=== PATIENT | female | born 1940 | race Caucasian/White ===

== ENCOUNTER 2019-04-26 13:03 | Outpatient (RCR) | payer MEDICARE, OTHER | END 2019-04-29 | disposition home or self-care (01) | PROVIDERS: ATTEND Internal Medicine | DX: R26.81 Unsteadiness on feet (principal); R32 Unspecified urinary incontinence ==

== ENCOUNTER 2019-05-15 09:58 | Outpatient (RCR) | payer MEDICARE, OTHER | END 2019-05-15 14:02 | disposition home or self-care (01) | PROVIDERS: ATTEND Internal Medicine | DX: R26.81 Unsteadiness on feet (principal); R32 Unspecified urinary incontinence; R29.6 Repeated falls; Z90.49 Acquired absence of other specified parts of digestive tract; Z96.653 Presence of artificial knee joint, bilateral; Z87.81 Personal history of (healed) traumatic fracture ==

== ENCOUNTER 2019-10-31 11:33 | Emergency (ER) | payer MEDICARE, OTHER ==
[~2019-10-31] VITALS: Ht 162 cm; Wt 66.7 kg
--- OUTSIDE RECORDS SUMMARY | 2019-10-31 11:41 | XMS REPORT ---
Author Author Florecita Zambrano Organization [facility] Address 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 Acti ve 6205363035284 Problem Benign neoplasm of skin of trunk, except scrotum 216.5 Active [id number] ALLERGIES No Information ENCOUNTERS Encounter Location Date Diagnosis [facility] [id number] [place] [address] [id number] Dec, [facility] [address] [place] [address] [id number] Jan, Actinic keratosis L57.0 [facility] [address] [facility] in [address] [id number] Dec, Seborrheic keratoses L82.1 ; 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 ; Encounter for screening for malignant neoplasm of skin Z12.83 ; Actinic keratosis L57.0 ; Benign neoplasm of skin of trunk, except scrotum D23.5 and Lentigo L81.4 [facility] [address] [place] [address] [id number] Feb, Benign neoplasm of skin of t runk, except scrotum D23.5 ; Actinic keratosis L57.0 ; Neoplasm of uncertain behavior of skin D48.5 ; Seborrheic keratoses L82.1 and Lentigo L81.4 [facility] [address] [place] [address] [id number] Feb, History of atypical nevus Z8 7.2 ; Encounter for screening for malignant neoplasm of skin Z12.83 ; Actinic keratosis L57.0 ; Seborrheic keratoses L82.1 ; Benign neoplasm of skin of trunk, except scrotum D23.5 and Lentigo L81.4 [facility] [address] [place] [address] [id number] Feb, Benign neoplasm of skin of t runk, except scrotum 216.5 ; Screening for malignant neoplasm of the skin V76.43 ; Actinic keratosis 702.0 ; Neoplasm of uncertain behavior of skin 238.2 ; Lentigo/Melasma 709.09 and Other seborrheic keratosis 702.19 [facility] [address] [place] [address] [id number] Jan, Viral warts, unspecified 078 .10 ; Other specified disorder of skin 709.8 and Inflamed seborrheic keratosis 702.11 IMMUNIZATIONS No Known Immunizations SOCIAL HISTORY Never Assessed REASON FOR VISIT spot on arm PLAN OF CARE Activity Details Follow Up as scheduled Reason: VITAL SIGNS MEDICATIONS Medication Instructions Dosage Frequency Start Date End Date Duration S tatus Zestril 10 MG Orally Once a day 1 tablet 24h Active Albuterol Sulfate (2.5 MG/3ML) 0.083% Inhalation Three times a day 3 m l 8h Active Crestor 5 MG Orally Once a day 1 tablet 24h Active Warfarin Sodium 3 MG 1 tablet Ac tive Trazodone HCl 50 MG Orally Once a day 1 tablet at bedtime 24h Active Cymbalta 30 MG Orally Twice a day 1 capsule 12h Active Myrbetriq 25 MG Orally Once a day 1 tablet 24h Active Nasonex 50 MCG/ACT Nasally Once a day 2 sprays in each nostril 24h Active Advair Diskus 250-50 MCG/DOSE Inhalation Twice a day 1 puff 12h Active Singulair 10 MG Orally Once a day 1 tablet in the evening 24h Active Fosamax 70 MG 1 tablet Active Nexium 40 MG Orally Once a day 1 capsule 24h Active Levothyroxine Sodium 75 MCG Orally Once a day 1 tablet 24h Active Klonopin 0.5 MG Orally Twice a day 1 tablet 12h Active Myrbetriq 25 MG Orally Once a day 1 tablet 24h Active RESULTS No Results PROCEDURES Procedure Date Ordered Result Body Site DESTROY BENIGN/PREMAL LESION January 26, 2018 INSTRUCTIONS MEDICATIONS ADMINISTERED No Known Medications MEDICAL (GENERAL) HISTORY Type Description Date Medical History Actinic keratosis Medical History History of atypical nevus
--- OUTSIDE RECORDS SUMMARY | 2019-10-31 11:41 | XMS REPORT ---
Author Florecita Tanner [facility] eClinicalWorks Address Unknown Phone Unavailable Care Team Providers Care Manual Equipment Mechanic Name Role Phone Diego Zambrano CP Unavailable Allergies, Adverse Reactions, Alerts Substance Reaction Event Type N.K.D.A. 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 Ac tive Assessment Encounter for screening for malignant neoplasm of skin Z12.83 Active Medications Medication Code System Code Instructions Start Date End Date Status Dosage Advair Diskus [facility] [address]-06 250-50 MCG/DOSE Inhalation Twice a d ay 1 puff Trazodone HCl [facility] [address]-82 50 MG Orally Once a day 1 tablet at bedtime Myrbetriq [facility] [address]-91 25 MG Orally Once a day 1 tablet Fosamax [facility] [address]-59 70 MG Orally 1 ta blet Zestril [facility] [address]-29 10 MG Orally Once a day 1 tablet Nasonex [facility] [address]-22 50 MCG/ACT Nasally Once a day 2 sprays in each nostril Nexium [facility] [address]-47 40 MG Orally Once a day 1 capsule Levothyroxine Sodium [facility] [address]-88 75 MCG Orally Once a day 1 tablet Warfarin Sodium [facility] [address]-85 3 MG Orally 1 tablet Crestor [facility] [address]-34 5 MG Orally Once a day 1 tablet Klonopin [facility] [address]-37 0.5 MG Orally Twice a day 1 tablet Myrbetriq [facility] [address]-19 25 MG Orally Once a day 1 tablet Albuterol Sulfate [facility] [address]-98 (2.5 MG/3ML) 0 .083% Inhalation Three times a day 3 ml Singulair [facility] [address]-63 10 MG Orally Once a day 1 tablet in the evening Cymbalta [facility] [address]-71 30 MG Orally Twice a day 1 capsule Procedures Procedure Coding System Code Date DESTROY LESIONS, 2-14, EACH CPT-4 78691 Feb 09, 2016 DESTROY BENIGN/PREMAL LESION CPT-4 20816 Feb 09, 2016 Office Visit, Est Pt., Level 4 CPT-4 44669 A 2015 Vital Signs Date/Time: Feb 09, 2016 Blood Pressure Diastolic 80 mm Hg Blood Pressure Systolic 146 mm Hg Cardiac Monitoring Heart Rate 67 /min BMI 29.23 Index Weight 165 lbs Height 63 in Results No Known Results Summary Purpose eClinicalWorks Submission
--- OUTSIDE RECORDS SUMMARY | 2019-10-31 11:41 | XMS REPORT ---
Author Author Florecita Zambrano Organization [facility] Address 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 Acti ve 0470487960841 Problem Benign neoplasm of skin of trunk, except scrotum 216.5 Active 707457206 ALLERGIES No Known Allergies ENCOUNTERS Encounter Location Date Diagnosis [facility] [address] in [address] [id number] Dec, [facility] [address] [facility] in [address] [id number] Dec, Seborrheic keratoses L82.1 ; 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 ; Encounter for screening for malignant neoplasm of skin Z12.83 ; Actinic keratosis L57.0 ; Benign neoplasm of skin of trunk, except scrotum D23.5 and Lentigo L81.4 [facility] [address] in [address] [id number] Feb, Benign neoplasm of skin of t runk, except scrotum D23.5 ; Actinic keratosis L57.0 ; Neoplasm of uncertain behavior of skin D48.5 ; Seborrheic keratoses L82.1 and Lentigo L81.4 [facility] [address] in [address] [id number] Feb, History of atypical nevus Z8 7.2 ; Encounter for screening for malignant neoplasm of skin Z12.83 ; Actinic keratosis L57.0 ; Seborrheic keratoses L82.1 ; Benign neoplasm of skin of trunk, except scrotum D23.5 and Lentigo L81.4 [facility] [address] [facility] in [address] [id number] Feb, Benign neoplasm of skin of t runk, except scrotum 216.5 ; Screening for malignant neoplasm of the skin V76.43 ; Actinic keratosis 702.0 ; Neoplasm of uncertain behavior of skin 238.2 ; Lentigo/Melasma 709.09 and Other seborrheic keratosis 702.19 [facility] [address] [facility] in [address] [id number] Jan, Viral warts, unspecified 078 .10 ; Other specified disorder of skin 709.8 and Inflamed seborrheic keratosis 702.11 IMMUNIZATIONS No Known Immunizations SOCIAL HISTORY Never Assessed REASON FOR VISIT ck spots PLAN OF CARE Activity Details Follow Up 1 Year Reason: VITAL SIGNS Heart Rate 73 /min 2017-12-12 Height 63 in 2017-12-12 Weight 165 lbs 2017-12-12 BMI 29.23 kg/m2 2017-12-12 Blood pressure systolic 112 mm Hg 2017-12-12 Blood pressure diastolic 70 mm Hg 2017-12-12 MEDICATIONS Medication Instructions Dosage Frequency Start Date End Date Duration S tatus Nexium 40 MG Orally Once a day 1 capsule 24h Active Nasonex 50 MCG/ACT Nasally Once a day 2 sprays in each nostril 24h Active Albuterol Sulfate (2.5 MG/3ML) 0.083% Inhalation Three times a day 3 m l 8h Active Advair Diskus 250-50 MCG/DOSE Inhalation Twice a day 1 puff 12h Active Cymbalta 30 MG Orally Twice a day 1 capsule 12h Active Fosamax 70 MG 1 tablet Active Warfarin Sodium 3 MG 1 tablet Ac tive Klonopin 0.5 MG Orally Twice a day 1 tablet 12h Active Singulair 10 MG Orally Once a day 1 tablet in the evening 24h Active Trazodone HCl 50 MG Orally Once a day 1 tablet at bedtime 24h Active Crestor 5 MG Orally Once a day 1 tablet 24h Active Levothyroxine Sodium 75 MCG Orally Once a day 1 tablet 24h Active Zestril 10 MG Orally Once a day 1 tablet 24h Active Myrbetriq 25 MG Orally Once a day 1 tablet 24h Active Myrbetriq 25 MG Orally Once a day 1 tablet 24h Active RESULTS No Results PROCEDURES Procedure Date Ordered Result Body Site DESTROY BENIGN/PREMAL LESION December 12, 2017 DESTROY LESIONS 2 - 14 EACH December 12, 2017 INSTRUCTIONS MEDICATIONS ADMINISTERED No Known Medications MEDICAL (GENERAL) HISTORY Type Description Date Medical History Actinic keratosis Medical History History of atypical nevus
--- OUTSIDE RECORDS SUMMARY | 2019-10-31 11:41 | XMS REPORT ---
Author Author Florecita Zambrano Organization [facility] Address 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 Unknown Non Drug Allergy Feb, Unknown SOCIAL HISTORY No smoking Hx information available PLAN OF CARE Activity Details Follow Up 1 Year Reason: VITAL SIGNS Heart Rate 73 /min 2017-02-10 Height 63 in 2017-02-10 Weight 165 lbs 2017-02-10 BMI 29.23 kg/m2 2017-02-10 Blood pressure systolic 112 mm Hg 2017-02-10 Blood pressure diastolic 70 mm Hg 2017-02-10 MEDICATIONS Medication Instructions Dosage Frequency Start Date End Date Duration S tatus Nasonex 50 MCG/ACT Nasally Once a day 2 sprays in each nostril 24h Active Fosamax 70 MG 1 tablet Active Albuterol Sulfate (2.5 MG/3ML) 0.083% Inhalation Three times a day 3 m l 8h Active Advair Diskus 250-50 MCG/DOSE Inhalation Twice a day 1 puff 12h Active Cymbalta 30 MG Orally Twice a day 1 capsule 12h Active Warfarin Sodium 3 MG 1 tablet Ac tive Crestor 5 MG Orally Once a day 1 tablet 24h Active Myrbetriq 25 MG Orally Once a day 1 tablet 24h Active Klonopin 0.5 MG Orally Twice a day 1 tablet 12h Active Trazodone HCl 50 MG Orally Once a day 1 tablet at bedtime 24h Active Zestril 10 MG Orally Once a day 1 tablet 24h Active Nexium 40 MG Orally Once a day 1 capsule 24h Active Singulair 10 MG Orally Once a day 1 tablet in the evening 24h Active Levothyroxine Sodium 75 MCG Orally Once a day 1 tablet 24h Active Myrbetriq 25 MG Orally Once a day 1 tablet 24h Active RESULTS Name Result Date Reference Range Surgical to [facility] Pathology 2017-02-10 Pathologist: See Report PROCEDURES Procedure Date Ordered Related Diagnosis Body Site BIOPSY OF SKIN LESION Feb 10, 2017 DESTROY BENIGN/PREMAL LESION Feb 10, 2017 Office Visit Est Pt Level 4 Feb 10, 2017 IMMUNIZATIONS No Known Immunizations
--- OUTSIDE RECORDS SUMMARY | 2019-10-31 11:41 | XMS REPORT | Continuity of Care Document ---
Author Organization Unknown Address Unknown Phone Unavailable Allergies There is no data. Medications There is no data. 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, BILAT 03/19/2019 DOROTEO SANTIZO MD Ot R26.8 1 UNSTEADINESS ON FEET 03/19/2019 DOROTEO SANTIZO MD, Ot R32 UNSPECIFIED URINARY INCONTINENCE 04/29/2019 DOROTEO SANTIZO MD Ot R26.8 1 UNSTEADINESS ON FEET 04/29/2019 DOROTEO SANTIZO MD Ot R32 UNSPECIFIED URINARY INCONTINENCE 04/30/2019 DOROTEO SANTIZO MD Ot R26.8 1 UNSTEADINESS ON FEET 04/30/2019 DOROTEO SANTIZO MD, Ot R32 UNSPECIFIED URINARY INCONTINENCE 05/15/2019 DOROTEO SANTIZO MD Ot R26.8 1 UNSTEADINESS ON FEET 05/15/2019 DROOTEO SANTIZO MD Ot R29.6 REPEATED FALLS 05/15/2019 DOROTEO SANTIZO MD, Ot R32 UNSPECIFIED URINARY INCONTINENCE 05/15/2019 DOROTEO SANTIZO MD Ot Z87.8 1 PERSONAL HISTORY OF (HEALED) TRAUMATIC F 05/15/2019 DOROTEO SANTIZO MD Ot Z90.4 9 ACQUIRED ABSENCE OF OTHER SPECIFIED PART 05/15/2019 DOROTEO SANTIZO MD Ot Z96.6 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 Results There is no data. Encounters ACCT No. Visit Date/Time Discharge Status Pt. Type Provider Facility Loc./Unit Complaint [id number] 05/15/2019 09:58:00 14:02:00 DIS Outpatient DOROTEO SANTIZO MD Via [facility] GAIT TRAINING; URINARY INCONTINENCE [id number] 04/26/2019 13:03:00 00:01:00 DIS Outpatient DOROTEO SANTIZO MD [facility] GAIT TRAINING; URINARY INCONTINENCE
[2019-10-31] MEDS ORDERED: LEVO50TA6 (11:55)
[2019-10-31] MEDS ORDERED: CYCL1DRO (11:55)
[2019-10-31] MEDS ORDERED: MIRA25TA (11:55)
[2019-10-31] MEDS ORDERED: MONT10TA26 (11:55)
[2019-10-31] MEDS ORDERED: ALEN70TA5 (11:55)
[2019-10-31] MEDS ORDERED: FLUT1DIS26 (11:55)
[2019-10-31] MEDS ORDERED: LISI-556 (11:55)
[2019-10-31] MEDS ORDERED: RIVA10TA (11:55)
[2019-10-31] MEDS ORDERED: CLON0.5T4 (11:55)
[2019-10-31] MEDS ORDERED: PANT40TA3 (11:55)
[2019-10-31] MEDS ORDERED: RT-ALBUINH (11:55)
[2019-10-31] MEDS ORDERED: TRAV5DRO (11:55)
[2019-10-31] MEDS ORDERED: ROSU5TAB13 (11:55)
[2019-10-31] MEDS ORDERED: DULO60CA59 (11:55)
[2019-10-31] MEDS ORDERED: FLUT16SP22 (11:55)
--- NOTE | 2019-10-31 12:21 | ED General ---
General Chief Complaint: Trauma-Non Activation Stated Complaint: FALL;NOSE PAIN Nursing Triage Note: PT PRESENTS TO ED WITH COMPLAINTS OF NASAL/ FOREHEAD, AND MOUTH PAIN AFTER TRIPPING IN HER GARAGE AND FALLING FACE FORWARD. PT DENIES LOC OR LOOSE/BROKEN TEETH. Nursing Sepsis Screen: No Definite Risk History of Present Illness Date Seen by Provider: Oct 31, 2019 Time Seen by Provider: 12:00 Initial Comments 79 year old female presents for fall in her garage from uneven concrete. Her daughter was present at the time she fell. She denies loss of consciousness, neck/back pain, nausea, vision changes or vomiting since the fall, or any other injuries related to the fall. She is on Xarelto. Her glasses broke when she fell. Her last tetanus vaccine was proximally 5 years ago. Fire and EMS came to her house, she opted to come via private car. Location Injury Occurred: HOME RESIDENCE Timing/Duration: 1/2 Hour Associated Systoms: Denies Symptoms Allergies and Home Medications Allergies Coded Allergies: No Known Drug Allergies (Unverified , 10/31/19) Patient Home Medication List Home Medication List Reviewed: Yes Review of Systems Review of Systems Constitutional: no symptoms reported, see HPI EENTM: see HPI, other (abrasion to left temporal region and base of nose, trace bleeding and ecchymosis. ) Respiratory: no symptoms reported, see HPI Cardiovascular: no symptoms reported, see HPI Gastrointestinal: no symptoms reported, see HPI Musculoskeletal: no symptoms reported, see HPI; No back pain, No joint pain, No neck pain All Other Systems Reviewed Negative Unless Noted: Yes Past Aoqnqfz-Vxsjhn-Rjruah Hx Past Med/Social Hx: Reviewed Nursing Past Med/Soc Hx Patient Social History Alcohol Use: Denies Use Recreational Drug Use: No Smoking Status: Never a Smoker Recent Foreign Travel: No Contact w/Someone Who Travel: No Recent Infectious Disease Expo: No Recent Hopitalizations: No Physical Abuse: No Sexual Abuse: No Mistreated: No Fear: No Seasonal Allergies Seasonal Allergies: No Past Medical History Surgeries: Yes Appendectomy, Hysterectomy, Orthopedic Respiratory: Yes COPD Cardiac: Yes High Cholesterol, Hypertension Neurological: No Genitourinary: No Gastrointestinal: Yes Gastroesophageal Reflux Musculoskeletal: No Endocrine: Yes Hypothyroidsim HEENT: Yes (dry eye) Psychosocial: Yes Depression Blood Disorders: Yes (FACTOR 9 ) Adverse Reaction/Blood Tranf: No Physical Exam Vital Signs Vital Signs - First Documented 10/31/19 10/31/19 11:50 13:58 Temp 36.3 Pulse 95 Resp 18 B/P (MAP) 137/69 (91) Pulse Ox 98 O2 Delivery Room Air Capillary Refill : Less Than 3 Seconds Height, Weight, BMI Height: '" Weight: lbs. oz. kg; 25.00 BMI Method: General Appearance: No Apparent Distress, WD/WN Eyes: Bilateral Eye Normal Inspection, Bilateral Eye PERRL, Bilateral Eye EOMI HEENT: PERRL/EOMI, TMs Normal, Normal ENT Inspection, Pharynx Normal, Other (Superficial abrasion, swelling to left temporal region and base of nose. Early ecchymosis noted. ) Neck: Full Range of Motion, Normal Inspection, Non Tender, Supple; No Tender Lateral, No Tender Midline Respiratory: Chest Non Tender, Lungs Clear, Normal Breath Sounds Cardiovascular: Regular Rate, Rhythm, No Edema, No Murmur, Normal Peripheral Pulses Gastrointestinal: Normal Bowel Sounds, Non Tender, Soft Back: Normal Inspection, No CVA Tenderness Extremity: Normal Capillary Refill, Normal Inspection, Normal Range of Motion Neurologic/Psychiatric: Alert, Oriented x3, No Motor/Sensory Deficits, Normal Mood/Affect, infection control preventionist II-XII Norm as Tested (grossly intact) Skin: Normal Color, Warm/Dry Progress/Results/Core Measures Suspected Sepsis Recent Fever Within 48 Hours: No Infection Criteria Present: None New/Unexplained Altered Menta: No Sepsis Screen: No Definite Risk SIRS Temperature: Pulse: 95 Respiratory Rate: 18 Blood Pressure 137 /69 Mean: 91 Results/Orders My Orders Orders - SADIE ZAMBRANO Ct Head/Maxillofacial Wo (10/31/19 12:24) Acetaminophen Tablet/Caplet (Tylenol T (10/31/19 13:50) Vital Signs/I&O 10/31/19 10/31/19 10/31/19 11:50 13:57 13:58 Temp 36.3 36.3 36.3 Pulse 95 74 Resp 18 18 B/P (MAP) 137/69 (91) 125/77 (91) Pulse Ox 98 98 O2 Delivery Room Air Capillary Refill : Less Than 3 Seconds Blood Pressure Mean: 91 Progress Note : Time: 12:00 Progress Note Patient seen and evaluated, will obtain CT of the head and maxillofacial. Wounds cleaned with saline and Band-Aids applied. Ice to abrasions. 1250 patient complaining of headache, will give Tylenol [address] results discussed with the patient. Dressings changed to wounds, no active bleeding. Triple antibiotic and a Band-Aid applied. Discharge instructions and return precautions reviewed with the patient. All questions answered Diagnostic Imaging Diagonstic Imaging: CT Plain Films/CT/US/NM/MRI: head, other (maxillofacial) Comments NAME: JOE ALANIS [facility] REC#: [id number] PT STATUS: REG ER : 1940 PHYSICIAN: SADIE ZAMBRANO ADMIT DATE: 10/31/19/ER Signed Date of Exam:10/31/19 CT HEAD/MAXILLOFACIAL WO PROCEDURE: CT head and maxillofacial without contrast. TECHNIQUE: Multiple contiguous axial images were obtained through the head and facial bones without the use of intravenous contrast. Auto Exposure Controls were utilized during the CT exam to meet ALARA standards for radiation dose reduction. INDICATION: Fall. Hit left side of the face. Scalp contusion. COMPARISON: None. FINDINGS: CT HEAD: The ventricles and cortical sulci are age-appropriate. There is no midline shift or mass effect. No acute intracranial hemorrhage is seen. There is no CT evidence of acute territorial ischemia. Scattered chronic microvascular disease is seen in the periventricular and subcortical white matter. Senescent mineralization is seen in the bilateral basal ganglia. No focal masses or collections are present. The calvarium is intact. CT face: No acute facial fractures are visualized. The mandible, zygomatic arches, and pterygoid plates are intact. The bilateral TMJ demonstrate normal articulation. No nasal bone fractures. The bony nasal septum is slightly deviated to the left without fracture. The paranasal sinuses and mastoid air cells are well pneumatized. The globes and orbits are symmetric and unremarkable. No evidence of orbital rim fracture. A small scalp contusion is seen overlying the left forehead. The included views of the upper cervical spine demonstrate no acute fracture or dislocation. IMPRESSION: 1. No hemorrhage or focal intra-axial mass. No CT evidence of large acute territorial ischemia. 2. No acute facial fractures. 3. Chronic microvascular disease. 4. Small scalp contusion overlying the left forehead. Dictated by: Dictated on workstation # [id number] Dict: 10/31/19 1314 Trans: 10/31/19 1352 [id number] Interpreted by: TIM ZUNIGA DO Electronically signed by: TIM ZUNIGA DO 10/31/19 1352 Departure Impression Primary Impression: Fall Qualified Codes: W19.XXXA - Unspecified fall, initial encounter Additional Impression: Contusion of face Qualified Codes: S00.83XA - Contusion of other part of head, initial encounter Disposition: 01 HOME, SELF-CARE Condition: Improved Departure-Patient Inst. Decision time for Depature: 13:30 Referrals: DOROTEO SANTIZO MD (PCP) Primary Care Physician Patient Instructions: Minor Head Injury (DC), Contusion (DC) Add. Discharge Instructions: Ice to nose and forehead 20 min every 2 hours, for swelling or pain. Alternate Tylenol 650 mg and ibuprofen 600 mg every 4 hours for pain. Follow-up with your primary care provider if symptoms are not improving or worsen. Limit use of technology for a minor head injury. Avoid falls. Clean wounds with peroxide, apply triple antibiotic ointment and bandaid. Return to the Emergency Dept for new/urgent health care needs. All discharge instructions reviewed with patient and/or family. Voiced understanding. Copy Copies To 1: DOROTEO SANTIZO MD, AMY ARNP Oct 31, 2019 12:21
--- NOTE | 2019-10-31 13:20 | Diagnostic Imaging Report ---
PROCEDURE: CT head and maxillofacial without contrast. TECHNIQUE: Multiple contiguous axial images were obtained through the head and facial bones without the use of intravenous contrast. Auto Exposure Controls were utilized during the CT exam to meet ALARA standards for radiation dose reduction. INDICATION: Fall. Hit left side of the face. Scalp contusion. COMPARISON: None. FINDINGS: CT HEAD: The ventricles and cortical sulci are age-appropriate. There is no midline shift or mass effect. No acute intracranial hemorrhage is seen. There is no CT evidence of acute territorial ischemia. Scattered chronic microvascular disease is seen in the periventricular and subcortical white matter. Senescent mineralization is seen in the bilateral basal ganglia. No focal masses or collections are present. The calvarium is intact. CT face: No acute facial fractures are visualized. The mandible, zygomatic arches, and pterygoid plates are intact. The bilateral TMJ demonstrate normal articulation. No nasal bone fractures. The bony nasal septum is slightly deviated to the left without fracture. The paranasal sinuses and mastoid air cells are well pneumatized. The globes and orbits are symmetric and unremarkable. No evidence of orbital rim fracture. A small scalp contusion is seen overlying the left forehead. The included views of the upper cervical spine demonstrate no acute fracture or dislocation. IMPRESSION: 1. No hemorrhage or focal intra-axial mass. No CT evidence of large acute territorial ischemia. 2. No acute facial fractures. 3. Chronic microvascular disease. 4. Small scalp contusion overlying the left forehead. Dictated by: Dictated on workstation # [id number]
[2019-10-31] MEDS ORDERED: ACETAMINOPHEN 325 MG TABLET PO STA (13:50)
[2019-10-31 13:58] VITALS: BP 125/77
== END 2019-10-31 13:57 | disposition home or self-care (01) ==
LOC: EDUNIT# 11:33 → ER 11:36
DX: S00.83XA Contusion of other part of head, initial encounter (principal); Z79.01 Long term (current) use of anticoagulants; W01.0XXA Fall on same level from slipping, tripping and stumbling without subsequent striking against object, initial encounter; Y92.008 Other place in unspecified non-institutional (private) residence as the place of occurrence of the external cause
CPT/HCPCS: 70450; 70486

== ENCOUNTER → 2020-07-09 | Outpatient (CLI) | payer MEDICARE, OTHER ==
[~2020-07-09] MED LIST: ALEN70TA69; CLON0.5T4; CYCL1DRO; DULO60CA59; FLUT16SP22; FLUT1DIS26; LEVO50TA6; LISI-556; MIRA25TA; MONT10TA97; PANT40TA52; RIVA10TA; ROSU5TAB13; RT-ALBUINH; TRAV5DRO
== END ==
LOC: LABNPT 05:23
PROVIDERS: ATTEND Internal Medicine
DX: R68.83 Chills (without fever) (principal); R53.83 Other fatigue; R53.1 Weakness; Z20.822 Contact with and (suspected) exposure to COVID-19
CPT/HCPCS: 87635

== ENCOUNTER → 2020-10-29 | Outpatient (CLI) | payer MEDICARE, OTHER ==
[~2020-10-29] MED LIST changes: -ALEN70TA69; +ALEN70TA80; -LISI-556; +LISI-729; +MONT10TA32; -MONT10TA97
--- NOTE | 2020-10-29 12:22 | Diagnostic Imaging Report ---
INDICATION: Shortness of breath. TECHNIQUE: PA and lateral views of the chest were obtained at 11:38 AM. FINDINGS: The heart and mediastinal silhouette are normal in appearance. The lungs appear clear. There is no pneumothorax or pleural fluid. IMPRESSION: Negative chest. Dictated by: Dictated on workstation # [id number]
== END ==
LOC: RAD 11:16
PROVIDERS: ATTEND Internal Medicine
DX: R06.02 Shortness of breath (principal)
CPT/HCPCS: 71046

== ENCOUNTER → 2020-11-07 | Outpatient (CLI) | payer MEDICARE, OTHER ==
[~2020-11-07] MED LIST changes: +CATHETER FLUSH 10 ML SYR IV PRN; +HOLD METFORMIN - RECEIVED CONTRAST 20 ML VIAL IV SCH; +IOHEXOL 350 MG/ML 100 ML (OMNIPAQUE 350) VIAL IV ONE; +NS 100 ML (IVPB) BAG IV ONE
[2020-11-07 12:50] LABS: BASOPHILS % (AUTO) 0 % (0-10); EOSINOPHILS # (AUTO) 0.2 10^3/uL (0.0-0.3); EOSINOPHILS % (AUTO) 2 % (0-10); HEMATOCRIT 36 % (35-52); HEMOGLOBIN 11.1 g/dL (11.5-16.0); LYMPHOCYTES # (AUTO) 1.5 10^3/uL (1.0-4.0); LYMPHOCYTES % (AUTO) 23 % (12-44); MEAN CORPUSCULAR HEMOGLOBIN 24 pg (25-34); MEAN CORPUSCULAR HGB CONC 31 g/dL (32-36); MEAN CORPUSCULAR VOLUME 78 fL (80-99); MEAN PLATELET VOLUME 9.3 fL (9.0-12.2); MONOCYTES # (AUTO) 0.6 10^3/uL (0.0-1.0); MONOCYTES % (AUTO) 8 % (0-12); NEUTROPHILS # (AUTO) 4.6 10^3/uL (1.8-7.8); NEUTROPHILS % (AUTO) 67 % (42-75); PLATELET COUNT 397 10^3/uL (130-400); WHITE BLOOD COUNT 6.9 10^3/uL (4.3-11.0)
[2020-11-07 13:11] LABS: CREATININE SERUM 0.74 MG/DL (0.60-1.30); GFR ESTIMATED > 60
[2020-11-07 13:12] LABS: BUN/CREATININE RATIO 26
--- NOTE | 2020-11-07 16:04 | Diagnostic Imaging Report ---
PROCEDURE: CT angiography of the chest with contrast. TECHNIQUE: Multiple contiguous axial images were obtained through the chest after uneventful bolus administration of intravenous contrast. 3D reconstructed CTA MIP acquisitions were also performed. Auto Exposure Controls were utilized during the CT exam to meet ALARA standards for radiation dose reduction. INDICATION: Shortness of air and weakness in the legs. COMPARISON: No prior studies are available for comparison. FINDINGS: Evaluation of the pulmonary arterial system is without evidence of thromboembolism. No filling defects are seen within central, lobar or segmental branches. The thoracic aorta is normal caliber. No dissection is seen. There is no pericardial or pleural fluid. There is a large hiatal hernia. Lungs appear to be clear. No infiltrate, nodule or mass is detected. Upper abdomen is unremarkable. IMPRESSION: 1. No evidence of pulmonary embolism or thoracic aortic dissection. No acute feature is seen. 2. Large hiatal hernia. Dictated by: Dictated on workstation # [id number]
== END ==
LOC: CARD 13:30
PROVIDERS: ATTEND Internal Medicine Cardiovascular Disease
DX: K44.9 Diaphragmatic hernia without obstruction or gangrene (principal)
CPT/HCPCS: 36415; 71275; 82565; 83880; 84520; 85025; 93306

== ENCOUNTER → 2020-11-11 | Outpatient (CLI) | payer MEDICARE, OTHER ==
[~2020-11-11] VITALS: Ht 162 cm; Wt 68.0 kg
[~2020-11-11] MED LIST changes: -HOLD METFORMIN - RECEIVED CONTRAST 20 ML VIAL IV SCH; -IOHEXOL 350 MG/ML 100 ML (OMNIPAQUE 350) VIAL IV ONE; -NS 100 ML (IVPB) BAG IV ONE; +REGADENOSON 0.4 MG/5 ML SYR (LEXISCAN) IV ONE
[2020-11-11 09:09] VITALS: BP 155/80
--- NOTE | 2020-11-11 17:35 | STRESS TEST ---
DATE OF SERVICE: 11/11/2020 RESTING AND POST REGADENOSON TECHNETIUM-99M TETROFOSMIN SPECT CT IMAGING ORDERING PHYSICIAN: Dr. Trujillo. PRIMARY PHYSICIAN: Dr. Rodriguez. CLINICAL DIAGNOSIS: Shortness of breath. Baseline images were carried out after injection of 10.8 mCi of technetium-99m Tetrofosmin. This was followed by 0.4 mg of Regadenoson and 32.8 mCi of technetium-99m Tetrofosmin for stress imaging. The electrocardiogram showed sinus rhythm at baseline. There was incomplete right bundle branch block. The electrocardiogram did not change significantly with the Regadenoson infusion. The patient noted some shortness of breath and lightheadedness after Regadenoson infusion and it resolved in a few minutes. Review of images at rest and following stress does not indicate any significant perfusion defects consistent with significant myocardial ischemia or infarction. Gated images show normal global left ventricular systolic function with normal regional wall motion. Left ventricular ejection fraction is calculated to be 70% to 72%. Left ventricular end diastolic volume is 40 mL. TID is absent (1.12). CONCLUSIONS: 1. No evidence of any significant myocardial ischemia or infarction study. 2. Normal regional wall motion. 3. Normal global left ventricular systolic function with a calculated ejection fraction of 72%. Job ID: [id number] DocumentID: [id number] Dictated Date: 11/11/2020 14:56:27 Electroless Plater Date: 11/11/2020 17:34:27 Dictated By: LORI TRUJILLO MD, MA, FACP, FACC,
== END ==
LOC: CARD 08:30
PROVIDERS: ATTEND Internal Medicine Cardiovascular Disease
DX: R06.02 Shortness of breath (principal)
CPT/HCPCS: 78452; 93017; A9502

== ENCOUNTER → 2020-11-25 | Outpatient (CLI) | payer MEDICARE, OTHER ==
[~2020-11-25] MED LIST changes: -CATHETER FLUSH 10 ML SYR IV PRN; -REGADENOSON 0.4 MG/5 ML SYR (LEXISCAN) IV ONE; +RT-ALBUTEROL SULF 2.5 MG/3 ML PRE-MIX VIAL INH ONE
== END ==
LOC: RT 12:24
PROVIDERS: ATTEND Internal Medicine
DX: R06.00 Dyspnea, unspecified (principal); R05 Cough
CPT/HCPCS: 94060; 94726; 94729

== ENCOUNTER 2021-03-10 05:30 | Outpatient (RCR) | payer MEDICARE, OTHER ==
[~2021-03-10] VITALS: Ht 162.6 cm; Wt 68.0 kg
[~2021-03-10 05:30] MED LIST changes: +AMLO2.5T2 PO; +ESTR0.62 PO; +FLUT1BLS3 IH; +FURO40TA4 PO; +METO-352 PO; +PRAM0.128 PO; -RT-ALBUTEROL SULF 2.5 MG/3 ML PRE-MIX VIAL INH ONE; +TRZ50T PO
[2021-03-11] MEDS ORDERED: OMEP40CA6 PO (11:18)
== END 2021-03-10 08:42 | disposition home or self-care (01) ==
LOC: PREOP 05:30
PROVIDERS: ATTEND Surgery
DX: Z01.818 Encounter for other preprocedural examination (principal); K21.9 Gastro-esophageal reflux disease without esophagitis; K44.9 Diaphragmatic hernia without obstruction or gangrene; Z20.822 Contact with and (suspected) exposure to COVID-19
CPT/HCPCS: 87635

== ENCOUNTER 2021-03-11 10:31 | Day surgery (SDC) | payer MEDICARE, OTHER ==
[2021-03-11] VITALS (14 sets, daily range): BP systolic 121–170; BP diastolic 58–83
[~2021-03-11] VITALS: Ht 162 cm; Wt 68.0 kg
[2021-03-11] MEDS ORDERED: NS IV 500 ML 500 ML ONE (10:37)
[2021-03-11] MEDS ORDERED: MIDAZOLAM 5 MG/5 ML (VERSED) VIAL IV ONE (10:45)
[2021-03-11] MEDS ORDERED: fentaNYL INJ 100 MCG/2 ML AMP IVP ONE (10:45)
[2021-03-11] MEDS ORDERED: HURRICAINE EXT TUBE (BENZOCAINE) XX PRN (10:45)
[2021-03-11] MEDS ORDERED: NS IV 500 ML 500 ML IV PRN (10:45)
[2021-03-11] MEDS ORDERED: LIDOCAINE JELLY 2% 6 ML SYRINGE MM PRN (10:45)
[2021-03-11] MEDS ORDERED: LIDOCAINE JELLY 2% 6 ML SYRINGE ONE (10:49)
[2021-03-11] MEDS ORDERED: MIDAZOLAM 5 MG/5 ML (VERSED) VIAL ONE (10:49)
[2021-03-11] MEDS ORDERED: HURRICAINE EXT TUBE (BENZOCAINE) ONE (10:49)
[2021-03-11] MEDS ORDERED: fentaNYL INJ 100 MCG/2 ML AMP ONE (10:49)
--- OUTSIDE RECORDS SUMMARY | 2021-03-11 10:51 | XMS REPORT | Clinical Summary ---
Author Author [facility] Organization [facility] Address Unknown Phone Unavailable Care Team Providers Care Banana Carrier Name Role Phone Luigi Rodriguez MD PCP Allergies No Known Active Allergies Medications End Date Status Medication Sig Dispensed Refills Start Date Active CHOLECALCIFEROL, VITAMIN Take 5000 IU 0 D3, (VITAMIN D3 ORAL) in the winter, and 2000IU in the summer. Active TRAVATAN Z 0.004 % 0 ophthalmic solution 7 Active cycloSPORINE (RESTASIS) 1 drop 2 0 0.05 % ophthalmic (two) times a emulsion day. Active KETOTIFEN FUMARATE Apply to eye. 0 (ZADITOR OPHT) Active clonazePAM (KLONOPIN) 0.5 Take 1-2 180 tablet 1 MG tabletIndications: tablets at 8 Anxiety state bedtime Active alendronate (FOSAMAX) 70 Take 1 tablet 12 tablet 3 MG tabletIndications: (70 mg total) 8 Disorder of bone and by mouth cartilage every 7 (seven) days. Active DULoxetine (CYMBALTA) 60 Take 2 180 capsule 3 1 mg capsuleIndications: capsules (120 8 Anxiety state mg total) by mouth daily. Active fluticasone (FLONASE) 50 USE 2 SPRAYS 48 g 3 mcg/actuation nasal spray IN EACH 8 NOSTRIL ONCE DAILY Active levothyroxine (SYNTHROID, Take 1 tablet 90 tablet 3 LEVOTHROID) 50 MCG (50 mcg 8 tabletIndications: total) by Hypothyroidism, mouth daily. unspecified type Active lisinopril Take 1 tablet 180 tablet 3 10/29/201 (PRINIVIL,ZESTRIL) 5 MG (5 mg total) 8 tabletIndications: by mouth 2 Essential hypertension (two) times a day. Active montelukast (SINGULAIR) Take 1 tablet 90 tablet 3 10 mg tabletIndications: (10 mg total) 8 Mild intermittent asthma by mouth without complication daily. Active MYRBETRIQ 25 mg Tb24 Take 2 180 tablet 3 05/01 tabletIndications: Other tablets (50 8 urinary incontinence mg total) by mouth daily. Active pantoprazole (PROTONIX) TAKE 1 TABLET 90 tablet 3 40 MG tabletIndications: EVERY MORNING 8 Gastroesophageal reflux disease without esophagitis Active rosuvastatin (CRESTOR) 5 Take one 40 tablet 3 1 MG tabletIndications: tablet 8 Hyperlipidemia, Tuesday/ unspecified day/Tuesday hyperlipidemia type Active traZODone (DESYREL) 50 MG TAKE 1 TABLET 90 tablet 3 tablet AT BEDTIME 8 Active warfarin (COUMADIN) 1 MG TAKE 3.5 360 tablet 3 1 tabletIndications: TABLETS DAILY 8 History of DVT (deep vein thrombosis) Active ERGOCALCIFEROL, VITAMIN TAKE 1 12 capsule 0 D2, 50,000 unit CAPSULE 9 capsuleIndications: WEEKLY FOR 12 Vitamin D deficiency WEEKS, THEN RETEST VITAMIN D LEVEL Active Problems Problem Noted Date Hyperparathyroidism 08/22/2018 Depression, major, recurrent, moderate 10/10/2017 Asymmetrical left sensorineural hearing loss 017 Left hip pain 05/05/2017 Degenerative cervical disc 12/25/2015 History of DVT (deep vein thrombosis) 02/26/2015 Hx of pulmonary embolus 02/26/2015 Anxiety state 01/14/2015 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 ICD-10 conversion Degenerative lumbar disc 06/20/2013 Spinal stenosis of lumbar region 06/20/2013 Urinary incontinence 02/21/2013 Vitamin D deficiency 07/06/2012 Insomnia 11/11/2011 Actinic keratosis 11/18/2010 Vitamin B 12 deficiency 01/14/2010 Mild intermittent asthma without complication 2009 Restless legs syndrome 01/06/2010 Age-related osteoporosis without current pathological fracture 01/06/2010 Acquired hypothyroidism 04/08/2009 Allergic rhinitis 04/08/2009 Overview: Formatting of this note might be differ ent from the original. ICD-10 conversion Gastroesophageal reflux disease without esophagitis 04/08/2009 Fibromyalgia 04/08/2009 Arthropathy 04/08/2009 Overview: Formatting of this note might be differ ent from the original. ICD-10 conversion Prediabetes 03/13/2009 Mixed hyperlipidemia 03/13/2009 Essential hypertension 03/13/2009 Resolved Problems Problem Noted Date Resolved Date Disequilibrium 06/01/2017 10/31/2017 Falls 05/05/2017 10/31/2017 Grief reaction 05/02/2017 02/20/2018 Neck pain on left side 11/12/2015 05/02/2017 Last Assessment & Plan: Formatting of this note might be differ ent from the original. Pt. Was given Voltaren gel, as she is n ot a good candidate for oral NSAID. In addition, she was given a muscle rel axer. I referred patient for PT. If symptoms do not improve in 4-6 weeks , recommend x-ray. DVT (deep venous thrombosis) 11/12/2015 7 Fatigue 08/04/2015 05/02/2017 Abnormal CBC 08/04/2015 05/02/2017 Otitis media 01/14/2015 06/16/2015 Overview: Formatting of this note might be differ ent from the original. ICD-10 conversion Rib injury 09/30/2014 06/16/2015 Facial injury 09/30/2014 06/16/2015 Vaginitis and vulvovaginitis 08/19/2014 5 Overview: Formatting of this note might be differ ent from the original. ICD-10 conversion Acute bronchitis 08/27/2013 06/19/2015 Lower back pain 06/20/2013 05/02/2017 Increased urinary frequency 02/21/2013 08/04/2017 Leukocytopenia 01/14/2010 05/02/2017 Overview: Formatting of this note might be differ ent from the original. ICD-10 conversion Immunizations Name Administration Dates Next Due Hepatitis A (peds) Influenza QIV (IM) 03/17/2015 Influenza Virus Vaccine, 03/15/2009 Split Virus (Incl. Purified Surface Antigen)-retired Code Influenza, High Dose 04/15/2014 Seasonal, Preservative-free Influenza, Seasonal, 03/15/2011 Injectable Influenza, seasonal, 04/19/2018, 04/04/2017, , 04/15/2014, injectable, preservatie 04/03/2013, 03/30/2012, free (IIV3). 15 = Influenza TIV Novel [id number], 06/26/2009 Injectable Pneumococcal Conjugate 08/19/2014 13-Valent Pneumococcal 02/21/2013, 07/04/2006 Polysaccharide 23-Valent Td 02/01/2005, Tdap 03/19/2015 Zoster,live 04/01/2011, 07/04/2010 Family History Medical History Relation Name Comments Cancer Father Cancer; Diabetes Maternal Aunt Diabetes Mellitus; Diabetes Mother Diabetes Mellitus; Relation Name Status Comments Father Cause of was colon cancer at age 80. (Age 80) Maternal Aunt Mother Cause of was CHF at age 85. (Age 85) Social History Date Tobacco Use Types Packs/Day Years Used Never Smoker Smokeless Tobacco: Never Used Tobacco Cessation: Counseling Given: No Comments Alcohol Use Standard Drinks/Week No 0 (1 standard drink = 0.6 o z pure alcohol) Sex Assigned at Date Recorded Not on file Last Filed Vital Signs Reading Time Taken Comments Vital Sign 122/75 09/11/2018 10:24 AM CDT Blood Pressure 94 09/11/2018 10:24 AM CDT Pulse 36.6 C (97.9 F) 09/11/2018 10:24 AM CDT Temperature 16 09/11/2018 10:24 AM CDT Respiratory Rate 99% 09/11/2018 10:24 AM CDT Oxygen Saturation - - Inhaled Oxygen Concentration 64.2 kg (141 lb 9.6 oz) 09/11/2018 10:24 AM CDT Weight 162.6 cm (5' 4") 09/11/2018 10:24 AM CDT Height 24.31 09/11/2018 10:24 AM CDT Body Mass Index Plan of Treatment Health Maintenance Due Date Last Done Comments Advance Directive has 1940 been filed COVID-19 Vaccine (1) 1953 Advance Directive 2006 Conversation Patient Needs Advance 2006 Directive Zoster Vaccine# (2 of 3) 05/27/2011 04/01/2011, 07/04/2010 Cardioscan 07/26/2017 07/26/2012 Depression Monitoring 10/31/2018 10/31/2017 PHQ-9 # Fall Risk Assessment # 05/01/2019 05/01/2018, 05/01/2018, 05/06/2017 Medicare Annual Wellness 05/01/2019 05/01/2018, 05/01/2018, 05/02/2017, Additional history exists Colorectal Screening via 08/18/2019 08/18/2016 FIT DNA Test (Cologuard) Every 3 Years Osteoporosis Screening 05/01/2020 05/01/2018, 03/30/2016, 01/17/2014 Mammogram Screening 03/24/2021 03/24/2020, 09/18/2018, 09/22/2017, Additional history exists Influenza Vaccine (#1) 2021 04/19/2018, 04/04/2017, 03/30/2016, Additional history exists Td/Tdap# 03/19/2025 03/19/2015, 02/01/2005, Colorectal Screening via Discontinued 02/10/2011, Colonoscopy 01/06/2006 Pneumococcal Vaccine: 65+ Completed 08/19/2014, Years 02/21/2013, 07/04/2006 Results Not on filefrom Last 3 Months Insurance Type Payer Benefit Subscriber ID Effective Phone Address Plan / Dates Group Medicare MEDICARE MEDICARE [id number] 2006- [place] PART A B Present [facility] [id number] 2013- FOR LIFE Present Advance Directives For more information, please contact: [phone] Patient Asset Protection Detective Explanation Type Date Recorded Advance Directives and Living Will Power of [employer]k Screen [employer] Health Care Directive Date Inactivated Comments Code Status Date Activated 05/06/2017 6:58 PM Full Code 05/05/2017 12:40 AM
--- OUTSIDE RECORDS SUMMARY | 2021-03-11 10:51 | XMS REPORT | Clinical Summary ---
Author Author [facility] Organization [facility] Address Unknown Phone Unavailable Care Team Providers Care Call Box Wirer Name Role Phone Romelia Goins MD PCP Source Comments Some departments are not documenting in the electronic medical record. If you d o not see the information that you expected, contact Release of Information in [facility] Information Management department at [phone] for further assistan ce in locating additional records.[facility] Allergies No Known Active Allergies Medications End Date Status Medication Sig Dispensed Refills Start Date Active alendronate (FOSAMAX) 70 Take 70 mg by 0 02/11 mg tablet mouth every 7 7 days. Active clonazePAM (KLONOPIN) 0.5 0 mg tablet 7 Active Coenzyme Q10 200 mg cap Take 200 mg 0 by mouth. Active duloxetine DR (CYMBALTA) 0 30 mg capsule [address] (CYMBALTA) 0 60 mg capsule 7 Active fluticasone (FLONASE) 50 USE 2 SPRAYS 0 02/11 mcg/actuation nasal spray IN EACH 7 NOSTRIL ONCE DAILY Active levothyroxine (SYNTHROID) 0 75 mcg tablet 7 Active lisinopril (PRINIVIL; 0 ZESTRIL) 5 mg tablet 7 Active montelukast (SINGULAIR) Take 10 mg by 0 10 mg tablet mouth. 7 Active mirabegron(+) ER Take 50 mg by 0 (MYRBETRIQ) 25 mg tablet mouth. [address] TAKE 1 TABLET 0 (PROTONIX) 40 mg tablet EVERY MORNING 7 Active rosuvastatin (CRESTOR) 5 Take one 0 02/11 mg tablet tablet 7 Tuesday/ day/Tuesday Active traMADol (ULTRAM) 50 mg Take 1-2 tabs 0 tablet up to 4 times 7 daily Active traZODone (DESYREL) 50 mg 0 tablet 7 Active warfarin (COUMADIN) 1 mg 0 tablet 7 Active CALCIUM CARBONATE/VITAMIN Take by 0 D3 (VITAMIN D-3 PO) mouth. 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 Medical History Medical History Date Comments Arthritis High cholesterol Hypertension Seasonal allergic reaction Family History Medical History Relation Name Comments Hearing Loss Father Relation Name Status Comments Father Mother Social History Date Tobacco Use Types Packs/Day Years Used Never Smoker Smokeless Tobacco: Never Used Comments Alcohol Use Standard Drinks/Week No 0 (1 standard drink = 0.6 o z pure alcohol) Sex Assigned at Date Recorded Not on file Last Filed Vital Signs Reading Time Taken Comments Vital Sign 136/79 06/01/2017 2:43 PM TAX COMPLIANCE MANAGER Blood Pressure 77 06/01/2017 2:43 PM TAX COMPLIANCE MANAGER Pulse - - Temperature - - Respiratory Rate - - Oxygen Saturation - - Inhaled Oxygen Concentration 64.6 kg (142 lb 6.4 oz) 06/01/2017 2:43 PM TAX COMPLIANCE MANAGER Weight 162.6 cm (5' 4") 06/01/2017 2:43 PM TAX COMPLIANCE MANAGER Height 24.44 06/01/2017 2:43 PM TAX COMPLIANCE MANAGER Body Mass Index Plan of Treatment Health Maintenance Due Date Last Done Comments MEDICARE ANNUAL WELLNESS 1940 VISIT DTAP/TDAP VACCINES (1 - 1959 Tdap) HEPATITIS C SCREENING 1959 PHYSICAL (COMPREHENSIVE) 1959 EXAM SHINGLES RECOMBINANT 1991 VACCINE (1 of 2) OSTEOPOROSIS 2006 SCREENING/MONITORING PNEUMONIA (PPSV23) 2006 VACCINE (1 of 1 - PPSV23) INFLUENZA VACCINE 04/03/2021 06/26/2009, 03/15/2009 Results Not on filefrom Last 3 Months Insurance Type Payer Benefit Subscriber ID Effective Phone Address Plan / Dates Group Medicare MEDICARE MEDICARE [id number] 2006- PART A AND Present B O [id number] 2017- FOR LIFE Present Advance Directives Patient [place] Explanation Type Date Recorded Advance Directive/DPOA
--- NOTE | 2021-03-11 11:16 | Conscious Sedation/ASA ---
Conscious Sedation Pre-Proced Time 11:00 ASA Score 2 For ASA 3 and 4: Consider anesthesia and medical clearance. Also, for patients with a history of failed moderate sedation consider anesthesia. Airway Lungs Heart ASA score ASA 1: a normal healthy patient ASA 2: a patient with a mild systemic disease (mid diabetes, controlled hypertension, obesity ASA 3: a patient with a severe systemic disease that limits activity (angina, COPD, prior Myocardial infarction) ASA 4: a patient with an incapacitating disease that is a constant threat to life (CHF, renal failure) ASA 5: a moribund patient not expected to survive 24 hrs. (ruptured aneurysm) ASA 6: a declared brain- patient whose organs are being harvested. For emergent operations, add the letter E after the classification Mallampati Classification Grade 2 Sedation Plan Analgesia, Amnesia, Plan communicated to team members, Discussed options with patient/fam, Discussed risks with patient/fam The patient is an appropriate candidate to undergo the planned procedure, sedation, and anesthesia. The patient immediately re-assessed prior to indication. ILYA ARANA MD Mar 11, 2021 11:16
--- NOTE | 2021-03-11 11:17 | Progress Note-Pre Operative ---
Pre-Operative Progress Note H&P Reviewed The H&P was reviewed, patient examined and no changes noted. Date Seen by Provider: Mar 11, 2021 Time Seen by Provider: 11:00 Date H&P Reviewed: Mar 11, 2021 Time H&P Reviewed: 11:00 Pre-Operative Diagnosis: ILYA PERKINS MD Mar 11, 2021 11:17
[2021-03-11] MEDS ORDERED: OMEP40CA6 PO (11:18)
--- NOTE | 2021-03-11 11:18 | Discharge Inst-Surgical ---
D/C Lap Instructions-KIDO New, Converted, or Re-Newed RX: RX on Chart Follow Up Activity as tolerated High Fiber Diet 25g or more per day Avoid Alcohol, Caffeine, Spicy [place] and Acid foods. Drink 64 fluid oz or more of fluids per day. Symptoms to Report: Fever over 101 degree F, Nausea/Vomiting If any problems/questions: Contact your physician or go to Emergency Room ILYA ARANA MD Mar 11, 2021 11:18
[2021-03-11] MEDS ORDERED: ONDANSETRON 4 MG/2 ML (SDV) Z0FRAN IVP PRN (11:30)
[2021-03-11] MEDS ORDERED: ONDANSETRON 4 MG (ZOFRAN) ORAL DISSOLVE TAB PO PRN (11:30)
--- NOTE | 2021-03-11 12:02 | Progress Note-Post Operative ---
Post-Operative Progess Note Surgeon (s)/Strap Making Machine Operator (s) Surgeon ILYA ARANA MD Strap Making Machine Operator: none Pre-Operative Diagnosis GERD Post-Operative Diagnosis reflux esophagitis(stage 2), large type 3 HH(4-5cm), mod-severe gastritis. Procedure & Operative Findings Date of Procedure 03/11/21 Procedure Performed/Findings EGD with bx. Anesthesia Type cs Estimated Blood Loss Estimated blood loss (mL): minimal Specimens/Packing Specimens Removed ge jxn, antrum ILYA ARANA MD Mar 11, 2021 12:02
--- NOTE | 2021-03-11 14:59 | OPERATIVE REPORT ---
DATE OF SERVICE: 03/11/2021 ATTENDING PRIMARY CARE PHYSICIAN: Dr. Luigi Rodriguez. PREOPERATIVE DIAGNOSES: Gastroesophageal reflux disease, regurgitation. POSTOPERATIVE DIAGNOSES: Reflux esophagitis stage II, moderate to large size hiatal hernia 4 cm in size, moderate to severe gastritis more towards the stomach antrum. No distal obstructions. PROCEDURE: EGD with biopsy. SURGEON: Ilya Arana MD. ANESTHESIA: Conscious sedation. ESTIMATED BLOOD LOSS: Minimal. FINDINGS: Reflux esophagitis stage II, moderate to large size hiatal hernia 4 cm in size, moderate to severe gastritis more towards the stomach antrum. No distal obstructions. DISPOSITION: The patient tolerated the procedure well. INDICATIONS: The patient is a 80-year-old female who has had a longstanding issue with reflux; however, this has worsened. She reports that at night she does have regurgitation as well. She also states that at times she will feel the episodes of reflux and also feels shortness of breath. A CT scan was performed in November of this year, which did show a significant size hiatal hernia. DESCRIPTION OF PROCEDURE: The patient was brought to the endoscopy suite, laid in left lateral decubitus position. After adequate IV pain and sedative medications and conscious sedation anesthesia, the mouthpiece was applied. The endoscope was placed in the mouth, visualizing the pharynx and hypopharyngeal region. Vocal cords, epiglottis and vallecula identified and appeared to be normal. The endoscope was then gently intubated. Esophageal opening and esophagus insufflated. The endoscope was then advanced to the first, second and third portion of esophagus at the level of the GE junction, a reflux esophagitis stage II identified. The GE junction was also intrathoracic consistent with a hiatal hernia. The endoscope was then advanced in the stomach and endoscope retroflexed, visualizing a moderate to large sized type 3 hiatal hernia approximately 4 to 5 cm in size. There was a moderate to severe gastritis more towards the stomach antrum with linear superficial erosions. A biopsy was taken to rule out H. pylori with visualization of good hemostasis. The endoscope was then advanced to the pylorus and the first and second portion of the duodenum, which appeared normal. The endoscope was then slowly withdrawn while taking a second look and suctioning of residual air with no additional findings. The patient tolerated the procedure well. We will recommend the necessary lifestyle and diet accommodation, which would encompass small and more frequent meals, avoidance of eating at night as well as head elevation while lying supine. She also needs to avoid alcohol and caffeinated beverages as well as spicy, greasy and acidic foods. We will also change her medication slightly to Protonix 40 mg daily as well as now omeprazole 40 mg daily, taken at different times during the day. Job ID: [id number] DocumentID: [id number] Dictated Date: 03/11/2021 11:57:22 Footwear Factory Worker Date: 03/11/2021 14:58:48 Dictated By: ILYA ARANA MD
== END 2021-03-11 12:55 | disposition home or self-care (01) ==
LOC: ENDO 10:31
PROVIDERS: ATTEND Surgery
DX: K21.00 Gastro-esophageal reflux disease with esophagitis, without bleeding (principal); K44.9 Diaphragmatic hernia without obstruction or gangrene; K29.70 Gastritis, unspecified, without bleeding; J44.9 Chronic obstructive pulmonary disease, unspecified; I10 Essential (primary) hypertension; M19.90 Unspecified osteoarthritis, unspecified site; M79.7 Fibromyalgia; H40.9 Unspecified glaucoma; E78.5 Hyperlipidemia, unspecified; F41.9 Anxiety disorder, unspecified; I82.402 Acute embolism and thrombosis of unspecified deep veins of left lower extremity; Z79.899 Other long term (current) drug therapy; Z79.01 Long term (current) use of anticoagulants; Z79.890 Hormone replacement therapy

== ENCOUNTER → 2021-03-12 | Outpatient (CLI) | payer MEDICARE, OTHER ==
[~2021-03-12] MED LIST changes: +OMEP40CA6 PO
[2021-03-12 09:38] LABS: HEMATOCRIT 30 % (35-52); HEMOGLOBIN 8.7 g/dL (11.5-16.0); MEAN CORPUSCULAR HEMOGLOBIN 21 pg (25-34); MEAN CORPUSCULAR HGB CONC 30 g/dL (32-36); MEAN CORPUSCULAR VOLUME 72 fL (80-99); MEAN PLATELET VOLUME 8.4 fL (9.0-12.2); PLATELET COUNT 379 10^3/uL (130-400); WHITE BLOOD COUNT 15.9 10^3/uL (4.3-11.0)
[2021-03-12 09:52] LABS: ALBUMIN 3.8 GM/DL (3.2-4.5); BILIRUBIN,TOTAL 0.4 MG/DL (0.1-1.0); CREATININE SERUM 0.8 MG/DL (0.60-1.30); POTASSIUM 3.6 MMOL/L (3.6-5.0); TOTAL PROTEIN 6.5 GM/DL (6.4-8.2)
--- NOTE | 2021-03-12 09:54 | Diagnostic Imaging Report ---
INDICATION: Cough, dyspnea with fever and chills PA and lateral views of the chest are obtained. Comparison is made to study of 10/29/2020. There has been development of patchy airspace disease throughout the lower lobe of the left lung. Additional involvement is present in the lingula without evidence of pneumothorax or significant pleural fluid. IMPRESSION: Patchy infiltrate throughout the left lung is compatible with pneumonia. Progress films would be useful. Dictated by: Dictated on workstation # [id number]
== END ==
LOC: RAD 09:13
PROVIDERS: ATTEND Surgery
DX: R50.9 Fever, unspecified (principal); R05 Cough; R06.02 Shortness of breath
CPT/HCPCS: 36415; 71046; 80053; 85027

== ENCOUNTER → 2021-03-26 | Outpatient (CLI) | payer MEDICARE, OTHER ==
--- NOTE | 2021-03-26 12:12 | Diagnostic Imaging Report ---
EXAMINATION: Chest, two views. HISTORY: Pneumonia. COMPARISON: 03/12/2021. FINDINGS: Heart size and pulmonary vasculature are normal. There are minimal interstitial opacities in the lung bases. The left mid and lower lung airspace consolidation has resolved. No pleural effusion or pneumothorax. The osseous structures are intact. IMPRESSION: 1. Minimal bibasilar interstitial opacities. Resolution of the patchy airspace opacities within the left lung seen on prior x-ray 03/12/2021. Dictated by: Dictated on workstation # [id number]
== END ==
LOC: RAD 09:20
PROVIDERS: ATTEND Internal Medicine
DX: J18.9 Pneumonia, unspecified organism (principal)
CPT/HCPCS: 71046

== ENCOUNTER → 2021-04-08 | Outpatient (CLI) | payer MEDICARE, OTHER ==
--- NOTE | 2021-04-08 09:57 | Diagnostic Imaging Report ---
INDICATION: Checkup pneumonia. TIME OF EXAM: 9:46 AM Correlation is made with prior chest 03/26/2021. Heart size normal. There may be some minimal residual interstitial changes left mid and lower lung field. Right lung is clear. There is no effusion or pneumothorax. IMPRESSION: Minimal residual interstitial changes left lung. Dictated by: Dictated on workstation # [id number]
== END ==
LOC: RAD 09:25
PROVIDERS: ATTEND Internal Medicine
DX: J18.9 Pneumonia, unspecified organism (principal)
CPT/HCPCS: 71046

== ENCOUNTER 2021-06-12 13:27 | Emergency (ER) | payer MEDICARE, OTHER ==
[~2021-06-12] VITALS: Ht 162.5 cm; Wt 72.5 kg
--- OUTSIDE RECORDS SUMMARY | 2021-06-12 13:32 | XMS REPORT | Clinical Summary ---
Author Author [facility] Organization [facility] Address Unknown Phone Unavailable Care Team Providers Care Projects Manager Name Role Phone Romelia Goins MD PCP Source Comments Some departments are not documenting in the electronic medical record. If you d o not see the information that you expected, contact Release of Information in [facility] [employer] Information Management department at [phone] for further assistan ce in locating additional records.[facility] Allergies No known active allergies Medications End Date Status Medication Sig Dispensed [...] one 0 02/11 mg tablet tablet 7 Tuesday//Tuesday Active traMADol (ULTRAM) 50 mg Take 1-2 tabs 0 tablet up to 4 times 7 daily Active traZODone (DESYREL) 50 mg 0 tablet 7 Active warfarin (COUMADIN) 1 mg 0 tablet 7 Active CALCIUM CARBONATE/VITAMIN Take by 0 D3 (VITAMIN D-3 PO) mouth. 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 Encounters Care Team Description Date Type Specialty 04/08/2021 Hospital Radiology Encounter 03/26/2021 Hospital Radiology Encounter from Last 3 Months Medical History Medical History Date Comments Arthritis [...] Comments Vital Sign 136/79 06/01/2017 2:43 PM [employer] Blood Pressure 77 06/01/2017 2:43 PM [employer] Pulse - - Temperature - - Respiratory Rate - - Oxygen Saturation - - Inhaled Oxygen Concentration 64.6 kg (142 lb 6.4 oz) 06/01/2017 2:43 PM [employer] Weight 162.6 cm (5' 4") 06/01/2017 2:43 PM [employer] Height 24.44 06/01/2017 2:43 PM [employer] Body Mass Index Plan of Treatment Health Maintenance Due Date Last Done Comments MEDICARE ANNUAL WELLNESS 1941 VISIT DTAP/TDAP VACCINES (1 - 1959 Tdap) PHYSICAL (COMPREHENSIVE) 1959 EXAM SHINGLES RECOMBINANT 1991 VACCINE (1 of 2) OSTEOPOROSIS 2006 SCREENING/MONITORING PNEUMONIA (PPSV23) 2006 VACCINE (1 of 1 - PPSV23) INFLUENZA VACCINE 02/01/2021 06/26/2009, 03/15/2009 Procedures Comments Procedure Name Priority Date/Time Associated Diag nosis GENERAL RAD CHEST Routine 04/08/2021 EXTERNAL IMAGING 12:00 AM CDT GENERAL RAD CHEST Routine 03/26/2021 EXTERNAL IMAGING 12:00 AM CDT from Last 3 Months Results * GENERAL RAD CHEST EXTERNAL IMAGING (04/08/2021 12:00 AM CDT) Only the most recent of 2 results within the time period is included. Modality Anatomical Region Laterality Computed Radiography Specimen Narrative Scheduling, Silent - 05/18/2021 7:30 AM [employer] This order has been auto finalized and does not contain a result. 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
[2021-06-12 14:29] LABS: POTASSIUM 3.2 MMOL/L (3.6-5.0)
[2021-06-12 14:30] LABS: CALCIUM 8.9 MG/DL (8.5-10.1)
--- NOTE | 2021-06-12 14:31 | ED Dyspnea ---
General Chief Complaint: Respiratory Problems Stated Complaint: SOA;WEAKNESS OF LEGS Nursing Triage Note: PT TO RM 3 BY WHEELCHAIR WITH COMPLAINT OF WORSENING SOA. STATES THIS HAS BEEN AN ONGOING PROBLEM SINCE SEPTEMBER, BUT WORSENED TODAY. Source of Information: Patient Exam Limitations: No Limitations (RASHI CULVER MED STUDENT) History of Present Illness Date Seen by Provider: Jun 12, 2021 Time Seen by Provider: 14:15 Initial Comments This is an 81 YO female presenting to the ED with worsening SOB, LE weakness, and generalized fatigue since September. Pt states her symptoms worsened last night and this morning, so she came to the ER for evaluation. She has seen Dr. Santizo, Dr. Trujillo, and Dr. Armenta for her symptoms and has an appointment with a clinical programmer at on August 03. She had labs done this morning, which showed a hgb of 8.7, similar to previous. Denies black or bloody stool and had negative Cologuard test 2 weeks ago. Last colonoscopy was about 4 years ago and EGD by Dr. rAmenta showed moderate hiatal hernia and moderate to severe gastritis, for heather erwin she takes Protonix and Carafate. 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 She also notes an episodes of chest pain this morning while making her back at around 9:45. States the pain radiated up into her neck, but resolved after she sat down and drank some cold water. (RASHI CULVER MED STUDENT) Allergies and Home Medications Allergies Coded Allergies: No Known Drug Allergies (Unverified , 10/31/19) Patient Home Medication List Home Medication List Reviewed: Yes (OSIRIS MORA MD) Albuterol Sulfate (Proair Hfa) 1 Puff Puff, (Reported) Entered as Reported by: CEE JARQUIN on 10/31/19 1155 Alendronate Sodium (Alendronate Sodium) 70 Mg Tablet, (Reported) Entered as Reported by: CEE JARQUIN on 10/31/19 1155 Amlodipine Besylate (Norvasc) 2.5 Mg Tablet, 2.5 MG PO DAILY, (Reported) Entered as Reported by: PANCHITO DOMÍNGUEZ on 03/04/21 1103 Cyclosporine (Restasis) 1 Each Droperette, (Reported) Entered as Reported by: CEE JARQUIN on 10/31/19 1155 Duloxetine HCl (Duloxetine HCl) 60 Mg Capsule.dr, (Reported) Entered as Reported by: CEE JARQUIN on 10/31/19 115 Estrogens, Conjugated (Premarin) 0.625 Mg Tablet, 0.625 MG PO DAILY, (Reported) Entered as Reported by: PANCHITO DOMÍNGUEZ on 03/04/21 110 Fluticasone Propionate (Fluticasone Propionate) 16 Gm [place].susp, (Reported) Entered as Reported by: CEE JARQUIN on 10/31/19 115 Fluticasone/Salmeterol (Advair 250-50 Diskus) 1 Each Blst.w.dev, (Reported) Entered as Reported by: CEE JARQUIN on 10/31/19 115 Fluticasone/Umeclidin/Vilanter (Trelegy Ellipta 100-62.5-25) 1 Each Blst.w.dev, 1 EACH IH DAILY, (Reported) Entered as Reported by: PANCHITO DOMÍNGUEZ on 03/04/21 110 Furosemide (Furosemide) 40 Mg Tablet, 40 MG PO DAILY, (Reported) Entered as Reported by: PANCHITO DOMÍNGUEZ on 03/04/21 110 Levothyroxine Sodium (Levothyroxine Sodium) 50 Mcg Tablet, (Reported) Entered as Reported by: CEE JARQUIN on 10/31/19 115 Metoprolol Succinate (Toprol Xl) 50 Mg Tab.er.24h, 50 MG PO DAILY, (Reported) Entered as Reported by: PANCHITO DOMÍNGUEZ on 03/04/21 110 Mirabegron (Myrbetriq) 25 Mg Tab.er.24h, (Reported) Entered as Reported by: CEE JARQUIN on 10/31/19 115 Montelukast Sodium (Montelukast Sodium) 10 Mg Tablet, (Reported) Entered as Reported by: CEE JARQUIN on 10/31/19 115 Omeprazole (Omeprazole) 40 Mg Capsule.dr, 40 MG PO DAILY Prescribed by: ILYA ARMENTA on 03/11/21 1118 Pantoprazole Sodium (Pantoprazole Sodium) 40 Mg Tablet., (Reported) Entered as Reported by: CEE JARQUIN on 10/31/19 1155 Pramipexole Di-HCl (Pramipexole Dihydrochloride) 0.125 Mg Tablet, 0.125 MG PO DAILY, (Reported) Entered as Reported by: PANCHITO DOMÍNGUEZ on 03/04/21 1103 Rivaroxaban (Xarelto) 10 Mg Tablet, (Reported) Entered as Reported by: CEE JARQUIN on 10/31/19 1155 Rosuvastatin Calcium (Rosuvastatin Calcium) 5 Mg Tablet, (Reported) Entered as Reported by: CEE JARQUIN on 10/31/19 1155 Travoprost (Travatan Z) 5 Ml Drops, (Reported) Entered as Reported by: CEE JARQUIN on 10/31/19 1155 Trazodone HCl (Trazodone HCl) 50 Mg Tablet, 50 MG PO DAILY, (Reported) Entered as Reported by: PANCHITO DOMÍNGUEZ on 03/04/21 1103 Review of Systems Review of Systems Constitutional: No chills, No fever EENTM: No blurred vision, No double vision Respiratory: No cough; dyspnea on exertion Cardiovascular: chest pain; No edema Gastrointestinal: No abdominal pain, No nausea, No vomiting Genitourinary: no symptoms reported Musculoskeletal: No back pain, No muscle pain Skin: no symptoms reported Psychiatric/Neurological: Denies Headache, Denies Numbness Endocrine: No Symptoms Reported Hematologic/Lymphatic: See HPI (RASHI CULVER MED STUDENT) All Other Systems Reviewed Negative Unless Noted: Yes (Negative excepted noted.) (RASHI CULVER MED STUDENT) Past Fmgensb-Bgypvh-Dkmrdv Hx Patient Social History Tobacco Use?: No Use of E-Cig and/or Vaping dev: No Substance use?: No Alcohol Use?: No Pt feels they are or have been: No (RASHI CULVER MED STUDENT) Immunizations Up To Date Tetanus Booster (TDap): Unknown Influenza Vaccine Up-to-Date: Yes; Up-to-Date First/Initial COVID19 Vaccinat: OCTOBER 2020 Second COVID19 Vaccination Walter: NOVEMBER 2020 Third COVID19 Vaccination Date: OCTOBER 2020 (RASHI CULVER MED STUDENT) Seasonal Allergies Seasonal Allergies: No (RASHI CULVER STUDENT) Past Medical History Surgeries: Yes Appendectomy, Hysterectomy, Orthopedic Respiratory: Yes COPD Cardiac: Yes High Cholesterol, Hypertension Neurological: No Female 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 Disorders: Denies MANAGER STRATEGY History: Hysterectomy Sexually Transmitted Disease: No HIV/AIDS: No Genitourinary: No Gastrointestinal: Yes Gastroesophageal Reflux Musculoskeletal: No Endocrine: Yes Hypothyroidsim HEENT: Yes (dry eye) Loss of Vision: Bilateral Hearing Impairment: Denies Cancer: No Psychosocial: No Depression Integumentary: No Blood Disorders: Yes (FACTOR 9 ) Adverse Reaction/Blood Tranf: No (RASHI CULVER MED STUDENT) Physical Exam Vital Signs Vital Signs - First Documented 06/12/21 13:50 Pulse 99 Resp 32 B/P (MAP) 156/91 (112) Pulse Ox 99 O2 Delivery Room Air (OSIRIS MORA MD) Vital Signs Capillary Refill : Less Than 3 Seconds (RASHI CULVER MED STUDENT) Height, Weight, BMI Height: '" Weight: lbs. oz. kg; 27.00 BMI Method: General Appearance: No Apparent Distress, WD/WN HEENT: PERRL/EOMI, Normal ENT Inspection; No Scleral Icterus (L), No Scleral Icterus (R) Neck: Normal Inspection, Supple Respiratory: Lungs Clear, Normal Breath Sounds, Other (increased work of breathing) Cardiovascular: Regular Rate, Rhythm, No Edema Gastrointestinal: Non Tender, Soft; No Distended Rectal: Other (small external hemorrhoids, no active bleeding; stool is brown in color with no blood or melena noted; hemoccult negative) Extremity: Normal Inspection, No Pedal Edema Neurologic/Psychiatric: Alert, Oriented x3, No Motor/Sensory Deficits, Normal Mood/Affect Skin: Normal Color, Warm/Dry (RASHI CULVER MED STUDENT) Progress/Results/Core Measures Results/Orders Lab Results Laboratory Tests Test 06/12/21 14:03 Range/Units Sodium Level 139 135-145 MMOL/L Potassium Level 3.2 L 3.6-5.0 MMOL/L Chloride Level 104 98-107 MMOL/L Carbon Dioxide Level 18 L 21-32 MMOL/L Anion Gap 17 H 5-14 MMOL/L Blood Urea Nitrogen 14 7-18 MG/DL Creatinine 0.97 0.60-1.30 MG/DL Estimat Glomerular Filtration Rate 55 BUN/Creatinine Ratio 14 Glucose Level 124 H 70-105 MG/DL Calcium Level 8.9 8.5-10.1 MG/DL Troponin I < 0.028 <0.028 NG/ML (OSIRIS MORA MD) My Orders Orders - OSIRIS MORA MD Basic Metabolic Panel (06/12/21 14:19) Fecal Occult Bedside (06/12/21 14:19) Ekg Tracing (06/12/21 14:25) Troponin I Esha (06/12/21 14:25) (OSIRIS MORA MD) Vital Signs/I&O 06/12/21 06/12/21 13:50 15:37 Pulse 99 2 Resp 32 21 B/P (MAP) 156/91 (112) 136/70 Pulse Ox 99 96 O2 Delivery Room Air Room Air (OSIRIS MORA MD) Blood Pressure Mean: 112 Progress Progress Note : Time: 15:13 Progress Note 81-year-old female presents to the emergency department today with a chief complaint of shortness of breath and fatigue, generalized weakness. History of anemia related to moderate to severe gastritis potentially. Per review of the labs the patient was anemic in March of this year right around the time she had an EGD. She has not been on iron replacement but has been taking Protonix and Carafate daily. She denies any black or bloody stool. No abdominal pain. No blood in her urine. She is anticoagulated on Xarelto. She has a history of blood clot in the past. She is not lightheaded or dizzy when she stands. Her primary care physician sent her here for repeat labs today which showed consistent 8.7 hemoglobin from March. She also endorsed a little chest pain this morning at about 845 when she was making her bed. This was brief and resolved with rest and to drink of ice water. No history of coronary artery disease. Has had fairly recent extensive cardiac work-up. The rest of her labs including chemistry, troponin as well as EKG have been reviewed and are within normal limits. Patient does have a right bundle branch block on EKG with no ectopy or ST segment depression or elevation. Nonspecific ST-T wave changes inferiorly. Fecal occult blood testing at the bedside is negative. I have recommended outpatient iron supplement, Vitron C. Have recommended that the patient follows up with her primary care physician. She verbalized understanding. All questions are sought and answered. (OSIRIS MORA MD) Initial ECG Impression Date: Jun 12, 2021 Initial ECG Impression Time: 14:28 Initial ECG Rate: 85 Initial ECG Rhythm: Normal Sinus Initial ECG Intervals: Normal Initial ECG Impression: Nonspecific Changes Comment RBBB; No ST segment elevation or depression n oted (OSIRIS MORA MD) Departure Impression Primary Impression: SOB (shortness of breath) Additional Impressions: Anemia Qualified Codes: D64.9 - Anemia, unspecified Chest pain Qualified Codes: R07.9 - Chest pain, unspecified Disposition: 01 HOME, SELF-CARE Condition: Stable Departure-Patient Inst. Decision time for Depature: 15:15 (OSIRIS MORA MD) Referrals: DOROTEO SANTIZO MD (PCP/Family) Primary Care Physician Patient Instructions: Anemia Caused by Low Iron Add. Discharge Instructions: Start taking an rdew-clw-xytcmgy iron supplement, "Vitron C" daily which is available at your local pharmacy. Please make a follow-up appointment with your primary care physician to monitor your blood counts. As your blood counts improve you should notice decreasing shortness of breath. Come back to the emergency room if you have worsening shortness of breath especially associated with chest pain, fever, any other emergent concerning symptoms. Verification and Attestation of Medical Student E/M Service A medical student performed and documented this service in my presence. I reviewed and verified all information documented by the medical student and made modifications to such information, when appropriate. I personally performed the physical exam and medical decision making. Osiris Mora, Jun 12, 2021,15:15 (OSIRIS MORA MD) RASHI CULVER MED STUDENT Jun 12, 2021 14:31 OSIRIS MORA MD Jun 12, 2021 15:16
[2021-06-12 14:34] LABS: CREATININE SERUM 0.97 MG/DL (0.60-1.30)
[2021-06-12 15:37] VITALS: BP 136/70
== END 2021-06-12 15:37 | disposition home or self-care (01) ==
LOC: EDUNIT# 13:27 → ER 13:28
DX: R06.02 Shortness of breath (principal); D64.9 Anemia, unspecified; R07.9 Chest pain, unspecified; J44.9 Chronic obstructive pulmonary disease, unspecified; I10 Essential (primary) hypertension; E03.9 Hypothyroidism, unspecified; E78.00 Pure hypercholesterolemia, unspecified; K21.9 Gastro-esophageal reflux disease without esophagitis; F32.9 Major depressive disorder, single episode, unspecified; Z79.01 Long term (current) use of anticoagulants; Z79.890 Hormone replacement therapy; Z79.899 Other long term (current) drug therapy
CPT/HCPCS: 36415; 80048; 82274; 84484; 93005

== ENCOUNTER → 2021-06-12 | Outpatient (CLI) | payer MEDICARE, OTHER ==
[~2021-06-12] MED LIST changes: -LISI-729; +LISI5TAB20; +MONT-40; -MONT10TA32
[2021-06-12 15:02] LABS: HEMATOCRIT 30 % (35-52); HEMOGLOBIN 8.7 g/dL (11.5-16.0); MEAN CORPUSCULAR HEMOGLOBIN 20 pg (25-34); MEAN CORPUSCULAR VOLUME 68 fL (80-99); WHITE BLOOD COUNT 6.1 10^3/uL (4.3-11.0)
[2021-06-12 15:03] LABS: BASOPHILS % (AUTO) 0 % (0-10); EOSINOPHILS % (AUTO) 1 % (0-10); LYMPHOCYTES # (AUTO) 1.2 X 10^3 (1.0-4.0); LYMPHOCYTES % (AUTO) 19 % (12-44); MEAN CORPUSCULAR HGB CONC 29 g/dL (32-36); MEAN PLATELET VOLUME 8.9 fL (9.0-12.2); MONOCYTES % (AUTO) 8 % (0-12); NEUTROPHILS # (AUTO) 4.3 X 10^3 (1.8-7.8); NEUTROPHILS % (AUTO) 71 % (42-75); PLATELET COUNT 491 10^3/uL (130-400)
[2021-06-12 15:04] LABS: BAND NEUTROPHILS 1 %; BASOPHILS % (MANUAL) 0 %; EOSINOPHILS # (AUTO) 0.1 10^3/uL (0.0-0.3); EOSINOPHILS % (MANUAL) 0 %; LYMPHOCYTES % (MANUAL) 16 %; MONOCYTES # (AUTO) 0.5 X 10^3 (0.0-1.0); MONOCYTES % (MANUAL) 10 %; NEUTROPHILS % (MANUAL) 73 %
[2021-06-12 15:05] LABS: ABSOLUTE RETIC # 59 10e9/uL (24-90); ANISOCYTOSIS SLIGHT; HYPOCHROMASIA MODERATE; MICROCYTOSIS MODERATE; RETICULOCYTE % 1.33 % (0.50-2.40)
== END ==
LOC: LAB 11:27
PROVIDERS: ATTEND Internal Medicine
DX: D64.9 Anemia, unspecified (principal); D75.839 Thrombocytosis, unspecified; D72.821 Monocytosis (symptomatic)
CPT/HCPCS: 85007; 85027; 85045; 85055

== ENCOUNTER 2021-06-24 10:25 | Outpatient (RCR) | payer MEDICARE, OTHER ==
[2021-06-17] MEDS: FERRIC CARBOXYMALTOSE INJ 750 MG in NS (IVPB) 250 ML IV SCH (13:10)
[2021-06-17 14:00] VITALS: BP 102/50
[~2021-06-24] VITALS: Ht 162.6 cm; Wt 72.7 kg
[2021-06-24 10:30] VITALS: BP 131/79
[2021-06-24] MEDS: FERRIC CARBOXYMALTOSE INJ 750 MG in NS (IVPB) 250 ML IV SCH (10:45)
== END 2021-06-24 11:10 | disposition home or self-care (01) ==
LOC: SDC 10:25
PROVIDERS: ATTEND Internal Medicine
DX: D50.9 Iron deficiency anemia, unspecified (principal)
CPT/HCPCS: 96365

== ENCOUNTER 2021-07-19 06:45 | Inpatient (IN) | payer MEDICARE, OTHER ==
[~2021-07-19] VITALS: Ht 163.8 cm; Wt 72.7 kg
[~2021-07-19 06:45] MED LIST changes: -DULO60CA59; +DULO60CA59 PO; -MIRA25TA; +MIRA25TA PO; -MONT-40; +MONT-40 PO; -PANT40TA52; +PANT40TA52 PO; -RIVA10TA; +RIVA10TA PO; -ROSU5TAB13; +ROSU5TAB13 PO; -RT-ALBUINH; +RT-ALBUINH PO; -TRAV5DRO; +TRAV5DRO OU
[2021-07-19] MEDS ORDERED: morphine INJ 10 MG/ML 1ML (SYR OR VIAL) IM STA (06:55)
[2021-07-19] MEDS ORDERED: methylPREDNISolone 40 MG/ML (DEPO MEDROL) VIAL IM ONE (07:00)
--- NOTE | 2021-07-19 07:02 | ED Back Pain ---
General Chief Complaint: Back Problems Stated Complaint: R SIDE BACK PAIN Nursing Triage Note: Pt to ED room 5 via EMS. Pt c/o L hip pain since last night and pain under R breast x2 hours Source of Information: Patient Exam Limitations: No Limitations History of Present Illness Date Seen by Provider: Jul 19, 2021 Time Seen by Provider: 06:45 Initial Comments Patient to the ER by EMS from home with chief complaint that she is not able to bear weight on her left leg anymore because of pain from her low back radiating down her left leg. She also has a new pain in the past week or so worse on movement radiating from her low thoracic spine around under her right breast. No rash. She has had a shot for shingles. No fevers or chills cough or chest pain. No nausea or vomiting. She has been using Tylenol without relief. She followed with Dr. Daniel for pain relief and he was doing steroid injections with her last one in June. He reviewed her MRI and told her she needed to go see a orthopedic surgeon because her back pain was beyond what steroids would fix. She has had no further falls or trauma. No numbness loss of feeling, or inability to micturate or have a bowel movement. Allergies and Home Medications Allergies Coded Allergies: No Known Drug Allergies (Unverified , 10/31/19) Patient Home Medication List Home Medication List Reviewed: Yes Albuterol Sulfate (Proair Hfa) 1 Puff Puff, (Reported) Entered as Reported by: CEE JARQUIN on 10/31/19 1155 Alendronate Sodium (Alendronate Sodium) 70 Mg Tablet, (Reported) Entered as Reported by: CEE JARQUIN on 10/31/19 1155 Amlodipine Besylate (Norvasc) 2.5 Mg Tablet, 2.5 MG PO DAILY, (Reported) Entered as Reported by: PANCHITO DOMÍNGUEZ on 03/04/21 1103 Cyclosporine (Restasis) 1 Each Droperette, (Reported) Entered as Reported by: CEE JARQUIN on 10/31/19 1155 Duloxetine HCl (Duloxetine HCl) 60 Mg Capsule., (Reported) Entered as Reported by: CEE JARQUIN on 10/31/19 1155 Estrogens, Conjugated (Premarin) 0.625 Mg Tablet, 0.625 MG PO DAILY, (Reported) Entered as Reported by: PANCHITO DOMÍNGUEZ on 03/04/21 1103 Fluticasone Propionate (Fluticasone Propionate) 16 Gm [place].susp, (Reported) Entered as Reported by: CEE JARQUIN on 10/31/19 1155 Fluticasone/Salmeterol (Advair 250-50 Diskus) 1 Each Blst.w.dev, (Reported) Entered as Reported by: CEE JARQUIN on 10/31/19 1155 Fluticasone/Umeclidin/Vilanter (Trelegy Ellipta 100-62.5-25) 1 Each Blst.w.dev, 1 EACH IH DAILY, (Reported) Entered as Reported by: PANCHITO DOMÍNGUEZ on 03/04/21 1103 Furosemide (Furosemide) 40 Mg Tablet, 40 MG PO DAILY, (Reported) Entered as Reported by: PANCHITO DOMÍNGUEZ on 03/04/21 1103 Hydrocodone/Acetaminophen (Hydrocodone-Acetamin 5-325 mg) 1 Each Tablet, 1-2 TAB PO Q6H PRN for PAIN-MODERATE (5-7) Prescribed by: MEDARDO FLYNN on 07/19/21 0941 Levothyroxine Sodium (Levothyroxine Sodium) 50 Mcg Tablet, (Reported) Entered as Reported by: CEE JARQUIN on 10/31/19 115 Metoprolol Succinate (Toprol Xl) 50 Mg Tab.er.24h, 50 MG PO DAILY, (Reported) Entered as Reported by: PANCHITO DOMÍNGUEZ on 03/04/21 1103 Mirabegron (Myrbetriq) 25 Mg Tab.er.24h, (Reported) Entered as Reported by: CEE JARQUIN on 10/31/19 115 Montelukast Sodium (Montelukast Sodium) 10 Mg Tablet, (Reported) Entered as Reported by: CEE JARQUIN on 10/31/19 115 Omeprazole (Omeprazole) 40 Mg Capsule.dr, 40 MG PO DAILY Prescribed by: ILYA ARANA on 03/11/21 1118 Pantoprazole Sodium (Pantoprazole Sodium) 40 Mg Tablet.dr, (Reported) Entered as Reported by: CEE JARQUIN on 10/31/19 1155 Pramipexole Di-HCl (Pramipexole Dihydrochloride) 0.125 Mg Tablet, 0.125 MG PO DAILY, (Reported) Entered as Reported by: PANCHITO DOMÍNGUEZ on 03/04/21 110 Rivaroxaban (Xarelto) 10 Mg Tablet, (Reported) Entered as Reported by: CEE JARQUIN on 10/31/19 115 Rosuvastatin Calcium (Rosuvastatin Calcium) 5 Mg Tablet, (Reported) Entered as Reported by: CEE JARQUIN on 10/31/19 115 Travoprost (Travatan Z) 5 Ml Drops, (Reported) Entered as Reported by: CEE JARQUIN on 10/31/19 115 Trazodone HCl (Trazodone HCl) 50 Mg Tablet, 50 MG PO DAILY, (Reported) Entered as Reported by: PANCHITO DOMÍNGUEZ on 03/04/21 110 Review of Systems Constitutional: No chills, No diaphoresis EENTM: No ear discharge, No ear pain Respiratory: No cough, No dyspnea on exertion Cardiovascular: No chest pain, No palpitations Gastrointestinal: No abdominal pain, No nausea Genitourinary: No discharge, No dysuria, No incontinence : No Musculoskeletal: back pain; No joint pain All Other Systems Reviewed Negative Unless Noted: Yes Past Hlsxjgp-Jyijut-Qednvh Hx Patient Social History Tobacco Use?: No Use of E-Cig and/or Vaping dev: No Substance use?: No Immunizations Up To Date Tetanus Booster (TDap): Unknown First/Initial COVID19 Vaccinat: OCTOBER 2020 Second COVID19 Vaccination Walter: NOVEMBER 2020 Third COVID19 Vaccination Date: OCTOBER 2020 Seasonal Allergies Seasonal Allergies: No Past Medical History Surgeries: Yes Appendectomy, Hysterectomy, Orthopedic Respiratory: Yes COPD Cardiac: Yes High Cholesterol, Hypertension Neurological: No Female 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 Disorders: Denies PHARMACY TECH History: Hysterectomy Sexually Transmitted Disease: No HIV/AIDS: No Genitourinary: No Gastrointestinal: Yes Gastroesophageal Reflux Musculoskeletal: No Endocrine: Yes Hypothyroidsim HEENT: Yes (dry eye) Loss of Vision: Bilateral Hearing Impairment: Denies Cancer: No Psychosocial: No Depression Integumentary: No Blood Disorders: Yes (FACTOR 9 ) Adverse Reaction/Blood Tranf: No Physical Exam Vital Signs Vital Signs - First Documented 07/19/21 06:48 Temp 36.0 Pulse 66 Resp 18 B/P (MAP) 190/97 (128) Pulse Ox 100 O2 Delivery Room Air Capillary Refill : Less Than 3 Seconds Height, Weight, BMI Height: '" Weight: lbs. oz. kg; 27.00 BMI Method: General Appearance: WD/WN, Moderate Distress HEENT: PERRL/EOMI, Pharynx Normal, Moist Mucous Membranes Neck: Full Range of Motion, Normal Inspection Cardiovascular: Regular Rate, Rhythm, No Edema Respiratory: Chest Non Tender, Lungs Clear, Normal Breath Sounds, No Accessory Muscle Use, No Respiratory Distress Gastrointestinal: Normal Bowel Sounds, Non Tender, Soft Extremity: Normal Capillary Refill, Normal Inspection Neurologic/Psychiatric: Alert, Oriented x3 Skin: Normal Color, Warm/Dry Progress/Results/Core Measures Results/Orders Lab Results Laboratory Tests Test 07/19/21 07:56 Range/Units White Blood Count 9.0 4.3-11.0 10^3/uL Red Blood Count 5.21 H 3.80-5.11 10^6/uL Hemoglobin 13.1 11.5-16.0 g/dL Hematocrit 42 35-52 % Mean Corpuscular Volume 80 80-99 fL Mean Corpuscular Hemoglobin 25 25-34 pg Mean Corpuscular Hemoglobin Concent 31 L 32-36 g/dL Red Cell Distribution Width 10.0-14.5 % Platelet Count 373 130-400 10^3/uL Mean Platelet Volume 9.3 9.0-12.2 fL Immature Granulocyte % (Auto) 0 % Neutrophils (%) (Auto) 66 42-75 % Lymphocytes (%) (Auto) 25 12-44 % Monocytes (%) (Auto) 8 0-12 % Eosinophils (%) (Auto) 0 0-10 % Basophils (%) (Auto) 0 0-10 % Neutrophils # (Auto) 6.0 1.8-7.8 10^3/uL Lymphocytes # (Auto) 2.2 1.0-4.0 10^3/uL Monocytes # (Auto) 0.8 0.0-1.0 10^3/uL Eosinophils # (Auto) 0.0 0.0-0.3 10^3/uL Basophils # (Auto) 0.0 0.0-0.1 10^3/uL Immature Granulocyte # (Auto) 0.0 0.0-0.1 10^3/uL D-Dimer < 0.27 0.00-0.49 UG/ML Sodium Level 142 135-145 MMOL/L Potassium Level 3.4 L 3.6-5.0 MMOL/L Chloride Level 106 98-107 MMOL/L Carbon Dioxide Level 23 21-32 MMOL/L Anion Gap 13 5-14 MMOL/L Blood Urea Nitrogen 18 7-18 MG/DL Creatinine 0.72 0.60-1.30 MG/DL Estimat Glomerular Filtration Rate 84 BUN/Creatinine Ratio 25 Glucose Level 106 H 70-105 MG/DL Calcium Level 9.4 8.5-10.1 MG/DL Corrected Calcium 9.2 8.5-10.1 MG/DL Total Bilirubin 0.3 0.1-1.0 MG/DL Aspartate Amino Transf (AST/SGOT) 14 5-34 U/L Alanine Aminotransferase (ALT/SGPT) 15 0-55 U/L Alkaline Phosphatase 136 40-136 U/L Troponin I < 0.028 <0.028 NG/ML C-Reactive Protein High Sensitivity 0.34 0.00-0.50 MG/DL B-Type Natriuretic Peptide 142.6 H <100.0 PG/ML Total Protein 7.3 6.4-8.2 GM/DL Albumin 4.3 3.2-4.5 GM/DL My Orders Orders - MEDARDO FLYNN Morphine Injection (Morphine Injection (07/19/21 06:55) Methylprednisolone Acetate Inj (Depo-Med (07/19/21 07:00) Cbc With Automated Diff (07/19/21 07:47) Comprehensive Metabolic Panel (07/19/21 07:47) Hs C Reactive Protein (07/19/21 07:47) Chest 1 View, Ap/Pa Only (07/19/21 07:47) Ekg Tracing (07/19/21 07:47) Continuous Ekg Monitoring (07/19/21 07:47) Troponin I [place] (07/19/21 07:47) Bnp [place] (07/19/21 07:47) Fibrin Degradation Products (07/19/21 07:47) Hydrocodone/Apap 7.5/325 Tab (Lortab 7. (07/19/21 09:45) Ct Thoracic/Lumbar Spine Wo (07/19/21 09:50) Medications Given in ED Current Medications Medications Dose Ordered Sig/James Route Start Time Stop Time Status Last Admin Dose Admin Acetaminophen/ Hydrocodone Bitart 1 ea ONCE ONCE PO 07/19/21 09:45 07/19/21 09:46 DC 07/19/21 11:18 1 EA Methylprednisolone Acetate 40 mg ONCE ONCE IM 07/19/21 07:00 07/19/21 07:01 DC 07/19/21 07:39 40 MG Vital Signs/I&O 07/19/21 07/19/21 06:48 07:10 Temp 36.0 Pulse 66 Resp 18 B/P (MAP) 190/97 (128) Pulse Ox 100 O2 Delivery Room Air Room Air Blood Pressure Mean: 128 Progress Progress Note #1: Time: 07:00 Progress Note The patient is on Xarelto so NSAIDs may not be the best choice. We will give her a dose of Depo-Medrol and 4 of morphine IM. If this does not begin to control her pain where we can have her keep her follow-up appointment early August with her orthopedic surgeon, Dr. CARVER then we can obtain a CT of her low back looking for significant new/worsening, nontraumatic issues. She states on her MRI she was told she had spinal stenosis. We do not have the MRI to compare to today. She is having enough pain to keep her from being able up putting any weight on her left leg and while it has not resulted in a fall it certainly causing some weakness. Progress Note #2: Time: 08:07 Progress Note Initially the patient came in for her low back pain sciatica radiating down her left leg however she is now concerned about her right thoracic radiculopathy pain because she says she has a history of a collapsed lung as well as pulmonary embolism. EKG and labs including a D-dimer and chest x-ray were obtained. Patient has good lung sounds bilaterally. Progress Note #3: Time: 09:35 Progress Note Labs, chest x-ray EKG were reviewed with the patient. She is feeling much better after the morphine. We are going to have staff get her up and see how well she does bearing weight and transferring. If she can do this we will let her go home and have her follow-up with physical therapy who she has seen in the past over a year ago. We will also have her keep her appointment in [address] CARVER. We will put her on hydrocodone 1 to 2 tablets every 6 hours for the next week. The patient now rates her pain as a 3 out of 10. After ambulating the patient to the door and back patient states her pain is out of control again. Daughter does not feel she is safe to go home. I will obtain a CT of the thoracolumbar spine looking for vertebral fractures or other worsening sources of pain. Does not seem that her pain is under control at this time. We will give her some hydrocodone. Progress Note #4: Time: 12:09 Progress Note Patient still unable to get out of bed and move much after the hydrocodone and the morphine earlier. Plan to put her up for an observation for pain control and get social science analyst involved for placement related to vertebral compression fractures. Patient is in agreement this plan Initial ECG Impression Date: Jul 19, 2021 Initial ECG Impression Time: 07:54 Initial ECG Rate: 57 Initial ECG Rhythm: Normal Sinus Initial ECG Intervals: Normal Initial ECG Impression: Normal, Nonspecific Changes Comment Sinus rhythm with right bundle branch block. No clinically relevant ST changes. Diagnostic Imaging Diagonstic Imaging: Xray Plain Films/CT/US/NM/MRI: chest Comments [facility] [place], [place] NAME: JOE ALANIS [facility] REC#: [id number] PT STATUS: REG ER : 1940 PHYSICIAN: MEDARDO FLYNN MD ADMIT DATE: 07/19/21/ER Signed Date of Exam:07/19/21 CHEST 1 VIEW, AP/PA ONLY CHEST 1 VIEW, AP/PA ONLY Indication: Shortness of air and right chest pain Comparison: 04/08/2021 Findings: No focal airspace disease in the visualized lungs. Please note that the posterior lower lobes are poorly evaluated by portable radiography. No pleural effusion or pneumothorax. Normal cardiomediastinal silhouette. Impression: 1. No acute cardiopulmonary process by portable radiography. Dictated by: Dictated on workstation # [id number] Dict: 07/19/21819 Trans: 07/19/21820 [facility] [id number] Interpreted by: FILIBERTO DALTON MD Electronically signed by: FILIBERTO DALTON MD 07/19/21820 Reviewed: Reviewed by Me Diagonstic Imaging: CT Plain Films/CT/US/NM/MRI: other (Thoracolumbar spine) Comments [facility]. [place], [place] NAME: JOE ALANIS [facility] REC#: [id number] PT STATUS: REG ER : 1940 PHYSICIAN: MEDARDO FLYNN MD ADMIT DATE: 07/19/21/ER Signed Date of Exam:07/19/21 CT THORACIC/LUMBAR SPINE WO EXAMINATION: CT thoracic and lumbar spine without contrast. TECHNIQUE: Multiple contiguous axial images were obtained through the thoracic and lumbar spine without the use of intravenous contrast. Sagittal and coronal reformations were then performed. All CT scans use one or more of the following dose optimizing techniques: automated exposure control, MA and/or KvP adjustment based on patient size and exam type or iterative reconstruction. HISTORY: Radiculopathy and sciatica, unable to bear weight. COMPARISON: None available. FINDINGS: The alignment of the thoracic and lumbar spine is normal. There is a mild T12 compression fracture. There is mild L4 compression fracture. The L4 compression fracture appears acute, but the T12-L1 is age indeterminate. There is moderate facet arthropathy in the lumbar spine. There is a disc bulge at L4-L5 with at least mild spinal canal stenosis at this level. There is a small hiatal hernia. The aorta is normal. IMPRESSION: 1. Acute appearing mild L4 compression fracture. There is a disc bulge at L4-L5 with at least mild spinal canal stenosis. Consider MRI for further evaluation. 2. Age-indeterminate mild T12 compression fracture. Dictated by: Dictated on workstation # [id number] Dict: 07/19/21 1042 Trans: 07/19/21 1128 [id number] Interpreted by: DOROTEO BOSCH MD Electronically signed by: DOROTEO BOSCH MD 07/19/21 1128 Reviewed: Reviewed by Me Departure Communication (Admissions) Time/Spoke to Admitting Phy: 12:[address] Redd she agrees to observe the patient for pain control, social science analyst Impression Primary Impression: Lumbago with sciatica, left side Qualified Codes: M54.42 - Lumbago with sciatica, left side Additional Impressions: Radicular pain of thoracic region Thoracic vertebral fracture Qualified Codes: S22.089A - Unspecified fracture of t11-T12 vertebra, initial encounter for closed fracture Closed lumbar vertebral fracture Qualified Codes: S32.049A - Unspecified fracture of fourth lumbar vertebra, initial encounter for closed fracture Disposition: ADMITTED INPATIENT Condition: Stable Admissions Decision to Admit Reason: Admit from ER (General) Decision to Admit/Date: Jul 19, 2021 Time/Decision to Admit Time: 12:10 Departure-Patient Inst. Referrals: DOROTEO RODRIGUEZ MD (PCP/Family) Primary Care Physician Patient Instructions: Sciatica (DC), Radiculopathy Add. Discharge Instructions: You have compressed nerves throughout your back but especially the pain up under your right breast appears to be a compressed nerve in your thoracic spine. You need to follow-up with Dr. CARVER at your scheduled appointment in [address] Rodriguez to help manage your pain between now and then. Hydrocodone 1 to 2 tablets every 6 hours as necessary for severe pain keeping you from being functional. Hydrocodone will cause constipation so I suggest Colace 200 mg daily plus MiraLAX as needed for constipation. Hydrocodone may also increase your risk of falls. Do not mix with alcohol or long trips. Topical creams such as icy hot or Biofreeze may be helpful. Heating pads along your back may be helpful. All discharge instructions reviewed with patient and/or family. Voiced understanding. Scripts Hydrocodone/Acetaminophen (Hydrocodone-Acetamin 5-325 mg) 1 Each Tablet 1-2 TAB PO Q6H PRN for PAIN-MODERATE (5-7), #30 TAB 0 Refills Prov: MEDARDO FLYNN 07/19/21 Copy Copies To 1: DOROTEO RODRIGUEZ MD, TITUS J Jul 19, 2021 07:02
[2021-07-19 08:03] LABS: BASOPHILS % (AUTO) 0 % (0-10); EOSINOPHILS % (AUTO) 0 % (0-10); HEMATOCRIT 42 % (35-52); HEMOGLOBIN 13.1 g/dL (11.5-16.0); LYMPHOCYTES # (AUTO) 2.2 10^3/uL (1.0-4.0); LYMPHOCYTES % (AUTO) 25 % (12-44); MEAN CORPUSCULAR HEMOGLOBIN 25 pg (25-34); MEAN CORPUSCULAR HGB CONC 31 g/dL (32-36); MEAN CORPUSCULAR VOLUME 80 fL (80-99); MEAN PLATELET VOLUME 9.3 fL (9.0-12.2); MONOCYTES # (AUTO) 0.8 10^3/uL (0.0-1.0); MONOCYTES % (AUTO) 8 % (0-12); NEUTROPHILS % (AUTO) 66 % (42-75); PLATELET COUNT 373 10^3/uL (130-400)
[2021-07-19 08:08] LABS: ALBUMIN 4.3 GM/DL (3.2-4.5); CHLORIDE 106 MMOL/L (98-107); POTASSIUM 3.4 MMOL/L (3.6-5.0); SODIUM 142 MMOL/L (135-145)
[2021-07-19 08:09] LABS: CALCIUM 9.4 MG/DL (8.5-10.1)
[2021-07-19 08:10] LABS: GLUCOSE 106 MG/DL (70-105)
[2021-07-19 08:11] LABS: TOTAL PROTEIN 7.3 GM/DL (6.4-8.2)
[2021-07-19 08:12] LABS: BILIRUBIN,TOTAL 0.3 MG/DL (0.1-1.0); CARBON DIOXIDE 23 MMOL/L (21-32)
[2021-07-19 08:14] LABS: ALKALINE PHOSPHATASE 136 U/L (40-136); CREATININE SERUM 0.72 MG/DL (0.60-1.30); GFR ESTIMATED 84
[2021-07-19 08:15] LABS: BUN/CREATININE RATIO 25
[2021-07-19 08:17] LABS: ALANINE AMINOTRANSFERASE 15 U/L (0-55)
--- NOTE | 2021-07-19 08:22 | Diagnostic Imaging Report ---
CHEST 1 VIEW, AP/PA ONLY Indication: Shortness of air and right chest pain Comparison: 04/08/2021 Findings: No focal airspace disease in the visualized lungs. Please note that the posterior lower lobes are poorly evaluated by portable radiography. No pleural effusion or pneumothorax. Normal cardiomediastinal silhouette. Impression: 1. No acute cardiopulmonary process by portable radiography. Dictated by: Dictated on workstation # [id number]
[2021-07-19] MEDS ORDERED: ACHD5005 PO (09:40)
[2021-07-19] MEDS ORDERED: HYDROcodone/APAP 7.5 MG/325 MG (LORTAB, LORCET PLUS) TABLET PO ONE (09:45)
--- NOTE | 2021-07-19 10:59 | Diagnostic Imaging Report ---
EXAMINATION: CT thoracic and lumbar spine without contrast. TECHNIQUE: Multiple contiguous axial images were obtained through the thoracic and lumbar spine without the use of intravenous contrast. Sagittal and coronal reformations were then performed. All CT scans use one or more of the following dose optimizing techniques: automated exposure control, MA and/or KvP adjustment based on patient size and exam type or iterative reconstruction. HISTORY: Radiculopathy and sciatica, unable to bear weight. COMPARISON: None available. FINDINGS: The alignment of the thoracic and lumbar spine is normal. There is a mild T12 compression fracture. There is mild L4 compression fracture. The L4 compression fracture appears acute, but the T12-L1 is age indeterminate. There is moderate facet arthropathy in the lumbar spine. There is a disc bulge at L4-L5 with at least mild spinal canal stenosis at this level. There is a small hiatal hernia. The aorta is normal. IMPRESSION: 1. Acute appearing mild L4 compression fracture. There is a disc bulge at L4-L5 with at least mild spinal canal stenosis. Consider MRI for further evaluation. 2. Age-indeterminate mild T12 compression fracture. Dictated by: Dictated on workstation # [id number]
[2021-07-19] MEDS ORDERED: ACETAMINOPHEN 325 MG TABLET PO PRN (13:45)
[2021-07-19] MEDS ORDERED: LACTULOSE SYRUP 10GM/15ML (ENULOSE) 30ML UDC PO PRN (13:45)
[2021-07-19] MEDS ORDERED: ONDANSETRON 4 MG (ZOFRAN) ORAL DISSOLVE TAB PO PRN (13:45)
[2021-07-19] MEDS ORDERED: diphenhydrAMINE 25 MG TAB (BENADRYL) PO PRN (13:45)
[2021-07-19] MEDS ORDERED: MELATONIN 3 MG TABLET PO PRN (13:45)
[2021-07-19] MEDS ORDERED: MILK OF MAGNESIA 400 MG/5 ML 30 ML UDC PO PRN (13:45)
[2021-07-19] MEDS ORDERED: ANTACID SUSP 30 ML UDC (MYLANTA) PO PRN (13:45)
[2021-07-19] MEDS ORDERED: ONDANSETRON 4 MG/2 ML (SDV) Z0FRAN IV PRN (13:45)
[2021-07-19] MEDS ORDERED: diphenhydrAMINE 50 MG/ML INJ (BENADRYL) IVP PRN (13:45)
[2021-07-19] MEDS ORDERED: HYDROcodone/APAP 5 MG/325 MG (LORTAB) TAB PO PRN (13:45)
[2021-07-19] MEDS ORDERED: BISACODYL 10 MG SUPP (DULCOLAX) PR PRN (13:45)
[2021-07-19 13:53] VITALS: BP 133/74
[2021-07-19] MEDS: CALCIUM CARBONATE 500 MG (TUMS) TAB.CHEW PO PRN ×2 (14:38→18:11)
[2021-07-19] MEDS ORDERED: PATIENT MAY USE OWN MEDS, ALL MC SCH (15:15)
[2021-07-19 16:00] VITALS: BP 123/58
[2021-07-19 16:05] VITALS: BP 133/74
[2021-07-19] MEDS ORDERED: RT-ALBUTEROL SULF 2.5 MG/3 ML PRE-MIX VIAL INH PRN (16:15)
[2021-07-19] MEDS ORDERED: RIVAROXABAN 20 MG TABLET (XARELTO) PO SCH (17:00)
[2021-07-19] MEDS: HYDROcodone/APAP 5 MG/325 MG (LORTAB) TAB PO PRN ×2 (17:14→23:32)
[2021-07-19] MEDS ORDERED: FLUT1BLS3 IH (17:30)
[2021-07-19] MEDS: ENOXAPARIN 80 MG/0.8 ML (LOVENOX) SYR SC SCH (18:01)
[2021-07-19] MEDS: morphine INJ 4 MG/ML 1 ML (VIAL/SYRINGE) IV PRN (18:07)
[2021-07-19 19:44] VITALS: BP 130/67
[2021-07-19] MEDS: traZODone 50 MG (DESYREL) TAB PO SCH (20:09)
[2021-07-19] MEDS: SENNOSIDES 8.6 MG (SENOKOT) TAB PO SCH (20:09)
[2021-07-19] MEDS: DOCUSATE SODIUM 100 MG (COLACE) CAP PO SCH (20:09)
--- NOTE | 2021-07-19 20:38 | History & Physical ---
History of Present Illness HPI/Chief Complaint Chief complaint: Severe incapacitating back pain due to thoracic and lumbar spine compression fractures History of present illness: This is an 81-year-old white female clinic patient of Dr. Rodriguez and Dr. Daniel pain management who has a past medical history of severe bilateral hip pain and receives pain injections on a regular basis who also has a history of osteoporosis last DEXA scan was in [place] 4 years a go. Patient remains on Fosamax once a week. Patient reports the pain is 10/10 and simply cannot move. 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 CT scan showed compression fractures. Denies any fall. Patient reports the pain started about a week ago but increased and the hydrocodone was no longer effective. She has not had a BM for several days. I spoke with Dr. CARVER who requested an MRI and a copy of DEXA scan and will entertain kyphoplasty. Inpatient rehab will likely be required. Xarelto will be held in preparation of upcoming procedure and she will be maintained on Lovenox 1 mg/kilogram twice daily due to high risk for DVT and factor V Leiden patient in and immobile. Source: patient Exam Limitations: no limitations Date Seen 07/19/21 Time Seen by a Provider: 13:15 Attending Physician Janene Cook DO PCP Luigi Rodriguez MD Referring Physician Date of Admission Jul 19, 2021 at 12:22 Home Medications & Allergies Home Medications Reviewed patient Home Medication Reconciliation performed by pharmacy medication reconciliations fire extinguisher technician and/or nursing. Patients Allergies have been reviewed. Allergies Allergies Coded Allergies No Known Drug Allergies (Unverified10/31/19) Past Rvatolf-Xwtcyd-Gculgw Hx Past Med/Social Hx: Reviewed Nursing Past Med/Soc Hx, Reviewed and Corrections made Patient Social History Marrital Status: Employed/Student: retired Alcohol Use: Denies Use Smoking Status: Never a Smoker 2nd Hand Smoke Exposure: No Recent Foreign Travel: No Contact w/other who traveled: No Recent Hopitalizations: No Immunizations Up To Date Tetanus Booster (TDap): Unknown Date of Influenza Vaccine: Apr 18, 2021 Seasonal Allergies Seasonal Allergies: No Past Medical History Surgeries: Appendectomy, Hysterectomy, Orthopedic Cardiac: Deep Vein Thrombosis, High Cholesterol, Hypertension Sexually Transmitted Disease: No HIV/AIDS: No Female 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 Disorders: Denies Hysterectomy Gastrointestinal: Gastroesophageal Reflux Musculoskeletal: Degenerate Disk Disease, Osteoporosis, Arthritis Endocrine: Hypothyroidsim Loss of Vision: Bilateral Hearing Impairment: Denies Psychosocial: Depression History of Blood Disorders: Yes (FACTOR 9 ) Adverse Reaction to Blood Pratt: No Review of Systems Constitutional: see HPI, malaise, weakness EENTM: no symptoms reported Cardiovascular: no symptoms reported Gastrointestinal: constipation Musculoskeletal: back pain Skin: no symptoms reported Psychiatric/Neurological: Anxiety, Depressed All Other Systems Reviewed Negative Unless Noted: Yes Physical Exam Physical Exam Vital Signs Vital Signs - First Documented 07/19/21 06:48 Temp 36.0 Pulse 66 Resp 18 B/P (MAP) 190/97 (128) Pulse Ox 100 O2 Delivery Room Air Capillary Refill : Less Than 3 Seconds Height, Weight, BMI Height: '" Weight: lbs. oz. kg; 27.09 BMI Method: General Appearance: WD/WN, Moderate Distress HEENT: PERRL/EOMI, Pharynx Normal, Moist Mucous Membranes Neck: Full Range of Motion, Normal Inspection Respiratory: Chest Non Tender, Lungs Clear, Normal Breath Sounds, No Accessory Muscle Use, No Respiratory Distress Cardiovascular: Regular Rate, Rhythm, No Edema Gastrointestinal: Normal Bowel Sounds, Non Tender, Soft Back: Decreased Range of Motion Extremity: Normal Capillary Refill, Normal Inspection Neurologic/Psychiatric: Alert, Oriented x3 Skin: Normal Color, Warm/Dry Results Results/Procedures Labs Laboratory Tests 07/19/21 07:56 07/20/21 05:30 Patient resulted labs reviewed. Assessment/Plan Admission Diagnosis Assessment: Severe incapacitating back pain due to thoracic and lumbar spine compression fractures pathological osteoporotic fractures Osteoporosis on Fosamax Hypercoagulable state on Xarelto 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 Araujo Constipation Plan: Lovenox and hold Xarelto in preparation for kyphoplasty MRI tomorrow Benites catheter Bowel regimen Home meds Admission Status: Observation Diagnosis/Problems Diagnosis/Problems (1) Thoracic vertebral fracture Status: Acute Qualifiers: Encounter type: initial encounter Thoracic vertebra fracture level: T12 Fracture type: closed Fracture morphology: unspecified fracture morphology Qualified Codes: S22.089A - Unspecified fracture of t11-T12 vertebra, initial encounter for closed fracture (2) Osteoporosis (3) Hypercoagulable state (4) Closed lumbar vertebral fracture Status: Acute Qualifiers: Encounter type: initial encounter Lumbar vertebra fracture level: L4 Fracture morphology: unspecified fracture morphology Qualified Codes: S32.049A - Unspecified fracture of fourth lumbar vertebra, initial encounter for closed fracture (5) Radicular pain of thoracic region Status: Acute JANENE COOK DO Jul 19, 2021 20:38
[2021-07-19] MEDS ORDERED: ADVAIR HFA 115/21 MCG INHALER 8 GM IH SCH (21:00)
[2021-07-19] MEDS ORDERED: RT--FLUTICASONE/SALMETEROL 232-14 (AIRDUO RespiCLICK) IH SCH (21:00)
[2021-07-20] VITALS (7 sets, daily range): BP systolic 114–169; BP diastolic 55–83
[2021-07-20] MEDS: HYDROcodone/APAP 5 MG/325 MG (LORTAB) TAB PO PRN ×4 (03:43→18:09)
[2021-07-20] MEDS ORDERED: PANTOPRAZOLE 40 MG (PROTONIX) TAB PO SCH (06:00)
[2021-07-20] MEDS ORDERED: LEVOTHYROXINE 50 MCG (LEVOTHROID) TAB PO SCH (06:00)
[2021-07-20] MEDS: ENOXAPARIN 80 MG/0.8 ML (LOVENOX) SYR SC SCH ×2 (06:13→18:06)
[2021-07-20 06:26] LABS: BASOPHILS % (AUTO) 1 % (0-10); EOSINOPHILS # (AUTO) 0.1 10^3/uL (0.0-0.3); EOSINOPHILS % (AUTO) 1 % (0-10); HEMATOCRIT 44 % (35-52); HEMOGLOBIN 13.1 g/dL (11.5-16.0); LYMPHOCYTES # (AUTO) 1.9 10^3/uL (1.0-4.0); LYMPHOCYTES % (AUTO) 33 % (12-44); MEAN CORPUSCULAR HEMOGLOBIN 25 pg (25-34); MEAN CORPUSCULAR HGB CONC 30 g/dL (32-36); MEAN CORPUSCULAR VOLUME 83 fL (80-99); MEAN PLATELET VOLUME 9.5 fL (9.0-12.2); MONOCYTES # (AUTO) 0.6 10^3/uL (0.0-1.0); MONOCYTES % (AUTO) 11 % (0-12); NEUTROPHILS # (AUTO) 3.1 10^3/uL (1.8-7.8); NEUTROPHILS % (AUTO) 54 % (42-75); PLATELET COUNT 345 10^3/uL (130-400); WHITE BLOOD COUNT 5.8 10^3/uL (4.3-11.0)
[2021-07-20 06:48] LABS: ALBUMIN 3.9 GM/DL (3.2-4.5); POTASSIUM 3.9 MMOL/L (3.6-5.0)
[2021-07-20 06:49] LABS: CALCIUM 9.3 MG/DL (8.5-10.1)
[2021-07-20 06:50] LABS: TOTAL PROTEIN 6.6 GM/DL (6.4-8.2)
[2021-07-20 06:52] LABS: BILIRUBIN,TOTAL 0.2 MG/DL (0.1-1.0)
[2021-07-20 06:54] LABS: CREATININE SERUM 0.72 MG/DL (0.60-1.30)
[2021-07-20] MEDS: SENNOSIDES 8.6 MG (SENOKOT) TAB PO SCH ×2 (07:46→20:02)
[2021-07-20] MEDS: MONTELUKAST 10 MG (SINGULAIR) TAB PO SCH (07:47)
[2021-07-20] MEDS: DOCUSATE SODIUM 100 MG (COLACE) CAP PO SCH ×3 (07:48→20:06)
[2021-07-20] MEDS: amLODIPine 2.5MG (NORVASC) TAB PO SCH (07:49)
[2021-07-20] MEDS: FUROSEMIDE 40 MG (LASIX) TAB PO SCH (07:50)
[2021-07-20] MEDS: meTOproloL SUCCINATE 50 MG (TOPROL XL) TAB PO SCH (07:50)
[2021-07-20] MEDS: DULoxetine 30 MG (CYMBALTA) CAP PO SCH (07:51)
[2021-07-20] MEDS: polyethylene glycoL POWDER 17 GM (MIRALAX) PACK PO PRN (07:54)
[2021-07-20] MEDS ORDERED: UMECLIDINIUM BROMIDE (INCRUSE ELLIPTA) 7'S IH SCH (08:00)
[2021-07-20] MEDS ORDERED: FLUTICASONE 100 MCG 14's (ARNUITY) IH SCH (08:00)
[2021-07-20] MEDS: ESTROGENS CONJ 0.625 MG (PREMARIN) TAB PO SCH (08:00)
[2021-07-20] MEDS ORDERED: NON-FORMULARY MEDICATION 1 EA EA (Fluticasone/Umeclidin/Vilanter (Trelegy Ellipta 100-62.5 IH SCH (09:00)
[2021-07-20] MEDS ORDERED: PRAMIPEXOLE 0.125 MG (MIRAPEX) TABLET PO SCH (09:00)
[2021-07-20] MEDS ORDERED: ROSUVASTATIN 5 MG (CRESTOR) TABLET PO SCH (09:00)
[2021-07-20] MEDS ORDERED: NON-FORMULARY MEDICATION 1 EA EA (Omeprazole 40 MG) PO SCH (09:00)
[2021-07-20] MEDS ORDERED: FLUTICASONE NASAL SPRAY (FLONASE) 16 GM BTL NS SCH (09:00)
[2021-07-20] MEDS ORDERED: KCL 10 MEQ TAB (MICRO K) PO SCH (09:00)
[2021-07-20] MEDS: CALCIUM CARBONATE 500 MG (TUMS) TAB.CHEW PO PRN ×2 (09:38→14:00)
[2021-07-20] MEDS: morphine INJ 4 MG/ML 1 ML (VIAL/SYRINGE) IV PRN ×3 (09:38→20:02)
--- NOTE | 2021-07-20 10:29 | Physical Therapy Progress Note ---
Therapy Progress Note Patient on hold per RN due to patient inability tolerate movement and has a surgical consult. PT will continue to follow patient status and initiate treatment when patient is medically stable and able to actively participate with skilled PT. INGE CALDERON PT Jul 20, 2021 10:29
--- NOTE | 2021-07-20 11:17 | Occ Therapy Progress Note ---
Therapy Progress Note OT orders received and chart was reviewed. RN requests to hold eval for surgical consult. OT to attempt again 07/21/21 if pt is medically appropriate. Jenna Jessica OT Jul 20, 2021 11:17
[2021-07-20] MEDS ORDERED: BISACODYL 10 MG SUPP (DULCOLAX) PR PRN (11:30)
[2021-07-20] MEDS ORDERED: BISACODYL 10 MG SUPP (DULCOLAX) PR NR (12:00)
--- NOTE | 2021-07-20 12:18 | Progress Note ---
[facility] 07/20/21 1218: Subjective Date Seen by a Provider: Jul 20, 2021 Time Seen by a Provider: 09:00 Subjective/Events-last exam Patient states she is doing well Daughter at bedside this morning Patient still continues to have sharp pain that radiates down left leg Received DEXA scan results from outside facility Received MRI today In contact with Dr. Hart consult for kyphoplasty Has not had a BM Review of Systems General: No Chills, No Other Pulmonary: Dyspnea (Chronic); No Cough Cardiovascular: No: Chest Pain, Palpitations Gastrointestinal: No: Nausea, Vomiting, Abdominal Pain Musculoskeletal: back pain Objective Exam Last Set of Vital Signs Vital Signs Date Time Temp Pulse Resp B/P (MAP) Pulse Ox O2 Delivery O2 Flow Rate FiO2 07/20/21 08:00 35.9 73 18 132/71 (91) 99 Room Air Capillary Refill : Less Than 3 Seconds I&O Intake and Output 07/19/21 23:59 Intake Total 760 ml Output Total 1100 ml Balance -340 ml Intake Oral 760 ml Output Urine Total 1100 ml Daily Weight Change No General: Alert, Oriented X3, Cooperative, No Acute Distress HEENT: Atraumatic, PERRLA Neck: Supple, No JVD Lungs: Clear to Auscultation Heart: Regular Rate, Normal S1, Normal S2 Abdomen: Normal Bowel Sounds, Soft Extremities: No Clubbing, No Cyanosis Skin: No Rashes, No Breakdown Neuro: Other (Inability to walk due to pain. Pain limits exam) Psych/Mental Status: Mental Status NL Results Lab Laboratory Tests 07/20/21 05:30: White Blood Count 5.8, Red Blood Count 5.23H, Hemoglobin 13.1, Hematocrit 44, Mean Corpuscular Volume 83, Mean Corpuscular Hemoglobin 25, Mean Corpuscular Hemoglobin Concent 30L, Red Cell Distribution Width , Platelet Count 345, Mean Platelet Volume 9.5, Immature Granulocyte % (Auto) 1, Neutrophils (%) (Auto) 54, Lymphocytes (%) (Auto) 33, Monocytes (%) (Auto) 11, Eosinophils (%) (Auto) 1, Basophils (%) (Auto) 1, Neutrophils # (Auto) 3.1, Lymphocytes # (Auto) 1.9, Monocytes # (Auto) 0.6, Eosinophils # (Auto) 0.1, Basophils # (Auto) 0.0, Immature Granulocyte # (Auto) 0.0, Sodium Level 140, Potassium Level 3.9, Chloride Level 104, Carbon Dioxide Level 25, Anion Gap 11, Blood Urea Nitrogen 18, Creatinine 0.72, Estimat Glomerular Filtration Rate 84, BUN/Creatinine Ratio 25, Glucose Level 101, Calcium Level 9.3, Corrected Calcium 9.4, Total Bilirubin 0.2, Aspartate Amino Transf (AST/SGOT) 15, Alanine Aminotransferase (ALT/SGPT) 12, Alkaline Phosphatase 151H, Total Protein 6.6, Albumin 3.9 Assessment/Plan Assessment/Plan Assess & Plan/Chief Complaint Assessment: Family history of parathyroid disease Severe incapacitating back pain due to thoracic and lumbar spine compression fractures pathological osteoporotic fractures - Acute L4 compression fracture - T12 compression fracture Osteoporosis on Fosamax Hypercoagulable state on Xarelto 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 Araujo Constipation Plan: PTH serologic lab test Lovenox and hold Xarelto in preparation for kyphoplasty Dr. Hart Consult MRI today, waiting for report Benites catheter Bowel regimen, will start a suppository today Home meds Will transfer to in-patient rehab facility after surgery Final Diagnosis T-Spine and L-Spine Compression fracture JANENE COOK DO 07/21/21 0544: Subjective Subjective/Events-last exam Updated daughter on plan when patient was in MRI Pain is still severe No BM yet so will start Dulcolax suppository but she is passing gas Appreciate Dr. HART plan MRI images reviewed Changed meds to how she takes them at home Review of Systems General: Fatigue, Malaise Objective Exam General: Alert, Oriented X3, Cooperative, No Acute Distress Lungs: Clear to Auscultation, Normal Air Movement Heart: Regular Rate, Normal S1, Normal S2, No Murmurs Psych/Mental Status: Mental Status NL, Mood NL Assessment/Plan Assessment/Plan Assess & Plan/Chief Complaint Await Dr. HART plan Add PTH to labs Prolia may be an option for patient Hold Xarelto Supervisory-Addendum Brief Verification & Attestation Participated in pt care: history, MDM, physical Personally performed: exam, history, MDM, supervision of care Care discussed with: Medical Student Procedures: n/a Results interpretation: Verified all documentation Verification and Attestation of Medical Student E/M Service A medical student performed and documented this service in my presence. I reviewed and verified all information documented by the medical student and made modifications to such information, when appropriate. I personally performed the physical exam and medical decision making. Janene Cook, Jul 21, 2021,05:39 [facility] Jul 20, 2021 12:18 JANENE COOK DO Jul 21, 2021 05:44
--- NOTE | 2021-07-20 12:29 | Diagnostic Imaging Report ---
Clinical indications: Patient with thoracic spine pain. Exam: MRI of the thoracic spine performed without IV contrast. Sequences include sagittal T1, sagittal T2, sagittal T2 fat-sat, and axial T2. Comparison: CT scan of the thoracic lumbar spine without contrast dated 07/19/2021. Findings: There is no acute thoracic spine fracture. There is a chronic anterior wedge compression deformity of the T12 vertebra. There is multilevel Modic type II degenerative signal changes anteriorly involving the mid thoracic spine with associated spurs. There are hypertrophic spurs involving the mid to lower thoracic spine. There is multilevel facet arthropathy. Thoracic spinal cord is normal cord caliber with no abnormal signal. Hiatal hernia is noted. There is fluid-filled, mildly dilated esophagus noted. Patient was noted to have air-filled, mildly dilated esophagus. There is subtle grade 1 anterolisthesis of T3 on T4 with no pars defect. There is severe bilateral facet arthropathy/hypertrophy at the T3-T4 level. There is mild diffuse disk bulge. There is mild left neural foramen narrowing and moderate central canal stenosis. There is moderate bilateral T7-T8, and T8-T9 neural foramen narrowing due to facet arthropathy. There is moderate right T5-T6 neural foramen narrowing due to facet arthropathy. There is moderate left T9-T10 neural foramen narrowing due to disk bulge and facet arthropathy. There is a small posterior disk bulge at the T10-T11 level and facet arthropathy. There is mild central canal narrowing at the T10-T11 level and no significant neural foramen narrowing. IMPRESSION: 1: There is no evidence of acute thoracic spine fracture. 2: There is a chronic anterior wedge compression fracture deformity at T12 vertebra. 3: There is multilevel thoracic spine degenerative disease. Dictated by: Dictated on workstation # [id number]
--- NOTE | 2021-07-20 12:41 | Diagnostic Imaging Report ---
CLINICAL INDICATION: Patient having lumbar spine pain. Patient has history of acute appearing L1 compression fracture and age indeterminate T12 compression fracture on comparison CT scan. Patient has history of osteoarthritis. EXAM: MRI of the lumbar spine without contrast. Sequences include sagittal T2, sagittal T1, sagittal T2 fat-sat, and axial T2. COMPARISON: CT scan of the thoracic and lumbar spine dated 07/19/2021. FINDINGS: There is an acute/subacute fracture involving the upper aspect of the L4 vertebra with roughly 40% loss of height. There is no retro-pulsed component. Chronic anterior wedge compression fracture deformity of the T12 vertebra with no associated marrow edema. There is no other lumbar spine fracture. There are areas of Modic type II degenerative signal changes scattered throughout the lumbar spine. The visualized portions of the distal thoracic spinal cord, conus medullaris, and cauda equina nerve roots are unremarkable. The conus medullaris tip is seen at the L1-L2 intervertebral level. There is no significant paraspinal soft tissue abnormality. T11-T12: There is bilateral facet arthropathy/hypertrophy. There are slight posterior disk spurs. There is moderate right neuroforaminal narrowing and mild to moderate left neuroforaminal narrowing. There is moderate central canal stenosis. T12-L1: There is no significant central spinal canal or neuroforaminal narrowing. There is mild bilateral facet arthropathy. L1-L2: There is a mild diffuse disk bulge with disk extrusion/herniation anteriorly right of midline with an annular tear. There is moderate loss of disk space height. There is mild bilateral facet arthropathy. There is mild central canal stenosis. There is mild to moderate right neuroforaminal narrowing and no significant left neuroforaminal narrowing. L2-L3: There is subtle grade 1 retrolisthesis of L2 on L3. There is a diffuse disk bulge with moderate loss of disk space height. There are disk spurs extending into the foraminal regions bilaterally. There is moderate bilateral facet arthropathy. There is mild central canal stenosis, severe left neuroforaminal narrowing, and mild right neuroforaminal narrowing. L3-L4: There is a diffuse disk bulge with broad posterior disk spurs. There is moderate bilateral facet arthropathy and ligamentum flavum buckling. There is moderate central canal stenosis, mild right neuroforaminal narrowing, and mild to moderate left neuroforaminal narrowing. L4-L5: There is grade 1 anterolisthesis of L4 on L5. There is a diffuse disk bulge. There is severe bilateral facet arthropathy/hypertrophy and degenerative facet effusions. There is ligamentum flavum buckling. There is severe central canal stenosis with complete effacement of the thecal sac. There is moderate to severe right neuroforaminal narrowing and severe left neuroforaminal narrowing. L5-S1: There is a diffuse disk bulge with moderate loss of disk space height. There is mild right facet arthropathy and moderate to severe left facet arthropathy. There is no significant central canal stenosis. There is mild to moderate right neuroforaminal narrowing and moderate left neuroforaminal narrowing. IMPRESSION: 1: There is an acute/subacute compression fracture deformity of the L4 vertebra. 2: There is a chronic T12 vertebral body compression fracture deformity. 3: There is severe multilevel lumbar spine degenerative disk disease which is described in detail above. 4: There is grade 1 anterolisthesis of L4 on L5, severe bilateral facet arthropathy/hypertrophy, and diffuse disk bulge. There is associated severe L4-L5 central canal stenosis, severe left neuroforaminal narrowing, and moderate to severe right neuroforaminal narrowing. Dictated by: Dictated on workstation # [id number]
[2021-07-20] MEDS ORDERED: METH4TAB10 PO (13:06)
[2021-07-20] MEDS ORDERED: CYCL10TA25 PO (13:06)
[2021-07-20] MEDS ORDERED: LEVO75TA6 PO (13:32)
[2021-07-20] MEDS ORDERED: LISI5TAB20 PO (13:37)
[2021-07-20] MEDS ORDERED: ACET-2267 PO (13:38)
[2021-07-20] MEDS ORDERED: POTA10TA37 PO (13:40)
[2021-07-20] MEDS ORDERED: OMEP40CA6 PO (13:41)
[2021-07-20] MEDS ORDERED: EST30C VG (14:17)
--- NOTE | 2021-07-20 16:23 | Consultation ---
History of Present Illness History of Present Illness Patient Consulted On(walter/time) 07/20/21 16:22 Date Seen by Provider: Jul 20, 2021 Time Seen by Provider: 16:22 Reason for Visit: Low back and leg pain History of Present Illness 81 y/o female with acute onset of severe pain for a little over a week, that is intolerable and unable to bear weight. Narcotics not controlling her pain and is bedridden with pain at this point. History of documented osteoporosis and on treatment for last several years. Also receiving epidural injections for stenosis by Dr Daniel. Pain is 10/10 at times when she tries to move, unable to care for herself any longer. New MRI's obtained today. Allergies and Home Medications Allergies Coded Allergies: No Known Drug Allergies (Unverified , 10/31/19) Patient Home Medication List Home Medication List Reviewed: Yes Acetaminophen (Tylenol Extra Strength) 500 Mg Tablet, 1,000 MG PO BID PRN for PAIN-MILD (1-4), (Reported) Entered as Reported by: MILTON SEGAL on 07/20/21 1338 Last Action: Reviewed Albuterol Sulfate (Proair Hfa) 1 Puff Puff, 1 PUFF PO Q8H PRN for SHORTNESS OF BREATH, (Reported) Entered as Reported by: CEE JARQUIN on 10/31/19 1155 Last Action: Reviewed Alendronate Sodium (Alendronate Sodium) 70 Mg Tablet, FRI, (Reported) Entered as Reported by: CEE JARQUIN on 10/31/19 1155 Last Action: Reviewed Amlodipine Besylate (Norvasc) 2.5 Mg Tablet, 2.5 MG PO HS, (Reported) Entered as Reported by: PANCHITO DOMÍNGUEZ on 03/04/21 1103 Last Action: Reviewed Cyclobenzaprine HCl (Cyclobenzaprine HCl) 10 Mg Tablet, 5 MG PO Q8H, (Reported) Entered as Reported by: MILTON SEGAL on 07/20/21 1306 Last Action: Reviewed Duloxetine HCl (Duloxetine HCl) 60 Mg Capsule., (Reported) Entered as Reported by: CEE JARQUIN on 10/31/19 1155 Last Action: Reviewed Estrogens Conjugated (Premarin) 30 Gm Cr, 1 GM VG MON,WED,FRI, (Reported) Entered as Reported by: MILTON SEGAL on 07/20/21 1417 Last Action: Reviewed Fluticasone/Umeclidin/Vilanter (Trelegy Ellipta 100-62.5-25) 1 Each Blst.w.dev, 1 EACH IH DAILY, (Reported) Entered as Reported by: PANCHITO DOMÍNGUEZ on 03/04/21 1103 Last Action: Reviewed Furosemide (Furosemide) 40 Mg Tablet, 40 MG PO HS, (Reported) Entered as Reported by: PANCHITO DOMÍNGUEZ on 03/04/21 110 Last Action: Reviewed Hydrocodone/Acetaminophen (Hydrocodone-Acetamin 5-325 mg) 1 Each Tablet, 1-2 TAB PO Q6H PRN for PAIN-MODERATE (5-7) Prescribed by: MEDARDO FLYNN on 07/19/21 0941 Last Action: Reviewed Levothyroxine Sodium (Levothyroxine Sodium) 75 Mcg Tablet, 75 MCG PO DAILY, (Reported) Entered as Reported by: MILTON SEGAL on 07/20/21 1332 Last Action: Continued Lisinopril (Lisinopril) 5 Mg Tablet, 5 MG PO BID, (Reported) Entered as Reported by: MILTON SEGAL on 07/20/21 1337 Last Action: Reviewed Methylprednisolone (Methylprednisolone Dose Pack) 4 Mg Tab.ds.pk, MG PO UD, (Reported) Entered as Reported by: MILTON SEGAL on 07/20/21 1306 Last Action: Reviewed Metoprolol Succinate (Toprol Xl) 50 Mg Tab.er.24h, 50 MG PO DAILY, (Reported) Entered as Reported by: PANCHITO DOMÍNGUEZ on 03/04/21 110 Last Action: Reviewed Mirabegron (Myrbetriq) 25 Mg Tab.er.24h, 50 MG PO HS, (Reported) Entered as Reported by: CEE JARQUIN on 10/31/19 1155 Last Action: Converted Montelukast Sodium (Montelukast Sodium) 10 Mg Tablet, (Reported) Entered as Reported by: CEE JARQUIN on 10/31/19 115 Last Action: Reviewed Omeprazole (Omeprazole) 40 Mg Capsule.dr, 40 MG PO DAILY, (Reported) Entered as Reported by: MILTON SEGAL on 07/20/21 1341 Last Action: Reviewed Pantoprazole Sodium (Pantoprazole Sodium) 40 Mg Tablet.dr, 40 MG PO BID, (Reported) Entered as Reported by: CEE JARQUIN on 10/31/191154 Last Action: Reviewed Potassium Chloride (Potassium Chloride) 10 Meq Tab.er.prt, 10 MEQ PO DAILY, (Reported) Entered as Reported by: MILTON SEGAL on 07/20/21 1340 Last Action: Reviewed Pramipexole Di-HCl (Pramipexole Dihydrochloride) 0.125 Mg Tablet, 0.125 MG PO BID, (Reported) Entered as Reported by: PANCHITO DOMÍNGUEZ on 03/04/211102 Last Action: Reviewed Rivaroxaban (Xarelto) 10 Mg Tablet, 10 MG PO HS, (Reported) Entered as Reported by: CEE JARQUIN on 10/31/191154 Last Action: Reviewed Rosuvastatin Calcium (Rosuvastatin Calcium) 5 Mg Tablet, 5 MG PO MON,WED,FRI, (Reported) Entered as Reported by: CEE JARQUIN on 10/31/191154 Last Action: Reviewed Travoprost (Travatan Z) 5 Ml Drops, 1 DROP OU HS, (Reported) Entered as Reported by: CEE JARQUIN on 10/31/191154 Last Action: Reviewed Trazodone HCl (Trazodone HCl) 50 Mg Tablet, 50 MG PO HS, (Reported) Entered as Reported by: PANCHITO DOMÍNGUEZ on 03/04/211102 Last Action: Reviewed Discontinued Medications Cyclosporine (Restasis) 1 Each Droperette, (Reported) Discontinued Reason: No Longer Taking Entered as Reported by: CEE JARQUIN on 10/31/191154 Last Action: Discontinued Estrogens, Conjugated (Premarin) 0.625 Mg Tablet, 0.625 MG PO DAILY, (Reported) Discontinued Reason: No Longer Taking Entered as Reported by: PANCHITO DOMÍNGUEZ on 03/04/211102 Last Action: Discontinued Fluticasone Propionate (Fluticasone Propionate) 16 Gm Senath.susp, (Reported) Discontinued Reason: No Longer Taking Entered as Reported by: CEE JARQUIN on 10/31/191154 Last Action: Discontinued Fluticasone/Salmeterol (Advair 250-50 Diskus) 1 Each Blst.w.dev, (Reported) Discontinued Reason: No Longer Taking Entered as Reported by: CEE JARQUIN on 10/31/19 1155 Last Action: Discontinued Fluticasone/Umeclidin/Vilanter (Trelegy Ellipta 100-62.5-25) 1 Each Blst.w.dev, 1 EACH IH DAILY, (Reported) Discontinued Reason: No Longer Taking Entered as Reported by: ASHLEY STEVENS on 07/19/21 1730 Last Action: Discontinued Levothyroxine Sodium (Levothyroxine Sodium) 50 Mcg Tablet, (Reported) Discontinued Reason: Prescription changed Entered as Reported by: CEE JARQUIN on 10/31/19 1155 Last Action: Reviewed Omeprazole (Omeprazole) 40 Mg Capsule.dr, 40 MG PO DAILY Discontinued Reason: No Longer Taking Prescribed by: ILYA ARANA on 03/11/21 1118 Last Action: Discontinued Past Rjtzmph-Syaxbz-Nvlicf Hx Patient Social History Tobacco Use?: No Smoking Status: Never a Smoker Use of E-Cig and/or Vaping dev: No Substance use?: No Alcohol Use?: No Pt feels they are or have been: No Immunizations Up To Date Tetanus Booster (TDap): Unknown Influenza Vaccine Up-to-Date: Yes; Up-to-Date First/Initial COVID19 Vaccinat: 08/06/2020 Second COVID19 Vaccination Walter: 09/03/2020 Third COVID19 Vaccination Date: OCTOBER 2020 COVID19 Vaccine 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: [email or web address] Seasonal Allergies Seasonal Allergies: No Past Medical History Surgeries: Yes Appendectomy, Hysterectomy, Orthopedic Respiratory: Yes COPD Cardiac: Yes Deep Vein Thrombosis, High Cholesterol, Hypertension Neurological: No Female 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 Disorders: 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 Sexually Transmitted Disease: No HIV/AIDS: No Genitourinary: No Gastrointestinal: Yes Gastroesophageal Reflux Musculoskeletal: No Degenerate Disk Disease, Osteoporosis, Arthritis Endocrine: Yes Hypothyroidsim HEENT: Yes (dry eye) Loss of Vision: Bilateral Hearing Impairment: Denies Cancer: No Psychosocial: No Depression Integumentary: No Blood Disorders: Yes (FACTOR 9 ) Adverse Reaction/Blood Tranf: No Review of Systems-General Constitutional: no symptoms reported EENTM: no symptoms reported Respiratory: no symptoms reported Cardiovascular: no symptoms reported Gastrointestinal: no symptoms reported Genitourinary: no symptoms reported : No Musculoskeletal: back pain, joint pain Skin: no symptoms reported Psychiatric/Neurological: No Symptoms Reported Physical Exam-General Problems Physical Exam Vital Signs Vital Signs - First Documented 07/19/21 06:48 Temp 36.0 Pulse 66 Resp 18 B/P (MAP) 190/97 (128) Pulse Ox 100 O2 Delivery Room Air Capillary Refill : Less Than 3 Seconds General Appearance: WD/WN, mild distress Eyes: Bilateral Eye Normal Inspection, Bilateral Eye EOMI HEENT: pharynx normal Neck: non-tender, full range of motion, supple, normal inspection Respiratory: chest non-tender, no respiratory distress, no accessory muscle use Cardiovascular: regular rate, rhythm Peripheral Pulses: 2+ Dorsalis Pedis (R), 2+ Left Dors-Pedis (L) Gastrointestinal: soft Rectal: deferred Back: muscle spasm, vertebral tenderness Extremities: normal range of motion, other (No pain with ROM of hip, +SLR on left, distally joints unremarkable) Skin: normal color (NO breakdown over back) Lymphatic: no adenopathy Comments MRI Scan T/L spine. Shows old T12 compression fracture. New appearing L4 compression fracture with severe Left L4-5 lateral recess stenosis DEXA confirms osteoporosis. Assessment/Plan Assessment/Plan Admission Diagnosis/Plan 1. Acute L4 compression deformity caused by #2 2. Osteoporosis 3. 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 Lumbar Radiculopathy 5. Anticoagulation Plan: She qualifies for L4 balloon kyphoplasty based on failure of non-operative measure, inpatient admission with greater than 8/10 pain on VAS scale, documented osteoporosis on treatment, without significant trauma, no retro-pulsion/canal compromise However, she also is having severe radicular pain worsened by fracture and needs a small decompression and will set her up for Left L4-5 shubham-laminectomy Risk/Benefits/Alternatives discussed with her and she agrees to proceed. ELHAM CARVER MD Jul 20, 2021 16:23
[2021-07-20] MEDS: ROSUVASTATIN 5 MG (CRESTOR) TABLET PO SCH (17:31)
[2021-07-20] MEDS: PRAMIPEXOLE 0.125 MG (MIRAPEX) TABLET PO SCH (20:00)
[2021-07-20] MEDS: PANTOPRAZOLE 40 MG (PROTONIX) TAB PO SCH (20:01)
[2021-07-20] MEDS: traZODone 50 MG (DESYREL) TAB PO SCH (20:03)
[2021-07-20] MEDS ORDERED: NON-FORMULARY MEDICATION 1 EA EA (Mirabegron (Myrbetriq) 50 MG) PO SCH (21:00)
[2021-07-21] VITALS (15 sets, daily range): BP systolic 107–136; BP diastolic 57–73
[2021-07-21] MEDS: morphine INJ 4 MG/ML 1 ML (VIAL/SYRINGE) IV PRN ×3 (00:15→11:59)
[2021-07-21] MEDS: HYDROcodone/APAP 5 MG/325 MG (LORTAB) TAB PO PRN ×3 (03:21→13:02)
[2021-07-21] MEDS: CALCIUM CARBONATE 500 MG (TUMS) TAB.CHEW PO PRN (03:21)
[2021-07-21] MEDS: LEVOTHYROXINE 75 MCG (LEVOTHROID) TABLET PO SCH (06:08)
[2021-07-21] MEDS: KCL 10 MEQ TAB (MICRO K) PO SCH (06:08)
[2021-07-21 06:19] LABS: BASOPHILS % (AUTO) 0 % (0-10); EOSINOPHILS # (AUTO) 0.2 10^3/uL (0.0-0.3); EOSINOPHILS % (AUTO) 2 % (0-10); HEMATOCRIT 44 % (35-52); HEMOGLOBIN 13.5 g/dL (11.5-16.0); LYMPHOCYTES # (AUTO) 1.7 10^3/uL (1.0-4.0); LYMPHOCYTES % (AUTO) 24 % (12-44); MEAN CORPUSCULAR HEMOGLOBIN 25 pg (25-34); MEAN CORPUSCULAR HGB CONC 31 g/dL (32-36); MEAN CORPUSCULAR VOLUME 83 fL (80-99); MEAN PLATELET VOLUME 9.5 fL (9.0-12.2); MONOCYTES # (AUTO) 0.7 10^3/uL (0.0-1.0); MONOCYTES % (AUTO) 10 % (0-12); NEUTROPHILS # (AUTO) 4.6 10^3/uL (1.8-7.8); NEUTROPHILS % (AUTO) 64 % (42-75); PLATELET COUNT 354 10^3/uL (130-400); WHITE BLOOD COUNT 7.3 10^3/uL (4.3-11.0)
[2021-07-21 06:44] LABS: ALBUMIN 3.7 GM/DL (3.2-4.5); BILIRUBIN,TOTAL 0.3 MG/DL (0.1-1.0); CALCIUM 9.3 MG/DL (8.5-10.1); CREATININE SERUM 0.7 MG/DL (0.60-1.30); TOTAL PROTEIN 6.5 GM/DL (6.4-8.2)
--- NOTE | 2021-07-21 07:21 | Physical Therapy Progress Note ---
Therapy Progress Note Patient will remain on Hold until surgery is complete. INGE CALDERON PT Jul 21, 2021 07:21
[2021-07-21] MEDS: RT--FLUTICASONE/SALMETEROL 232-14 (AIRDUO RespiCLICK) IH SCH ×3 (08:12→21:01)
[2021-07-21] MEDS: DULoxetine 30 MG (CYMBALTA) CAP PO SCH (08:13)
[2021-07-21] MEDS: amLODIPine 2.5MG (NORVASC) TAB PO SCH (08:13)
[2021-07-21] MEDS: DOCUSATE SODIUM 100 MG (COLACE) CAP PO SCH ×2 (08:13→22:07)
[2021-07-21] MEDS: MONTELUKAST 10 MG (SINGULAIR) TAB PO SCH (08:14)
[2021-07-21] MEDS: meTOproloL SUCCINATE 50 MG (TOPROL XL) TAB PO SCH (08:15)
[2021-07-21] MEDS: PANTOPRAZOLE 40 MG (PROTONIX) TAB PO SCH ×2 (08:15→22:07)
[2021-07-21] MEDS: PRAMIPEXOLE 0.125 MG (MIRAPEX) TABLET PO SCH ×2 (08:15→22:07)
[2021-07-21] MEDS: FUROSEMIDE 40 MG (LASIX) TAB PO SCH (08:16)
[2021-07-21] MEDS: ESTROGENS CONJ 0.625 MG (PREMARIN) TAB PO SCH (08:16)
[2021-07-21] MEDS: SENNOSIDES 8.6 MG (SENOKOT) TAB PO SCH ×2 (08:17→22:07)
[2021-07-21] MEDS: UMECLIDINIUM BROMIDE (INCRUSE ELLIPTA) 7'S IH SCH (10:16)
--- NOTE | 2021-07-21 10:55 | Occ Therapy Progress Note ---
Therapy Progress Note Patient will remain on Hold until surgery is complete Jenna Jessica OT Jul 21, 2021 10:54
--- NOTE | 2021-07-21 11:36 | Progress Note ---
RAFY RAMIREZ 07/21/21 1136: Subjective Date Seen by a Provider: Jul 21, 2021 Time Seen by a Provider: 10:00 Subjective/Events-last exam Patient is laying supine in bed at time of encounter. She states that her pain in controlled when she lays flat on her back. When in this position she rates her pain 1/10. With movement, her pain is 10/10. She had 2 BM on 07/20. She states she thinks she could still go more, will cont inue stool softener regimen at this time. She is feeling ready for surgery today; states Dr. Hart has reviewed the procedure with her. Lovenox injection was held this morning. It would be ideal if she could receive it later this afternoon post surgery, however if Dr. Hart would like to wait, will plan to administer tomorrow morning. She reports some dyspnea. Labs and vitals are stable. Medications reviewed. Incentive spirometer has been ordered and discussed with the patient. Review of Systems Pulmonary: Dyspnea Cardiovascular: No: Chest Pain Gastrointestinal: No: Abdominal Pain Musculoskeletal: back pain (severe with movement) Objective Exam Last Set of Vital Signs Vital Signs Date Time Temp Pulse Resp B/P (MAP) Pulse Ox O2 Delivery O2 Flow Rate FiO2 07/21/21 10:24 Room Air 07/21/21 10:18 92 07/21/21 08:00 36.2 83 20 123/69 (87) Capillary Refill : Less Than 3 Seconds I&O Intake and Output 07/20/21 23:59 Intake Total 980 ml Output Total 1175 ml Balance -195 ml Intake Oral 980 ml Output Urine Total 1175 ml # Bowel Movements 2 # Emeses 1 General: Alert, Cooperative, No Acute Distress HEENT: Atraumatic Lungs: Clear to Auscultation, Normal Air Movement Heart: Regular Rate, Normal S1, Normal S2 Abdomen: Normal Bowel Sounds, Soft, No Tenderness Neuro: Normal Speech Psych/Mental Status: Mental Status NL, Mood NL Results Lab Laboratory Tests 07/20/21 17:24: 07/21/21 06:00: White Blood Count 7.3, Red Blood Count 5.31H, Hemoglobin 13.5, Hematocrit 44, Mean Corpuscular Volume 83, Mean Corpuscular Hemoglobin 25, Mean Corpuscular Hemoglobin Concent 31L, Red Cell Distribution Width , Platelet Count 354, Mean Platelet Volume 9.5, Immature Granulocyte % (Auto) 0, Neutrophils (%) (Auto) 64, Lymphocytes (%) (Auto) 24, Monocytes (%) (Auto) 10, Eosinophils (%) (Auto) 2, Basophils (%) (Auto) 0, Neutrophils # (Auto) 4.6, Lymphocytes # (Auto) 1.7, Monocytes # (Auto) 0.7, Eosinophils # (Auto) 0.2, Basophils # (Auto) 0.0, Immature Granulocyte # (Auto) 0.0, Sodium Level 140, Potassium Level 4.0, Chloride Level 102, Carbon Dioxide Level 26, Anion Gap 12, Blood Urea Nitrogen 17, Creatinine 0.70, Estimat Glomerular Filtration Rate 87, BUN/Creatinine Ratio 24, Glucose Level 105, Calcium Level 9.3, Corrected Calcium 9.5, Total Bilirubin 0.3, Aspartate Amino Transf (AST/SGOT) 15, Alanine Aminotransferase (ALT/SGPT) 12, Alkaline Phosphatase 143H, Total Protein 6.5, Albumin 3.7 Assessment/Plan Assessment/Plan Assess & Plan/Chief Complaint Assessment: Severe back pain secondary to acute L4 compression fracture and T12 compression fracture; pathologic osteoporotic fractures Osteoporosis, on Fosamax Hypercoagulable state on Xarelto 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 Araujo Constipation Family history of parathyroid disease Plan: PTH serologic lab test - awaiting results Continue Lovenox post kyphoplasty Benites catheter Continue bowel regimen Continue home medications In-patient rehab transfer post surgery Pain control Incentive spirometer JANENE COOK DO 07/22/21 0608: Subjective Subjective/Events-last exam Pt ready for kyphoplasty by Dr. Hart Bowels moved twice yesterday but feels like she needs to evacuate more so we will initiate that after surgery Pain is 1/10 when she isn't moving but 10/10 when she is moving Lovenox will be restarted after surgery once approved by Dr. Hart Review of Systems General: Fatigue, Malaise Musculoskeletal: back pain (severe with movement) Objective Exam General: Alert, Oriented X3, Cooperative, No Acute Distress Heart: Regular Rate Abdomen: Normal Bowel Sounds Psych/Mental Status: Mental Status NL, Mood NL Assessment/Plan Assessment/Plan Assess & Plan/Chief Complaint Pain control Dr Ipsen appreciated Supervisory-Addendum Brief Verification & Attestation Participated in pt care: history, MDM, physical Personally performed: exam, history, MDM, supervision of care Care discussed with: Medical Student Procedures: n/a Results interpretation: Verified all documentation Verification and Attestation of Medical Student E/M Service A medical student performed and documented this service in my presence. I reviewed and verified all information documented by the medical student and made modifications to such information, when appropriate. I personally performed the physical exam and medical decision making. Janene Cook, Jul 22, 2021,06:07 RAFY RAMIREZ Jul 21, 2021 11:36 JANENE COOK DO Jul 22, 2021 06:08
[2021-07-21] MEDS ORDERED: GENTAMICIN 40 MG/ML 2 ML INJ SDV ONE (15:20)
[2021-07-21] MEDS ORDERED: VANCOMYCIN 1000 MG/VIAL ONE (15:21)
[2021-07-21] MEDS ORDERED: fentaNYL INJ 100 MCG/2 ML AMP ONE ×2 (15:28→18:02)
[2021-07-21] MEDS ORDERED: ROCURONIUM 10 MG/ML 5 ML SYRINGE IV ONE (15:28)
[2021-07-21] MEDS ORDERED: SUCCINYLCHOLINE INJ 100 MG/5 ML SYR/VIAL ONE (15:28)
[2021-07-21] MEDS ORDERED: NS (IVPB) 100 ML ONE (15:32)
[2021-07-21] MEDS ORDERED: LIDOCAINE PF 2% 5 ML (XYLOCAINE) VIAL ONE (15:36)
[2021-07-21] MEDS ORDERED: proPOfol 200 MG/20 ML (DIPRIVAN) VIAL IV ONE (15:36)
[2021-07-21] MEDS ORDERED: ONDANSETRON 4 MG/2 ML (SDV) Z0FRAN ONE ×2 (15:36→18:03)
[2021-07-21] MEDS: LACTATED RINGERS 1,000 ML IV PRN ×2 (17:18→19:00)
--- NOTE | 2021-07-21 17:51 | Progress Note-Pre Operative ---
Pre-Operative Progress Note H&P Reviewed The H&P was reviewed, patient examined and no changes noted. Date Seen by Provider: Jul 21, 2021 Time Seen by Provider: 17:50 Date H&P Reviewed: Jul 21, 2021 Time H&P Reviewed: 17:50 Pre-Operative Diagnosis: Lumbar Stenosis and L4 Osteoporotic Compression Fracture ELHAM CARVER MD Jul 21, 2021 17:51
[2021-07-21] MEDS ORDERED: ceFAZolin INJECTION 2,000 MG ONE (17:52)
[2021-07-21] MEDS ORDERED: morphine INJ 10 MG/ML 1ML (SYR OR VIAL) ONE (18:02)
[2021-07-21] MEDS ORDERED: HYDROmorphone 2 MG/ML VIAL (DILAUDID) ONE (18:02)
--- NOTE | 2021-07-21 19:11 | Progress Note-Post Operative ---
Post-Operative Progess Note Surgeon (s)/Electronic Technician (s) Surgeon ELHAM CARVER MD Electronic Technician: LAZARO Ruiz Pre-Operative Diagnosis Lumbar Stenosis and L4 Osteoporotic Compression Fracture Post-Operative Diagnosis Same Procedure & Operative Findings Date of Procedure 07/21/21 Procedure Performed/Findings L4 Osteoporotic Compression Fracture Lumbar Stenosis Anesthesia Type GETA Estimated Blood Loss Estimated blood loss (mL): 100 Specimens/Packing Specimens Removed Lumbar 4 biopsy ELHAM CARVER MD Jul 21, 2021 19:11
--- NOTE | 2021-07-21 19:13 | Diagnostic Imaging Report ---
INDICATION: Kyphoplasty. FINDINGS: Three fluoroscopic images of the lumbar spine were obtained. IMPRESSION: Fluoroscopic time 55 seconds. Dictated by: Dictated on workstation # [id number]
[2021-07-21] MEDS ORDERED: SEVOFLURANE (ULTANE) 15 ML INHAL SOLN ONE (19:28)
[2021-07-21] MEDS ORDERED: morphine INJ 10 MG/ML 1ML (SYR OR VIAL) IVP ONE (19:45)
[2021-07-21] MEDS ORDERED: ONDANSETRON 4 MG/2 ML (SDV) Z0FRAN IVP PRN (19:45)
[2021-07-21] MEDS ORDERED: fentaNYL INJ 100 MCG/2 ML AMP IVP ONE (19:45)
[2021-07-21] MEDS: traZODone 50 MG (DESYREL) TAB PO SCH (22:08)
--- NOTE | 2021-07-21 22:38 | OPERATIVE REPORT ---
DATE OF SERVICE: 07/21/2021 PREOPERATIVE DIAGNOSES: 1. L4 osteoporotic pathologic compression fracture, L4-L5 spondylolisthesis. 2. L4-L5 spinal stenosis. 3. Lumbar radiculopathy. POSTOPERATIVE DIAGNOSES: 1. L4 osteoporotic pathologic compression fracture, L4-L5 spondylolisthesis. 2. L4-L5 spinal stenosis. 3. Lumbar radiculopathy. Pathology pending. PROCEDURES PERFORMED: 1. L4 kyphoplasty with biopsy with utilization of fluoroscopy. 2. Left-sided L4-L5 hemilaminectomy, partial medial facetectomy and foraminotomy. DATE AND TIME OF SURGERY: Please see anesthesia record for start and stop time. SURGEON: Elham Hart MD CAMPAIGN MANAGEMENT SENIOR MANAGER: Savage Ruiz PA-C. ANESTHESIA: General endotracheal. ESTIMATED BLOOD LOSS: Less than 100 mL. INTRAVENOUS FLUIDS: Please see anesthesia record. ANTIBIOTICS: Two grams of Ancef. COMPLICATIONS: None. SPECIMENS: L4 biopsy was obtained and sent to pathology. INDICATIONS FOR PROCEDURE: The patient is an 81-year-old female with severe back pain and left leg radicular pain, has both an acute compression deformity and not managed well by outpatient therapy and stenosis that she has been doing some time and treating both at this point. NEUROMONITORING: Standard intraoperative neuromonitoring was carried out by means of real time continuous high quality bidirectional mode, audio and visual communication to both the it telecom technician and surgeon by Dr. Elizabeth Wagner. SSEPs, EMGs and were carried out continuously throughout the procedure, stable. DESCRIPTION OF PROCEDURE: The patient was taken to preoperative holding area, brought back to the operative suite. After adequate induction of a general anesthetic and preoperative antibiotics, carefully turned prone on the Pritesh table with a sling, careful padding, extremities, sterilely prepped and draped posterior lumbosacral spine. At this point, biplanar fluoroscopy was brought in. Localization of the L4 level was performed. Stab incision was made over the L4 pedicles and working cannulas out of the [employer]tr[employer] kyphoplasty set were placed into the vertebral bodies. Biopsies were obtained. Vertebral bodies were drilled. Balloons were insufflated and balloon insufflation was performed to perform cavity creation and at this point methylmethacrylate was inserted with great fill and interdigitation was achieved. A small amount was extruded anteriorly, but great cement interdigitation and hardening was allowed to perform and height roman catholic was achieved. Once it was hardened, the cannulas were removed. Wounds were then closed with Dermabond and then a small midline incision made. Shadow-Line retractor was placed deep to hold the soft tissues retracted on left side of the spine and a left-sided hemilaminectomy, partial medial facetectomy and foraminotomy was performed. Full and adequate decompression in the left lateral recess. Once decompression was achieved, hemostasis was assured. Wound was closed in layers and the patient was transferred to recovery room in stable condition having tolerated the procedure well. Job ID: [id number] DocumentID: [id number] Dictated Date: 07/21/2021 19:15:48 Family Worker Date: 07/21/2021 22:37:59 Dictated By: ELHAM HART MD
[2021-07-22] VITALS (8 sets, daily range): BP systolic 109–148; BP diastolic 59–76
[2021-07-22] MEDS: morphine INJ 4 MG/ML 1 ML (VIAL/SYRINGE) IV PRN ×3 (00:14→08:52)
[2021-07-22] MEDS: LEVOTHYROXINE 75 MCG (LEVOTHROID) TABLET PO SCH (06:09)
[2021-07-22] MEDS: KCL 10 MEQ TAB (MICRO K) PO SCH (06:10)
--- NOTE | 2021-07-22 06:49 | Discharge Summary ---
Diagnosis/Chief Complaint Date of Admission Jul 20, 2021 at 12:11 Date of Discharge Discharge Date: Jul 22, 2021 Discharge Summary Discharge Physical Examination Allergies: Coded Allergies: No Known Drug Allergies (Unverified , 10/31/19) Vitals & I&Os Vital Signs Date Time Temp Pulse Resp B/P (MAP) Pulse Ox O2 Delivery O2 Flow Rate FiO2 07/23/21 04:45 36.0 83 18 145/67 (93) 97 Room Air 07/22/21 21:08 0.75 07/22/21 11:45 3 Hospital Course Labs (last 24 hrs) Laboratory Tests 07/19/21 07:56: White Blood Count 9.0, Red Blood Count 5.21H, Hemoglobin 13.1, Hematocrit 42, Mean Corpuscular Volume 80, Mean Corpuscular Hemoglobin 25, Mean Corpuscular Hemoglobin Concent 31L, Red Cell Distribution Width , Platelet Count 373, Mean Platelet Volume 9.3, Immature Granulocyte % (Auto) 0, Neutrophils (%) (Auto) 66, Lymphocytes (%) (Auto) 25, Monocytes (%) (Auto) 8, Eosinophils (%) (Auto) 0, Basophils (%) (Auto) 0, Neutrophils # (Auto) 6.0, Lymphocytes # (Auto) 2.2, Monocytes # (Auto) 0.8, Eosinophils # (Auto) 0.0, Basophils # (Auto) 0.0, Immature Granulocyte # (Auto) 0.0, D-Dimer < 0.27, Sodium Level 142, Potassium Level 3.4L, Chloride Level 106, Carbon Dioxide Level 23, Anion Gap 13, Blood Urea Nitrogen 18, Creatinine 0.72, Estimat Glomerular Filtration Rate 84, BUN/Creatinine Ratio 25, Glucose Level 106H, Calcium Level 9.4, Corrected Calcium 9.2, Total Bilirubin 0.3, Aspartate Amino Transf (AST/SGOT) 14, Alanine Aminotransferase (ALT/SGPT) 15, Alkaline Phosphatase 136, Troponin I < 0.028, C- Reactive Protein High Sensitivity 0.34, B-Type Natriuretic Peptide 142.6H, Total Protein 7.3, Albumin 4.3 07/20/21 05:30: White Blood Count 5.8, Red Blood Count 5.23H, Hemoglobin 13.1, Hematocrit 44, Mean Corpuscular Volume 83, Mean Corpuscular Hemoglobin 25, Mean Corpuscular Hemoglobin Concent 30L, Red Cell Distribution Width , Platelet Count 345, Mean Platelet Volume 9.5, Immature Granulocyte % (Auto) 1, Neutrophils (%) (Auto) 54, Lymphocytes (%) (Auto) 33, Monocytes (%) (Auto) 11, Eosinophils (%) (Auto) 1, Basophils (%) (Auto) 1, Neutrophils # (Auto) 3.1, Lymphocytes # (Auto) 1.9, Monocytes # (Auto) 0.6, Eosinophils # (Auto) 0.1, Basophils # (Auto) 0.0, Immature Granulocyte # (Auto) 0.0, Sodium Level 140, Potassium Level 3.9, Chloride Level 104, Carbon Dioxide Level 25, Anion Gap 11, Blood Urea Nitrogen 18, Creatinine 0.72, Estimat Glomerular Filtration Rate 84, BUN/Creatinine Ratio 25, Glucose Level 101, Calcium Level 9.3, Corrected Calcium 9.4, Total Bilirubin 0.2, Aspartate Amino Transf (AST/SGOT) 15, Alanine Aminotransferase (ALT/SGPT) 12, Alkaline Phosphatase 151H, Total Protein 6.6, Albumin 3.9, Parathyroid Hormone (Intact) 94.2H, Calcium (PTH Intact) 8.4L 07/20/21 17:24: Coronavirus (COVID-19)(PCR) Negative 07/21/21 06:00: White Blood Count 7.3, Red Blood Count 5.31H, Hemoglobin 13.5, Hematocrit 44, Mean Corpuscular Volume 83, Mean Corpuscular Hemoglobin 25, Mean Corpuscular Hemoglobin Concent 31L, Red Cell Distribution Width , Platelet Count 354, Mean Platelet Volume 9.5, Immature Granulocyte % (Auto) 0, Neutrophils (%) (Auto) 64, Lymphocytes (%) (Auto) 24, Monocytes (%) (Auto) 10, Eosinophils (%) (Auto) 2, Basophils (%) (Auto) 0, Neutrophils # (Auto) 4.6, Lymphocytes # (Auto) 1.7, Monocytes # (Auto) 0.7, Eosinophils # (Auto) 0.2, Basophils # (Auto) 0.0, Immature Granulocyte # (Auto) 0.0, Sodium Level 140, Potassium Level 4.0, Chloride Level 102, Carbon Dioxide Level 26, Anion Gap 12, Blood Urea Nitrogen 17, Creatinine 0.70, Estimat Glomerular Filtration Rate 87, BUN/Creatinine Ratio 24, Glucose Level 105, Calcium Level 9.3, Corrected Calcium 9.5, Total Bilirubin 0.3, Aspartate Amino Transf (AST/SGOT) 15, Alanine Aminotransferase (ALT/SGPT) 12, Alkaline Phosphatase 143H, Total Protein 6.5, Albumin 3.7 07/22/21 06:47: White Blood Count 7.6, Red Blood Count 4.92, Hemoglobin 12.6, Hematocrit 41, Mean Corpuscular Volume 83, Mean Corpuscular Hemoglobin 26, Mean Corpuscular H emoglobin Concent 31L, Red Cell Distribution Width , Platelet Count 324, Mean Platelet Volume 9.2, Immature Granulocyte % (Auto) 1, Neutrophils (%) (Auto) 75, Lymphocytes (%) (Auto) 15, Monocytes (%) (Auto) 9, Eosinophils (%) (Auto) 1, Basophils (%) (Auto) 0, Neutrophils # (Auto) 5.7, Lymphocytes # (Auto) 1.1, Monocytes # (Auto) 0.6, Eosinophils # (Auto) 0.1, Basophils # (Auto) 0.0, Immature Granulocyte # (Auto) 0.0, Sodium Level 141, Potassium Level 3.9, Chloride Level 101, Carbon Dioxide Level 29, Anion Gap 11, Blood Urea Nitrogen 13, Creatinine 0.69, Estimat Glomerular Filtration Rate 88, BUN/Creatinine Ratio 19, Glucose Level 103, Calcium Level 8.6, Corrected Calcium 8.9, Total Bilirubin 0.4, Aspartate Amino Transf (AST/SGOT) 20, Alanine Aminotransferase (ALT/SGPT) 12, Alkaline Phosphatase 208H, Total Protein 6.2L, Albumin 3.6 Microbiology 07/20/21 MRSA Screen - Final, Complete MRSA not isolated Pending Labs Microbiology Date/Time Source Procedure Growth Status 07/20/21 17:34 Nasal MRSA Screen - Final MRSA not isolated Complete Laboratory Tests 07/19/21 07:56: White Blood Count 9.0, Red Blood Count 5.21, Hemoglobin 13.1, Hematocrit 42, Mean Corpuscular Volume 80, Mean Corpuscular Hemoglobin 25, Mean Corpuscular Hemoglobin Concent 31, Red Cell Distribution Width , Platelet Count 373, Mean Platelet Volume 9.3, Immature Granulocyte % (Auto) 0, Neutrophils (%) (Auto) 66, Lymphocytes (%) (Auto) 25, Monocytes (%) (Auto) 8, Eosinophils (%) (Auto) 0, Basophils (%) (Auto) 0, Neutrophils # (Auto) 6.0, Lymphocytes # (Auto) 2.2, Monocytes # (Auto) 0.8, Eosinophils # (Auto) 0.0, Basophils # (Auto) 0.0, Immature Granulocyte # (Auto) 0.0, D-Dimer < 0.27, Sodium Level 142, Potassium Level 3.4, Chloride Level 106, Carbon Dioxide Level 23, Anion Gap 13, Blood Urea Nitrogen 18, Creatinine 0.72, Estimat Glomerular Filtration Rate 84, BUN/Creatinine Ratio 25, Glucose Level 106, Calcium Level 9.4, Corrected Calcium 9.2, Total Bilirubin 0.3, Aspartate Amino Transf (AST/SGOT) 14, Alanine Aminotransferase (ALT/SGPT) 15, Alkaline Phosphatase 136, Troponin I < 0.028, C- Reactive Protein High Sensitivity 0.34, B-Type Natriuretic Peptide 142.6, Total Protein 7.3, Albumin 4.3 07/20/21 05:30: White Blood Count 5.8, Red Blood Count 5.23, Hemoglobin 13.1, Hematocrit 44, Mean Corpuscular Volume 83, Mean Corpuscular Hemoglobin 25, Mean Corpuscular Hemoglobin Concent 30, Red Cell Distribution Width , Platelet Count 345, Mean Platelet Volume 9.5, Immature Granulocyte % (Auto) 1, Neutrophils (%) (Auto) 54, Lymphocytes (%) (Auto) 33, Monocytes (%) (Auto) 11, Eosinophils (%) (Auto) 1, Basophils (%) (Auto) 1, Neutrophils # (Auto) 3.1, Lymphocytes # (Auto) 1.9, Monocytes # (Auto) 0.6, Eosinophils # (Auto) 0.1, Basophils # (Auto) 0.0, Immature Granulocyte # (Auto) 0.0, Sodium Level 140, Potassium Level 3.9, Chloride Level 104, Carbon Dioxide Level 25, Anion Gap 11, Blood Urea Nitrogen 18, Creatinine 0.72, Estimat Glomerular Filtration Rate 84, BUN/Creatinine Ratio 25, Glucose Level 101, Calcium Level 9.3, Corrected Calcium 9.4, Total Bilirubin 0.2, Aspartate Amino Transf (AST/SGOT) 15, Alanine Aminotransferase (ALT/SGPT) 12, Alkaline Phosphatase 151, Total Protein 6.6, Albumin 3.9, Parathyroid Hormone (Intact) 94.2, Calcium (PTH Intact) 8.4 07/20/21 17:24: Coronavirus (COVID-19)(PCR) Negative 07/21/21 06:00: White Blood Count 7.3, Red Blood Count 5.31, Hemoglobin 13.5, Hematocrit 44, Mean Corpuscular Volume 83, Mean Corpuscular Hemoglobin 25, Mean Corpuscular Hemoglobin Concent 31, Red Cell Distribution Width , Platelet Count 354, Mean Platelet Volume 9.5, Immature Granulocyte % (Auto) 0, Neutrophils (%) (Auto) 64, Lymphocytes (%) (Auto) 24, Monocytes (%) (Auto) 10, Eosinophils (%) (Auto) 2, Basophils (%) (Auto) 0, Neutrophils # (Auto) 4.6, Lymphocytes # (Auto) 1.7, Monocytes # (Auto) 0.7, Eosinophils # (Auto) 0.2, Basophils # (Auto) 0.0, Immature Granulocyte # (Auto) 0.0, Sodium Level 140, Potassium Level 4.0, Chloride Level 102, Carbon Dioxide Level 26, Anion Gap 12, Blood Urea Nitrogen 17, Creatinine 0.70, Estimat Glomerular Filtration Rate 87, BUN/Creatinine Ratio 24, Glucose Level 105, Calcium Level 9.3, Corrected Calcium 9.5, Total Bilirubin 0.3, Aspartate Amino Transf (AST/SGOT) 15, Alanine Aminotransferase (ALT/SGPT) 12, Alkaline Phosphatase 143, Total Protein 6.5, Albumin 3.7 07/22/21 06:47: White Blood Count 7.6, Red Blood Count 4.92, Hemoglobin 12.6, Hematocrit 41, Mean Corpuscular Volume 83, Mean Corpuscular Hemoglobin 26, Mean Corpuscular He moglobin Concent 31, Red Cell Distribution Width , Platelet Count 324, Mean Platelet Volume 9.2, Immature Granulocyte % (Auto) 1, Neutrophils (%) (Auto) 75, Lymphocytes (%) (Auto) 15, Monocytes (%) (Auto) 9, Eosinophils (%) (Auto) 1, Basophils (%) (Auto) 0, Neutrophils # (Auto) 5.7, Lymphocytes # (Auto) 1.1, Monocytes # (Auto) 0.6, Eosinophils # (Auto) 0.1, Basophils # (Auto) 0.0, Immature Granulocyte # (Auto) 0.0, Sodium Level 141, Potassium Level 3.9, Chloride Level 101, Carbon Dioxide Level 29, Anion Gap 11, Blood Urea Nitrogen 13, Creatinine 0.69, Estimat Glomerular Filtration Rate 88, BUN/Creatinine Ratio 19, Glucose Level 103, Calcium Level 8.6, Corrected Calcium 8.9, Total Bilirubin 0.4, Aspartate Amino Transf (AST/SGOT) 20, Alanine Aminotransferase (ALT/SGPT) 12, Alkaline Phosphatase 208, Total Protein 6.2, Albumin 3.6 Discharge Home Medications: Active Scripts Active Hydrocodone-Acetamin 5-325 mg (Hydrocodone/Acetaminophen) 1 Each Tablet 1-2 Tab PO Q6H PRN Reported Premarin (Estrogens Conjugated) 30 Gm Cr 1 Gm VG TUE,TUE,FRI Omeprazole 40 Mg Capsule.dr 40 Mg PO DAILY Potassium Chloride 10 Meq Tab.er.prt 10 Meq PO DAILY Tylenol Extra Strength (Acetaminophen) 500 Mg Tablet 1,000 Mg PO BID PRN TAKES 2 (500MG) TAB Lisinopril 5 Mg Tablet 5 Mg PO BID Levothyroxine Sodium 75 Mcg Tablet 75 Mcg PO DAILY Methylprednisolone Dose Pack (Methylprednisolone) 4 Mg Tab.ds.pk Mg PO UD FILLED 07-16-2021 #21 6 DAY SUPPLY Cyclobenzaprine HCl 10 Mg Tablet 5 Mg PO Q8H TAKES 1/2 TAB Trelegy Ellipta 100-62.5-25 (Fluticasone/Umeclidin/Vilanter) 1 Each Blst.w.dev 1 Each IH DAILY Toprol Xl (Metoprolol Succinate) 50 Mg Tab.er.24h 50 Mg PO DAILY Furosemide 40 Mg Tablet 40 Mg PO HS Norvasc (Amlodipine Besylate) 2.5 Mg Tablet 2.5 Mg PO HS Pramipexole Dihydrochloride (Pramipexole Di-HCl) 0.125 Mg Tablet 0.125 Mg PO BID Trazodone HCl 50 Mg Tablet 50 Mg PO HS Duloxetine HCl 60 Mg Capsule. Rosuvastatin Calcium 5 Mg Tablet 5 Mg PO TUE,TUE,FRI Myrbetriq (Mirabegron) 25 Mg Tab.er.24h 50 Mg PO HS TAKES 2 (25MG) TABS Travatan Z (Travoprost) 5 Ml Drops 1 Drop OU HS Alendronate Sodium 70 Mg Tablet FRI Proair Hfa (Albuterol Sulfate) 1 Puff Puff 1 Puff PO Q8H PRN Pantoprazole Sodium 40 Mg Tablet.dr 40 Mg PO BID Xarelto (Rivaroxaban) 10 Mg Tablet 10 Mg PO HS Montelukast Sodium 10 Mg Tablet Instructions to patient/family Please see electronic discharge instructions given to patient. Diagnosis/Problems Diagnosis/Problems (1) Thoracic vertebral fracture Status: Acute Qualifiers: Qualified Codes: S22.089A - Unspecified fracture of t11-T12 vertebra, initial encounter for closed fracture (2) Osteoporosis (3) Hypercoagulable state (4) Closed lumbar vertebral fracture Status: Acute Qualifiers: Qualified Codes: S32.049A - Unspecified fracture of fourth lumbar vertebra, initial encounter for closed fracture (5) Radicular pain of thoracic region Status: Acute DANIA COOK DO Jul 22, 2021 06:49
[2021-07-22 07:08] LABS: BASOPHILS % (AUTO) 0 % (0-10); EOSINOPHILS # (AUTO) 0.1 10^3/uL (0.0-0.3); EOSINOPHILS % (AUTO) 1 % (0-10); HEMATOCRIT 41 % (35-52); HEMOGLOBIN 12.6 g/dL (11.5-16.0); LYMPHOCYTES # (AUTO) 1.1 10^3/uL (1.0-4.0); LYMPHOCYTES % (AUTO) 15 % (12-44); MEAN CORPUSCULAR HEMOGLOBIN 26 pg (25-34); MEAN CORPUSCULAR HGB CONC 31 g/dL (32-36); MEAN CORPUSCULAR VOLUME 83 fL (80-99); MEAN PLATELET VOLUME 9.2 fL (9.0-12.2); MONOCYTES # (AUTO) 0.6 10^3/uL (0.0-1.0); MONOCYTES % (AUTO) 9 % (0-12); NEUTROPHILS # (AUTO) 5.7 10^3/uL (1.8-7.8); NEUTROPHILS % (AUTO) 75 % (42-75); PLATELET COUNT 324 10^3/uL (130-400); WHITE BLOOD COUNT 7.6 10^3/uL (4.3-11.0)
[2021-07-22] MEDS: RT--FLUTICASONE/SALMETEROL 232-14 (AIRDUO RespiCLICK) IH SCH ×2 (07:12→21:07)
[2021-07-22] MEDS: UMECLIDINIUM BROMIDE (INCRUSE ELLIPTA) 7'S IH SCH (07:12)
[2021-07-22] MEDS: SENNOSIDES 8.6 MG (SENOKOT) TAB PO SCH ×2 (07:27→20:28)
[2021-07-22] MEDS: ESTROGENS CONJ 0.625 MG (PREMARIN) TAB PO SCH (07:27)
[2021-07-22] MEDS: PRAMIPEXOLE 0.125 MG (MIRAPEX) TABLET PO SCH ×2 (07:28→20:28)
[2021-07-22] MEDS: DULoxetine 30 MG (CYMBALTA) CAP PO SCH (07:28)
[2021-07-22] MEDS: DOCUSATE SODIUM 100 MG (COLACE) CAP PO SCH ×2 (07:28→20:28)
[2021-07-22] MEDS: amLODIPine 2.5MG (NORVASC) TAB PO SCH (07:28)
[2021-07-22] MEDS: meTOproloL SUCCINATE 50 MG (TOPROL XL) TAB PO SCH (07:29)
[2021-07-22] MEDS: FUROSEMIDE 40 MG (LASIX) TAB PO SCH (07:29)
[2021-07-22] MEDS: MONTELUKAST 10 MG (SINGULAIR) TAB PO SCH (07:29)
[2021-07-22] MEDS: PANTOPRAZOLE 40 MG (PROTONIX) TAB PO SCH ×2 (07:29→20:28)
[2021-07-22] MEDS: polyethylene glycoL POWDER 17 GM (MIRALAX) PACK PO PRN (07:29)
[2021-07-22] MEDS: HYDROcodone/APAP 5 MG/325 MG (LORTAB) TAB PO PRN ×2 (07:30→11:42)
[2021-07-22 07:33] LABS: ALBUMIN 3.6 GM/DL (3.2-4.5); BILIRUBIN,TOTAL 0.4 MG/DL (0.1-1.0); CALCIUM 8.6 MG/DL (8.5-10.1); CREATININE SERUM 0.69 MG/DL (0.60-1.30); POTASSIUM 3.9 MMOL/L (3.6-5.0); TOTAL PROTEIN 6.2 GM/DL (6.4-8.2)
[2021-07-22] MEDS: CALCIUM CARBONATE 500 MG (TUMS) TAB.CHEW PO PRN (08:57)
[2021-07-22] MEDS ORDERED: PATIENT MAY USE OWN MEDS, ALL MC SCH (11:00)
[2021-07-22] MEDS ORDERED: NON-FORMULARY MEDICATION 1 EA EA (Mirabegron (Myrbetriq) 50 MG) PO SCH (11:00)
[2021-07-22] MEDS ORDERED: DIAZEPAM 5 MG (VALIUM) TABLET PO PRN (11:15)
--- NOTE | 2021-07-22 11:20 | Occupational Therapy Eval ---
OT Evaluation-General/PLF Medical Diagnosis Admission Date Jul 20, 2021 at 12:11 Medical Diagnosis: lumbar stenosis and L4 compression fx Onset Date: Jul 19, 2021 Therapy Diagnosis Therapy Diagnosis: Reduced adl status Precautions Precautions/Isolations: Fall Prevention, Standard Precautions Comments No precautions specified by doctor at this time. Anticipate pt will have spinal precautions Referral Physician: Ivania Lindquist Reason: Evaluation/Treatment Medical History Pertinent Medical History: Arthritis, HTN Additional Medical History DDD, DVT Current History s/p kypohoplasty, post op day 1 Pt reports she lives alone in a single story home. She was indep with adls and iadls prior to admission. She used a cane for the 6 weeks and recently started using a walker. She orders groceries online and has them delivered to her car at the store. Reviewed History: Yes Social History Home: Single Level Current Living Status: Alone Steps Into Home: 2 ADL-Prior Level of Function SCALE: Activities may be completed with or without assistive devices. 3-Ghrkdyatug-aicwzsy completes the activity by him/herself with no assistance from a helper. 5-Set-up or Clean-up Assistance-helper sets up or cleans up; patient completes activity. [place] assists only prior to or following the activity. 4-Supervision or Touching Assistance-helper provides verbal cues and/or touching/steadying and/or contact guard assistance as patient completes activity. Assistance may be provided throughout the activity or intermittently. 3-Partial/Moderate Assistance-helper does LESS THAN HALF the effort. [place] lifts, holds or supports trunk or limbs, but provides less than half the effort. 2-Substantial/Maximal Assistance-helper does MORE THAN HALF the effort. [place] lifts or holds trunk or limbs and provides more than half the effort. 1-Vxtvuvtpy-uanzba does ALL the effort. Patient does none of the effort to complete the activity. Or, the assistance of 2 or more helpers is required for the patient to complete the activity. If activity was not attempted, code reason: 7-Patient Refused. 9-Not Applicable-not attempted and the patient did not perform the activity before the current illness, exacerbation or injury. 10-Not Attempted due to Environmental Limitations-(lack of equipment, weather restraints, etc.). 88-Not Attempted due to Medical Conditions or Safety Concerns. Self Care: Independent Functional Cognition: Independent DME/Equipment: Bath Chair, Grab Bars, Shower Drive Self: Yes OT Current Status Subjective Pt reports 10/10 pain in back. Meds given ~10 min prior to therapy arrival. Appearance Pt left supine in bed, all needs within reach, RN and doctor notified. Mental Status/Objective Patient Orientation: Person, Place, Situation Attachments: Benites Catheter, IV, Oxygen Current Glasses/Contacts: Yes Hearing Aids: No Dentures/Partials: No ADL-Treatment After education on log roll technique, attempt to sit EOB. Pt able to flex R knee, unable to actively flex L. She screams out in pain with very limited knee movement. Pt then becomes tearful and exhibits increased respirations. Cues for deep breathing and relaxation. Pt refusing any further therapy due to intense pain. At this time, pt is dependent for all adls. Education OT Patient Education: Correct positioning, Disease process, Modified ADL techniques, Purpose of tx/functional activities, Reviewed precautions, Rehab process, Safety issues, Transfer techniques Teaching Recipient: Patient Teaching Methods: Discussion Response to Teaching: Verbalize Understanding, Unable to Return Demonstration, Reinforcement Needed OT Machinist Instructor Goals Machinist Instructor Goals Time Frame: Aug 07, 2021 Eating (QC): 5 Oral Hygiene (QC): 5 Toileting Hygiene (QC): 4 Shower/Bathe Self (QC): 4 Upper Body Dressing (QC): 4 Lower Body Dressing (QC): 4 On/Off Footwear (QC): 4 1=Demonstrate adherence to instructed precautions during ADL tasks. 2=Patient will verbalize/demonstrate understanding of assistive devices/modifications for ADL. 3=Patient will improve strength/tolerance for activity to enable patient to pe rform ADL's. OT Education/Plan Problem List/Assessment Assessment: Decreased Activ Tolerance, Dependent Transfers, Impaired Bed Mobility, Impaired Funct Balance, Impaired I ADL's, Impaired Self-Care Skills Discharge Recommendations Plan/Recommendations: Continue POC Therapy Discharge Recommendati: Post Acute OT Comment ongoing assessment Treatment Plan/Plan of Care Treatment,Training & Education: Yes Patient would benefit from OT for education, treatment and training to promote independence in ADL's, mobility, safety and/or upper extremity function for ADL's. Plan of Care: ADL Retraining, Functional Mobility, Group Exercise/Act as Ind, UE Funct Exercise/Act, W/C Management Training Treatment Duration: Aug 07, 2021 Frequency: 3 times per week Estimated Hrs Per Day: .25 hour per day Agreement: Yes Rehab Potential: Guarded 3-5x/week Time/GCodes Start Time: 10:50 Stop Time: 11:06 Total Time Billed (hr/min): 16 Billed Treatment Time 1 visit Jenna Monroe OT Jul 22, 2021 11:20
[2021-07-22] MEDS ORDERED: DIAZEPAM 5 MG (VALIUM) TABLET PO NR (11:30)
[2021-07-22] MEDS: BACLOFEN 10 MG (LIORESAL) TAB PO SCH ×3 (11:42→20:28)
--- NOTE | 2021-07-22 11:53 | Physical Therapy Evaluation ---
PT Evaluation-General Medical Diagnosis Admission Date Jul 20, 2021 at 12:11 Medical Diagnosis: lumbar stenosis and L4 compression fx Onset Date: Jul 21, 2021 Therapy Diagnosis Therapy Diagnosis: impaired mobility Precautions Precautions/Isolations: Fall Prevention, Standard Precautions Weight Bear Status Right Lower Extremity: Right Weight Bearing/Tolerated Left Lower Extremity: Left Weight Bearing/Tolerated Referral Physician: Janene Redd DO Reason for Referral: Evaluation/Treatment Medical History Additional Medical History Past Medical History Surgeries: Appendectomy, Hysterectomy, Orthopedic Cardiac: Deep Vein Thrombosis, High Cholesterol, Hypertension Sexually Transmitted Disease: No HIV/AIDS: No Female 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 Disorders: Denies Hysterectomy Gastrointestinal: Gastroesophageal Reflux Musculoskeletal: Degenerate Disk Disease, Osteoporosis, Arthritis Endocrine: Hypothyroidsim Loss of Vision: Bilateral Hearing Impairment: Denies Psychosocial: Depression History of Blood Disorders: Yes (FACTOR 9 ) Adverse Reaction to Blood Pratt: No Reviewed History: Yes Social History Home: Single Level Current Living Status: Alone PT Steps Into Home: 2 has a grab bar instead of railing Prior Prior Level of Function SCALE: Activities may be completed with or without assistive devices. 5-Ilzijruxka-bvqwhcz completes the activity by him/herself with no assistance from a helper. 5-Set-up or Clean-up Assistance-helper sets up or cleans up; patient completes activity. [place] assists only prior to or following the activity. 4-Supervision or Touching Assistance-helper provides verbal cues and/or touching/steadying and/or contact guard assistance as patient completes activity. Assistance may be provided throughout the activity or intermittently. 3-Partial/Moderate Assistance-helper does LESS THAN HALF the effort. [place] lifts, holds or supports trunk or limbs, but provides less than half the effort. 2-Substantial/Maximal Assistance-helper does MORE THAN HALF the effort. [place] lifts or holds trunk or limbs and provides more than half the effort. 7-Ubnzjbduk-biqmos does ALL the effort. Patient does none of the effort to complete the activity. Or, the assistance of 2 or more helpers is required for the patient to complete the activity. If activity was not attempted, code reason: 7-Patient Refused. 9-Not Applicable-not attempted and the patient did not perform the activity before the current illness, exacerbation or injury. 10-Not Attempted due to Environmental Limitations-(lack of equipment, weather restraints, etc.). 88-Not Attempted due to Medical Conditions or Safety Concerns. Bed Mobility: 6 Transfers (B,C,W/C): 6 Gait: 6 Stairs: 6 Indoor Mobility (Ambulation): Independent Stairs: Independent Patient started using a SPC about 6 weeks ago and started using a rolling walker about a week ago PT Evaluation-Current Subjective Patient in bed pre tx, agrees to PT, states she has just had some pain meds but still has 10/10 pain in back. Pt/Family Goals to be independent at home Objective Patient Orientation: Person, Place, Situation Attachments: Benites Catheter ROM/Strength ROM Lower Extremities WNL Strength Lower Extremities NT due to pain Sensory Hearing: Functional Assessment/Needs Patient was able to bend her right knee on her own but needs assist to bend her left knee and when it is bent she has increased back pain and has to lay it back down. After doing that patient is very anxious and her pain is overwhelming. Patient is crying and it is obvious she cannot move or get up at this time. Rehab Potential: Guarded PT Halfway Goals Halfway Goals PT Press Shop Supervisor Goals Time Frame: Jul 29, 2021 Roll Left & Right (QC): 3 Sit to Lying (QC): 3 Lying-Sitting on Side/Bed(QC): 3 Sit to Stand (QC): 3 Chair/Rkw-lo-Lcbro Xfer(QC): 3 Walk 10 feet (QC): 3 Walk 50ft with 2 Turns (QC): 3 PT Plan Problem List Problem List: Activity Tolerance, Functional Strength, Safety, Balance, Gait, Transfer, Bed Mobility, ROM Treatment/Plan Treatment Plan: Continue Plan of Care Treatment Plan: Bed Mobility, Education, Functional Activity Sameera, Functional Strength, Gait, Safety, Therapeutic Exercise, Transfers Treatment Duration: Jul 29, 2021 Frequency: 11 times per week Estimated Hrs Per Day: .25 hour per day Patient and/or Family Agrees t: Yes Safety Risks/Education Patient Education: Correct Positioning, Safety Issues Teaching Recipient: Patient Teaching Methods: Demonstration, Discussion Response to Teaching: Reinforcement Needed Discharge Recommendations Plan Patient will perform bed mobility and transfer training, balance and endurance training, functional strengthening, stair training, gait training, and education, to improve functional mobility and independence at home. Therapy Discharge Recommendati: Scheduled Assistance, Home & Family, Post Acute PT Time/GCodes Time In: 1050 Time Out: 1110 Total Billed Treatment Time: 20 Total Billed Treatment 1 visit EVM 20' KRTEK,WADE PT Jul 22, 2021 11:53
--- NOTE | 2021-07-22 11:56 | Progress Note ---
[facility] 07/22/21 1156: Subjective Date Seen by a Provider: Jul 22, 2021 Time Seen by a Provider: 08:15 Subjective/Events-last exam POD 1, S/P L4 Kyphoplasty with biopsy, hemilaminectomy, partial medial facetectomy, and foraminotomy Patient complained of similar pain that radiates down left leg. Very tearful this morning and stated to "call her son" Appeared anxious Passing gas, and compliant with IS Review of Systems General: No Chills, No Other (fevers) Pulmonary: No Cough; Other (Requiring 0.75 L of O2) Cardiovascular: No: Chest Pain, Palpitations Gastrointestinal: No: Nausea, Vomiting, Abdominal Pain Musculoskeletal: back pain (Radiates to left leg) Objective Exam Last Set of Vital Signs Vital Signs Date Time Temp Pulse Resp B/P (MAP) Pulse Ox O2 Delivery O2 Flow Rate FiO2 07/22/21 11:45 36.2 90 93 3 07/22/21 10:56 18 124/63 Nasal Cannula 2.00 Capillary Refill : Less Than 3 SecondsLess Than 3 Seconds I&O Intake and Output0 07/22/21 00:00 Intake Total 1930 ml Output Total 825 ml Balance 1105 ml Intake Oral 910 ml IV Total 1020 ml Output Urine Total 825 ml General: Alert, Oriented X3, Other (Anxious) HEENT: Atraumatic, PERRLA, Mucous Memb Moist/[place] Neck: Supple (non-tender to palpation), No LAD, Other (Trachea midline) Lungs: Clear to Auscultation, Normal Air Movement Heart: Regular Rate, Normal S1, Normal S2 Abdomen: Soft, No Tenderness Extremities: No Clubbing, No Cyanosis Neuro: Normal Speech, Sensation Intact (Bilaterally in lower extremities), Other (Gross motor activity intact bilaterally at feet ) Psych/Mental Status: Mental Status NL Results Lab Laboratory Tests 07/22/21 06:47: White Blood Count 7.6, Red Blood Count 4.92, Hemoglobin 12.6, Hematocrit 41, Mean Corpuscular Volume 83, Mean Corpuscular Hemoglobin 26, Mean Corpuscular Hemoglobin Concent 31L, Red Cell Distribution Width , Platelet Count 324, Mean Platelet Volume 9.2, Immature Granulocyte % (Auto) 1, Neutrophils (%) (Auto) 75, Lymphocytes (%) (Auto) 15, Monocytes (%) (Auto) 9, Eosinophils (%) (Auto) 1, Basophils (%) (Auto) 0, Neutrophils # (Auto) 5.7, Lymphocytes # (Auto) 1.1, Monocytes # (Auto) 0.6, Eosinophils # (Auto) 0.1, Basophils # (Auto) 0.0, Immature Granulocyte # (Auto) 0.0, Sodium Level 141, Potassium Level 3.9, Chloride Level 101, Carbon Dioxide Level 29, Anion Gap 11, Blood Urea Nitrogen 13, Creatinine 0.69, Estimat Glomerular Filtration Rate 88, BUN/Creatinine Ratio 19, Glucose Level 103, Calcium Level 8.6, Corrected Calcium 8.9, Total Bilirubin 0.4, Aspartate Amino Transf (AST/SGOT) 20, Alanine Aminotransferase (ALT/SGPT) 12, Alkaline Phosphatase 208H, Total Protein 6.2L, Albumin 3.6 Microbiology 07/20/21 MRSA Screen - Final, Complete MRSA not isolated Assessment/Plan Assessment/Plan Assess & Plan/Chief Complaint Assessment: S/P L4 Kyphoplasty with biopsy, hemilaminectomy, partial medial facetectomy, and foraminotomy Anxious Family history of parathyroid disease Severe incapacitating back pain due to thoracic and lumbar spine compression fractures pathological osteoporotic fractures - Acute L4 compression fracture - T12 compression fracture Osteoporosis on Fosamax Hypercoagulable state on Xarelto 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 Araujo Constipation Plan: Per Tanner, will be starting decadron, and baclofen PTH serologic lab test, waiting for results Holding anticoagulation due to surgery Appreciate Dr. Hart Benites catheter Continue Bowel Regimen Home meds Maintaining floor status JANENE COOK DO 07/23/21 0534: Subjective Subjective/Events-last exam Pt was originally to go to in-patient rehab but she really couldn't move Reached out to Dr. Hart who initiated Decadron 8 mg and step down by 2 mg everyday Baclofen and Valium will also be ordered Will reach out to her daughter Review of Systems Musculoskeletal: back pain (Radiates to left leg) Objective Exam General: Alert, Oriented X3, Cooperative, No Acute Distress Lungs: Clear to Auscultation Heart: Regular Rate Psych/Mental Status: Mental Status NL Assessment/Plan Assessment/Plan Assess & Plan/Chief Complaint Decadron Valium Baclofen Pain control Spoke to daughter who will come and spend the next couple of days with her Supervisory-Addendum Brief Verification & Attestation Participated in pt care: history, MDM, physical Personally performed: exam, history, MDM, supervision of care Care discussed with: Medical Student Procedures: n/a Results interpretation: Verified all documentation Verification and Attestation of Medical Student E/M Service A medical student performed and documented this service in my presence. I reviewed and verified all information documented by the medical student and made modifications to such information, when appropriate. I personally performed the physical exam and medical decision making. Janene Cook, Jul 23, 2021,05:32 [facility] Jul 22, 2021 11:56 JANENE COOK DO Jul 23, 2021 05:34
--- NOTE | 2021-07-22 14:04 | Physical Therapy Daily Note ---
PT Daily Note-Current Subjective Patient is laying in the bed and dozing on and off pre-treatment. Patient consents to attempting a few bed exercises today. Mental Status Patient Orientation: Person, Confused Attachments: Oxygen, Benites Catheter Transfers SCALE: Activities may be completed with or without assistive devices. 8-Wlivmqhqaa-pbjxilw completes the activity by him/herself with no assistance from a helper. 5-Set-up or Clean-up Assistance-helper sets up or cleans up; patient completes activity. [place] assists only prior to or following the activity. 4-Supervision or Touching Assistance-helper provides verbal cues and/or touc diann/steadying and/or contact guard assistance as patient completes activity. Assistance may be provided throughout the activity or intermittently. 3-Partial/Moderate Assistance-helper does LESS THAN HALF the effort. [place] lifts, holds or supports trunk or limbs, but provides less than half the effort. 2-Substantial/Maximal Assistance-helper does MORE THAN HALF the effort. [place] lifts or holds trunk or limbs and provides more than half the effort. 9-Qsnftfiha-jkuojd does ALL the effort. Patient does none of the effort to complete the activity. Or, the assistance of 2 or more helpers is required for the patient to complete the activity. If activity was not attempted, code reason: 7-Patient Refused. 9-Not Applicable-not attempted and the patient did not perform the activity before the current illness, exacerbation or injury. 10-Not Attempted due to Environmental Limitations-(lack of equipment, weather restraints, etc.). 88-Not Attempted due to Medical Conditions or Safety Concerns. Weight Bearing Right Lower Extremity: Right Weight Bearing/Tolerated Left Lower Extremity: Left Weight Bearing/Tolerated Exercises Supine Ex: Ankle pumps, Quad Set, Glut sets, Heel Slides Supine Reps: 10 Patient required multiple cues to stay on task during exercises. Patient was dozing off to sleep during therapy session. Treatments LE bed exercises for strengthening Assessment Current Status: Poor Progress Patient had difficultly staying on task with exercises during therapy session today. Patient reported that her pain did not increase a significant amount while performing the bed exercises. Patient reported that she wanted to eat lunch that was sitting on the tray next to her. Patient was able to tolerate moving the head of the bed up slightly so she can eat. Patient continues to have significant amounts of pain with movements and moving the head of the bed up had to be done in small movements. PT Director Of Materials Goals Fdc Goals PT Fdc Goals Time Frame: Jul 29, 2021 Roll Left & Right (QC): 3 Sit to Lying (QC): 3 Lying-Sitting on Side/Bed(QC): 3 Sit to Stand (QC): 3 Chair/Agz-am-Sdhwi Xfer(QC): 3 Walk 10 feet (QC): 3 Walk 50ft with 2 Turns (QC): 3 PT Plan Problem List Problem List: Activity Tolerance, Functional Strength, Safety, Balance, Gait, Transfer, Bed Mobility, ROM Treatment/Plan Treatment Plan: Continue Plan of Care Treatment Plan: Bed Mobility, Education, Functional Activity Sameera, Functional Strength, Gait, Safety, Therapeutic Exercise, Transfers Treatment Duration: Jul 29, 2021 Frequency: 11 times per week Estimated Hrs Per Day: .25 hour per day Patient and/or Family Agrees t: Yes Safety Risks/Education Patient Education: Correct Positioning Teaching Recipient: Patient Teaching Methods: Discussion Time/GCodes Time In: 1350 Time Out: 1400 Total Billed Treatment Time: 10 Total Billed Treatment 1 Visit Ex 10 min WADE DUONG PT Jul 22, 2021 14:04
--- NOTE | 2021-07-22 15:35 | Anesthesia-General Post-Op ---
General Patient Condition Mental Status/LOC: Same as Preop Cardiovascular: Satisfactory Nausea/Vomiting: Absent Respiratory: Satisfactory Pain: Controlled Complications: Absent Post Op Complications Complications None Follow Up Care/Instructions Patient Instructions None needed. Anesthesia/Patient Condition Patient Condition Patient is doing well, does have some back pain which is controlled with meds, stable vital signs, no apparent adverse anesthesia problems. LON CLEMENTS DO Jul 22, 2021 15:35
[2021-07-22] MEDS: traZODone 50 MG (DESYREL) TAB PO SCH (20:28)
[2021-07-22] MEDS: ROSUVASTATIN 5 MG (CRESTOR) TABLET PO SCH (20:28)
[2021-07-22] MEDS ORDERED: traZODone 50 MG (DESYREL) TAB PO ONE (21:00)
[2021-07-22] MEDS ORDERED: traZODone 100 MG (DESYREL) TAB ONE (21:17)
[2021-07-22] MEDS ORDERED: traZODone 50 MG (DESYREL) TAB ONE (21:21)
[2021-07-23 04:45] VITALS: BP 145/67
[2021-07-23] MEDS: LEVOTHYROXINE 75 MCG (LEVOTHROID) TABLET PO SCH (05:18)
[2021-07-23] MEDS: KCL 10 MEQ TAB (MICRO K) PO SCH (05:18)
[2021-07-23 07:29] VITALS: BP 136/63
--- NOTE | 2021-07-23 07:48 | Diagnostic Imaging Report ---
CHEST 1 VIEW, AP/PA ONLY Indication: Dyspnea Comparison: 07/19/2021 Findings: No focal airspace disease in the visualized lungs. Please note that the posterior lower lobes are poorly evaluated by portable radiography. No pleural effusion or pneumothorax. Normal cardiomediastinal silhouette. Impression: 1. No acute cardiopulmonary process by portable radiography. Dictated by: Dictated on workstation # [id number]
[2021-07-23] MEDS: RT--FLUTICASONE/SALMETEROL 232-14 (AIRDUO RespiCLICK) IH SCH (07:56)
[2021-07-23] MEDS: UMECLIDINIUM BROMIDE (INCRUSE ELLIPTA) 7'S IH SCH (07:57)
[2021-07-23] MEDS: HYDROcodone/APAP 5 MG/325 MG (LORTAB) TAB PO PRN (08:15)
[2021-07-23] MEDS: BACLOFEN 10 MG (LIORESAL) TAB PO SCH (08:15)
[2021-07-23] MEDS: ESTROGENS CONJ 0.625 MG (PREMARIN) TAB PO SCH (08:16)
[2021-07-23] MEDS: MONTELUKAST 10 MG (SINGULAIR) TAB PO SCH (08:17)
[2021-07-23] MEDS: SENNOSIDES 8.6 MG (SENOKOT) TAB PO SCH (08:18)
[2021-07-23] MEDS: PANTOPRAZOLE 40 MG (PROTONIX) TAB PO SCH (08:18)
[2021-07-23] MEDS: amLODIPine 2.5MG (NORVASC) TAB PO SCH (08:18)
[2021-07-23] MEDS: DOCUSATE SODIUM 100 MG (COLACE) CAP PO SCH (08:20)
[2021-07-23] MEDS: meTOproloL SUCCINATE 50 MG (TOPROL XL) TAB PO SCH (08:21)
[2021-07-23] MEDS: DULoxetine 30 MG (CYMBALTA) CAP PO SCH (08:21)
[2021-07-23] MEDS: FUROSEMIDE 40 MG (LASIX) TAB PO SCH (08:22)
[2021-07-23] MEDS: PRAMIPEXOLE 0.125 MG (MIRAPEX) TABLET PO SCH (08:22)
--- NOTE | 2021-07-23 09:23 | Physical Therapy Daily Note ---
PT Daily Note-Current Subjective Patient presented laying in bed after finishing her breakfast. Mental Status Patient Orientation: Person, Confused, Situation Attachments: Benites Catheter Patient cannot recall previous days treatment session Transfers SCALE: Activities may be completed with or without assistive devices. 0-Sutwcskzml-uummfel completes the activity by him/herself with no assistance from a helper. 5-Set-up or Clean-up Assistance-helper sets up or cleans up; patient completes activity. [place] assists only prior to or following the activity. 4-Supervision or Touching Assistance-helper provides verbal cues and/or touching /steadying and/or contact guard assistance as patient completes activity. Assistance may be provided throughout the activity or intermittently. 3-Partial/Moderate Assistance-helper does LESS THAN HALF the effort. [place] lifts, holds or supports trunk or limbs, but provides less than half the effort. 2-Substantial/Maximal Assistance-helper does MORE THAN HALF the effort. [place] lifts or holds trunk or limbs and provides more than half the effort. 0-Dzijuapgz-oembws does ALL the effort. Patient does none of the effort to complete the activity. Or, the assistance of 2 or more helpers is required for the patient to complete the activity. If activity was not attempted, code reason: 7-Patient Refused. 9-Not Applicable-not attempted and the patient did not perform the activity before the current illness, exacerbation or injury. 10-Not Attempted due to Environmental Limitations-(lack of equipment, weather restraints, etc.). 88-Not Attempted due to Medical Conditions or Safety Concerns. Roll Left & Right (QC): 3 Lying to Sitting/Side of Bed(Q: 2 Sit to Stand (QC): 3 Chair/Qkh-lv-Fvkwo Xfer(QC): 3 Patient was min/mod assist for all transfers. Patient required lots of enc ouragement to move to EOB and to transfer to standing. Weight Bearing Right Lower Extremity: Right Weight Bearing/Tolerated Left Lower Extremity: Left Weight Bearing/Tolerated Gait Training Distance: 100' Walk 10 feet (QC): 3 Walk 50 ft with 2 Turns(QC): 3 Gait Assistive Device: FWW Patient ambulated slowly with min assist and FWW for 100'. Assessment Patient performed bed mobility, transfers, and ambulation with min/mod assistance. Patient required lots of encouragement to perform transfers and reported being very fearful of her pain while moving. Patient was educated on the importance of moving to decrease risk of secondary infections and the need of movement to help with healing. Patient was very emotional during the treatment session but reported that it felt good to walk. Patient was left post tx sitting in her recliner. Patient believes that she is now ready to move down to IRU. PT Usp Goals Usp Goals PT Usp Goals Time Frame: Jul 29, 2021 Roll Left & Right (QC): 3 Sit to Lying (QC): 3 Lying-Sitting on Side/Bed(QC): 3 Sit to Stand (QC): 3 Chair/Vxm-uz-Hcudc Xfer(QC): 3 Walk 10 feet (QC): 3 Walk 50ft with 2 Turns (QC): 3 PT Plan Treatment/Plan Treatment Plan: Continue Plan of Care Treatment Plan: Bed Mobility, Education, Functional Activity Sameera, Functional Strength, Gait, Safety, Therapeutic Exercise, Transfers Treatment Duration: Jul 29, 2021 Frequency: 11 times per week Estimated Hrs Per Day: .25 hour per day Patient and/or Family Agrees t: Yes Time/GCodes Time In: 826 Time Out: 849 Total Billed Treatment Time: 23 Total Billed Treatment 1 Visit FA 13 min Gait 10 min INGE CALDERON PT Jul 23, 2021 09:23
--- NOTE | 2021-07-23 09:23 | Discharge Summary ---
Diagnosis/Chief Complaint Date of Admission Jul 20, 2021 at 12:11 Date of Discharge Discharge Date: Jul 22, 2021 Discharge Diagnosis Acute vertebral compression fracture requiring kyphoplasty urgently Osteoporosis causing pathological fracture of compression fracture Elevated PTH in setting of severe osteoporosis with family history of hyperparathyroidism Asthma Discharge Summary Discharge Physical Examination Allergies: Coded Allergies: No Known Drug Allergies (Unverified , 10/31/19) Vitals & I&Os Vital Signs Date Time Temp Pulse Resp B/P (MAP) Pulse Ox O2 Delivery O2 Flow Rate FiO2 07/23/21 08:00 Room Air 07/23/21 07:59 93 07/23/21 07:29 36.5 83 16 136/63 (87) 07/22/21 21:08 0.75 07/22/21 11:45 3 General Appearance: Alert, Oriented X3, Cooperative Respiratory: Clear to Auscultation Cardiovascular: Regular Rate Psych/Mental Status: Mental Status NL Hospital Course Was the Problem List Reviewed?: Yes PROGRESS NOTE [facility] 07/23/21 1251: Progress Note Brief Hospital Course: Patient was admitted on 07/19/2021 and discharged 07/23/2021. Patient was admitted from the ED to the 4th floor. Patient received CBC, CMP, and CT scan. CT revealed acute appearing mild L4 compression fracture, age-indeterminate mild T12 compression fracture. Patient was admitted to medicine and consulted orthopaedics, PT, and OT. Hospital interventions included an MRI revealing a chronic anterior wedge compression fracture deformity at T12 vertebra, acute/subacute compression fracture deformity of the L4 vertebra. Patient also underwent an L4 Kyphoplasty with biopsy, hemilaminectomy, partial medial facetectomy, and foraminotomy. On discharge, patient was sent to in- patient rehab facility on 2nd floor. Patient will continue pain meds, baclofen, and valium. Decadron will be titrated down, and xeralto will be started on 07/24. This summary does not include the entirety of the patient's visit and is only a short description of pertinent lab values and information. For the complete hospital course, please refer to the patient's chart. Date of Admission: 07/20/2021 Date of Discharge: 07/23/2021 Attending Physician: Dr. Janene Redd, DO Admission Diagnosis: Vertebral Compression Fracture Discharge Diagnosis: S/P L4 kyphoplasty, Factor V Leiden deficiency Consultations: Ortho, PT, OT Procedures: S/P L4 Kyphoplasty with biopsy, hemilaminectomy, partial medial facetectomy, and foraminotomy Labs (last 24 hrs) Laboratory Tests 07/19/21 07:56: White Blood Count 9.0, Red Blood Count 5.21H, Hemoglobin 13.1, Hematocrit 42, Mean Corpuscular Volume 80, Mean Corpuscular Hemoglobin 25, Mean Corpuscular Hemoglobin Concent 31L, Red Cell Distribution Width , Platelet Count 373, Mean Platelet Volume 9.3, Immature Granulocyte % (Auto) 0, Neutrophils (%) (Auto) 66, Lymphocytes (%) (Auto) 25, Monocytes (%) (Auto) 8, Eosinophils (%) (Auto) 0, Basophils (%) (Auto) 0, Neutrophils # (Auto) 6.0, Lymphocytes # (Auto) 2.2, Monocytes # (Auto) 0.8, Eosinophils # (Auto) 0.0, Basophils # (Auto) 0.0, Immature Granulocyte # (Auto) 0.0, D-Dimer < 0.27, Sodium Level 142, Potassium Level 3.4L, Chloride Level 106, Carbon Dioxide Level 23, Anion Gap 13, Blood Urea Nitrogen 18, Creatinine 0.72, Estimat Glomerular Filtration Rate 84, BUN/Creatinine Ratio 25, Glucose Level 106H, Calcium Level 9.4, Corrected Calcium 9.2, Total Bilirubin 0.3, Aspartate Amino Transf (AST/SGOT) 14, Alanine Aminotransferase (ALT/SGPT) 15, Alkaline Phosphatase 136, Troponin I < 0.028, C- Reactive Protein High Sensitivity 0.34, B-Type Natriuretic Peptide 142.6H, Total Protein 7.3, Albumin 4.3 07/20/21 05:30: White Blood Count 5.8, Red Blood Count 5.23H, Hemoglobin 13.1, Hematocrit 44, Mean Corpuscular Volume 83, Mean Corpuscular Hemoglobin 25, Mean Corpuscular Hemoglobin Concent 30L, Red Cell Distribution Width , Platelet Count 345, Mean Platelet Volume 9.5, Immature Granulocyte % (Auto) 1, Neutrophils (%) (Auto) 54, Lymphocytes (%) (Auto) 33, Monocytes (%) (Auto) 11, Eosinophils (%) (Auto) 1, Basophils (%) (Auto) 1, Neutrophils # (Auto) 3.1, Lymphocytes # (Auto) 1.9, Monocytes # (Auto) 0.6, Eosinophils # (Auto) 0.1, Basophils # (Auto) 0.0, Immature Granulocyte # (Auto) 0.0, Sodium Level 140, Potassium Level 3.9, Chloride Level 104, Carbon Dioxide Level 25, Anion Gap 11, Blood Urea Nitrogen 18, Creatinine 0.72, Estimat Glomerular Filtration Rate 84, BUN/Creatinine Ratio 25, Glucose Level 101, Calcium Level 9.3, Corrected Calcium 9.4, Total Bilirubin 0.2, Aspartate Amino Transf (AST/SGOT) 15, Alanine Aminotransferase (ALT/SGPT) 12, Alkaline Phosphatase 151H, Total Protein 6.6, Albumin 3.9, Parathyroid Hormo ne (Intact) 94.2H, Calcium (PTH Intact) 8.4L 07/20/21 17:24: Coronavirus (COVID-19)(PCR) Negative 07/21/21 06:00: White Blood Count 7.3, Red Blood Count 5.31H, Hemoglobin 13.5, Hematocrit 44, Mean Corpuscular Volume 83, Mean Corpuscular Hemoglobin 25, Mean Corpuscular Hemoglobin Concent 31L, Red Cell Distribution Width , Platelet Count 354, Mean Platelet Volume 9.5, Immature Granulocyte % (Auto) 0, Neutrophils (%) (Auto) 64, Lymphocytes (%) (Auto) 24, Monocytes (%) (Auto) 10, Eosinophils (%) (Auto) 2, Basophils (%) (Auto) 0, Neutrophils # (Auto) 4.6, Lymphocytes # (Auto) 1.7, Monocytes # (Auto) 0.7, Eosinophils # (Auto) 0.2, Basophils # (Auto) 0.0, Immature Granulocyte # (Auto) 0.0, Sodium Level 140, Potassium Level 4.0, Chloride Level 102, Carbon Dioxide Level 26, Anion Gap 12, Blood Urea Nitrogen 17, Creatinine 0.70, Estimat Glomerular Filtration Rate 87, BUN/Creatinine Ratio 24, Glucose Level 105, Calcium Level 9.3, Corrected Calcium 9.5, Total Bilirubin 0.3, Aspartate Amino Transf (AST/SGOT) 15, Alanine Aminotransferase (ALT/SGPT) 12, Alkaline Phosphatase 143H, Total Protein 6.5, Albumin 3.7 07/22/21 06:47: White Blood Count 7.6, Red Blood Count 4.92, Hemoglobin 12.6, Hematocrit 41, Mean Corpuscular Volume 83, Mean Corpuscular Hemoglobin 26, Mean Corpuscular Hemoglobin Concent 31L, Red Cell Distribution Width , Platelet Count 324, Mean Platelet Volume 9.2, Immature Granulocyte % (Auto) 1, Neutrophils (%) (Auto) 75, Lymphocytes (%) (Auto) 15, Monocytes (%) (Auto) 9, Eosinophils (%) (Auto) 1, Basophils (%) (Auto) 0, Neutrophils # (Auto) 5.7, Lymphocytes # (Auto) 1.1, Monocytes # (Auto) 0.6, Eosinophils # (Auto) 0.1, Basophils # (Auto) 0.0, Immature Granulocyte # (Auto) 0.0, Sodium Level 141, Potassium Level 3.9, Chloride Level 101, Carbon Dioxide Level 29, Anion Gap 11, Blood Urea Nitrogen 13, Creatinine 0.69, Estimat Glomerular Filtration Rate 88, BUN/Creatinine Ratio 19, Glucose Level 103, Calcium Level 8.6, Corrected Calcium 8.9, Total Bilirubin 0.4, Aspartate Amino Transf (AST/SGOT) 20, Alanine Aminotransferase (ALT/SGPT) 12, Alkaline Phosphatase 208H, Total Protein 6.2L, Albumin 3.6 Microbiology 07/20/21 MRSA Screen - Final, Complete MRSA not isolated Pending Labs Microbiology Date/Time Source Procedure Growth Status 07/20/21 17:34 Nasal MRSA Screen - Final MRSA not isolated Complete Laboratory Tests 07/19/21 07:56: White Blood Count 9.0, Red Blood Count 5.21, Hemoglobin 13.1, Hematocrit 42, Mean Corpuscular Volume 80, Mean Corpuscular Hemoglobin 25, Mean Corpuscular Hemoglobin Concent 31, Red Cell Distribution Width , Platelet Count 373, Mean Platelet Volume 9.3, Immature Granulocyte % (Auto) 0, Neutrophils (%) (Auto) 66, Lymphocytes (%) (Auto) 25, Monocytes (%) (Auto) 8, Eosinophils (%) (Auto) 0, Basophils (%) (Auto) 0, Neutrophils # (Auto) 6.0, Lymphocytes # (Auto) 2.2, Monocytes # (Auto) 0.8, Eosinophils # (Auto) 0.0, Basophils # (Auto) 0.0, Immature Granulocyte # (Auto) 0.0, D-Dimer < 0.27, Sodium Level 142, Potassium Level 3.4, Chloride Level 106, Carbon Dioxide Level 23, Anion Gap 13, Blood Urea Nitrogen 18, Creatinine 0.72, Estimat Glomerular Filtration Rate 84, BUN/Creatinine Ratio 25, Glucose Level 106, Calcium Level 9.4, Corrected Calcium 9.2, Total Bilirubin 0.3, Aspartate Amino Transf (AST/SGOT) 14, Alanine Aminotransferase (ALT/SGPT) 15, Alkaline Phosphatase 136, Troponin I < 0.028, C- Reactive Protein High Sensitivity 0.34, B-Type Natriuretic Peptide 142.6, Total Protein 7.3, Albumin 4.3 07/20/21 05:30: White Blood Count 5.8, Red Blood Count 5.23, Hemoglobin 13.1, Hematocrit 44, Mean Corpuscular Volume 83, Mean Corpuscular Hemoglobin 25, Mean Corpuscular Hemoglobin Concent 30, Red Cell Distribution Width , Platelet Count 345, Mean Platelet Volume 9.5, Immature Granulocyte % (Auto) 1, Neutrophils (%) (Auto) 54, Lymphocytes (%) (Auto) 33, Monocytes (%) (Auto) 11, Eosinophils (%) (Auto) 1, Basophils (%) (Auto) 1, Neutrophils # (Auto) 3.1, Lymphocytes # (Auto) 1.9, Monocytes # (Auto) 0.6, Eosinophils # (Auto) 0.1, Basophils # (Auto) 0.0, I mmature Granulocyte # (Auto) 0.0, Sodium Level 140, Potassium Level 3.9, Chloride Level 104, Carbon Dioxide Level 25, Anion Gap 11, Blood Urea Nitrogen 18, Creatinine 0.72, Estimat Glomerular Filtration Rate 84, BUN/Creatinine Ratio 25, Glucose Level 101, Calcium Level 9.3, Corrected Calcium 9.4, Total Bilirubin 0.2, Aspartate Amino Transf (AST/SGOT) 15, Alanine Aminotransferase (ALT/SGPT) 12, Alkaline Phosphatase 151, Total Protein 6.6, Albumin 3.9, Parathyroid Hormone (Intact) 94.2, Calcium (PTH Intact) 8.4 07/20/21 17:24: Coronavirus (COVID-19)(PCR) Negative 07/21/21 06:00: White Blood Count 7.3, Red Blood Count 5.31, Hemoglobin 13.5, Hematocrit 44, Mean Corpuscular Volume 83, Mean Corpuscular Hemoglobin 25, Mean Corpuscular Hemoglobin Concent 31, Red Cell Distribution Width , Platelet Count 354, Mean Platelet Volume 9.5, Immature Granulocyte % (Auto) 0, Neutrophils (%) (Auto) 64, Lymphocytes (%) (Auto) 24, Monocytes (%) (Auto) 10, Eosinophils (%) (Auto) 2, Basophils (%) (Auto) 0, Neutrophils # (Auto) 4.6, Lymphocytes # (Auto) 1.7, Monocytes # (Auto) 0.7, Eosinophils # (Auto) 0.2, Basophils # (Auto) 0.0, Immature Granulocyte # (Auto) 0.0, Sodium Level 140, Potassium Level 4.0, Chloride Level 102, Carbon Dioxide Level 26, Anion Gap 12, Blood Urea Nitrogen 17, Creatinine 0.70, Estimat Glomerular Filtration Rate 87, BUN/Creatinine Ratio 24, Glucose Level 105, Calcium Level 9.3, Corrected Calcium 9.5, Total Bilirubin 0.3, Aspartate Amino Transf (AST/SGOT) 15, Alanine Aminotransferase (ALT/SGPT) 12, Alkaline Phosphatase 143, Total Protein 6.5, Albumin 3.7 07/22/21 06:47: White Blood Count 7.6, Red Blood Count 4.92, Hemoglobin 12.6, Hematocrit 41, Mean Corpuscular Volume 83, Mean Corpuscular Hemoglobin 26, Mean Corpuscular Hemoglobin Concent 31, Red Cell Distribution Width , Platelet Count 324, Mean Platelet Volume 9.2, Immature Granulocyte % (Auto) 1, Neutrophils (%) (Auto) 75, Lymphocytes (%) (Auto) 15, Monocytes (%) (Auto) 9, Eosinophils (%) (Auto) 1, Basophils (%) (Auto) 0, Neutrophils # (Auto) 5.7, Lymphocytes # (Auto) 1.1, Monocytes # (Auto) 0.6, Eosinophils # (Auto) 0.1, Basophils # (Auto) 0.0, Immature Granulocyte # (Auto) 0.0, Sodium Level 141, Potassium Level 3.9, Chloride Level 101, Carbon Dioxide Level 29, Anion Gap 11, Blood Urea Nitrogen 13, Creatinine 0.69, Estimat Glomerular Filtration Rate 88, BUN/Creatinine Ratio 19, Glucose Level 103, Calcium Level 8.6, Corrected Calcium 8.9, Total Bilirubin 0.4, Aspartate Amino Transf (AST/SGOT) 20, Alanine Aminotransferase (ALT/SGPT) 12, Alkaline Phosphatase 208, Total Protein 6.2, Albumin 3.6 Discharge Home Medications: Active Scripts Active Hydrocodone-Acetamin 5-325 mg (Hydrocodone/Acetaminophen) 1 Each Tablet 1-2 Tab PO Q6H PRN Reported Premarin (Estrogens Conjugated) 30 Gm Cr 1 Gm VG MON,TUE,FRI Omeprazole 40 Mg Capsule.dr 40 Mg PO DAILY Potassium Chloride 10 Meq Tab.er.prt 10 Meq PO DAILY Tylenol Extra Strength (Acetaminophen) 500 Mg Tablet 1,000 Mg PO BID PRN TAKES 2 (500MG) TAB Lisinopril 5 Mg Tablet 5 Mg PO BID Levothyroxine Sodium 75 Mcg Tablet 75 Mcg PO DAILY Methylprednisolone Dose Pack (Methylprednisolone) 4 Mg Tab.ds.pk Mg PO UD FILLED 07-16-2021 #21 6 DAY SUPPLY Cyclobenzaprine HCl 10 Mg Tablet 5 Mg PO Q8H TAKES 1/2 TAB Trelegy Ellipta 100-62.5-25 (Fluticasone/Umeclidin/Vilanter) 1 Each Blst.w.dev 1 Each IH DAILY Toprol Xl (Metoprolol Succinate) 50 Mg Tab.er.24h 50 Mg PO DAILY Furosemide 40 Mg Tablet 40 Mg PO HS Norvasc (Amlodipine Besylate) 2.5 Mg Tablet 2.5 Mg PO HS Pramipexole Dihydrochloride (Pramipexole Di-HCl) 0.125 Mg Tablet 0.125 Mg PO BID Trazodone HCl 50 Mg Tablet 50 Mg PO HS Duloxetine HCl 60 Mg Capsule. Rosuvastatin Calcium 5 Mg Tablet 5 Mg PO TUE,TUE,FRI Myrbetriq (Mirabegron) 25 Mg Tab.er.24h 50 Mg PO HS TAKES 2 (25MG) TABS Travatan Z (Travoprost) 5 Ml Drops 1 Drop OU HS Alendronate Sodium 70 Mg Tablet FRI Proair Hfa (Albuterol Sulfate) 1 Puff Puff 1 Puff PO Q8H PRN Pantoprazole Sodium 40 Mg Tablet. 40 Mg PO BID Xarelto (Rivaroxaban) 10 Mg Tablet 10 Mg PO HS Montelukast Sodium 10 Mg Tablet Instructions to patient/family Please see electronic discharge instructions given to patient. Diagnosis/Problems Diagnosis/Problems (1) Thoracic vertebral fracture Status: Acute Qualifiers: Qualified Codes: S22.089A - Unspecified fracture of t11-T12 vertebra, initia l encounter for closed fracture (2) Osteoporosis (3) Hypercoagulable state (4) Closed lumbar vertebral fracture Status: Acute Qualifiers: Qualified Codes: S32.049A - Unspecified fracture of fourth lumbar vertebra, initial encounter for closed fracture (5) Radicular pain of thoracic region Status: Acute JANENE REDD DO Jul 23, 2021 09:22
--- NOTE | 2021-07-23 12:51 | Progress Note ---
[facility]NDH[facility] 07/23/21 1251: Progress Note Brief Hospital Course: Patient was admitted on 07/19/2021 and discharged 07/23/2021. Patient was admitted from the ED to the 4th floor. Patient received CBC, CMP, and CT scan. CT revealed acute appearing mild L4 compression fracture, age-indeterminate mild T12 compression fracture. Patient was admitted to medicine and consulted orthopaedics, PT, and OT. Hospital interventions included an MRI revealing a chronic anterior wedge compression fracture deformity at T12 vertebra, acute/subacute compression fracture deformity of the L4 vertebra. Patient also underwent an L4 Kyphoplasty with biopsy, hemilaminectomy, partial medial facetectomy, and foraminotomy. On discharge, patient was sent to in- patient rehab facility on 2nd floor. Patient will continue pain meds, baclofen, and valium. Decadron will be titrated down, and xeralto will be started on 07/24. This summary does not include the entirety of the patient's visit and is only a short description of pertinent lab values and information. For the complete hospital course, please refer to the patient's chart. Date of Admission: 07/20/2021 Date of Discharge: 07/23/2021 Attending Physician: Dr. Janene Redd DO Admission Diagnosis: Vertebral Compression Fracture Discharge Diagnosis: S/P L4 kyphoplasty, Factor V Leiden deficiency Consultations: Ortho, PT, OT Procedures: S/P L4 Kyphoplasty with biopsy, hemilaminectomy, partial medial facetectomy, and foraminotomy JANENE REDD DO 07/23/212020: Supervisory-Addendum Brief Verification & Attestation Participated in pt care: history, MDM, physical Personally performed: exam, history, MDM, supervision of care Care discussed with: Medical Student Procedures: n/a Results interpretation: Verified all documentation Verification and Attestation of Medical Student E/M Service A medical student performed and documented this service in my presence. I re viewed and verified all information documented by the medical student and made modifications to such information, when appropriate. I personally performed the physical exam and medical decision making. Janene Redd, Jul 23, 2021,20:21 [facility] Jul 23, 2021 12:51 JANENE REDD DO Jul 23, 2021 20:21
[2021-07-31] MEDS ORDERED: DIAZ5TAB49 PO (11:45)
[2021-07-31] MEDS ORDERED: DICL100G13 TOP (11:45)
[2021-07-31] MEDS ORDERED: BACL10TA PO (11:45)
[2021-07-31] MEDS ORDERED: DOCU100C37 PO (11:45)
[2021-07-31] MEDS ORDERED: TRM50T PO (11:45)
[2021-07-31] MEDS ORDERED: SNN187T PO (11:45)
[2021-07-31] MEDS ORDERED: OXC5T PO (11:45)
[2021-07-31] MEDS ORDERED: ONDA4TAB11 PO (11:45)
== END 2021-07-23 10:04 | DRG 478 ==
LOC: EDUNIT# 06:45 → ER 06:47 → 4TH 12:22 → OBSVTOIN 07-20 12:11 → UNDODISIN 07-22 10:56 → 4TH 07-22 11:21
PROVIDERS: ADMIT Internal Medicine; ATTEND Internal Medicine
PROC: 0QB00ZX Excision of Lumbar Vertebra, Open Approach, Diagnostic (ICD-10-PCS; 2021-07-21)
PROC: 01NB0ZZ Release Lumbar Nerve, Open Approach (ICD-10-PCS; 2021-07-21)
PROC: 0QS03ZZ Reposition Lumbar Vertebra, Percutaneous Approach (ICD-10-PCS; principal; 2021-07-21 17:50)
PROC: 0QU03JZ Supplement Lumbar Vertebra with Synthetic Substitute, Percutaneous Approach (ICD-10-PCS; 2021-07-21 17:50)
DX: M48.56XA Collapsed vertebra, not elsewhere classified, lumbar region, initial encounter for fracture (principal); D68.59 Other primary thrombophilia; M48.54XA Collapsed vertebra, not elsewhere classified, thoracic region, initial encounter for fracture; Z86.718 Personal history of other venous thrombosis and embolism; E78.00 Pure hypercholesterolemia, unspecified; I10 Essential (primary) hypertension; K21.9 Gastro-esophageal reflux disease without esophagitis; M19.90 Unspecified osteoarthritis, unspecified site; E03.9 Hypothyroidism, unspecified; F32.A Depression, unspecified; Z79.01 Long term (current) use of anticoagulants; G89.29 Other chronic pain; K59.00 Constipation, unspecified; J44.9 Chronic obstructive pulmonary disease, unspecified; M54.42 Lumbago with sciatica, left side; Z83.49 Family history of other endocrine, nutritional and metabolic diseases; M48.061 Spinal stenosis, lumbar region without neurogenic claudication; M54.16 Radiculopathy, lumbar region; M25.559 Pain in unspecified hip; Z20.822 Contact with and (suspected) exposure to COVID-19
CPT/HCPCS: 36415; 71045; 72128; 72131; 72146; 72148; 80053; 83880; 83970; 84484; 85025; 85379; 86141; 87081; 87635; 88307; 88311; 88342; 93005; 94640; 94664; 94760; 96372; G0378

== ENCOUNTER 2021-07-22 09:37 | Inpatient (IN) | payer MEDICARE, OTHER ==
[~2021-07-22] VITALS: Ht 163.8 cm; Wt 72.9 kg
[~2021-07-22 09:37] MED LIST changes: +ACET-2267 PO; +ACHD5005 PO; +CYCL10TA25 PO; +EST30C VG; +LEVO75TA6 PO; +LISI5TAB20 PO; +METH4TAB10 PO; +POTA10TA37 PO
[2021-07-22] MEDS ORDERED: ACETAMINOPHEN 325 MG TABLET PO PRN (10:00)
[2021-07-22] MEDS ORDERED: CALCIUM CARBONATE 500 MG (TUMS) TAB.CHEW PO PRN (10:00)
[2021-07-22] MEDS ORDERED: guaiFENesin/CODEINE (ROBITUSSIN AC) 10ML UDC PO PRN (10:00)
[2021-07-22] MEDS ORDERED: LOPERAMIDE 2 MG (IMODIUM) TABLET PO PRN (10:00)
[2021-07-22] MEDS ORDERED: ALPRAZolam 0.25 MG (XANAX) TAB PO PRN (10:00)
[2021-07-22] MEDS ORDERED: BISACODYL 10 MG SUPP (DULCOLAX) PR PRN (10:00)
[2021-07-22] MEDS ORDERED: FLEET ENEMA ADULT 1 EA BTL PR PRN (10:00)
[2021-07-22] MEDS ORDERED: LACTULOSE SYRUP 10GM/15ML (ENULOSE) 30ML UDC PO PRN (10:00)
[2021-07-22] MEDS ORDERED: diphenhydrAMINE 25 MG TAB (BENADRYL) PO PRN (10:00)
[2021-07-22] MEDS ORDERED: ONDANSETRON 4 MG (ZOFRAN) ORAL DISSOLVE TAB PO PRN (10:00)
[2021-07-22] MEDS ORDERED: MELATONIN 3 MG TABLET PO PRN (10:00)
[2021-07-22] MEDS ORDERED: DOCUSATE SODIUM 100 MG (COLACE) CAP PO PRN (10:00)
[2021-07-22] MEDS ORDERED: SENNA W/DOCUSATE (SENOKOT S) TABLET PO SCH (21:00)
[2021-07-22] MEDS ORDERED: DOCUSATE SODIUM 100 MG (COLACE) CAP PO SCH (21:00)
[2021-07-23 05:43] LABS: BASOPHILS % (AUTO) 0 % (0-10); EOSINOPHILS % (AUTO) 0 % (0-10); HEMATOCRIT 41 % (35-52); HEMOGLOBIN 12.8 g/dL (11.5-16.0); LYMPHOCYTES % (AUTO) 12 % (12-44); MEAN CORPUSCULAR HEMOGLOBIN 25 pg (25-34); MEAN CORPUSCULAR HGB CONC 31 g/dL (32-36); MEAN CORPUSCULAR VOLUME 82 fL (80-99); MEAN PLATELET VOLUME 9.6 fL (9.0-12.2); MONOCYTES # (AUTO) 0.8 10^3/uL (0.0-1.0); MONOCYTES % (AUTO) 9 % (0-12); NEUTROPHILS # (AUTO) 6.9 10^3/uL (1.8-7.8); NEUTROPHILS % (AUTO) 79 % (42-75); PLATELET COUNT 347 10^3/uL (130-400); WHITE BLOOD COUNT 8.8 10^3/uL (4.3-11.0)
[2021-07-23 06:03] LABS: ALBUMIN 3.8 GM/DL (3.2-4.5); POTASSIUM 3.5 MMOL/L (3.6-5.0)
[2021-07-23 06:04] LABS: CALCIUM 9.2 MG/DL (8.5-10.1)
[2021-07-23 06:05] LABS: TOTAL PROTEIN 6.7 GM/DL (6.4-8.2)
[2021-07-23 06:07] LABS: BILIRUBIN,TOTAL 0.3 MG/DL (0.1-1.0)
[2021-07-23 06:09] LABS: CREATININE SERUM 0.69 MG/DL (0.60-1.30)
--- NOTE | 2021-07-23 10:33 | Physical Therapy Evaluation ---
PT Evaluation-General Medical Diagnosis Admission Date Medical Diagnosis: lumbar stenosis and L4 compression fx Onset Date: Jul 21, 2021 Therapy Diagnosis Therapy Diagnosis: impaired mobility, strength, endurance Referral Physician: Janene Redd DO Reason for Referral: Evaluation/Treatment Medical History Additional Medical History Past Medical History Surgeries: Appendectomy, Hysterectomy, Orthopedic Cardiac: Deep Vein Thrombosis, High Cholesterol, Hypertension Sexually Transmitted Disease: No HIV/AIDS: No Female 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 Disorders: Denies Hysterectomy Gastrointestinal: Gastroesophageal Reflux Musculoskeletal: Degenerate Disk Disease, Osteoporosis, Arthritis Endocrine: Hypothyroidsim Loss of Vision: Bilateral Hearing Impairment: Denies Psychosocial: Depression History of Blood Disorders: Yes (FACTOR 9 ) Adverse Reaction to Blood Pratt: No Reviewed History: Yes Social History Home: Single Level Current Living Status: Alone Entry Into Home: Stairs Without Railing PT Steps Into Home: 2 has a grab bar instead of railing Prior Prior Level of Function SCALE: Activities may be completed with or without assistive devices. 3-Nyjbuyxtgg-vafznqz completes the activity by him/herself with no assistance from a helper. 5-Set-up or Clean-up Assistance-helper sets up or cleans up; patient completes activity. Earling assists only prior to or following the activity. 4-Supervision or Touching Assistance-helper provides verbal cues and/or touching/steadying and/or contact guard assistance as patient completes activity. Assistance may be provided throughout the activity or intermittently. 3-Partial/Moderate Assistance-helper does LESS THAN HALF the effort. Earling lifts, holds or supports trunk or limbs, but provides less than half the effort. 2-Substantial/Maximal Assistance-helper does MORE THAN HALF the effort. Earling lifts or holds trunk or limbs and provides more than half the effort. 6-Gxnxbksti-gftanb does ALL the effort. Patient does none of the effort to complete the activity. Or, the assistance of 2 or more helpers is required for the patient to complete the activity. If activity was not attempted, code reason: 7-Patient Refused. 9-Not Applicable-not attempted and the patient did not perform the activity before the current illness, exacerbation or injury. 10-Not Attempted due to Environmental Limitations-(lack of equipment, weather restraints, etc.). 88-Not Attempted due to Medical Conditions or Safety Concerns. Bed Mobility: 6 Transfers (B,C,W/C): 6 Gait: 6 Stairs: 6 Indoor Mobility (Ambulation): Independent Stairs: Independent Patient started using a SPC about 6 weeks ago and started using a rolling walker about a week ago PT Evaluation-Current Subjective Patient in recliner pre tx, agrees to PT, has 5/10 back pain with activity. Will be co-treating with OT for part of tx due to poor patient mobility, strength, endurance, severe pain with activity, coordinate UE and LE with activity, safety and reduce risk of falls. Pt/Family Goals to be independent at home Objective Patient Orientation: Person, Confused ROM/Strength ROM Lower Extremities WNL Strength Lower Extremities LLE (hip flexion 3/5, knee flexion 4/5, knee extension 4/5, dorsiflexion 3/5), RLE (hip flexion 3/5, knee flexion 4/5, knee extension 4/5, dorsiflexion 4/5) Sensory Vision: Wears Glasses Hearing: Functional Sensation Right Lower Extremit: Intact Sensation Left Lower Extremity: Intact Transfers Roll Left & Right (QC): 10 Sit to Lying (QC): 10 Lying to Sitting/Side of Bed(Q: 10 Sit to Stand (QC): 3 Chair/Wik-ph-Jhkcb Xfer(QC): 4 Toilet Transfer (QC): 4 Car Transfer (QC): 4 Patient performs sit <-> stand with min assist, transfers and car transfer with CGA. Patient needs cues for safety and positioning, can get confused during transfers and needs reoriented. Patient takes a shower, needs CGA for transfers and standing during this and during dressing and ADL's Gait Does the Patient Walk?: Yes Mode of Locomotion: Walk Anticipated Mode of Locomotion: Walk Walk 10 feet (QC): 4 Walk 50 ft with 2 Turns(QC): 4 Walk 150 ft (QC): 88 Walking 10ft/uneven surface-QC: 4 Distance: 100'x2 Gait Assistive Device: FWW Comments/Gait Description Patient can ambulate 100' with a rolling walker with CGA (including 50' with at least 2 turns of 90 degrees and 10' over an uneven surface). Patient ambulates slow but steady , slumped posture, needs cues for direction and some encouragement. Wheelchair Training Wheel 50 ft with 2 turns (QC): 9 Wheel 150 ft (QC): 9 Stairs #of Steps: 1 1 Step (curb) (QC): 4 4 Steps (QC): 88 12 Steps (QC): 88 Walking Assistive Device: Walker Patient can go up and down 1 step using a rolling walker with CGA, cues for foot placement and safety. Balance Sitting Static: Normal Sitting Dynamic: Normal Standing Static: Good Standing Dynamic: Good Picking up an Object (QC): 4 (using marble helper) Treatment PT performed transfers, ambulation, stair training, gait training, standing and transfers during bathing and dressing and ADL's, OT performed dressing, bathing, ADL's, UE positioning and safety during activity. Assessment/Needs Patient in WC in room post tx, will continue with OT and PT. Rehab Potential: Fair PT Short Term Goals Short Term Goals Time Frame: Jul 30, 2021 Roll Left & Right: 3 Sit to lyin Lying to sitting on side of be: 3 Sit to stand: 4 Chair/xke-sy-ckmfr transfer: 4 Walk 10 feet: 4 Walk 50 feet with two turns: 4 Walk 150 feet: 4 PT Chcf Goals Windows Administrator Goals PT [facility] Goals Time Frame: Aug 13, 2021 Roll Left & Right (QC): 4 Sit to Lying (QC): 4 Lying-Sitting on Side/Bed(QC): 4 Sit to Stand (QC): 5 Chair/Cdo-st-Esuhg Xfer(QC): 5 Toilet Transfer (QC): 5 Car Transfer (QC): 5 Does the Patient Walk: Yes Walk 10 feet (QC): 5 Walk 50ft with 2 Turns (QC): 5 Walk 150 ft (QC): 5 Walking 10ft on Uneven Surface: 4 1 Step (curb) (QC): 4 4 Steps (QC): 4 12 Steps (QC): 88 Picking up an Object (QC): 5 Wheel 50 feet with 2 turns (QC: 9 Wheel 150 feet: 9 PT Plan Problem List Problem List: Activity Tolerance, Functional Strength, Safety, Balance, Gait, Transfer, Bed Mobility, ROM Treatment/Plan Treatment Plan: Continue Plan of Care Treatment Plan: Bed Mobility, Education, Functional Activity Sameera, Functional Strength, Group Therapy, Gait, Safety, Therapeutic Exercise, Transfers Treatment Duration: Aug 13, 2021 Frequency: At least 5 of 7 days/Wk (IRF) Estimated Hrs Per Day: 1.5 hours per day Patient and/or Family Agrees t: Yes Safety Risks/Education Patient Education: Gait Training, Transfer Techniques, Steps, Correct Positioning, Safety Issues Teaching Recipient: Patient Teaching Methods: Demonstration, Discussion Response to Teaching: Reinforcement Needed Discharge Recommendations Plan Patient will perform bed mobility and transfer training, balance and endurance training, functional strengthening, stair training, gait training, and education to improve functional mobility and independence at home. Therapy Discharge Recommendati: Scheduled Assistance, Home & Family, Post Acute PT Time/GCodes Time In: 1000 Time Out: 1100 Total Billed Treatment Time: 50 Total Billed Treatment 1 visit EVM 10' FA 40' (only charge 2 units) PT eval from [id number], OT eval from [id number], co-treat from [id number] WADE DUONG PT Jul 23, 2021 10:33
--- OUTSIDE RECORDS SUMMARY | 2021-07-23 10:51 | XMS REPORT | Clinical Summary ---
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 15 = Influenza TIV Novel [id number], 06/26/2009 Injectable Pneumococcal Conjugate 08/19/2014 13-Valent Pneumococcal [...] Health Maintenance Due Date Last Done Comments COVID-19 Vaccine (1) 1945 Advance Care Plan 2006 Conversation Needed # Advance Care Plan 2006 Document Filed # Advance Directive Needed 2006 Zoster Vaccine# (2 of 3) 05/27/2011 04/01/2011, 07/04/2010 Cardioscan 07/26/2017 07/26/2012 Depression Monitoring 10/31/2018 10/31/2017 PHQ-9 # Fall Risk Assessment # 05/01/2019 05/01/2018, 05/01/2018, 05/06/2017 Medicare Annual Wellness 05/01/2019 05/01/2018, 05/02/2017, 03/30/2016, Additional history exists Colorectal Screening via 08/18/2019 [...] Plan / Dates Group Medicare MEDICARE MEDICARE [id number] 2006- [phone] WPS GHA PART A B Present ATTN CLAIMS DEPT [address] [place] [address] OTHER GOVERNMENT [id number] 2013- [phone] [address] [place] [address] Advance Directives For more information, please contact: [phone] 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
--- OUTSIDE RECORDS SUMMARY | 2021-07-23 10:51 | XMS REPORT | Clinical Summary ---
Author Author [facility] Organization [facility] Address Unknown Phone Unavailable Care Team Providers Care Roller Leveler Name Role Phone Romelia Goins MD PCP Source Comments Some departments are not documenting in the electronic medical record. If you d o not see the information that you expected, contact Release of Information in [facility] Information Management department at [phone] for further assistan ce in locating additional records.[facility] Allergies No known active allergies Medications End [...] Comments Vital Sign 136/79 06/01/2017 2:43 PM PROGRAM ADVISOR Blood Pressure 77 06/01/2017 2:43 PM PROGRAM ADVISOR Pulse - - Temperature - - Respiratory Rate - - Oxygen Saturation - - Inhaled Oxygen Concentration 64.6 kg (142 lb 6.4 oz) 06/01/2017 2:43 PM PROGRAM ADVISOR Weight 162.6 cm (5' 4") 06/01/2017 2:43 PM PROGRAM ADVISOR Height 24.44 06/01/2017 2:43 PM PROGRAM ADVISOR Body Mass Index Plan of Treatment Health Maintenance Due Date Last Done Comments MEDICARE ANNUAL WELLNESS 1941 VISIT DTAP/TDAP VACCINES (1 - 1959 Tdap) PHYSICAL (COMPREHENSIVE) 1959 EXAM SHINGLES RECOMBINANT 1991 VACCINE (1 of 2) OSTEOPOROSIS 2006 SCREENING/MONITORING PNEUMONIA (PPSV23) 2006 VACCINE (1 of 1 - PPSV23) INFLUENZA VACCINE 02/01/2021 06/26/2009, 03/15/2009 Results Not on filefrom Last 3 Months Insurance Type Payer Benefit Subscriber ID Effective Phone Address Plan / Dates Group Medicare MEDICARE MEDICARE [id number] 2006- [phone] [place] [address] [facility] [id number] 2017- [phone] [address] Present [address] [place] [address] Advance Directives Patient System Analyst Explanation Type Date Recorded Advance Directive/DPOA Care Teams Start Date End Date Roller Leveler Relationship Specialty 05/11/17 Romelia Goins MD PCP - General Family [id number] [facility] [address] [place], [place] [id number]
[2021-07-23] MEDS: polyethylene glycoL POWDER 17 GM (MIRALAX) PACK PO SCH ×3 (11:06→20:49)
[2021-07-23] MEDS ORDERED: LACTULOSE SYRUP 10GM/15ML (ENULOSE) 30ML UDC PO PRN (11:15)
[2021-07-23] MEDS ORDERED: diphenhydrAMINE 50 MG/ML INJ (BENADRYL) IVP PRN (11:15)
[2021-07-23] MEDS ORDERED: MELATONIN 3 MG TABLET PO PRN (11:15)
[2021-07-23] MEDS ORDERED: PATIENT MAY USE OWN MEDS, ALL MC SCH (11:15)
[2021-07-23] MEDS ORDERED: MILK OF MAGNESIA 400 MG/5 ML 30 ML UDC PO PRN (11:15)
[2021-07-23] MEDS ORDERED: DIAZEPAM 5 MG (VALIUM) TABLET PO PRN (11:15)
[2021-07-23] MEDS ORDERED: morphine INJ 4 MG/ML 1 ML (VIAL/SYRINGE) IV PRN (11:15)
[2021-07-23] MEDS ORDERED: BISACODYL 10 MG SUPP (DULCOLAX) PR PRN (11:15)
[2021-07-23] MEDS ORDERED: RT-ALBUTEROL SULF 2.5 MG/3 ML PRE-MIX VIAL INH PRN (11:15)
[2021-07-23] MEDS ORDERED: ACETAMINOPHEN 325 MG TABLET PO PRN (11:15)
[2021-07-23] MEDS ORDERED: diphenhydrAMINE 25 MG TAB (BENADRYL) PO PRN (11:15)
[2021-07-23] MEDS ORDERED: ANTACID SUSP 30 ML UDC (MYLANTA) PO PRN (11:15)
[2021-07-23] MEDS ORDERED: ONDANSETRON 4 MG/2 ML (SDV) Z0FRAN IVP PRN (11:15)
[2021-07-23] MEDS ORDERED: polyethylene glycoL POWDER 17 GM (MIRALAX) PACK PO PRN (11:15)
--- NOTE | 2021-07-23 11:15 | PM&R Post Admission Assessment ---
PM&R HP Date of Visit: Jul 23, 2021 Time of Visit: 12:00 History of Present Illness Chief complaint: Debility from lumbar compression fracture History of present illness: This is an 81-year-old white female clinic patient of Dr. Rodriguez who has a past medical history of osteoporosis maintained on Fosamax and calcium supplements with most recent DEXA scan in 2018 showing osteoporosis who presented to the ER with severe pain and completely incapacitated. She was found to have compression fracture of L4 and an old subacute compression fracture of T12. All criteria were met to meet criteria for emergent kyphoplasty performed by Dr. CARVER in an uncomplicated manner. Patient continued to have severe pain delaying the admission to rehab by 1 day. Decadron IV initiated with baclofen and Valium with good results. Patient currently does have pain and has a little bit of confusion from the steroids and muscle relaxants. Updated son and daughter. We will discontinue catheter and work on bowel function. Discharge summary from [facility] floor admission: CHENGR[place] KRISTOPHER CASTELLANO 07/23/21 1251: Progress Note Brief Hospital Course: Patient was admitted on 07/19/2021 and discharged 07/23/2021. Patient was admitted from the ED to the 4th floor. Patient received CBC, CMP, and CT scan. CT revealed acute appearing mild L4 compression fracture, age-indeterminate mild T12 compression fracture. Patient was admitted to medicine and consulted orthopaedics, PT, and OT. Hospital interventions included an MRI revealing a chronic anterior wedge compression fracture deformity at T12 vertebra, acute/subacute compression fracture deformity of the L4 vertebra. Patient also underwent an L4 Kyphoplasty with biopsy, hemilaminectomy, partial medial facetectomy, and foraminotomy. On discharge, patient was sent to in- patient rehab facility on 2nd floor. Patient will continue pain meds, baclofen, and valium. Decadron will be titrated down, and xeralto will be started on 07/24. This summary does not include the entirety of the patient's visit and is only a short description of pertinent lab values and information. For the complete hospital course, please refer to the patient's chart. Date of Admission: 07/20/2021 Date of Discharge: 07/23/2021 Attending Physician: Dr. Janene Cook, DO Admission Diagnosis: Vertebral Compression Fracture Discharge Diagnosis: S/P L4 kyphoplasty, Factor V Leiden deficiency Consultations: Ortho, PT, OT Procedures: S/P L4 Kyphoplasty with biopsy, hemilaminectomy, partial medial facetectomy, and foraminotomy Past Mnbvpol-Yiuefu-Gmdppn Hx Past Med/Social Hx: Reviewed Nursing Past Med/Soc Hx, Reviewed and Corrections made Patient Social History Marrital Status: Employed/Student: retired Alcohol Use: Denies Use Smoking Status: Never a Smoker 2nd Hand Smoke Exposure: No Recent Hopitalizations: No Immunizations Up To Date Tetanus Booster (TDap): Unknown Date of Influenza Vaccine: Apr 18, 2021 Seasonal Allergies Seasonal Allergies: No Past Medical History Surgeries: Appendectomy, Hysterectomy, Orthopedic Currently Using CPAP: No Currently Using BIPAP: No Cardiac: Deep Vein Thrombosis, High Cholesterol, Hypertension Sexually Transmitted Disease: No HIV/AIDS: No Female 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 Disorders: Denies Hysterectomy Gastrointestinal: Gastroesophageal Reflux Musculoskeletal: Degenerate Disk Disease, Osteoporosis, Arthritis Endocrine: Hypothyroidsim Loss of Vision: Bilateral Hearing Impairment: Denies Psychosocial: Depression History of Blood Disorders: Yes (FACTOR 9 ) Adverse Reaction to Blood Pratt: No Prior Level of Function Bed Mobility: 6 Transfers: 6 Gait: 6 Stairs: 6 Indoor Mobility (Ambulation): Independent Stairs: Independent Current Level of Fuctioning Roll Left to Right: 10 Sit to Lyin Lying to Sitting/Side of Bed: 10 Sit to Stand: 3 Chair/Vcg-mh-Kssbt Xfer: 4 Car Transfer: 4 Does the Patient Walk: Yes Mode of Locomotion: Walk Anticipated Mode of Locomotion: Walk Walk 10 feet: 4 Walk 50 ft with 2 Turns: 4 Walk 150 ft: 88 Walking 10ft on uneven surface: 4 Gait Assistive Device: FWW Wheel 50 ft with 2 turns: 9 Wheel 150 ft: 9 #of Steps: 1 1 Step (curb): 4 4 Steps: 88 Walking Assistive Device: Walker 12 Steps: 88 Picking up an Object: 4 (using rerolling machine operator) PM&R Allergy/Meds/Data Review Allergies Coded Allergies: No Known Drug Allergies (Unverified , 10/31/19) Home Medications Scheduled Alendronate Sodium (Alendronate Sodium), FRI, (Reported) Amlodipine Besylate (Norvasc), 2.5 MG PO HS, (Reported) Cyclobenzaprine HCl (Cyclobenzaprine HCl), 5 MG PO Q8H, (Reported) Estrogens Conjugated (Premarin), 1 GM VG MON,WED,FRI, (Reported) Fluticasone/Umeclidin/Vilanter (Trelegy Ellipta 100-62.5-25), 1 EACH IH DAILY, (Reported) Furosemide (Furosemide), 40 MG PO HS, (Reported) Levothyroxine Sodium (Levothyroxine Sodium), 75 MCG PO DAILY, (Reported) Lisinopril (Lisinopril), 5 MG PO BID, (Reported) Methylprednisolone (Methylprednisolone Dose Pack), MG PO UD, (Reported) Metoprolol Succinate (Toprol Xl), 50 MG PO DAILY, (Reported) Mirabegron (Myrbetriq), 50 MG PO HS, (Reported) Omeprazole (Omeprazole), 40 MG PO DAILY, (Reported) Pantoprazole Sodium (Pantoprazole Sodium), 40 MG PO BID, (Reported) Potassium Chloride (Potassium Chloride), 10 MEQ PO DAILY, (Reported) Pramipexole Di-HCl (Pramipexole Dihydrochloride), 0.125 MG PO BID, (Reported) Rivaroxaban (Xarelto), 10 MG PO HS, (Reported) Rosuvastatin Calcium (Rosuvastatin Calcium), 5 MG PO MON,WED,FRI, (Reported) Travoprost (Travatan Z), 1 DROP OU HS, (Reported) Trazodone HCl (Trazodone HCl), 50 MG PO HS, (Reported) Scheduled PRN Acetaminophen (Tylenol Extra Strength), 1,000 MG PO BID PRN for PAIN-MILD (1-4), (Reported) Albuterol Sulfate (Proair Hfa), 1 PUFF PO Q8H PRN for SHORTNESS OF BREATH, (Reported) Hydrocodone/Acetaminophen (Hydrocodone-Acetamin 5-325 mg), 1-2 TAB PO Q6H PRN for PAIN-MODERATE (5-7) Miscellaneous Medications Duloxetine HCl (Duloxetine HCl), (Reported) Montelukast Sodium (Montelukast Sodium), (Reported) Discontinued Medications Cyclosporine (Restasis), (Reported) Discontinued Reason: No Longer Taking Estrogens, Conjugated (Premarin), 0.625 MG PO DAILY, (Reported) Discontinued Reason: No Longer Taking Fluticasone Propionate (Fluticasone Propionate), (Reported) Discontinued Reason: No Longer Taking Fluticasone/Salmeterol (Advair 250-50 Diskus), (Reported) Discontinued Reason: No Longer Taking Fluticasone/Umeclidin/Vilanter (Trelegy Ellipta 100-62.5-25), 1 EACH IH DAILY, (Reported) Discontinued Reason: No Longer Taking Levothyroxine Sodium (Levothyroxine Sodium), (Reported) Discontinued Reason: Prescription changed Omeprazole (Omeprazole), 40 MG PO DAILY Discontinued Reason: No Longer Taking Current Medications Current Medications Reviewed Laboratory Data Laboratory Tests 07/23/21 05:15: White Blood Count 8.8, Red Blood Count 5.04, Hemoglobin 12.8, Hematocrit 41, Mean Corpuscular Volume 82, Mean Corpuscular Hemoglobin 25, Mean Corpuscular Hemoglobin Concent 31L, Red Cell Distribution Width , Platelet Count 347, Mean Platelet Volume 9.6, Immature Granulocyte % (Auto) 1, Neutrophils (%) (Auto) 79H , Lymphocytes (%) (Auto) 12, Monocytes (%) (Auto) 9, Eosinophils (%) (Auto) 0, Basophils (%) (Auto) 0, Neutrophils # (Auto) 6.9, Lymphocytes # (Auto) 1.0, Monocytes # (Auto) 0.8, Eosinophils # (Auto) 0.0, Basophils # (Auto) 0.0, Immature Granulocyte # (Auto) 0.0, Sodium Level 138, Potassium Level 3.5L, Chloride Level 100, Carbon Dioxide Level 26, Anion Gap 12, Blood Urea Nitrogen 17, Creatinine 0.69, Estimat Glomerular Filtration Rate 88, BUN/Creatinine Ratio 25, Glucose Level 133H, Calcium Level 9.2, Corrected Calcium 9.4, Total Bilirubin 0.3, Aspartate Amino Transf (AST/SGOT) 22, Alanine Aminotransferase (ALT/SGPT) 17, Alkaline Phosphatase 232H, Total Protein 6.7, Albumin 3.8 Review of Systems Constitutional: see HPI, malaise, weakness EENTM: no symptoms reported Respiratory: no symptoms reported Cardiovascular: no symptoms reported Gastrointestinal: constipation Genitourinary: no symptoms reported Musculoskeletal: back pain Skin: no symptoms reported Psychiatric/Neurological: No Symptoms Reported All Other Systems Reviewed Negative Unless Noted: Yes Physical Exam Physical Exam Vital Signs Capillary Refill : Height, Weight, BMI Height: '" Weight: lbs. oz. kg; 27.09 BMI Method: General Appearance: No Apparent Distress, WD/WN, Anxious, Chronically ill Eyes: Bilateral Eye Normal Inspection, Bilateral Eye PERRL HEENT: PERRL/EOMI, Normal ENT Inspection, Pharynx Normal Neck: Full Range of Motion, Normal Inspection, Non Tender, Supple, Carotid Bruit Respiratory: Chest Non Tender, Lungs Clear, Normal Breath Sounds, No Accessory Muscle Use, No Respiratory Distress Cardiovascular: Regular Rate, Rhythm, No Edema, No Gallop, No JVD, No Murmur, Normal Peripheral Pulses Gastrointestinal: Normal Bowel Sounds, No Organomegaly, No Pulsatile Mass, Non Tender, Soft Back: Normal Inspection, Decreased Range of Motion Extremity: Normal Capillary Refill, Normal Inspection, Normal Range of Motion, Non Tender, No Calf Tenderness, No Pedal Edema Neurologic/Psychiatric: Alert, Oriented x3, Normal Mood/Affect, hand cooper helper II-XII Norm as Tested, Abnormal Gait, Motor Weakness Skin: Normal Color, Warm/Dry Lymphatic: No Adenopathy PM&R Medical Assessment & Plan REHAB/MEDICAL ASSESSMENT AND PLAN: REHAB IMPAIRMENT GROUP: Compression fractures ETIOLOGIC DIAGNOSIS: Compression fractures The comorbidities that impact the patients function and/or functional outcome by: Severe back pain, depression, hypercoagulable state acute restart OAC until Tuesday REHAB PLAN: The patient is being admitted to our comprehensive inpatient rehabilitation facility and can tolerate the intensity of service consisting of at least: 180 minutes of therapy a day, 5 out of 7 days a week Rehab treatment will consist of: PT and OT will focus on regaining function with use of assistive devices in order to regain enough independence to return to independent living The patient/family has a good understanding of our discharge process and will benefit from an interdisciplinary inpatient rehabilitation program. The patient has potential to make improvement and is in need of at least two of the following multidisciplinary therapies including but not limited to physical, occupational, speech, and prosthetics and orthotics. Additionally the patient will need services from respiratory, nutritional services, wound care, psychology, etc. (Customize this to each patient). Given the patients complex condition and risk of further medical complications, rehabilitation services cannot be safely or effectively provided at a lower level of care such as a custodial facility. BARRIERS TO DISCHARGE: Severe back pain ESTIMATED LOS: 10 days DISPOSITION: home versus respite assisted living prior to home RELEVANT CHANGES SINCE PREADMISSION SCREENING: I have compared the patients medical and functional status at the time of the preadmission screening and there are: No changes PROGNOSIS: Good REHABILITATION GOALS: 1. PT and OT will focus on regaining function with use of assistive devices in order to regain enough independence to return to independent living All the above goals were reviewed with the patient and he/she is in agreement. By signing this document, I acknowledge that I have personally performed a full physical examination on this patient within 24 hours of admission to this inpatient rehabilitation facility and have determined the patient to be able to tolerate the above course of treatment at an intensive level for a reasonable period of time. I will be completing a detailed individualized Plan of Care for this patient by day #4 of the patients stay based upon the Preadmission Screen, the Post-Admission Evaluation, and the therapy evaluations. Admission Dx/Comorbidities: (1) Closed lumbar vertebral fracture Status: Acute ICD Codes: S32.009A - Unspecified fracture of unspecified lumbar vertebra, initial encounter for closed fracture (2) Elevated parathyroid hormone ICD Codes: E34.9 - Endocrine disorder, unspecified (3) Radicular pain of thoracic region Status: Acute ICD Codes: M54.14 - Radiculopathy, thoracic region (4) Thoracic vertebral fracture Status: Acute ICD Codes: S22.009A - Unspecified fracture of unspecified thoracic vertebra, initial encounter for closed fracture (5) Hypercoagulable state ICD Codes: D68.59 - Other primary thrombophilia (6) Osteoporosis ICD Codes: M81.0 - Age-related osteoporosis without current pathological fracture (7) Lumbago with sciatica, left side Status: Acute ICD Codes: M54.42 - Lumbago with sciatica, left side Assessment/Plan Assessment and Plan Assess & Plan/Chief Complaint Assessment: Status post kyphoplasty due to severe incapacitating back pain due to subacute fracture of thoracic spine and lumbar spine L4 compression fractures pathological osteoporotic fractures Osteoporosis on Fosamax Severe muscle spasms requiring Decadron baclofen and Valium Hypercoagulable state 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 Araujo Constipation Elevated PTH in the setting of severe osteoporosis with family history of hyp erparathyroidism in daughter Confusion related to steroids and muscle relaxants and pain meds Benites cath DC'd Plan: Pain control Bowel regimen Aggressive PT and OT Supportive care JANENE COOK DO Jul 23, 2021 11:15
--- NOTE | 2021-07-23 11:49 | Physical Therapy Daily Note ---
PT Daily Note-Current Subjective Patient was seated in w/c after finishing shower with OT. Patient consented to walking and performing exercises. Mental Status Patient Orientation: Person, Place Transfers SCALE: Activities may be completed with or without assistive devices. 0-Jxovcawivg-emdvvyb completes the activity by him/herself with no assistance from a helper. 5-Set-up or Clean-up Assistance-helper sets up or cleans up; patient completes activity. [place] assists only prior to or following the activity. 4-Supervision or Touching Assistance-helper provides verbal cues and/or touching/steadying and/or contact guard assistance as patient completes acti vity. Assistance may be provided throughout the activity or intermittently. 3-Partial/Moderate Assistance-helper does LESS THAN HALF the effort. [place] lifts, holds or supports trunk or limbs, but provides less than half the effort. 2-Substantial/Maximal Assistance-helper does MORE THAN HALF the effort. [place] lifts or holds trunk or limbs and provides more than half the effort. 3-Kghdirfax-jyiwam does ALL the effort. Patient does none of the effort to complete the activity. Or, the assistance of 2 or more helpers is required for the patient to complete the activity. If activity was not attempted, code reason: 7-Patient Refused. 9-Not Applicable-not attempted and the patient did not perform the activity before the current illness, exacerbation or injury. 10-Not Attempted due to Environmental Limitations-(lack of equipment, weather restraints, etc.). 88-Not Attempted due to Medical Conditions or Safety Concerns. Roll Left & Right (QC): 3 Sit to Lying (QC): 2 Lying to Sitting/Side of Bed(Q: 2 Sit to Stand (QC): 3 Chair/Hkt-vz-Ctpfn Xfer(QC): 3 Patient required max assist sit EOB due to pain and anticipation of pain. Patient required max assistance moving legs off the edge of bed and pushing up from supine position. Patient required min assist for sit to stand transfers and cues to reach for the chair and push from the chair while performing the transfer. Gait Training Does the Patient Walk?: Yes Distance: 150 x 2 Walk 10 feet (QC): 4 Walk 50 ft with 2 Turns(QC): 4 Walk 150 ft (QC): 4 Gait Assistive Device: FWW Patient ambulated 150' x2 with CGA. Patient required rest breaks after walking 150' due to fatigue and lack of endurance. Exercises Seated Therapy Exercises: Ankle pumps, Long arc quads, Hip flexion Seated Reps: 20 Treatments PT co-treated with OT due to patient lack of endurance, strength, and functional mobility. Therapy session included standing endurance, gait training and endurance and seated exercises. Patient stood for over 5 minutes 3 times while performing reaching tasks at the closet with OT. Patient used a neurological physiotherapist to perform reaching tasks. Patient performed seated exercises in her chair while OT interviewed patient about PLOF. Assessment Current Status: Good Progress Patient completed ambulation, seated exercises, gait training, and standing endurance exercises during therapy session. Patient required frequent rest breaks due to lack of endurance and strength. Co-treatment was completed with OT due to patient lack of strength, endurance, and functional mobility. Patient was fatigued after therapy session. Patient did not report increased pain with ambulation. Patient had increased difficulty performing seated marches on L LE and reported slight pain with activity. PT Short Term Goals Short Term Goals Time Frame: Jul 30, 2021 Roll Left & Right: 3 Sit to lyin Lying to sitting on side of be: 3 Sit to stand: 4 Chair/vav-uo-bmuar transfer: 4 Walk 10 feet: 4 Walk 50 feet with two turns: 4 Walk 150 feet: 4 PT Residential Goals Neon Tube Pumper Goals PT Residential Goals Time Frame: Aug 13, 2021 Roll Left & Right (QC): 4 Sit to Lying (QC): 4 Lying-Sitting on Side/Bed(QC): 4 Sit to Stand (QC): 5 Chair/Kkz-ld-Wbwee Xfer(QC): 5 Toilet Transfer (QC): 5 Car Transfer (QC): 5 Does the Patient Walk: Yes Walk 10 feet (QC): 5 Walk 50ft with 2 Turns (QC): 5 Walk 150 ft (QC): 5 Walking 10ft on Uneven Surface: 4 1 Step (curb) (QC): 4 4 Steps (QC): 4 12 Steps (QC): 88 Picking up an Object (QC): 5 Wheel 50 feet with 2 turns (QC: 9 Wheel 150 feet: 9 PT Plan Problem List Problem List: Activity Tolerance, Functional Strength, Safety, Balance, Gait, Transfer, Bed Mobility, Other Treatment/Plan Treatment Plan: Continue Plan of Care Treatment Plan: Bed Mobility, Education, Functional Activity Sameera, Functional Strength, Group Therapy, Gait, Safety, Therapeutic Exercise, Transfers Treatment Duration: Aug 13, 2021 Frequency: At least 5 of 7 days/Wk (IRF) Estimated Hrs Per Day: 1.5 hours per day Patient and/or Family Agrees t: Yes Safety Risks/Education Patient Education: Gait Training, Correct Positioning Teaching Recipient: Patient Teaching Methods: Discussion Time/GCodes Time In: 1100 Time Out: 1140 Total Billed Treatment Time: 40 Total Billed Treatment 1 Visit Gait 15 min FA 15 min EX 10 min INGE CALDERON PT Jul 23, 2021 11:49
--- NOTE | 2021-07-23 12:03 | Occupational Therapy Eval ---
OT Evaluation-General/PLF Medical Diagnosis Admission Date Jul 23, 2021 at 10:00 Medical Diagnosis: lumbar stenosis and L4 compression fx Onset Date: Jul 21, 2021 Therapy Diagnosis Therapy Diagnosis: Impaired adls, strength, Precautions Precautions/Isolations: Fall Prevention, Standard Precautions Comments spinal precautions Referral Physician: Janene Redd DO Referral Reason: Evaluation/Treatment Medical History Pertinent Medical History: Arthritis, HTN Additional Medical History DDD, DVT Current History s/p kypohoplasty, post op day 1 Pt reports she lives alone in a single story home. She was indep with adls and iadls prior to admission. She used a cane for the 6 weeks and recently started using a walker. She orders groceries online and has them delivered to her car at the store. Reviewed History: Yes Social History Home: Single Level Current Living Status: Alone Entry Into Home: Stairs Without Railing Steps Into Home: 2 ADL-Prior Level of Function SCALE: Activities may be completed with or without assistive devices. 5-Xzexgsxmhb-tpgoyqg completes the activity by him/herself with no assistance from a helper. 5-Set-up or Clean-up Assistance-helper sets up or cleans up; patient completes activity. [place] assists only prior to or following the activity. 4-Supervision or Touching Assistance-helper provides verbal cues and/or touching/steadying and/or contact guard assistance as patient completes activity. Assistance may be provided throughout the activity or intermittently. 3-Partial/Moderate Assistance-helper does LESS THAN HALF the effort. [place] lifts, holds or supports trunk or limbs, but provides less than half the effort. 2-Substantial/Maximal Assistance-helper does MORE THAN HALF the effort. [place] lifts or holds trunk or limbs and provides more than half the effort. 1-Hmvtcjuul-fbxqqm does ALL the effort. Patient does none of the effort to complete the activity. Or, the assistance of 2 or more helpers is required for the patient to complete the activity. If activity was not attempted, code reason: 7-Patient Refused. 9-Not Applicable-not attempted and the patient did not perform the activity before the current illness, exacerbation or injury. 10-Not Attempted due to Environmental Limitations-(lack of equipment, weather restraints, etc.). 88-Not Attempted due to Medical Conditions or Safety Concerns. Self Care: Independent Functional Cognition: Independent DME/Equipment: Bath Chair, Grab Bars, Shower Drive Self: Yes OT Current Status Subjective Pt reports pain as 5/10 with activity and 0/10 at rest. Co-treat with PT due to impaired activity tolerance, poor safety awareness and need of 2 skilled clinicians to progress mobility and adls Appearance Pt left sitting in recliner, all needs within reach, family in room. Mental Status/Objective Patient Orientation: Person, Confused, Situation Attachments: IV Current Glasses/Contacts: Yes Hearing Aids: No Hand Dominance: Right Upper Extremity Coordination WNL Upper Extremity Strength not formally tested secondary to recent back surgery. Pt appears at least 3/5 throughout ADL-Treatment Eating (QC): 5 Oral Hygiene (QC): 4 Shower/Bathe Self (QC): 3 Upper Body Dressing (QC): 4 Lower Body Dressing (QC): 3 On/Off Footwear (QC): 2 Toileting Hygiene (QC): 3 Shower performed; majority completed in sitting. Pt stood only briefly to wash nimisha area and buttocks after cue given to initiate. CGA for safety while standing with intermittent unilateral UE support on grab bar. In sitting, pt immediately bends at waist to reach ankle and then reports increased pain. OT reminded pt on spinal precautions and educated her on compensatory methods. Due to poor hip flexibility and knee pain, pt unable to perform cross over method. OT then issued and instructed pt on use of LHS to wash below knees. Clothing tasked performed seated in chair. Frequent reminders on not bending and using business records manager. Education and Max cues for correct use of AE. Mod a still needed post instruction. Pt stood with CGA. When removing BUE support from walker, pt loses balance posteriorly, needing min-mod a to recover. She sat in w/c to brush teeth and comb hair. Post instruction on use of sock aid, min-mod verbal cues still required. Other Treatments Pt participated in multiple standing activities at closet with goal to promote increased LE strength, balance, functional reach and endurance needed for functional tasks. In order to adhere to spinal precautions, pt educated on compensatory methods and proper body mechanics. Cues for widening SENA for improved balance. Pt unable to perform mini squats at this time; thus, business records manager was utilized to reach items on low shelf. Mild unsteadiness notable as fatigue worsens. Several seated rest breaks needed during activity. Education OT Patient Education: Correct positioning, Energy conservation, Modified ADL techniques, Progress toward Goal/Update tx plan, Purpose of tx/functional activities, Reviewed precautions, Rehab process, Safety issues, Transfer techniques, Use of adapted equipment Teaching Recipient: Patient, Family Teaching Methods: Demonstration, Discussion Response to Teaching: Verbalize Understanding, Reinforcement Needed OT Short Term Goals Short Term Goals Time Frame: Jul 30, 2021 Eatin Oral hygiene: 5 Toileting hygiene: 4 Shower/bathe self: 4 Upper body dressin Lower body dressin Putting on/taking off footwear: 4 OT Garbage Pick Up Man Goals Shelter Goals Time Frame: Aug 08, 2021 Eating (QC): 6 Oral Hygiene (QC): 6 Toileting Hygiene (QC): 5 Shower/Bathe Self (QC): 5 Upper Body Dressing (QC): 6 Lower Body Dressing (QC): 6 On/Off Footwear (QC): 5 1=Demonstrate adherence to instructed precautions during ADL tasks. 2=Patient will verbalize/demonstrate understanding of assistive devices/modifications for ADL. 3=Patient will improve strength/tolerance for activity to enable patient to perform ADL's. OT Education/Plan Problem List/Assessment Assessment: Decreased Activ Tolerance, Decreased Safety Aware, Decreased UE Strength, Impaired Cognition, Impaired Funct Balance, Impaired I ADL's, Impaired Self-Care Skills Discharge Recommendations Plan/Recommendations: Continue POC Therapy Discharge Recommendati: Homemaker Support, Home & Family, Post Acute OT Target Placement Anticipate home health OT pending progress Treatment Plan/Plan of Care Treatment,Training & Education: Yes Patient would benefit from OT for education, treatment and training to promote independence in ADL's, mobility, safety and/or upper extremity function for ADL's. Plan of Care: ADL Retraining, Functional Mobility, Group Exercise/Act as Ind, UE Funct Exercise/Act Treatment Duration: Aug 08, 2021 Frequency: At least 5 of 7 days/Wk (IRF) Estimated Hrs Per Day: 1.5 hours per day Agreement: Yes Rehab Potential: Fair Time/GCodes Start Time: 10:10 Stop Time: 11:40 Total Time Billed (hr/min): 90 Billed Treatment Time 1 visit EVM (10 min) ADL x3 (45 min) FA x2 (35 min) Jenna Jessica OT Jul 23, 2021 12:03
[2021-07-23 12:38] VITALS: BP 152/82
[2021-07-23 12:52] VITALS: BP 137/79
[2021-07-23] MEDS: BACLOFEN 10 MG (LIORESAL) TAB PO SCH ×2 (13:08→20:50)
--- NOTE | 2021-07-23 15:53 | ST Cognitive Linguistic Eval ---
Speech Evaluation-General Medical Diagnosis lumbar stenosis and L4 compression fx Onset Date: Jul 21, 2021 Therapy Diagnosis Therapy Diagnosis: Cognitive Lingusitic Function WNL Precautions Precautions: Fall Precautions/Isolations: Standard Precautions Referral Referring Physician: Dr. Janene Redd Reason for Referral: Evaluation/Treatment Medical History Pertinent Medical History: Arthritis, HTN Current History The patient is an 81 year old female with a past medical history of high cholesterol, HTN, GERD, osteoporosis, arthritis, hypothyroidism, and depression, who presented to [facility] with a diagnosis of lumbar stenosis and L4 compression fracture. Reviewed History: Yes Social History Current Living Status: Alone Speech PLF-Current Status Prior Level of Function The patient lived independently prior to her recent hospitalization. Subjective The patient was seated upright at the edge of bed upon entrance by the clinician to her room. The patient has her son at bedside. The patient was alert, awake and greeted the clinician appropriately. The patient was agreeable to participation in the cognitive linguistic assessment. Language Eval: Auditory Comprehends Simple Yes/No Ques: Functional Indent/Objects Multiple [place]: Functional Ident/Pics in Multiple [place]: Functional Follows 1-Step Commands: Functional Follows General Conversations: Functional Language Eval: Verbal Language Completes Spontaneous Greeting: Functional Produces Auto, Serial Info: Functional Imitates Simple Words/Phrases: Functional Word Finding: Mild Requests Basic Needs: Functional States Basic Personal Info: Functional Expresses Complex Ideas: Functional Language Evaluation: Reading Comprehends Single Nouns: Functional Follows Simple Written Direct: Functional Comprehends Multiple Sentences: Functional Language Evaluation: Writing Writes to Simple Dictation: Functional Cognitive Patient Orientation The patient was independently oriented to self, location, month, day of week, date, and year. Objective Cognitive Domain Attention: WNL Memory: WNL Problem Solving: Functional Executive Functions: WNL Visuospatial Skills: WNL Composite Severity Rating: WNL Clock Drawing Severity Rating: WNL Objective Formal/Standardized Tests [facility] Mental Status ([facility]) Results The patient displayed a result of +27/30 on the SLUMS correlating to a neurocognitive function within normal limits. Oral Motor/Speech Production The patient does not display dysarthria or apraxia of speech. The patient remains 100% intelligible in known and unknown contexts. Impression The patient presented with cognitive linguistic function within normal limits. The patient does report a decrease in her attention span lately which she correlates to the recent decline in her health. The patient intermittently requires verbal redirection and repetition of instruction throughout the assessment, however, consistently responds accurately following. As the patient does score at the baseline "cut-off" criteria (normal versus mild impairment), the clinician recommends close functional monitoring by additional therapy disciplines. If the patient displays difficulty throughout the rehabilitation process cognitively, speech pathology recommends an initiation of skilled cognitive treatment. Speech Patient Assess Expression of Ideas/Wants: Expression (4) Understanding Verbal Content: Understands (4) Brief Interview-Mental Status: Yes Repetition of Three Words: Three (3) Temporal Orientation: Year: Correct (3) Temporal Orientation: Month: Accurate within 5 days(2) Temporal Orientation: Day: Correct (1) Recall : Wear to say "Sock": Yes, no cue required (2) Recall : Color: Yes, no cue required (2) Recall : Bed: Yes,after cueing (1) Memory/Recall Ability: Current season, Location of own room, Staff names and faces, That he or she is in a hsp/hsp unit Speech-Plan Treatment Plan Speech Therapy Treatment Plan: Discontinue ST Frequency: 1 time per week Estimated Hrs Per Day: .5 hour per day Rehab Potential: Fair Pt/Family Agrees to Plan: Yes Safety Risks/Education Teaching Recipient: Patient, Family Teaching Methods: Discussion Response to Teaching: Verbalize Understanding Education Topics Provided: Results of SLUMS, Rehabilitation Plan of Care, Role of Skilled Speech Language Pathology Time Speech Therapy Time In: 14:00 Speech Therapy Time Out: 14:36 Total Billed Time: 36 Billed Treatment Time 1, TYLER PAGE [facility] Jul 23, 2021 15:53
[2021-07-23] MEDS: traZODone 50 MG (DESYREL) TAB PO SCH (20:50)
[2021-07-23] MEDS: SENNOSIDES 8.6 MG (SENOKOT) TAB PO SCH (20:50)
[2021-07-23] MEDS: DOCUSATE SODIUM 100 MG (COLACE) CAP PO SCH (20:51)
[2021-07-23] MEDS: PANTOPRAZOLE 40 MG (PROTONIX) TAB PO SCH (20:51)
[2021-07-23] MEDS: PRAMIPEXOLE 0.125 MG (MIRAPEX) TABLET PO SCH (20:51)
[2021-07-23] MEDS ORDERED: NON-FORMULARY MEDICATION 1 EA EA (Mirabegron (Myrbetriq) 50 MG) PO SCH (21:00)
[2021-07-23 21:12] VITALS: BP 146/73
[2021-07-24] MEDS: LEVOTHYROXINE 75 MCG (LEVOTHROID) TABLET PO SCH (06:22)
[2021-07-24] MEDS: KCL 10 MEQ TAB (MICRO K) PO SCH (06:22)
--- NOTE | 2021-07-24 06:42 | PM&R Progress Note ---
Subjective HPI/CC On Admission Date Seen by Provider: Jul 24, 2021 Time Seen by Provider: 09:00 Subjective/Events-last exam 07/24/2021: Pt doing pretty well overall Constipated and will give laxatives Pain is pretty well controlled at times Decadron was given Checked meds and labs Review of Systems General: Fatigue, Malaise Musculoskeletal: back pain Objective Exam Vital Signs Vital Signs Date Time Temp Pulse Resp B/P (MAP) Pulse Ox O2 Delivery O2 Flow Rate FiO2 07/24/21 22:23 65 117/57 (77) 07/24/21 21:10 98 Room Air 07/24/21 19:59 36.3 18 Capillary Refill : General Appearance: No Apparent Distress, WD/WN, Anxious, Chronically ill HEENT: PERRL/EOMI, Normal ENT Inspection, Pharynx Normal Neck: Full Range of Motion, Normal Inspection, Non Tender, Supple, Carotid Bruit Respiratory: Chest Non Tender, Lungs Clear, Normal Breath Sounds, No Accessory Muscle Use, No Respiratory Distress Cardiovascular: Regular Rate, Rhythm, No Edema, No Gallop, No JVD, No Murmur, Normal Peripheral Pulses Gastrointestinal: Normal Bowel Sounds, No Organomegaly, No Pulsatile Mass, Non Tender, Soft Back: Normal Inspection, Decreased Range of Motion Extremity: Normal Capillary Refill, Normal Inspection, Normal Range of Motion, Non Tender, No Calf Tenderness, No Pedal Edema Neurologic/Psychiatric: Alert, Oriented x3, Normal Mood/Affect, instrument repairer II-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 FIM Transfers Therapy Code Descriptions/Definitions Functional [place] Measure: 0=Not Assessed/NA 4=Minimal Assistance 1=Total Assistance 5=Supervision or Setup 2=Maximal Assistance 6=Modified [place] 3=Moderate Assistance 7=Complete IndependenceSCALE: Activities may be completed with or without assistive devices. 0-Fqsgkklays-onkqqfm completes the activity by him/herself with no assistance from a helper. 5-Set-up or Clean-up Assistance-helper sets up or cleans up; patient completes activity. [place] assists only prior to or following the activity. 4-Supervision or Touching Assistance-helper provides verbal cues and/or touching/steadying and/or contact guard assistance as patient completes activity. Assistance may be provided throughout the activity or intermittently. 3-Partial/Moderate Assistance-helper does LESS THAN HALF the effort. [place] lifts, holds or supports trunk or limbs, but provides less than half the effort. 2-Substantial/Maximal Assistance-helper does MORE THAN HALF the effort. [place] lifts or holds trunk or limbs and provides more than half the effort. 3-Qxowqjhio-ryqesl does ALL the effort. Patient does none of the effort to complete the activity. Or, the assistance of 2 or more helpers is required for the patient to complete the activity. If activity was not attempted, code reason: 7-Patient Refused. 9-Not Applicable-not attempted and the patient did not perform the activity before the current illness, exacerbation or injury. 10-Not Attempted due to Environmental Limitations-(lack of equipment, weather restraints, etc.). 88-Not Attempted due to Medical Conditions or Safety Concerns. Roll Left to Right (QC): 3 Sit to Lying (QC): 2 Sit to Stand (QC): 3 Chair/Xpy-bt-Ovirh Xfer(QC): 3 Car Transfer (QC): 4 Gait Training Does the Patient Walk?: Yes Distance: 150 x 2 Walk 10 feet (QC): 4 Walk 50 ft with 2 Turns(QC): 4 Walk 150 ft (QC): 4 Walking 10ft/uneven surface-QC: 4 Gait Assistive Device: FWW Wheelchair Training Wheel 50 ft with 2 turns (QC): 9 Wheel 150 ft (QC): 9 Stair Training #of Steps: 1 1 Step (curb) (QC): 4 4 Steps (QC): 88 12 Steps (QC): 88 Balance Picking up an Object (QC): 4 (using live in housekeeper) ADL-Treatment Eating (QC): 5 Oral Hygiene (QC): 4 Shower/Bathe Self (QC): 3 Upper Body Dressing (QC): 4 Lower Body Dressing (QC): 3 On/Off Footwear (QC): 2 Toileting Hygiene (QC): 3 Assessment/Plan Assessment and Plan Assess & Plan/Chief Complaint Assessment: Status post kyphoplasty due to severe incapacitating back pain due to subacute fracture of thoracic spine and lumbar spine L4 compression fractures pathological osteoporotic fractures Osteoporosis on Fosamax Severe muscle spasms requiring Decadron baclofen and Valium Hypercoagulable state 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 Araujo Constipation Elevated PTH in the setting of severe osteoporosis with family history of hyperparathyroidism in daughter Confusion related to steroids and muscle relaxants and pain meds Benites cath DC'd Plan: Pain control Bowel regimen Aggressive PT and OT Supportive care 07/24/2021: Pain control Bowel regimen Supportive care (1) Closed lumbar vertebral fracture Status: Acute (2) Elevated parathyroid hormone (3) Radicular pain of thoracic region Status: Acute (4) Thoracic vertebral fracture Status: Acute (5) Hypercoagulable state (6) Osteoporosis (7) Lumbago with sciatica, left side Status: Acute DANIA COOK DO Jul 24, 2021 06:42
[2021-07-24 07:25] VITALS: BP 164/77
[2021-07-24] MEDS ORDERED: UMECLIDINIUM BROMIDE (INCRUSE ELLIPTA) 7'S IH SCH (08:00)
[2021-07-24] MEDS: ESTROGENS CONJ 0.625 MG (PREMARIN) TAB PO SCH (08:07)
[2021-07-24] MEDS: amLODIPine 2.5MG (NORVASC) TAB PO SCH (08:07)
[2021-07-24] MEDS: DULoxetine 30 MG (CYMBALTA) CAP PO SCH (08:07)
[2021-07-24] MEDS: MONTELUKAST 10 MG (SINGULAIR) TAB PO SCH (08:07)
[2021-07-24] MEDS: BACLOFEN 10 MG (LIORESAL) TAB PO SCH ×3 (08:07→21:09)
[2021-07-24] MEDS: SENNOSIDES 8.6 MG (SENOKOT) TAB PO SCH ×2 (08:07→21:08)
[2021-07-24] MEDS: meTOproloL SUCCINATE 50 MG (TOPROL XL) TAB PO SCH (08:08)
[2021-07-24] MEDS: FUROSEMIDE 40 MG (LASIX) TAB PO SCH (08:08)
[2021-07-24] MEDS: DOCUSATE SODIUM 100 MG (COLACE) CAP PO SCH ×2 (08:08→21:08)
[2021-07-24] MEDS: PANTOPRAZOLE 40 MG (PROTONIX) TAB PO SCH ×2 (08:08→21:07)
[2021-07-24] MEDS: PRAMIPEXOLE 0.125 MG (MIRAPEX) TABLET PO SCH ×2 (08:08→21:09)
[2021-07-24] MEDS: polyethylene glycoL POWDER 17 GM (MIRALAX) PACK PO SCH ×2 (08:10→21:08)
[2021-07-24] MEDS: TRELEGY ELLIPTA INHALER IH SCH (08:11)
--- NOTE | 2021-07-24 09:29 | Individualized Plan of Care ---
Individualized Plan of Care Rehab Nursing IPOC Order Admission Date Jul 23, 2021 at 10:00 Current Orders Orders Admission Order(Inpt,Obs,Sdc) (07/22/21 09:53) Vital Signs: Per Unit Policy ( 08,16,00 (07/22/21 09:53) Carlin Kumari (07/22/21 09:53) Sequential Compression Device (07/22/21 09:53) Dinkey Operator Slate-Inpt Rehab Con (07/22/21 09:53) Rehab Nursing Orders-Ipoc (07/22/21 09:53) Physical Therapy Rehab Orders (07/22/21 09:53) Occupational Therapy Rehab Ord (07/22/21 09:53) Speech Therapy Rehab Orders (07/22/21 09:53) Cbc With Automated Diff (07/23/21 06:00) Comprehensive Metabolic Panel (07/23/21 06:00) Precautions (Aru) (07/22/21 09:53) Rehab-Intensity Of Therapy (07/22/21 09:53) Initiate Admission Nursing Pro .admission (07/22/21 09:53) Alprazolam Tablet (Xanax Tablet) (07/22/21 10:00) Calcium Carbonate Chew Tablet (Antacid C (07/22/21 10:00) Diphenhydramine Tablet (Benadryl Tablet) (07/22/21 10:00) Docusate Sodium Capsule (Colace Capsule) (07/22/21 21:00) Docusate Sodium Capsule (Colace Capsule) (07/22/21 10:00) Bisacodyl Suppository (Dulcolax Supposit (07/22/21 10:00) Lactulose Oral Solution (Enulose Oral So (07/22/21 10:00) Na Phos/Na Biphos Enema (Fleet Enema Mike (07/22/21 10:00) Guaifenesin/Codeine Syrup (Robitussin Ac (07/22/21 10:00) Loperamide Tablet (Imodium Tablet) (07/22/21 10:00) Melatonin Tablet (Melatonin Tablet) (07/22/21 10:00) Polyethylene Glycol Powder Pkt (Miralax (07/22/21 21:00) Ondansetron Oral Dissolve Tab (Zofran (07/22/21 10:00) Senna S Tablet (Senokot S Tablet) (07/22/21 21:00) Acetaminophen Tablet/Caplet (Tylenol T (07/22/21 10:00) Initiate Admission Nursing Pro .admission (07/22/21 09:53) Vte Contraindication (07/22/21 09:53) Admission Arrival Bed Request (07/23/21 10:00) Code/Resuscitation (07/23/21 11:10) Incentive Spirometry (Nursing) Q2H (07/23/21 11:10) General/Regular (07/23/21 Lunch) (Nf) Mirabegron (Myrbetriq) (07/23/21 21:00) Albuterol Pre-Mix Nebs (Rt) (Proventil (07/23/21 11:15) Baclofen Tablet (Lioresal Tablet) (07/23/21 13:00) Diphenhydramine Tablet (Benadryl Tablet) (07/23/21 11:15) Bisacodyl Suppository (Dulcolax Supposit (07/23/21 11:15) Docusate Sodium Capsule (Colace Capsule) (07/23/21 21:00) Duloxetine Capsule (Cymbalta Capsule) (07/24/21 09:00) Diazepam Tablet (Valium Tablet) (07/23/21 11:15) Lactulose Oral Solution (Enulose Oral So (07/23/21 11:15) Estrogens Conjugated Tablet (Premarin Ta (07/24/21 09:00) Furosemide Tablet (Lasix Tablet) (07/24/21 09:00) Hydrocodone/Apap 5/325 Tablet (Lortab 5 (07/23/21 11:15) Levothyroxine Tablet (Synthroid Tablet) (07/24/21 06:30) Melatonin Tablet (Melatonin Tablet) (07/23/21 11:15) Magnesium Hydroxide Oral Susp (Mom Oral (07/23/21 11:15) Polyethylene Glycol Powder Pkt (Miralax (07/23/21 11:15) Montelukast Tablet (Singulair Tablet) (07/24/21 09:00) Morphine Injection (Morphine Injection (07/23/21 11:15) Antacid Suspension (Mylanta Suspension (07/23/21 11:15) Pantoprazole Tablet (Protonix Tablet) (07/23/21 21:00) Patient May Use Own Meds, All (Patient M (07/23/21 11:15) Potassium Chloride (Tablet) (Klor Con Ta (07/24/21 07:00) Pramipexole Tablet (Mirapex Tablet) (07/23/21 21:00) Rosuvastatin Tablet (Crestor Tablet) (07/24/21 21:00) Sennosides Tablet (Senokot Tablet) (07/23/21 21:00) Calcium Carbonate Chew Tablet (Antacid C (07/23/21 11:15) Acetaminophen Tablet/Caplet (Tylenol T (07/23/21 11:15) Umeclidinium Irving Inhaler (Incruse El (07/24/21 08:00) Ondansetron Oral Dissolve Tab (Zofran (07/23/21 11:15) Ondansetron Injection (Zofran Injectio (07/23/21 11:15) Amlodipine Tablet (Norvasc Tablet) (07/24/21 09:00) Oxycodone Immediate Rel Tablet (Oxyir Ta (07/23/21 11:15) Trazodone Tablet (Desyrel Tablet) (07/23/21 21:00) Mat Initiate Protocol (07/23/21 11:10) Diphenhydramine Injection (Benadryl Inje (07/23/21 11:15) Pharmacy Consult/Message (07/23/21 11:10) Svn Small Volume Nebulizer (07/23/21 11:10) Svn Small Volume Nebulizer (07/23/21 11:10) Rivaroxaban Tablet (Xarelto Tablet) (07/24/21 17:00) Metoprolol Succinate (Xl) Tab (Toprol Xl (07/24/21 09:00) Patient Visit (07/23/21 ) Pt Eval Moderate Complexity (07/23/21 ) Functional Activities, Ea 15 (07/23/21 ) Patient Visit (07/23/21 ) Gait Training, Ea 15 Min (07/23/21 ) Functional Activities, Ea 15 (07/23/21 ) Exercise Therap, Ea 15 Min (07/23/21 ) Patient's Own Med(Rx Use Only) (Patient' (07/24/21 08:00) Patient Visit (07/23/21 ) Speech Sound Lang Comp (07/23/21 ) Treat. Speech/Lang/Voice (07/23/21 ) Dexamethasone Injection (Decadron Injec (07/24/21 07:00) Heating Pad (07/24/21 09:28) Diclofenac 1% Gel (Voltaren 1% Gel) (07/24/21 09:30) Patient Visit (07/24/21 ) Functional Activities, Ea 15 (07/24/21 ) Gait Training, Ea 15 Min (07/24/21 ) Exercise Therap, Ea 15 Min (07/24/21 ) Enlive Variety (07/24/21 16:00) Rehab Nursing Orders: Ongoing Assess. of Cognitive Status, Ongoing Assess. of Function Status, Bladder Management, Bladder Scan, Bladder Training, Bowel Management, Bowel Training, Disease Management & Educaiton, DVT Prophylaxis, Fall Prevention, Fluid/Electrolyte/Nutrition Mgmt, Infection Prevention, Medication Management & Education, Management of Risks & Complications, Nicol gement of Skin Intergrity, Nutrition Management, Pain Management, Patient/Family Support, Safety Management Intensity of Therapy to be met Patient to be seen: Min.3h per day/5 of 7d PT IPOC Problem List: Activity Tolerance, Functional Strength, Safety, Balance, Gait, Transfer, Bed Mobility, Other Treatment Plan: Continue Plan of Care Bed Mobility, Education, Functional Activity Sameera, Functional Strength, Group Therapy, Gait, Safety, Therapeutic Exercise, Transfers Treatment Duration: Aug 13, 2021 Frequency: At least 5 of 7 days/Wk (IRF) Estimated Hrs Per Day: 1.5 hours per day OT IPOC Problems: Decreased Activ Tolerance, Decreased Safety Aware, Decreased UE Strength, Impaired Cognition, Impaired Funct Balance, Impaired I ADL's, Impaired Self-Care Skills OT Treatment, Training and Edu: Yes Plan of Care: ADL Retraining, Functional Mobility, Group Exercise/Act as Ind, UE Funct Exercise/Act Treatment Duration: Aug 08, 2021 Frequency: At least 5 of 7 days/Wk (IRF) Estimated Hrs Per Day: 1.[address] IPOC Speech Therapy Treatment Plan: Discontinue ST Treatment Duration: Jul 24, 2021 Frequency: 1 time per week Estimated Hrs Per Day: .5 hour per day Dinkey Operator Slate/Case Mgmt Dinkey Operator Slate/Case Managemen: Discharge Planning Dietitian/Fresh Work Wrapper Layer Dietitian/Fresh Work Wrapper Layer to monitor nutritional status and make changes and/or recommendations as needed and work with speech pathology on dietary upgrades as the occur. Physician IPOC Medical Issues being managed closely and that require the 24 hour availability of a physician: Recent urgent lumbar spine surgery with kyphoplasty and current debilitating pain will require close monitoring and aggressive medication Medical Issues: Bowel/Bladder Function, DVT Prophylaxis, Falls Precautions, Fluid/Electrolyte/Nutrition Balance, Infection Protection, Pain Management, Wound Care Brief Synthesis of Preadmission Screen, Post-Admission Evaluation, and Therapy Evaluations: PT and OT will focus on regaining function with assistive devices in order to return back to independent living and additional advice to help with severe pain Medical Prognosis: Good Anticipated Length of Stay: 10 days DANIA COOK DO Jul 24, 2021 09:29
--- NOTE | 2021-07-24 09:32 | Occupational Ther Daily Note ---
OT Current Status-Daily Note Subjective Pt reports 0/10 pain at rest. With activity, pain increases to 6/10 Appearance Pt left sitting in recliner, all need within reach, RN in room. Mental Status/Objective Patient Orientation: Person, Confused, Situation Attachments: IV ADL-Treatment Therapy Code Descriptions/Definitions Functional [place] Measure: 0=Not Assessed/NA 4=Minimal Assistance 1=Total Assistance 5=Supervision or Setup 2=Maximal Assistance 6=Modified [place] 3=Moderate Assistance 7=Complete IndependenceSCALE: Activities may be completed with or without assistive devices. 9-Targfcatjc-alffpaq completes the activity by him/herself with no assistance from a helper. 5-Set-up or Clean-up Assistance-helper sets up or cleans up; patient completes activity. [place] assists only prior to or following the activity. 4-Supervision or Touching Assistance-helper provides verbal cues and/or touching/steadying and/or contact guard assistance as patient completes activity. Assistance may be provided throughout the activity or intermittently. 3-Partial/Moderate Assistance-helper does LESS THAN HALF the effort. [place] lifts, holds or supports trunk or limbs, but provides less than half the effort. 2-Substantial/Maximal Assistance-helper does MORE THAN HALF the effort. [place] lifts or holds trunk or limbs and provides more than half the effort. 8-Btrfpusxf-tmodrk does ALL the effort. Patient does none of the effort to complete the activity. Or, the assistance of 2 or more helpers is required for the patient to complete the activity. If activity was not attempted, code reason: 7-Patient Refused. 9-Not Applicable-not attempted and the patient did not perform the activity before the current illness, exacerbation or injury. 10-Not Attempted due to Environmental Limitations-(lack of equipment, weather restraints, etc.). 88-Not Attempted due to Medical Conditions or Safety Concerns. Oral Hygiene (QC): 4 On/Off Footwear: 3 Toileting Hygiene (QC): 4 Toilet Transfer (QC): 4 Pt declines changing clothes. Supine>sit: SBA, extra time and min cues for proper log roll technique. Sit<>stand: CGA, extra time to come to full upright. Cues for correct hand placement. She stood at sink for grooming tasks with CGA. As fatigue increases, pt begins to sink further into flexion and rest elbows on sink. Cues for improving SENA and upright posture. OT instructed and issued pt a LHSH to assist in donning shoes while adhering to spinal precautions. Min assist for placement of AE. Pt only able to recall 1 spinal precaution (no bending). Other Treatment Pt ambulated to/from therapy gym with CGA and use of walker. Intermittent cues for lifting L foot as pt has tendency to drag foot as fatigue increases. Pt participated in standing activity (PVC pipe) with goal to promote increases standing endurance/tolerance, balance, LE strength, and reducing UE support needed for functional tasks. Pt able to tolerate 4 standing bouts for ~3 minutes each before needing to sit and rest. SBA-CGA for safety with balance. Initially, She required mod cues for problem solving and sequencing through task. Pt Only able to tolerate zero UE for brief moments before returning hand to walker/mat. Education OT Patient Education: Correct positioning, Energy conservation, Modified ADL techniques, Progress toward Goal/Update tx plan, Purpose of tx/functional activities, Reviewed precautions, Rehab process, Safety issues, Transfer techniques Teaching Recipient: Patient Teaching Methods: Discussion Response to Teaching: Verbalize Understanding, Reinforcement Needed OT Short Term Goals Short Term Goals Time Frame: Jul 30, 2021 Eatin Oral hygiene: 5 Toileting hygiene: 4 Shower/bathe self: 4 Upper body dressin Lower body dressin Putting on/taking off footwear: 4 OT Fpc Goals Fpc Goals Time Frame: Aug 08, 2021 Eating (QC): 6 Oral Hygiene (QC): 6 Toileting Hygiene (QC): 5 Shower/Bathe Self (QC): 5 Upper Body Dressing (QC): 6 Lower Body Dressing (QC): 6 On/Off Footwear (QC): 5 1=Demonstrate adherence to instructed precautions during ADL tasks. 2=Patient will verbalize/demonstrate understanding of assistive dev ices/modifications for ADL. 3=Patient will improve strength/tolerance for activity to enable patient to perform ADL's. OT Education/Plan Problem List/Assessment Assessment: Decreased Activ Tolerance, Decreased Safety Aware, Decreased UE Strength, Impaired Cognition, Impaired Funct Balance, Impaired I ADL's, Impaired Self-Care Skills Discharge Recommendations Plan/Recommendations: Continue POC Equpiment Recommendations-D/C: Internal Auditor, Sock Aide, Long Shoe Horn Treatment Plan/Plan of Care Treatment,Training & Education: Yes Patient would benefit from OT for education, treatment and training to promote independence in ADL's, mobility, safety and/or upper extremity function for ADL's. Plan of Care: ADL Retraining, Functional Mobility, Group Exercise/Act as Ind, UE Funct Exercise/Act Treatment Duration: Aug 08, 2021 Frequency: At least 5 of 7 days/Wk (IRF) Estimated Hrs Per Day: 1.5 hours per day Agreement: Yes Rehab Potential: Fair Time/GCodes Start Time: 08:30 Stop Time: 09:30 Total Time Billed (hr/min): 60 Billed Treatment Time 1 visit ADL x2 (25 min) FA x2 (35 min) Jenna Jessica OT Jul 24, 2021 09:32
[2021-07-24] MEDS: DICLOFENAC 1% GEL 100 GM (VOLTAREN) TUBE TOP SCH ×4 (10:49→21:16)
--- NOTE | 2021-07-24 10:55 | Physical Therapy Daily Note ---
PT Daily Note-Current Subjective Pt. agrees to Tx, states she has pain off and on during Tx at approx 4/10. Change of position and rest help alleviate pain. Pt. states she has a bed with head and foot position change control at home Pain Numeric Pain Scale: 4 Location: Medial Location Body Site: Back Pain Description: Stabbing Mental Status Patient Orientation: Normal For Age Transfers SCALE: Activities may be completed with or without assistive devices. 6-Deeuqnggwt-ozoudya completes the activity by him/herself with no assistance from a helper. 5-Set-up or Clean-up Assistance-helper sets up or cleans up; patient completes activity. [place] assists only prior to or following the activity. 4-Supervision or Touching Assistance-helper provides verbal cues and/or touching/steadying and/or contact guard assistance as patient completes activity. Assistance may be provided throughout the activity or intermittently. 3-Partial/Moderate Assistance-helper does LESS THAN HALF the effort. [place] lifts, holds or supports trunk or limbs, but provides less than half the effort. 2-Substantial/Maximal Assistance-helper does MORE THAN HALF the effort. [place] lifts or holds trunk or limbs and provides more than half the effort. 7-Ybonxrmnd-weykag does ALL the effort. Patient does none of the effort to complete the activity. Or, the assistance of 2 or more helpers is required for the patient to complete the activity. If activity was not attempted, code reason: 7-Patient Refused. 9-Not Applicable-not attempted and the patient did not perform the activity before the current illness, exacerbation or injury. 10-Not Attempted due to Environmental Limitations-(lack of equipment, weather restraints, etc.). 88-Not Attempted due to Medical Conditions or Safety Concerns. 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 Exercises Seated Therapy Exercises: Ankle pumps, Sit to stand, Long arc quads, Hip flexion Seated Reps: 15 NuStep Minutes: 8 NuStep Workload: 1 Treatments pt. unable to tolerate supine position for LE therex , gait , seated therex, reclined in recliner therex, nustep, TRFs log roll etc Assessment Current Status: Good Progress PT Short Term Goals Short Term Goals Time Frame: Jul 30, 2021 Roll Left & Right: 3 Sit to lyin Lying to sitting on side of be: 3 Sit to stand: 4 Chair/nbu-ix-ymhhe transfer: 4 Walk 10 feet: 4 Walk 50 feet with two turns: 4 Walk 150 feet: 4 PT Prime Broker Goals Prime Broker Goals PT Prime Broker Goals Time Frame: Aug 13, 2021 Roll Left & Right (QC): 4 Sit to Lying (QC): 4 Lying-Sitting on Side/Bed(QC): 4 Sit to Stand (QC): 5 Chair/Fkr-wz-Mspik Xfer(QC): 5 Toilet Transfer (QC): 5 Car Transfer (QC): 5 Does the Patient Walk: Yes Walk 10 feet (QC): 5 Walk 50ft with 2 Turns (QC): 5 Walk 150 ft (QC): 5 Walking 10ft on Uneven Surface: 4 1 Step (curb) (QC): 4 4 Steps (QC): 4 12 Steps (QC): 88 Picking up an Object (QC): 5 Wheel 50 feet with 2 turns (QC: 9 Wheel 150 feet: 9 PT Plan Treatment/Plan Treatment Plan: Continue Plan of Care Treatment Plan: Bed Mobility, Education, Functional Activity Sameera, Functional Strength, Group Therapy, Gait, Safety, Therapeutic Exercise, Transfers Treatment Duration: Aug 13, 2021 Frequency: At least 5 of 7 days/Wk (IRF) Estimated Hrs Per Day: 1.5 hours per day Patient and/or Family Agrees t: Yes Safety Risks/Education Patient Education: Gait Training, Transfer Techniques, Reviewed Precautions, Correct Positioning, Disease Process, Safety Issues Teaching Recipient: Patient Teaching Methods: Demonstration, Discussion Response to Teaching: Verbalize Understanding, Return Demonstration, Reinforcement Needed educated and instructed in use of recliner for reclining , head back etc Time/GCodes Time In: 1000 Time Out: 1100 Total Billed Treatment Time: 60 Total Billed Treatment 1,FA25m,GT15m,EX20m GENO JIANG CHILD WELFARE ASSISTANT Jul 24, 2021 10:55
--- NOTE | 2021-07-24 11:59 | Occupational Ther Daily Note ---
OT Current Status-Daily Note Subjective Pt agreeable to treatment Appearance Returned to sitting in chair, all needs within reach at OT departure. ADL-Treatment Therapy Code Descriptions/Definitions Functional [place] Measure: 0=Not Assessed/NA 4=Minimal Assistance 1=Total Assistance 5=Supervision or Setup 2=Maximal Assistance 6=Modified [place] 3=Moderate Assistance 7=Complete IndependenceSCALE: Activities may be completed with or without assistive devices. 8-Gxsbvrqesg-vwpkbnv completes the activity by him/herself with no assistance from a helper. 5-Set-up or Clean-up Assistance-helper sets up or cleans up; patient completes activity. [place] assists only prior to or following the activity. 4-Supervision or Touching Assistance-helper provides verbal cues and/or touching/steadying and/or contact guard assistance as patient completes activity. Assistance may be provided throughout the activity or intermittently. 3-Partial/Moderate Assistance-helper does LESS THAN HALF the effort. [place] lifts, holds or supports trunk or limbs, but provides less than half the effort. 2-Substantial/Maximal Assistance-helper does MORE THAN HALF the effort. [place] lifts or holds trunk or limbs and provides more than half the effort. 3-Vhqeziwjz-nqqluc does ALL the effort. Patient does none of the effort to complete the activity. Or, the assistance of 2 or more helpers is required for the patient to complete the activity. If activity was not attempted, code reason: 7-Patient Refused. 9-Not Applicable-not attempted and the patient did not perform the activity before the current illness, exacerbation or injury. 10-Not Attempted due to Environmental Limitations-(lack of equipment, weather restraints, etc.). 88-Not Attempted due to Medical Conditions or Safety Concerns. Toileting Hygiene (QC): 4 Toilet Transfer (QC): 4 Other Treatment Pt participated in homemaking task, laundry. Education on compensatory and adaptive techniques in order to adhere to spinal precautions. Post instruction, pt was able to stand and unload clothes from washer with use of entry level web developer. Close sba-cga for safety but no lob during task. She loaded all clothes onto top of dryer and then transitioned them into the dryer. OT then provided pt a chair to sit and unload clothes from dryer. When clothes were too far back, cues needed to utilize entry level web developer or tongs in order to maintain adherence to back precautions. Pt does fatigue post activity and need a short rest break before ambulating back to room. Pt able to recall 2 out of 3 spinal precautions this session (no bending, twisting) Education OT Patient Education: Correct positioning, Energy conservation, Modified ADL techniques, Purpose of tx/functional activities, Reviewed precautions, Safety issues, Transfer techniques, Use of adapted equipment Teaching Recipient: Patient Teaching Methods: Demonstration, Discussion Response to Teaching: Verbalize Understanding, Return Demonstration OT Short Term Goals Short Term Goals Time Frame: Jul 30, 2021 Eatin Oral hygiene: 5 Toileting hygiene: 4 Shower/bathe self: 4 Upper body dressin Lower body dressin Putting on/taking off footwear: 4 OT Sharepoint Designer Developer Goals Half-Way Goals Time Frame: Aug 08, 2021 Eating (QC): 6 Oral Hygiene (QC): 6 Toileting Hygiene (QC): 5 Shower/Bathe Self (QC): 5 Upper Body Dressing (QC): 6 Lower Body Dressing (QC): 6 On/Off Footwear (QC): 5 1=Demonstrate adherence to instructed precautions during ADL tasks. 2=Patient will verbalize/demonstrate understanding of assistive devices/modifications for ADL. 3=Patient will improve strength/tolerance for activity to enable patient to perform ADL's. OT Education/Plan Problem List/Assessment Assessment: Decreased Activ Tolerance, Decreased Safety Aware, Decreased UE Strength, Impaired Funct Balance, Impaired I ADL's, Impaired Self-Care Skills Discharge Recommendations Plan/Recommendations: Continue POC Equpiment Recommendations-D/C: Fresh Meat Grader, Sock Aide, Long Shoe Horn Treatment Plan/Plan of Care Treatment,Training & Education: Yes Patient would benefit from OT for education, treatment and training to promote independence in ADL's, mobility, safety and/or upper extremity function for ADL's. Plan of Care: ADL Retraining, Functional Mobility, Group Exercise/Act as Ind, UE Funct Exercise/Act Treatment Duration: Aug 08, 2021 Frequency: At least 5 of 7 days/Wk (IRF) Estimated Hrs Per Day: 1.5 hours per day Agreement: Yes Rehab Potential: Fair Time/GCodes Start Time: 11:25 Stop Time: 11:55 Total Time Billed (hr/min): 30 Billed Treatment Time 1 visit Jenna Noel OT Jul 24, 2021 11:59
--- NOTE | 2021-07-24 13:21 | Physical Therapy Daily Note ---
PT Daily Note-Current Subjective Pt. c/o pain in mid back at 5/10 ad also c/o she has some constipation and feels if she could clear her bowels she would not have back pain as intense Pain Numeric Pain Scale: 5-Moderate Pain Location: Right Location Body Site: Back Pain Description: Pressure Appearance whinces with pain when TRFing Mental Status Patient Orientation: Time (sit to stands all SBA, sit to sup all min to CGA) Transfers SCALE: Activities may be completed with or without assistive devices. 9-Xwvwzaqpdw-pycitwn completes the activity by him/herself with no assistance from a helper. 5-Set-up or Clean-up Assistance-helper sets up or cleans up; patient completes activity. [place] assists only prior to or following the activity. 4-Supervision or Touching Assistance-helper provides verbal cues and/or touching/steadying and/or contact guard assistance as patient completes activity. Assistance may be provided throughout the activity or intermittently. 3-Partial/Moderate Assistance-helper does LESS THAN HALF the effort. [place] lifts, holds or supports trunk or limbs, but provides less than half the effort. 2-Substantial/Maximal Assistance-helper does MORE THAN HALF the effort. [place] lifts or holds trunk or limbs and provides more than half the effort. 6-Nkhcsrofe-vfukvg does ALL the effort. Patient does none of the effort to complete the activity. Or, the assistance of 2 or more helpers is required for the patient to complete the activity. If activity was not attempted, code reason: 7-Patient Refused. 9-Not Applicable-not attempted and the patient did not perform the activity before the current illness, exacerbation or injury. 10-Not Attempted due to Environmental Limitations-(lack of equipment, weather restraints, etc.). 88-Not Attempted due to Medical Conditions or Safety Concerns. sit to stnd SBA, sit to sup all min to CGA Gait Training Does the Patient Walk?: Yes Gait Assistive Device: FWW [id number] SBA, slow Exercises Seated Therapy Exercises: Ankle pumps, Sit to stand, Long arc quads, Hip flexion, Hip abd/add Seated Reps: 12 Assessment Current Status: Good Progress pt. fatigued and c/o pain and constipation , in bed after Tx with call owusu , positioned wit pillows for comfort PT Short Term Goals Short Term Goals Time Frame: Jul 30, 2021 Roll Left & Right: 3 Sit to lyin Lying to sitting on side of be: 3 Sit to stand: 4 Chair/hht-pf-sxbjv transfer: 4 Walk 10 feet: 4 Walk 50 feet with two turns: 4 Walk 150 feet: 4 PT Longterm Goals Multimedia Authoring Specialist Goals PT Longterm Goals Time Frame: Aug 13, 2021 Roll Left & Right (QC): 4 Sit to Lying (QC): 4 Lying-Sitting on Side/Bed(QC): 4 Sit to Stand (QC): 5 Chair/Ord-lb-Aohvk Xfer(QC): 5 Toilet Transfer (QC): 5 Car Transfer (QC): 5 Does the Patient Walk: Yes Walk 10 feet (QC): 5 Walk 50ft with 2 Turns (QC): 5 Walk 150 ft (QC): 5 Walking 10ft on Uneven Surface: 4 1 Step (curb) (QC): 4 4 Steps (QC): 4 12 Steps (QC): 88 Picking up an Object (QC): 5 Wheel 50 feet with 2 turns (QC: 9 Wheel 150 feet: 9 PT Plan Treatment/Plan Treatment Plan: Continue Plan of Care Treatment Plan: Bed Mobility, Education, Functional Activity Sameera, Functional Strength, Group Therapy, Gait, Safety, Therapeutic Exercise, Transfers Treatment Duration: Aug 13, 2021 Frequency: At least 5 of 7 days/Wk (IRF) Estimated Hrs Per Day: 1.5 hours per day Patient and/or Family Agrees t: Yes Safety Risks/Education Patient Education: Gait Training, Transfer Techniques Teaching Recipient: Patient Response to Teaching: Reinforcement Needed Time/GCodes Time In: 1250 Time Out: 1320 Total Billed Treatment Time: 30 Total Billed Treatment 1,GT15,FA15 GENO JIANG MANUFACTURING AUTOMATION ENGINEER Jul 24, 2021 13:21
[2021-07-24] MEDS: RIVAROXABAN 20 MG TABLET (XARELTO) PO SCH (17:22)
[2021-07-24] MEDS: HYDROcodone/APAP 5 MG/325 MG (LORTAB) TAB PO PRN (19:43)
[2021-07-24 19:59] VITALS: BP 175/74
[2021-07-24] MEDS: ROSUVASTATIN 5 MG (CRESTOR) TABLET PO SCH (21:08)
[2021-07-24] MEDS: traZODone 50 MG (DESYREL) TAB PO SCH (21:09)
[2021-07-24 22:23] VITALS: BP 117/57
[2021-07-25] MEDS: HYDROcodone/APAP 5 MG/325 MG (LORTAB) TAB PO PRN ×4 (05:09→19:29)
[2021-07-25] MEDS: KCL 10 MEQ TAB (MICRO K) PO SCH (06:47)
[2021-07-25] MEDS: LEVOTHYROXINE 75 MCG (LEVOTHROID) TABLET PO SCH (06:47)
--- NOTE | 2021-07-25 06:56 | PM&R Progress Note ---
Subjective HPI/CC On Admission Date Seen by Provider: Jul 25, 2021 Time Seen by Provider: 13:00 Subjective/Events-last exam 07/25/2021: Patient doing very well Bowels are moving Pain pretty well controlled Dr. CARVER was updated on condition when he requested Checked meds and labs 07/24/2021: Pt doing pretty well overall Constipated and will give laxatives Pain is pretty well controlled at times Decadron was given Checked meds and labs Review of Systems General: Fatigue, Malaise Musculoskeletal: back pain Objective Exam Vital Signs Vital Signs Date Time Temp Pulse Resp B/P (MAP) Pulse Ox O2 Delivery O2 Flow Rate FiO2 07/25/21 21:18 96 Room Air 07/25/21 20:02 36.9 73 20 131/63 (85) Capillary Refill : General Appearance: No Apparent Distress, WD/WN, Anxious, Chronically ill HEENT: PERRL/EOMI, Normal ENT Inspection, Pharynx Normal Neck: Full Range of Motion, Normal Inspection, Non Tender, Supple, Carotid Bruit Respiratory: Chest Non Tender, Lungs Clear, Normal Breath Sounds, No Accessory Muscle Use, No Respiratory Distress Cardiovascular: Regular Rate, Rhythm, No Edema, No Gallop, No JVD, No Murmur, Normal Peripheral Pulses Gastrointestinal: Normal Bowel Sounds, No Organomegaly, No Pulsatile Mass, Non Tender, Soft Back: Normal Inspection, Decreased Range of Motion Extremity: Normal Capillary Refill, Normal Inspection, Normal Range of Motion, Non Tender, No Calf Tenderness, No Pedal Edema Neurologic/Psychiatric: Alert, Oriented x3, Normal Mood/Affect, health and wellness advisor II-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 FIM Transfers Therapy Code Descriptions/Definitions Functional [place] Measure: 0=Not Assessed/NA 4=Minimal Assistance 1=Total Assistance 5=Supervision or Setup 2=Maximal Assistance 6=Modified [place] 3=Moderate Assistance 7=Complete IndependenceSCALE: Activities may be completed with or without assistive devices. 8-Krusuvdkrd-tgboewp completes the activity by him/herself with no assistance from a helper. 5-Set-up or Clean-up Assistance-helper sets up or cleans up; patient completes activity. [place] assists only prior to or following the activity. 4-Supervision or Touching Assistance-helper provides verbal cues and/or touching/steadying and/or contact guard assistance as patient completes activity. Assistance may be provided throughout the activity or intermittently. 3-Partial/Moderate Assistance-helper does LESS THAN HALF the effort. [place] lifts, holds or supports trunk or limbs, but provides less than half the effort. 2-Substantial/Maximal Assistance-helper does MORE THAN HALF the effort. [place] lifts or holds trunk or limbs and provides more than half the effort. 4-Putccocwy-bxhdpf does ALL the effort. Patient does none of the effort to complete the activity. Or, the assistance of 2 or more helpers is required for the patient to complete the activity. If activity was not attempted, code reason: 7-Patient Refused. 9-Not Applicable-not attempted and the patient did not perform the activity before the current illness, exacerbation or injury. 10-Not Attempted due to Environmental Limitations-(lack of equipment, weather restraints, etc.). 88-Not Attempted due to Medical Conditions or Safety Concerns. Roll Left to Right (QC): 5 Sit to Lying (QC): 4 Sit to Stand (QC): 5 Chair/Zaj-al-Rckmu Xfer(QC): 5 Car Transfer (QC): 4 Gait Training Does the Patient Walk?: Yes Distance: 150 x 2 Walk 10 feet (QC): 5 Walk 50 ft with 2 Turns(QC): 5 Walk 150 ft (QC): 5 Walking 10ft/uneven surface-QC: 4 Gait Persons Needed: 1 Gait Assistive Device: FWW Wheelchair Training Wheel 50 ft with 2 turns (QC): 9 Wheel 150 ft (QC): 9 Stair Training #of Steps: 1 1 Step (curb) (QC): 4 4 Steps (QC): 88 12 Steps (QC): 88 Balance Picking up an Object (QC): 4 (using disability representative) ADL-Treatment Eating (QC): 5 Oral Hygiene (QC): 4 Shower/Bathe Self (QC): 3 Upper Body Dressing (QC): 4 Lower Body Dressing (QC): 3 On/Off Footwear (QC): 3 Toileting Hygiene (QC): 4 Toilet Transfer (QC): 4 Assessment/Plan Assessment and Plan Assess & Plan/Chief Complaint Assessment: Status post kyphoplasty due to severe incapacitating back pain due to subacute fracture of thoracic spine and lumbar spine L4 compression fractures pathological osteoporotic fractures Osteoporosis on Fosamax Severe muscle spasms requiring Decadron baclofen and Valium Hypercoagulable state 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 Araujo Constipation Elevated PTH in the setting of severe osteoporosis with family history of hyperparathyroidism in daughter Confusion related to steroids and muscle relaxants and pain meds Benites cath DC'd Plan: Pain control Bowel regimen Aggressive PT and OT Supportive care 07/24/2021: Pain control Bowel regimen Supportive care 07/25/2021: Pain control Last dose of Decadron today (1) Closed lumbar vertebral fracture Status: Acute (2) Elevated parathyroid hormone (3) Radicular pain of thoracic region Status: Acute (4) Thoracic vertebral fracture Status: Acute (5) Hypercoagulable state (6) Osteoporosis (7) Lumbago with sciatica, left side Status: Acute DANIA COOK DO Jul 25, 2021 06:56
[2021-07-25] MEDS: polyethylene glycoL POWDER 17 GM (MIRALAX) PACK PO SCH ×2 (07:54→21:13)
[2021-07-25] MEDS: SENNOSIDES 8.6 MG (SENOKOT) TAB PO SCH ×2 (07:54→21:13)
[2021-07-25] MEDS: DOCUSATE SODIUM 100 MG (COLACE) CAP PO SCH ×2 (07:54→21:13)
[2021-07-25 08:00] VITALS: BP 121/61
--- NOTE | 2021-07-25 08:58 | Physical Therapy Daily Note ---
PT Daily Note-Current Subjective Pt in bed upon arrival and agrees to PT. Pt reports pain 8/10, states mid amb "the pain in getting better." Mental Status Patient Orientation: Person, Place, Time, Situation Transfers SCALE: Activities may be completed with or without assistive devices. 7-Apfprjwwep-upxsnch completes the activity by him/herself with no assistance from a helper. 5-Set-up or Clean-up Assistance-helper sets up or cleans up; patient completes activity. [place] assists only prior to or following the activity. 4-Supervision or Touching Assistance-helper provides verbal cues and/or touching/steadying and/or contact guard assistance as patient completes activity. Assistance may be provided throughout the activity or intermittently. 3-Partial/Moderate Assistance-helper does LESS THAN HALF the effort. [place] lifts, holds or supports trunk or limbs, but provides less than half the effort. 2-Substantial/Maximal Assistance-helper does MORE THAN HALF the effort. [place] lifts or holds trunk or limbs and provides more than half the effort. 4-Ueownlvpi-ocbtre does ALL the effort. Patient does none of the effort to complete the activity. Or, the assistance of 2 or more helpers is required for the patient to complete the activity. If activity was not attempted, code reason: 7-Patient Refused. 9-Not Applicable-not attempted and the patient did not perform the activity before the current illness, exacerbation or injury. 10-Not Attempted due to Environmental Limitations-(lack of equipment, weather restraints, etc.). 88-Not Attempted due to Medical Conditions or Safety Concerns. Roll Left & Right (QC): 4 Lying to Sitting/Side of Bed(Q: 4 Gait Training Does the Patient Walk?: Yes Distance: 250' Walk 10 feet (QC): 4 Walk 50 ft with 2 Turns(QC): 4 Walk 150 ft (QC): 4 Gait Assistive Device: FWW Slow antalgic gait with WC follow Treatments Pt sit EOB SBA, amb 250' in halls and returns to recliner in room. Pt heating pad was turned on, pt left in recliner with all needs met and call light in hand. Assessment Current Status: Good Progress Pt required short standing rest breaks during amb. PT Short Term Goals Short Term Goals Time Frame: Jul 30, 2021 Roll Left & Right: 3 Sit to lyin Lying to sitting on side of be: 3 Sit to stand: 4 Chair/edm-su-unwgf transfer: 4 Walk 10 feet: 4 Walk 50 feet with two turns: 4 Walk 150 feet: 4 PT Residential Goals Residential Goals PT Residential Goals Time Frame: Aug 13, 2021 Roll Left & Right (QC): 4 Sit to Lying (QC): 4 Lying-Sitting on Side/Bed(QC): 4 Sit to Stand (QC): 5 Chair/Oeq-ad-Gewhs Xfer(QC): 5 Toilet Transfer (QC): 5 Car Transfer (QC): 5 Does the Patient Walk: Yes Walk 10 feet (QC): 5 Walk 50ft with 2 Turns (QC): 5 Walk 150 ft (QC): 5 Walking 10ft on Uneven Surface: 4 1 Step (curb) (QC): 4 4 Steps (QC): 4 12 Steps (QC): 88 Picking up an Object (QC): 5 Wheel 50 feet with 2 turns (QC: 9 Wheel 150 feet: 9 PT Plan Treatment/Plan Treatment Plan: Continue Plan of Care Treatment Plan: Bed Mobility, Education, Functional Activity Sameera, Functional Strength, Group Therapy, Gait, Safety, Therapeutic Exercise, Transfers Treatment Duration: Aug 13, 2021 Frequency: At least 5 of 7 days/Wk (IRF) Estimated Hrs Per Day: 1.5 hours per day Patient and/or Family Agrees t: Yes Time/GCodes Time In: 827 Time Out: 838 Total Billed Treatment Time: 11 Total Billed Treatment 1, GT VIRAALEXSANDRA RETAIL SALESMAN Jul 25, 2021 08:58
[2021-07-25] MEDS: ESTROGENS CONJ 0.625 MG (PREMARIN) TAB PO SCH (09:36)
[2021-07-25] MEDS: PRAMIPEXOLE 0.125 MG (MIRAPEX) TABLET PO SCH ×2 (09:36→21:13)
[2021-07-25] MEDS: meTOproloL SUCCINATE 50 MG (TOPROL XL) TAB PO SCH (09:37)
[2021-07-25] MEDS: PANTOPRAZOLE 40 MG (PROTONIX) TAB PO SCH ×2 (09:37→21:13)
[2021-07-25] MEDS: FUROSEMIDE 40 MG (LASIX) TAB PO SCH (09:37)
[2021-07-25] MEDS: BACLOFEN 10 MG (LIORESAL) TAB PO SCH ×3 (09:37→21:13)
[2021-07-25] MEDS: DULoxetine 30 MG (CYMBALTA) CAP PO SCH (09:37)
[2021-07-25] MEDS: MONTELUKAST 10 MG (SINGULAIR) TAB PO SCH (09:37)
[2021-07-25] MEDS: amLODIPine 2.5MG (NORVASC) TAB PO SCH (09:37)
[2021-07-25] MEDS: DICLOFENAC 1% GEL 100 GM (VOLTAREN) TUBE TOP SCH ×4 (09:39→21:16)
[2021-07-25] MEDS: TRELEGY ELLIPTA INHALER IH SCH (09:39)
[2021-07-25] MEDS: RIVAROXABAN 20 MG TABLET (XARELTO) PO SCH (16:42)
[2021-07-25 20:02] VITALS: BP 131/63
[2021-07-25] MEDS: traZODone 50 MG (DESYREL) TAB PO SCH (21:13)
[2021-07-25] MEDS: CALCIUM CARBONATE 500 MG (TUMS) TAB.CHEW PO PRN (22:29)
[2021-07-26] MEDS: HYDROcodone/APAP 5 MG/325 MG (LORTAB) TAB PO PRN ×4 (05:10→20:24)
[2021-07-26] MEDS: KCL 10 MEQ TAB (MICRO K) PO SCH (06:38)
[2021-07-26] MEDS: LEVOTHYROXINE 75 MCG (LEVOTHROID) TABLET PO SCH (06:38)
--- NOTE | 2021-07-26 07:06 | PM&R Progress Note ---
Subjective HPI/CC On Admission Date Seen by Provider: Jul 26, 2021 Time Seen by Provider: 13:00 Subjective/Events-last exam 07/26/2021: Patient doing really well Pain is well controlled No other concerns reported Tolerating therapy well 07/25/2021: Patient doing very well Bowels are moving Pain pretty well controlled Dr. CARVER was updated on condition when he requested Checked meds and labs 07/24/2021: Pt doing pretty well overall Constipated and will give laxatives Pain is pretty well controlled at times Decadron was given Checked meds and labs Review of Systems General: Fatigue, Malaise Musculoskeletal: back pain Objective Exam Vital Signs Vital Signs Date Time Temp Pulse Resp B/P (MAP) Pulse Ox O2 Delivery O2 Flow Rate FiO2 07/26/21 21:14 Room Air 07/26/21 20:26 96 07/26/21 19:31 36.2 71 18 121/59 (79) Capillary Refill : General Appearance: No Apparent Distress, WD/WN, Anxious, Chronically ill HEENT: PERRL/EOMI, Normal ENT Inspection, Pharynx Normal Neck: Full Range of Motion, Normal Inspection, Non Tender, Supple, Carotid Bruit Respiratory: Chest Non Tender, Lungs Clear, Normal Breath Sounds, No Accessory Muscle Use, No Respiratory Distress Cardiovascular: Regular Rate, Rhythm, No Edema, No Gallop, No JVD, No Murmur, Normal Peripheral Pulses Gastrointestinal: Normal Bowel Sounds, No Organomegaly, No Pulsatile Mass, Non Tender, Soft Back: Normal Inspection, Decreased Range of Motion Extremity: Normal Capillary Refill, Normal Inspection, Normal Range of Motion, Non Tender, No Calf Tenderness, No Pedal Edema Neurologic/Psychiatric: Alert, Oriented x3, Normal Mood/Affect, slitter processed film II-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 FIM Transfers Therapy Code Descriptions/Definitions Functional [place] Measure: 0=Not Assessed/NA 4=Minimal Assistance 1=Total Assistance 5=Supervision or Setup 2=Maximal Assistance 6=Modified [place] 3=Moderate Assistance 7=Complete IndependenceSCALE: Activities may be completed with or without assistive devices. 1-Bojukcxorq-ucjpjxh completes the activity by him/herself with no assistance from a helper. 5-Set-up or Clean-up Assistance-helper sets up or cleans up; patient completes activity. [place] assists only prior to or following the activity. 4-Supervision or Touching Assistance-helper provides verbal cues and/or touching/steadying and/or contact guard assistance as patient completes activity. Assistance may be provided throughout the activity or intermittently. 3-Partial/Moderate Assistance-helper does LESS THAN HALF the effort. [place] lifts, holds or supports trunk or limbs, but provides less than half the effort. 2-Substantial/Maximal Assistance-helper does MORE THAN HALF the effort. [place] lifts or holds trunk or limbs and provides more than half the effort. 0-Rskyytish-gonsgh does ALL the effort. Patient does none of the effort to com plete the activity. Or, the assistance of 2 or more helpers is required for the patient to complete the activity. If activity was not attempted, code reason: 7-Patient Refused. 9-Not Applicable-not attempted and the patient did not perform the activity before the current illness, exacerbation or injury. 10-Not Attempted due to Environmental Limitations-(lack of equipment, weather restraints, etc.). 88-Not Attempted due to Medical Conditions or Safety Concerns. Roll Left to Right (QC): 4 Sit to Lying (QC): 4 Sit to Stand (QC): 5 Chair/Onm-vv-Dkljm Xfer(QC): 5 Car Transfer (QC): 4 Gait Training Does the Patient Walk?: Yes Distance: 250' Walk 10 feet (QC): 4 Walk 50 ft with 2 Turns(QC): 4 Walk 150 ft (QC): 4 Walking 10ft/uneven surface-QC: 4 Gait Persons Needed: 1 Gait Assistive Device: FWW Wheelchair Training Wheel 50 ft with 2 turns (QC): 9 Wheel 150 ft (QC): 9 Stair Training #of Steps: 1 1 Step (curb) (QC): 4 4 Steps (QC): 88 12 Steps (QC): 88 Balance Picking up an Object (QC): 4 (using math and sciences department chair) ADL-Treatment Eating (QC): 5 Oral Hygiene (QC): 4 Shower/Bathe Self (QC): 3 Upper Body Dressing (QC): 4 Lower Body Dressing (QC): 3 On/Off Footwear (QC): 3 Toileting Hygiene (QC): 4 Toilet Transfer (QC): 4 Assessment/Plan Assessment and Plan Assess & Plan/Chief Complaint Assessment: Status post kyphoplasty due to severe incapacitating back pain due to subacute fracture of thoracic spine and lumbar spine L4 compression fractures pathol ogical osteoporotic fractures Osteoporosis on Fosamax Severe muscle spasms requiring Decadron baclofen and Valium Hypercoagulable state 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 Araujo Constipation Elevated PTH in the setting of severe osteoporosis with family history of hyperparathyroidism in daughter Confusion related to steroids and muscle relaxants and pain meds Benites cath DC'd Plan: Pain control Bowel regimen Aggressive PT and OT Supportive care 07/24/2021: Pain control Bowel regimen Supportive care 07/25/2021: Pain control Last dose of Decadron today 07/26/2021: Supportive care Decadron completed (1) Closed lumbar vertebral fracture Status: Acute (2) Elevated parathyroid hormone (3) Radicular pain of thoracic region Status: Acute (4) Thoracic vertebral fracture Status: Acute (5) Hypercoagulable state (6) Osteoporosis (7) Lumbago with sciatica, left side Status: Acute DANIA COOK DO Jul 26, 2021 07:06
[2021-07-26] MEDS: TRELEGY ELLIPTA INHALER IH SCH (07:57)
[2021-07-26 08:33] VITALS: BP 139/67
[2021-07-26] MEDS: DOCUSATE SODIUM 100 MG (COLACE) CAP PO SCH ×2 (09:05→20:25)
[2021-07-26] MEDS: FUROSEMIDE 40 MG (LASIX) TAB PO SCH (09:05)
[2021-07-26] MEDS: meTOproloL SUCCINATE 50 MG (TOPROL XL) TAB PO SCH (09:05)
[2021-07-26] MEDS: SENNOSIDES 8.6 MG (SENOKOT) TAB PO SCH ×2 (09:05→20:26)
[2021-07-26] MEDS: MONTELUKAST 10 MG (SINGULAIR) TAB PO SCH (09:05)
[2021-07-26] MEDS: PRAMIPEXOLE 0.125 MG (MIRAPEX) TABLET PO SCH ×2 (09:05→20:13)
[2021-07-26] MEDS: ESTROGENS CONJ 0.625 MG (PREMARIN) TAB PO SCH (09:05)
[2021-07-26] MEDS: BACLOFEN 10 MG (LIORESAL) TAB PO SCH ×3 (09:05→20:13)
[2021-07-26] MEDS: amLODIPine 2.5MG (NORVASC) TAB PO SCH (09:05)
[2021-07-26] MEDS: PANTOPRAZOLE 40 MG (PROTONIX) TAB PO SCH ×2 (09:05→20:14)
[2021-07-26] MEDS: DICLOFENAC 1% GEL 100 GM (VOLTAREN) TUBE TOP SCH ×4 (09:07→20:16)
[2021-07-26] MEDS: DULoxetine 30 MG (CYMBALTA) CAP PO SCH (09:14)
[2021-07-26] MEDS: polyethylene glycoL POWDER 17 GM (MIRALAX) PACK PO SCH ×2 (09:14→20:26)
[2021-07-26] MEDS: CALCIUM CARBONATE 500 MG (TUMS) TAB.CHEW PO PRN (15:25)
[2021-07-26] MEDS: RIVAROXABAN 20 MG TABLET (XARELTO) PO SCH (18:01)
[2021-07-26 19:31] VITALS: BP 121/59
[2021-07-26] MEDS: traZODone 50 MG (DESYREL) TAB PO SCH (20:13)
[2021-07-27] MEDS: HYDROcodone/APAP 5 MG/325 MG (LORTAB) TAB PO PRN ×2 (03:02→13:44)
--- NOTE | 2021-07-27 05:40 | PM&R Progress Note ---
Subjective HPI/CC On Admission Date Seen by Provider: Jul 27, 2021 Time Seen by Provider: 09:00 Subjective/Events-last exam 07/27/2021: Pt is doing well had some emesis this morning Zofran really helped DC the IV it has gone bad Dizziness and discussed the pain medication factor involved 07/26/2021: Patient doing really well Pain is well controlled No other concerns reported Tolerating therapy well 07/25/2021: Patient doing very well Bowels are moving Pain pretty well controlled Dr. CARVER was updated on condition when he requested Checked meds and labs 07/24/2021: Pt doing pretty well overall Constipated and will give laxatives Pain is pretty well controlled at times Decadron was given Checked meds and labs Review of Systems General: Fatigue, Malaise Musculoskeletal: back pain Objective Exam Vital Signs Vital Signs Date Time Temp Pulse Resp B/P (MAP) Pulse Ox O2 Delivery O2 Flow Rate FiO2 07/27/21 20:20 Room Air 07/27/21 19:52 36.4 85 20 121/78 (92) 97 Capillary Refill : General Appearance: No Apparent Distress, WD/WN, Anxious, Chronically ill HEENT: PERRL/EOMI, Normal ENT Inspection, Pharynx Normal Neck: Full Range of Motion, Normal Inspection, Non Tender, Supple, Carotid Bruit Respiratory: Chest Non Tender, Lungs Clear, Normal Breath Sounds, No Accessory Muscle Use, No Respiratory Distress Cardiovascular: Regular Rate, Rhythm, No Edema, No Gallop, No JVD, No Murmur, Normal Peripheral Pulses Gastrointestinal: Normal Bowel Sounds, No Organomegaly, No Pulsatile Mass, Non Tender, Soft Back: Normal Inspection, Decreased Range of Motion Extremity: Normal Capillary Refill, Normal Inspection, Normal Range of Motion, Non Tender, No Calf Tenderness, No Pedal Edema Neurologic/Psychiatric: Alert, Oriented x3, Normal Mood/Affect, manager discovery II-XII Norm as Tested, Abnormal Gait, Motor Weakness Skin: Normal Color, Warm/Dry Lymphatic: No Adenopathy Results/Procedures Lab Laboratory Tests 07/27/21 07:16 Patient resulted labs reviewed. FIM Transfers Therapy Code Descriptions/Definitions Functional [place] Measure: 0=Not Assessed/NA 4=Minimal Assistance 1=Total Assistance 5=Supervision or Setup 2=Maximal Assistance 6=Modified [place] 3=Moderate Assistance 7=Complete IndependenceSCALE: Activities may be completed with or without assistive devices. 9-Cioxptgkmp-ifjrjli completes the activity by him/herself with no assistance from a helper. 5-Set-up or Clean-up Assistance-helper sets up or cleans up; patient completes activity. [place] assists only prior to or following the activity. 4-Supervision or Touching Assistance-helper provides verbal cues and/or touching/steadying and/or contact guard assistance as patient completes activity. Assistance may be provided throughout the activity or intermittently. 3-Partial/Moderate Assistance-helper does LESS THAN HALF the effort. [place] lifts, holds or supports trunk or limbs, but provides less than half the effort. 2-Substantial/Maximal Assistance-helper does MORE THAN HALF the effort. [place] lifts or holds trunk or limbs and provides more than half the effort. 5-Fxednfaxg-obucos does ALL the effort. Patient does none of the effort to complete the activity. Or, the assistance of 2 or more helpers is required for the patient to complete the activity. If activity was not attempted, code reason: 7-Patient Refused. 9-Not Applicable-not attempted and the patient did not perform the activity before the current illness, exacerbation or injury. 10-Not Attempted due to Environmental Limitations-(lack of equipment, weather restraints, etc.). 88-Not Attempted due to Medical Conditions or Safety Concerns. Roll Left to Right (QC): 4 Sit to Lying (QC): 4 Sit to Stand (QC): 5 Chair/Lkw-ac-Qiwmp Xfer(QC): 5 Car Transfer (QC): 4 Gait Training Does the Patient Walk?: Yes Distance: 250' Walk 10 feet (QC): 4 Walk 50 ft with 2 Turns(QC): 4 Walk 150 ft (QC): 4 Walking 10ft/uneven surface-QC: 4 Gait Persons Needed: 1 Gait Assistive Device: FWW Wheelchair Training Wheel 50 ft with 2 turns (QC): 9 Wheel 150 ft (QC): 9 Stair Training #of Steps: 1 1 Step (curb) (QC): 4 4 Steps (QC): 88 12 Steps (QC): 88 Balance Picking up an Object (QC): 4 (using wireline supervisor) ADL-Treatment Eating (QC): 5 Oral Hygiene (QC): 4 Shower/Bathe Self (QC): 3 Upper Body Dressing (QC): 4 Lower Body Dressing (QC): 3 On/Off Footwear (QC): 3 Toileting Hygiene (QC): 4 Toilet Transfer (QC): 4 Assessment/Plan Assessment and Plan Assess & Plan/Chief Complaint Assessment: Status post kyphoplasty due to severe incapacitating back pain due to subacute fracture of thoracic spine and lumbar spine L4 compression fractures pathological osteoporotic fractures Osteoporosis on Fosamax Severe muscle spasms requiring Decadron baclofen and Valium Hypercoagulable state 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 Araujo Constipation Elevated PTH in the setting of severe osteoporosis with family history of hyperparathyroidism in daughter Confusion related to steroids and muscle relaxants and pain meds Benites cath DC'd Plan: Pain control Bowel regimen Aggressive PT and OT Supportive care 07/24/2021: Pain control Bowel regimen Supportive care 07/25/2021: Pain control Last dose of Decadron today 07/26/2021: Supportive care Decadron completed 07/27/2021: Supportive care Monitor emesis (1) Closed lumbar vertebral fracture Status: Acute (2) Elevated parathyroid hormone (3) Radicular pain of thoracic region Status: Acute (4) Thoracic vertebral fracture Status: Acute (5) Hypercoagulable state (6) Osteoporosis (7) Lumbago with sciatica, left side Status: Acute DANIA COOK DO Jul 27, 2021 05:40
[2021-07-27] MEDS: KCL 10 MEQ TAB (MICRO K) PO SCH (06:06)
[2021-07-27] MEDS: LEVOTHYROXINE 75 MCG (LEVOTHROID) TABLET PO SCH (06:06)
[2021-07-27] MEDS: ONDANSETRON 4 MG (ZOFRAN) ORAL DISSOLVE TAB PO PRN ×3 (07:05→18:20)
[2021-07-27 07:27] LABS: BASOPHILS % (AUTO) 0 % (0-10); EOSINOPHILS # (AUTO) 0.2 10^3/uL (0.0-0.3); EOSINOPHILS % (AUTO) 2 % (0-10); HEMATOCRIT 42 % (35-52); HEMOGLOBIN 13.1 g/dL (11.5-16.0); LYMPHOCYTES # (AUTO) 2.1 10^3/uL (1.0-4.0); LYMPHOCYTES % (AUTO) 24 % (12-44); MEAN CORPUSCULAR HEMOGLOBIN 26 pg (25-34); MEAN CORPUSCULAR HGB CONC 31 g/dL (32-36); MEAN CORPUSCULAR VOLUME 83 fL (80-99); MEAN PLATELET VOLUME 9.5 fL (9.0-12.2); MONOCYTES # (AUTO) 0.8 10^3/uL (0.0-1.0); MONOCYTES % (AUTO) 9 % (0-12); NEUTROPHILS # (AUTO) 5.5 10^3/uL (1.8-7.8); NEUTROPHILS % (AUTO) 64 % (42-75); PLATELET COUNT 387 10^3/uL (130-400); WHITE BLOOD COUNT 8.6 10^3/uL (4.3-11.0)
[2021-07-27 07:44] VITALS: BP 149/77
[2021-07-27 07:52] LABS: ALBUMIN 3.8 GM/DL (3.2-4.5); BILIRUBIN,TOTAL 0.3 MG/DL (0.1-1.0); CALCIUM 8.9 MG/DL (8.5-10.1); CREATININE SERUM 0.71 MG/DL (0.60-1.30); POTASSIUM 3.4 MMOL/L (3.6-5.0); TOTAL PROTEIN 6.6 GM/DL (6.4-8.2)
--- NOTE | 2021-07-27 08:22 | Occupational Ther Daily Note ---
OT Current Status-Daily Note Subjective Pt reports that she recently threw up her breakfast but currently does not have any c/o nausea. RN aware. Appearance Pt left sitting in recliner, all needs within reach. Mental Status/Objective Patient Orientation: Person, Place, Situation Attachments: IV ADL-Treatment Therapy Code Descriptions/Definitions Functional [place] Measure: 0=Not Assessed/NA 4=Minimal Assistance 1=Total Assistance 5=Supervision or Setup 2=Maximal Assistance 6=Modified [place] 3=Moderate Assistance 7=Complete IndependenceSCALE: Activities may be completed with or without assistive devices. 7-Kdwyovjxor-jkhtefj completes the activity by him/herself with no assistance from a helper. 5-Set-up or Clean-up Assistance-helper sets up or cleans up; patient completes activity. [place] assists only prior to or following the activity. 4-Supervision or Touching Assistance-helper provides verbal cues and/or touching/steadying and/or contact guard assistance as patient completes activity. Assistance may be provided throughout the activity or intermittently. 3-Partial/Moderate Assistance-helper does LESS THAN HALF the effort. [place] lifts, holds or supports trunk or limbs, but provides less than half the effort. 2-Substantial/Maximal Assistance-helper does MORE THAN HALF the effort. [place] lifts or holds trunk or limbs and provides more than half the effort. 7-Sqwbpuhxy-azbnog does ALL the effort. Patient does none of the effort to complete the activity. Or, the assistance of 2 or more helpers is required for the patient to complete the activity. If activity was not attempted, code reason: 7-Patient Refused. 9-Not Applicable-not attempted and the patient did not perform the activity before the current illness, exacerbation or injury. 10-Not Attempted due to Environmental Limitations-(lack of equipment, weather restraints, etc.). 88-Not Attempted due to Medical Conditions or Safety Concerns. Oral Hygiene (QC): 5 Shower/Bathe Self (QC): 4 Upper Body Dressing (QC): 5 Lower Body Dressing (QC): 4 On/Off Footwear: 4 Toileting Hygiene (QC): 4 Toilet Transfer (QC): 4 Shower performed; majority completed in sitting. Pt stood only to wash nimisha area and buttocks, supervision for safety only. Reminder to utilize LHS to reduce bending at waist. Post cue, no assist required. Clothing donned seated on chair. Again, reminder to use AE (operating room manager) to eliminate bending after c/o pain. No physical assistance or cues on correct use required. Mod-max verbal cues on correct sequencing of sock aid. Pt will need continued practice. She sat to brush teeth, apply make up, dry and style hair, set up only. All transfers and ambulation performed with SBA and use of operating room manager. Education OT Patient Education: Correct positioning, Energy conservation, Modified ADL techniques, Progress toward Goal/Update tx plan, Purpose of tx/functional activities, Reviewed precautions, Safety issues, Use of adapted equipment Teaching Recipient: Patient Teaching Methods: Demonstration, Discussion Response to Teaching: Verbalize Understanding, Return Demonstration, Reinforcement Needed OT Short Term Goals Short Term Goals Time Frame: Jul 30, 2021 Eatin Oral hygiene: 5 Toileting hygiene: 4 Shower/bathe self: 4 Upper body dressin Lower body dressin Putting on/taking off footwear: 4 OT Shipping Inspector Goals Shipping Inspector Goals Time Frame: Aug 08, 2021 Eating (QC): 6 Oral Hygiene (QC): 6 Toileting Hygiene (QC): 5 Shower/Bathe Self (QC): 5 Upper Body Dressing (QC): 6 Lower Body Dressing (QC): 6 On/Off Footwear (QC): 5 1=Demonstrate adherence to instructed precautions during ADL tasks. 2=Patient will verbalize/demonstrate understanding of assistive devices/modifications for ADL. 3=Patient will improve strength/tolerance for activity to enable patient to perform ADL's. OT Education/Plan Problem List/Assessment Assessment: Decreased Activ Tolerance, Decreased UE Strength, Impaired Cognition, Impaired I ADL's, Impaired Self-Care Skills Discharge Recommendations Plan/Recommendations: Continue POC Therapy Discharge Recommendati: Homemaker Support, Home & Family Target Placement home health Treatment Plan/Plan of Care Treatment,Training & Education: Yes Patient would benefit from OT for education, treatment and training to promote independence in ADL's, mobility, safety and/or upper extremity function for ADL's. Plan of Care: ADL Retraining, Functional Mobility, Group Exercise/Act as Ind, UE Funct Exercise/Act Treatment Duration: Aug 08, 2021 Frequency: At least 5 of 7 days/Wk (IRF) Estimated Hrs Per Day: 1.5 hours per day Agreement: Yes Rehab Potential: Fair Time/GCodes Start Time: 07:27 Stop Time: 08:30 Total Time Billed (hr/min): 63 Billed Treatment Time 1 visit ADL x4 Jenna Jessica OT Jul 27, 2021 08:21
[2021-07-27] MEDS: TRELEGY ELLIPTA INHALER IH SCH (08:52)
[2021-07-27] MEDS: DICLOFENAC 1% GEL 100 GM (VOLTAREN) TUBE TOP SCH ×4 (08:57→20:12)
[2021-07-27] MEDS: ESTROGENS CONJ 0.625 MG (PREMARIN) TAB PO SCH (08:57)
[2021-07-27] MEDS: MONTELUKAST 10 MG (SINGULAIR) TAB PO SCH (08:57)
[2021-07-27] MEDS: FUROSEMIDE 40 MG (LASIX) TAB PO SCH (08:57)
[2021-07-27] MEDS: PANTOPRAZOLE 40 MG (PROTONIX) TAB PO SCH ×2 (08:58→20:11)
[2021-07-27] MEDS: PRAMIPEXOLE 0.125 MG (MIRAPEX) TABLET PO SCH ×2 (08:58→20:11)
[2021-07-27] MEDS: amLODIPine 2.5MG (NORVASC) TAB PO SCH (08:58)
[2021-07-27] MEDS: meTOproloL SUCCINATE 50 MG (TOPROL XL) TAB PO SCH (08:58)
[2021-07-27] MEDS: DULoxetine 30 MG (CYMBALTA) CAP PO SCH (08:58)
[2021-07-27] MEDS: BACLOFEN 10 MG (LIORESAL) TAB PO SCH ×3 (08:58→20:11)
[2021-07-27] MEDS: polyethylene glycoL POWDER 17 GM (MIRALAX) PACK PO SCH ×2 (09:01→19:18)
[2021-07-27] MEDS: SENNOSIDES 8.6 MG (SENOKOT) TAB PO SCH ×2 (09:01→20:18)
[2021-07-27] MEDS: DOCUSATE SODIUM 100 MG (COLACE) CAP PO SCH ×2 (09:01→20:18)
--- NOTE | 2021-07-27 10:34 | Physical Therapy Daily Note ---
PT Daily Note-Current Subjective Pt. agrees to Rx. Says she feels better and is planning her life and move after DC. Pt. states she will move to into her daughters home after she downsizes her own. Pain Location: No Pain Reported Mental Status Patient Orientation: Normal For Age Transfers SCALE: Activities may be completed with or without assistive devices. 9-Yboqemxpzr-ktcfkhl completes the activity by him/herself with no assistance from a helper. 5-Set-up or Clean-up Assistance-helper sets up or cleans up; patient completes activity. [place] assists only prior to or following the activity. 4-Supervision or Touching Assistance-helper provides verbal cues and/or touching/steadying and/or contact guard assistance as patient completes activity. Assistance may be provided throughout the activity or intermittently. 3-Partial/Moderate Assistance-helper does LESS THAN HALF the effort. [place] lifts, holds or supports trunk or limbs, but provides less than half the effort. 2-Substantial/Maximal Assistance-helper does MORE THAN HALF the effort. [place] lifts or holds trunk or limbs and provides more than half the effort. 2-Ijsvdnqdd-uzntvc does ALL the effort. Patient does none of the effort to complete the activity. Or, the assistance of 2 or more helpers is required for the patient to complete the activity. If activity was not attempted, code reason: 7-Patient Refused. 9-Not Applicable-not attempted and the patient did not perform the activity before the current illness, exacerbation or injury. 10-Not Attempted due to Environmental Limitations-(lack of equipment, weather restraints, etc.). 88-Not Attempted due to Medical Conditions or Safety Concerns. Sit to Stand (QC): 6 Chair/Cmq-sg-Xoxfp Xfer(QC): 6 Toilet Transfer (QC): 6 Gait Training Does the Patient Walk?: Yes Walk 10 feet (QC): 6 Walk 50 ft with 2 Turns(QC): 5 Walk 150 ft (QC): 5 Gait Persons Needed: 1 Gait Assistive Device: FWW heavy to mod wt bearing on FWW, small step length, head down and flexed trunk. Exercises Supine Ex: Ankle pumps, Quad Set, Glut sets Supine Reps: 15 Seated Therapy Exercises: Ankle pumps, Sit to stand, Long arc quads Seated Reps: 15 Standing: Hip Abduction, Heel/toe raises, Marching, Side steps Standing Reps: 15 pt. unable to do heel raises in standing, sat for this and discussed this weakness, pt. 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 . NuStep Minutes: 12 NuStep Workload: 3 Treatments TRFs, therx, gait , toileting Assessment Current Status: Good Progress PT Short Term Goals Short Term Goals Time Frame: Jul 30, 2021 Roll Left & Right: 3 Sit to lyin Lying to sitting on side of be: 3 Sit to stand: 4 Chair/kag-ex-rovxa transfer: 4 Walk 10 feet: 4 Walk 50 feet with two turns: 4 Walk 150 feet: 4 PT Curb Builder Goals Curb Builder Goals PT Curb Builder Goals Time Frame: Aug 13, 2021 Roll Left & Right (QC): 4 Sit to Lying (QC): 4 Lying-Sitting on Side/Bed(QC): 4 Sit to Stand (QC): 5 Chair/Cfq-yj-Yjsmo Xfer(QC): 5 Toilet Transfer (QC): 5 Car Transfer (QC): 5 Does the Patient Walk: Yes Walk 10 feet (QC): 5 Walk 50ft with 2 Turns (QC): 5 Walk 150 ft (QC): 5 Walking 10ft on Uneven Surface: 4 1 Step (curb) (QC): 4 4 Steps (QC): 4 12 Steps (QC): 88 Picking up an Object (QC): 5 Wheel 50 feet with 2 turns (QC: 9 Wheel 150 feet: 9 PT Plan Treatment/Plan Treatment Plan: Continue Plan of Care Treatment Plan: Bed Mobility, Education, Functional Activity Sameera, Functional Strength, Group Therapy, Gait, Safety, Therapeutic Exercise, Transfers Treatment Duration: Aug 13, 2021 Frequency: At least 5 of 7 days/Wk (IRF) Estimated Hrs Per Day: 1.5 hours per day Patient and/or Family Agrees t: Yes Safety Risks/Education Patient Education: Gait Training, Transfer Techniques, Correct Positioning, Safety Issues Teaching Recipient: Patient Teaching Methods: Demonstration, Discussion Response to Teaching: Verbalize Understanding, Return Demonstration, Reinforcement Needed Time/GCodes Time In: 930 Time Out: 1030 Total Billed Treatment Time: 60 Total Billed Treatment 1,EX35m,GT15m,FA10m GENO JIANG SPINNER FRAME Jul 27, 2021 10:34
--- NOTE | 2021-07-27 11:20 | Occupational Ther Daily Note ---
OT Current Status-Daily Note Subjective Reports mild discomfort in L hip. Agreeable to treatment. Appearance Left sitting in recliner, all needs within reach. ADL-Treatment Therapy Code Descriptions/Definitions Functional [place] Measure: 0=Not Assessed/NA 4=Minimal Assistance 1=Total Assistance 5=Supervision or Setup 2=Maximal Assistance 6=Modified [place] 3=Moderate Assistance 7=Complete IndependenceSCALE: Activities may be completed with or without assistive devices. 9-Unqmamrqcw-ljitzto completes the activity by him/herself with no assistance from a helper. 5-Set-up or Clean-up Assistance-helper sets up or cleans up; patient completes activity. [place] assists only prior to or following the activity. 4-Supervision or Touching Assistance-helper provides verbal cues and/or touching/steadying and/or contact guard assistance as patient completes activity. Assistance may be provided throughout the activity or intermittently. 3-Partial/Moderate Assistance-helper does LESS THAN HALF the effort. [place] lifts, holds or supports trunk or limbs, but provides less than half the effort. 2-Substantial/Maximal Assistance-helper does MORE THAN HALF the effort. [place] lifts or holds trunk or limbs and provides more than half the effort. 2-Sraeuxeaw-skhxii does ALL the effort. Patient does none of the effort to complete the activity. Or, the assistance of 2 or more helpers is required for the patient to complete the activity. If activity was not attempted, code reason: 7-Patient Refused. 9-Not Applicable-not attempted and the patient did not perform the activity before the current illness, exacerbation or injury. 10-Not Attempted due to Environmental Limitations-(lack of equipment, weather restraints, etc.). 88-Not Attempted due to Medical Conditions or Safety Concerns. Other Treatment Lengthy discussion on home set up and daughters home set up in case pt discharges to [facility]. Pt reports she may need to practice tub transfers if [facility]. Will attempt next session. Pt participated in UE exercises. 1# weight utilized for all shoulder joints, 2# for biceps and wrists. Pt able to complete all movements to full range, yet requires cues to finish movement to end range. Cues also for slow controlled pace. 12 x1 in all planes Education OT Patient Education: Correct positioning, Exercise program Teaching Recipient: Patient Teaching Methods: Demonstration, Discussion Response to Teaching: Verbalize Understanding, Return Demonstration, Reinforcem ent Needed OT Short Term Goals Short Term Goals Time Frame: Jul 30, 2021 Eatin Oral hygiene: 5 Toileting hygiene: 4 Shower/bathe self: 4 Upper body dressin Lower body dressin Putting on/taking off footwear: 4 OT Mcc Goals Vest Busheler Goals Time Frame: Aug 08, 2021 Eating (QC): 6 Oral Hygiene (QC): 6 Toileting Hygiene (QC): 5 Shower/Bathe Self (QC): 5 Upper Body Dressing (QC): 6 Lower Body Dressing (QC): 6 On/Off Footwear (QC): 5 1=Demonstrate adherence to instructed precautions during ADL tasks. 2=Patient will verbalize/demonstrate understanding of assistive devices/modifications for ADL. 3=Patient will improve strength/tolerance for activity to enable patient to perform ADL's. OT Education/Plan Problem List/Assessment Assessment: Decreased Activ Tolerance, Decreased UE Strength Discharge Recommendations Plan/Recommendations: Continue POC Treatment Plan/Plan of Care Treatment,Training & Education: Yes Patient would benefit from OT for education, treatment and training to promote independence in ADL's, mobility, safety and/or upper extremity function for ADL's. Plan of Care: ADL Retraining, Functional Mobility, Group Exercise/Act as Ind, UE Funct Exercise/Act Treatment Duration: Aug 08, 2021 Frequency: At least 5 of 7 days/Wk (IRF) Estimated Hrs Per Day: 1.5 hours per day Agreement: Yes Rehab Potential: Fair Time/GCodes Start Time: 10:44 Stop Time: 11:14 Total Time Billed (hr/min): 30 Billed Treatment Time 1 visit EX Jenna Negrete OT Jul 27, 2021 11:20
--- NOTE | 2021-07-27 14:51 | Physical Therapy Daily Note ---
PT Daily Note-Current Subjective Pt. laying in bed with eyes closed initially declines Rx stating she has a very upset stomach and asks this ROOM WORKER to contact nurse to get her a sublingual anti nausea med. At second attempt pt. agrees to try exercises in her bed in supine but still doesnt feel well. Pt. feels her nausea is related to an issue with a hiatal hernia. During attempts at exercise with LLE pt. c/o cramping and inability to complete active exercise. pt. did complete isometric ex Pain Numeric Pain Scale: 5-Moderate Pain Location: Left Location Body Site: Hip (hamstring) Pain Description: Cramping Appearance pt. in bed with emesis basin at side, eyes closed and furrowed brow consistent with nausea appearance Mental Status Patient Orientation: Person, Place, Time, Situation, Normal For Age Transfers SCALE: Activities may be completed with or without assistive devices. 3-Rulrrwqcew-ffmxydr completes the activity by him/herself with no assistance from a helper. 5-Set-up or Clean-up Assistance-helper sets up or cleans up; patient completes activity. [place] assists only prior to or following the activity. 4-Supervision or Touching Assistance-helper provides verbal cues and/or touching/steadying and/or contact guard assistance as patient completes activity. Assistance may be provided throughout the activity or intermittently. 3-Partial/Moderate Assistance-helper does LESS THAN HALF the effort. [place] lifts, holds or supports trunk or limbs, but provides less than half the effort. 2-Substantial/Maximal Assistance-helper does MORE THAN HALF the effort. [place] lifts or holds trunk or limbs and provides more than half the effort. 1-Zinivvpun-nvcevz does ALL the effort. Patient does none of the effort to complete the activity. Or, the assistance of 2 or more helpers is required for the patient to complete the activity. If activity was not attempted, code reason: 7-Patient Refused. 9-Not Applicable-not attempted and the patient did not perform the activity before the current illness, exacerbation or injury. 10-Not Attempted due to Environmental Limitations-(lack of equipment, weather restraints, etc.). 88-Not Attempted due to Medical Conditions or Safety Concerns. rolling left and right indep Exercises Supine Ex: Ankle pumps, Quad Set, Rolling, Glut sets, Heel Slides (right only), Short Arc Quads (right only), Scooting, Hip abd/add (right only) Supine Reps: 20 Treatments Therex as above as well as alternating shoulder flexion x 12. Pt. was left positioned on right side wit pillow for support as requested, emesis basin at side. Assessment Current Status: Fair Progress nausea and hamstring cramping limit participation this PM Tx PT Short Term Goals Short Term Goals Time Frame: Jul 30, 2021 Roll Left & Right: 3 Sit to lyin Lying to sitting on side of be: 3 Sit to stand: 4 Chair/qhw-gr-hccqk transfer: 4 Walk 10 feet: 4 Walk 50 feet with two turns: 4 Walk 150 feet: 4 PT Equine Vet Goals Equine Vet Goals PT [facility] Goals Time Frame: Aug 13, 2021 Roll Left & Right (QC): 4 Sit to Lying (QC): 4 Lying-Sitting on Side/Bed(QC): 4 Sit to Stand (QC): 5 Chair/Hne-tz-Tmoas Xfer(QC): 5 Toilet Transfer (QC): 5 Car Transfer (QC): 5 Does the Patient Walk: Yes Walk 10 feet (QC): 5 Walk 50ft with 2 Turns (QC): 5 Walk 150 ft (QC): 5 Walking 10ft on Uneven Surface: 4 1 Step (curb) (QC): 4 4 Steps (QC): 4 12 Steps (QC): 88 Picking up an Object (QC): 5 Wheel 50 feet with 2 turns (QC: 9 Wheel 150 feet: 9 PT Plan Treatment/Plan Treatment Plan: Continue Plan of Care Treatment Plan: Bed Mobility, Education, Functional Activity Sameera, Functional Strength, Group Therapy, Gait, Safety, Therapeutic Exercise, Transfers Treatment Duration: Aug 13, 2021 Frequency: At least 5 of 7 days/Wk (IRF) Estimated Hrs Per Day: 1.5 hours per day Patient and/or Family Agrees t: Yes Safety Risks/Education Patient Education: Correct Positioning, Safety Issues Time/GCodes Time In: 1415 Time Out: 1445 Total Billed Treatment Time: 30 Total Billed Treatment 1,EX30m GENO JIANG ROOM WORKER Jul 27, 2021 14:51
[2021-07-27] MEDS: CALCIUM CARBONATE 500 MG (TUMS) TAB.CHEW PO PRN (15:46)
[2021-07-27] MEDS: RIVAROXABAN 20 MG TABLET (XARELTO) PO SCH (17:35)
[2021-07-27 19:52] VITALS: BP 121/78
[2021-07-27] MEDS: traZODone 50 MG (DESYREL) TAB PO SCH (20:11)
[2021-07-27] MEDS: ROSUVASTATIN 5 MG (CRESTOR) TABLET PO SCH (20:11)
[2021-07-28] MEDS: LEVOTHYROXINE 75 MCG (LEVOTHROID) TABLET PO SCH (06:36)
[2021-07-28] MEDS: KCL 10 MEQ TAB (MICRO K) PO SCH (06:36)
--- NOTE | 2021-07-28 06:50 | PM&R Progress Note ---
Subjective HPI/CC On Admission Date Seen by Provider: Jul 28, 2021 Time Seen by Provider: 09:00 Subjective/Events-last exam 07/28/2021: Pt doing really well Discharge planned for Tuesday Nausea is assessed to be from the Hydrocodone Tramadol will be tried 07/27/2021: Pt is doing well had some emesis this morning Zofran really helped DC the IV it has gone bad Dizziness and discussed the pain medication factor involved 07/26/2021: Patient doing really well Pain is well controlled No other concerns reported Tolerating therapy well 07/25/2021: Patient doing very well Bowels are moving Pain pretty well controlled Dr. CARVER was updated on condition when he requested Checked meds and labs 07/24/2021: Pt doing pretty well overall Constipated and will give laxatives Pain is pretty well controlled at times Decadron was given Checked meds and labs Review of Systems General: Fatigue, Malaise Musculoskeletal: back pain Objective Exam Vital Signs Vital Signs Date Time Temp Pulse Resp B/P (MAP) Pulse Ox O2 Delivery O2 Flow Rate FiO2 07/28/21 20:25 36.0 77 18 128/60 (82) 98 Room Air Capillary Refill : General Appearance: No Apparent Distress, WD/WN, Anxious, Chronically ill HEENT: PERRL/EOMI, Normal ENT Inspection, Pharynx Normal Neck: Full Range of Motion, Normal Inspection, Non Tender, Supple, Carotid Bruit Respiratory: Chest Non Tender, Lungs Clear, Normal Breath Sounds, No Accessory Muscle Use, No Respiratory Distress Cardiovascular: Regular Rate, Rhythm, No Edema, No Gallop, No JVD, No Murmur, Normal Peripheral Pulses Gastrointestinal: Normal Bowel Sounds, No Organomegaly, No Pulsatile Mass, Non Tender, Soft Back: Normal Inspection, Decreased Range of Motion Extremity: Normal Capillary Refill, Normal Inspection, Normal Range of Motion, Non Tender, No Calf Tenderness, No Pedal Edema Neurologic/Psychiatric: Alert, Oriented x3, Normal Mood/Affect, [place]man II-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 FIM Transfers Therapy Code Descriptions/Definitions Functional [place] Measure: 0=Not Assessed/NA 4=Minimal Assistance 1=Total Assistance 5=Supervision or Setup 2=Maximal Assistance 6=Modified [place] 3=Moderate Assistance 7=Complete IndependenceSCALE: Activities may be completed with or without assistive devices. 6-Obebbjjjkj-oqjglmo completes the activity by him/herself with no assistance from a helper. 5-Set-up or Clean-up Assistance-helper sets up or cleans up; patient completes activity. [place] assists only prior to or following the activity. 4-Supervision or Touching Assistance-helper provides verbal cues and/or touching/steadying and/or contact guard assistance as patient completes activity. Assistance may be provided throughout the activity or intermittently. 3-Partial/Moderate Assistance-helper does LESS THAN HALF the effort. [place] lifts, holds or supports trunk or limbs, but provides less than half the effort. 2-Substantial/Maximal Assistance-helper does MORE THAN HALF the effort. [place] lifts or holds trunk or limbs and provides more than half the effort. 0-Wayzrueuo-grwiuq does ALL the effort. Patient does none of the effort to complete the activity. Or, the assistance of 2 or more helpers is required for the patient to complete the activity. If activity was not attempted, code reason: 7-Patient Refused. 9-Not Applicable-not attempted and the patient did not perform the activity b efore the current illness, exacerbation or injury. 10-Not Attempted due to Environmental Limitations-(lack of equipment, weather restraints, etc.). 88-Not Attempted due to Medical Conditions or Safety Concerns. Roll Left to Right (QC): 4 Sit to Lying (QC): 4 Sit to Stand (QC): 6 Chair/Cum-co-Zneww Xfer(QC): 6 Car Transfer (QC): 4 Gait Training Does the Patient Walk?: Yes Distance: 250' Walk 10 feet (QC): 6 Walk 50 ft with 2 Turns(QC): 5 Walk 150 ft (QC): 5 Walking 10ft/uneven surface-QC: 4 Gait Persons Needed: 1 Gait Assistive Device: FWW Wheelchair Training Wheel 50 ft with 2 turns (QC): 9 Wheel 150 ft (QC): 9 Stair Training #of Steps: 1 1 Step (curb) (QC): 4 4 Steps (QC): 88 12 Steps (QC): 88 Balance Picking up an Object (QC): 4 (using flask fitter) ADL-Treatment Eating (QC): 5 Oral Hygiene (QC): 5 Shower/Bathe Self (QC): 4 Upper Body Dressing (QC): 5 Lower Body Dressing (QC): 4 On/Off Footwear (QC): 4 Toileting Hygiene (QC): 4 Toilet Transfer (QC): 4 Assessment/Plan Assessment and Plan Assess & Plan/Chief Complaint Assessment: Status post kyphoplasty due to severe incapacitating back pain due to subacute fracture of thoracic spine and lumbar spine L4 compression fractures pathologic al osteoporotic fractures Osteoporosis on Fosamax Severe muscle spasms requiring Decadron baclofen and Valium Hypercoagulable state 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 Araujo Constipation Elevated PTH in the setting of severe osteoporosis with family history of hyperparathyroidism in daughter Confusion related to steroids and muscle relaxants and pain meds Benites cath DC'd Plan: Pain control Bowel regimen Aggressive PT and OT Supportive care 07/24/2021: Pain control Bowel regimen Supportive care 07/25/2021: Pain control Last dose of Decadron today 07/26/2021: Supportive care Decadron completed 07/27/2021: Supportive care Monitor emesis 07/28/2021: Substitute hydrocodone with tramadol Monitor closely (1) Closed lumbar vertebral fracture Status: Acute (2) Elevated parathyroid hormone (3) Radicular pain of thoracic region Status: Acute (4) Thoracic vertebral fracture Status: Acute (5) Hypercoagulable state (6) Osteoporosis (7) Lumbago with sciatica, left side Status: Acute DANIA COOK DO Jul 28, 2021 06:50
[2021-07-28] MEDS: ESTROGENS CONJ 0.625 MG (PREMARIN) TAB PO SCH (07:42)
[2021-07-28] MEDS: DULoxetine 30 MG (CYMBALTA) CAP PO SCH (07:43)
[2021-07-28] MEDS: PANTOPRAZOLE 40 MG (PROTONIX) TAB PO SCH ×2 (07:43→19:54)
[2021-07-28] MEDS: BACLOFEN 10 MG (LIORESAL) TAB PO SCH ×3 (07:43→19:54)
[2021-07-28] MEDS: DOCUSATE SODIUM 100 MG (COLACE) CAP PO SCH ×2 (07:43→19:25)
[2021-07-28] MEDS: PRAMIPEXOLE 0.125 MG (MIRAPEX) TABLET PO SCH ×2 (07:43→19:53)
[2021-07-28] MEDS: MONTELUKAST 10 MG (SINGULAIR) TAB PO SCH (07:43)
[2021-07-28] MEDS: FUROSEMIDE 40 MG (LASIX) TAB PO SCH (07:43)
[2021-07-28] MEDS: HYDROcodone/APAP 5 MG/325 MG (LORTAB) TAB PO PRN (07:43)
[2021-07-28] MEDS: meTOproloL SUCCINATE 50 MG (TOPROL XL) TAB PO SCH (07:44)
[2021-07-28] MEDS: DICLOFENAC 1% GEL 100 GM (VOLTAREN) TUBE TOP SCH ×4 (07:44→19:54)
[2021-07-28] MEDS: amLODIPine 2.5MG (NORVASC) TAB PO SCH (07:44)
[2021-07-28] MEDS: TRELEGY ELLIPTA INHALER IH SCH (07:47)
[2021-07-28 07:56] VITALS: BP 160/72
--- NOTE | 2021-07-28 08:05 | Occupational Ther Daily Note ---
OT Current Status-Daily Note Subjective Pt reports pain as 7/10 in back. RN notified and pain meds were given. Appearance Returned to chair, all needs within reach. Mental Status/Objective Patient Orientation: Person, Place, Situation ADL-Treatment Therapy Code Descriptions/Definitions Functional [place] Measure: 0=Not Assessed/NA 4=Minimal Assistance 1=Total Assistance 5=Supervision or Setup 2=Maximal Assistance 6=Modified [place] 3=Moderate Assistance 7=Complete IndependenceSCALE: Activities may be completed with or without assistive devices. 9-Socrqhuson-qugojdu completes the activity by him/herself with no assistance from a helper. 5-Set-up or Clean-up Assistance-helper sets up or cleans up; patient completes activity. [place] assists only prior to or following the activity. 4-Supervision or Touching Assistance-helper provides verbal cues and/or touching/steadying and/or contact guard assistance as patient completes ac tivity. Assistance may be provided throughout the activity or intermittently. 3-Partial/Moderate Assistance-helper does LESS THAN HALF the effort. [place] lifts, holds or supports trunk or limbs, but provides less than half the effort. 2-Substantial/Maximal Assistance-helper does MORE THAN HALF the effort. [place] lifts or holds trunk or limbs and provides more than half the effort. 1-Nvjwlumvd-wthzqy does ALL the effort. Patient does none of the effort to complete the activity. Or, the assistance of 2 or more helpers is required for the patient to complete the activity. If activity was not attempted, code reason: 7-Patient Refused. 9-Not Applicable-not attempted and the patient did not perform the activity before the current illness, exacerbation or injury. 10-Not Attempted due to Environmental Limitations-(lack of equipment, weather restraints, etc.). 88-Not Attempted due to Medical Conditions or Safety Concerns. Eating (QC): 6 Oral Hygiene (QC): 5 Upper Body Dressing (QC): 5 Lower Body Dressing (QC): 4 On/Off Footwear: 4 Toileting Hygiene (QC): 4 Toilet Transfer (QC): 6 Clothing donned seated on chair. Min cues for correct epic professional use when threading feet into new brief. No cues when threading pants. Supervision when standing for clothing management, no unsteadiness observed. Pt continues to require mod verbal cues on correct sequencing of sock aid. Pt will need continued practice. She sat to brush teeth, apply make up, and style hair, set up only. All transfers and ambulation performed with Supervision and use of walker. Education OT Patient Education: Correct positioning, Energy conservation, Modified ADL techniques, Progress toward Goal/Update tx plan, Purpose of tx/functional activities, Reviewed precautions, Safety issues, Use of adapted equipment Teaching Recipient: Patient Teaching Methods: Discussion Response to Teaching: Verbalize Understanding, Return Demonstration, Reinforcement Needed OT Short Term Goals Short Term Goals Time Frame: Jul 30, 2021 Eatin Oral hygiene: 5 Toileting hygiene: 4 Shower/bathe self: 4 Upper body dressin Lower body dressin Putting on/taking off footwear: 4 OT Oversize Load Pilot Escort Goals Oversize Load Pilot Escort Goals Time Frame: Aug 08, 2021 Eating (QC): 6 Oral Hygiene (QC): 6 Toileting Hygiene (QC): 5 Shower/Bathe Self (QC): 5 Upper Body Dressing (QC): 6 Lower Body Dressing (QC): 6 On/Off Footwear (QC): 5 1=Demonstrate adherence to instructed precautions during ADL tasks. 2=Patient will verbalize/demonstrate understanding of assistive devices/modifications for ADL. 3=Patient will improve strength/tolerance for activity to enable patient to perform ADL's. OT Education/Plan Problem List/Assessment Assessment: Decreased Activ Tolerance, Decreased UE Strength, Impaired Cognition, Impaired I ADL's, Impaired Self-Care Skills Discharge Recommendations Plan/Recommendations: Continue POC Therapy Discharge Recommendati: Homemaker Support, Home & Family Equpiment Recommendations-D/C: Ton Cylinder Inspector, Sock Aide, [place] Treatment Plan/Plan of Care Treatment,Training & Education: Yes Patient would benefit from OT for education, treatment and training to promote independence in ADL's, mobility, safety and/or upper extremity function for ADL's. Plan of Care: ADL Retraining, Functional Mobility, Group Exercise/Act as Ind, UE Funct Exercise/Act Treatment Duration: Aug 08, 2021 Frequency: At least 5 of 7 days/Wk (IRF) Estimated Hrs Per Day: 1.5 hours per day Agreement: Yes Rehab Potential: Good Time/GCodes Start Time: 07:28 Stop Time: 08:15 Total Time Billed (hr/min): 47 Billed Treatment Time 1 visit ADL x3 Jenna Jessica OT Jul 28, 2021 08:05
[2021-07-28] MEDS: polyethylene glycoL POWDER 17 GM (MIRALAX) PACK PO SCH ×2 (09:10→19:26)
[2021-07-28] MEDS: SENNOSIDES 8.6 MG (SENOKOT) TAB PO SCH ×2 (09:10→19:26)
--- NOTE | 2021-07-28 09:56 | Physical Therapy Daily Note ---
PT Daily Note-Current Subjective Pt. states she slept well for the first time in quite a while. Pt. c/o pain with spine position but this improved with support provided under knees and back. Pain Numeric Pain Scale: 4 Location: Medial Location Body Site: Back Pain Description: Ache Mental Status Patient Orientation: Normal For Age Transfers SCALE: Activities may be completed with or without assistive devices. 6-Cciwbtjogm-pzocjob completes the activity by him/herself with no assistance from a helper. 5-Set-up or Clean-up Assistance-helper sets up or cleans up; patient completes activity. [place] assists only prior to or following the activity. 4-Supervision or Touching Assistance-helper provides verbal cues and/or touching/steadying and/or contact guard assistance as patient completes activity. Assistance may be provided throughout the activity or intermittently. 3-Partial/Moderate Assistance-helper does LESS THAN HALF the effort. [place] lifts, holds or supports trunk or limbs, but provides less than half the effort. 2-Substantial/Maximal Assistance-helper does MORE THAN HALF the effort. [place] lifts or holds trunk or limbs and provides more than half the effort. 4-Ftxggbtxp-boawem does ALL the effort. Patient does none of the effort to complete the activity. Or, the assistance of 2 or more helpers is required for the patient to complete the activity. If activity was not attempted, code reason: 7-Patient Refused. 9-Not Applicable-not attempted and the patient did not perform the activity before the current illness, exacerbation or injury. 10-Not Attempted due to Environmental Limitations-(lack of equipment, weather restraints, etc.). 88-Not Attempted due to Medical Conditions or Safety Concerns. Roll Left & Right (QC): 5 Sit to Lying (QC): 5 Lying to Sitting/Side of Bed(Q: 5 Sit to Stand (QC): 6 Chair/Xmx-xm-Wjtyd Xfer(QC): 6 Toilet Transfer (QC): 6 Car Transfer (QC): 6 log roll technique reviewed Gait Training Does the Patient Walk?: Yes Walk 10 feet (QC): 5 Walk 50 ft with 2 Turns(QC): 5 Walk 150 ft (QC): 5 Gait Persons Needed: 1 Gait Assistive Device: FWW Stair Training Stair Training: Handrails/: 2 handrails #of Steps: 4 4 Steps (QC): 5 12 Steps (QC): 7 Stairs: Pattern: Step to needed instruction in use of hands bilat on rails as well as sequencing for step to Balance Picking up an Object (QC): 88 Exercises Supine Ex: Ankle pumps, Quad Set, Rolling, Glut sets, Lower trunk rotation, Short Arc Quads, Scooting, Hip abd/add Supine Reps: 20 Seated Therapy Exercises: Ankle pumps, Sit to stand, Long arc quads Seated Reps: 12 Assessment Current Status: Good Progress PT Short Term Goals Short Term Goals Time Frame: Jul 30, 2021 Roll Left & Right: 3 Sit to lyin Lying to sitting on side of be: 3 Sit to stand: 4 Chair/sqj-kb-nbzuf transfer: 4 Walk 10 feet: 4 Walk 50 feet with two turns: 4 Walk 150 feet: 4 PT Senior Living Goals Skin Lap [place] Goals PT Skin Lap [place] Goals Time Frame: Aug 13, 2021 Roll Left & Right (QC): 4 Sit to Lying (QC): 4 Lying-Sitting on Side/Bed(QC): 4 Sit to Stand (QC): 5 Chair/Vtc-gl-Swxwn Xfer(QC): 5 Toilet Transfer (QC): 5 Car Transfer (QC): 5 Does the Patient Walk: Yes Walk 10 feet (QC): 5 Walk 50ft with 2 Turns (QC): 5 Walk 150 ft (QC): 5 Walking 10ft on Uneven Surface: 4 1 Step (curb) (QC): 4 4 Steps (QC): 4 12 Steps (QC): 88 Picking up an Object (QC): 5 Wheel 50 feet with 2 turns (QC: 9 Wheel 150 feet: 9 PT Plan Treatment/Plan Treatment Plan: Continue Plan of Care Treatment Plan: Bed Mobility, Education, Functional Activity Sameera, Functional Strength, Group Therapy, Gait, Safety, Therapeutic Exercise, Transfers Treatment Duration: Aug 13, 2021 Frequency: At least 5 of 7 days/Wk (IRF) Estimated Hrs Per Day: 1.5 hours per day Patient and/or Family Agrees t: Yes Safety Risks/Education Patient Education: Gait Training, Transfer Techniques, Steps, Reviewed Precautions, Correct Positioning, Disease Process, Safety Issues Teaching Recipient: Patient Teaching Methods: Demonstration, Discussion Response to Teaching: Verbalize Understanding, Return Demonstration, Reinforcement Needed Time/GCodes Time In: 900 Time Out: 1000 Total Billed Treatment Time: 60 Total Billed Treatment 1,GT15m,EX20m,FA25m GENO JIANG ESTATE TAX EXAMINER Jul 28, 2021 09:56
--- NOTE | 2021-07-28 11:13 | Occupational Ther Daily Note ---
OT Current Status-Daily Note Subjective Denies pain, agreeable to treatment Appearance returned to sitting in recliner, all needs within reach. ADL-Treatment Therapy Code Descriptions/Definitions Functional [place] Measure: 0=Not Assessed/NA 4=Minimal Assistance 1=Total Assistance 5=Supervision or Setup 2=Maximal Assistance 6=Modified [place] 3=Moderate Assistance 7=Complete IndependenceSCALE: Activities may be completed with or without assistive devices. 4-Vnuigoeigl-shousny completes the activity by him/herself with no assistance from a helper. 5-Set-up or Clean-up Assistance-helper sets up or cleans up; patient completes activity. [place] assists only prior to or following the activity. 4-Supervision or Touching Assistance-helper provides verbal cues and/or touching/steadying and/or contact guard assistance as patient completes activity. Assistance may be provided throughout the activity or intermittently. 3-Partial/Moderate Assistance-helper does LESS THAN HALF the effort. [place] lifts, holds or supports trunk or limbs, but provides less than half the effort. 2-Substantial/Maximal Assistance-helper does MORE THAN HALF the effort. [place] lifts or holds trunk or limbs and provides more than half the effort. 0-Dfjdhiung-rcuvhf does ALL the effort. Patient does none of the effort to complete the activity. Or, the assistance of 2 or more helpers is required for the patient to complete the activity. If activity was not attempted, code reason: 7-Patient Refused. 9-Not Applicable-not attempted and the patient did not perform the activity before the current illness, exacerbation or injury. 10-Not Attempted due to Environmental Limitations-(lack of equipment, weather restraints, etc.). 88-Not Attempted due to Medical Conditions or Safety Concerns. Other Treatment Pt completed tub transfers x4 with tub bench and shower chair. Post demonstration, pt able to complete initially with SBA-cga. Improves to independent. Good tolerance with task. Discussion on kitchen activities and iadl task (feeding cat) with adherence to spinal precautions. OT discussed modificat ions and adaptations that could be made yet pt reports that her daughter will perform activity until back precautions are removed. Education OT Patient Education: Correct positioning, Modified ADL techniques, Reviewed precautions, Transfer techniques Teaching Recipient: Patient Teaching Methods: Demonstration, Discussion Response to Teaching: Verbalize Understanding, Return Demonstration OT Short Term Goals Short Term Goals Time Frame: Jul 30, 2021 Eatin Oral hygiene: 5 Toileting hygiene: 4 Shower/bathe self: 4 Upper body dressin Lower body dressin Putting on/taking off footwear: 4 OT Trip Rider Goals Retirement Goals Time Frame: Aug 08, 2021 Eating (QC): 6 Oral Hygiene (QC): 6 Toileting Hygiene (QC): 5 Shower/Bathe Self (QC): 5 Upper Body Dressing (QC): 6 Lower Body Dressing (QC): 6 On/Off Footwear (QC): 5 1=Demonstrate adherence to instructed precautions during ADL tasks. 2=Patient will verbalize/demonstrate understanding of assistive devices/modifications for ADL. 3=Patient will improve strength/tolerance for activity to enable patient to perform ADL's. OT Education/Plan Problem List/Assessment Assessment: Decreased UE Strength, Impaired I ADL's, Impaired Self-Care Skills Discharge Recommendations Plan/Recommendations: Continue POC Treatment Plan/Plan of Care Treatment,Training & Education: Yes Patient would benefit from OT for education, treatment and training to promote independence in ADL's, mobility, safety and/or upper extremity function for ADL's. Plan of Care: ADL Retraining, Functional Mobility, Group Exercise/Act as Ind, UE Funct Exercise/Act Treatment Duration: Aug 08, 2021 Frequency: At least 5 of 7 days/Wk (IRF) Estimated Hrs Per Day: 1.5 hours per day Agreement: Yes Rehab Potential: Good Time/GCodes Start Time: 10:30 Stop Time: 11:13 Total Time Billed (hr/min): 43 Billed Treatment Time 1, FA x3 Jenna Jessica OT Jul 28, 2021 11:13
--- NOTE | 2021-07-28 12:00 | Physical Therapy Daily Note ---
PT Daily Note-Current Subjective Pt. agrees to Rx and states she feels she is making progress now. Pain Location: No Pain Reported Mental Status Patient Orientation: Normal For Age Transfers SCALE: Activities may be completed with or without assistive devices. 6-Mpkmetvwus-imccrku completes the activity by him/herself with no assistance from a helper. 5-Set-up or Clean-up Assistance-helper sets up or cleans up; patient completes activity. [place] assists only prior to or following the activity. 4-Supervision or Touching Assistance-helper provides verbal cues and/or touching/steadying and/or contact guard assistance as patient completes activity. Assistance may be provided throughout the activity or intermittently. 3-Partial/Moderate Assistance-helper does LESS THAN HALF the effort. [place] lifts, holds or supports trunk or limbs, but provides less than half the effort. 2-Substantial/Maximal Assistance-helper does MORE THAN HALF the effort. [place] lifts or holds trunk or limbs and provides more than half the effort. 3-Gqxtmvgca-sbfuop does ALL the effort. Patient does none of the effort to complete the activity. Or, the assistance of 2 or more helpers is required for the patient to complete the activity. If activity was not attempted, code reason: 7-Patient Refused. 9-Not Applicable-not attempted and the patient did not perform the activity before the current illness, exacerbation or injury. 10-Not Attempted due to Environmental Limitations-(lack of equipment, weather restraints, etc.). 88-Not Attempted due to Medical Conditions or Safety Concerns. all TRFs SBA, sit to stand Gait Training Does the Patient Walk?: Yes Gait Assistive Device: FWW [id number] FWW, no LOB, flexed trunk Exercises NuStep Minutes: 15 NuStep Workload: 3 Assessment Current Status: Good Progress PT Short Term Goals Short Term Goals Time Frame: Jul 30, 2021 Roll Left & Right: 3 Sit to lyin Lying to sitting on side of be: 3 Sit to stand: 4 Chair/rsv-bb-csisn transfer: 4 Walk 10 feet: 4 Walk 50 feet with two turns: 4 Walk 150 feet: 4 PT Breaker Mechanic Goals Fpc Goals PT Breaker Mechanic Goals Time Frame: Aug 13, 2021 Roll Left & Right (QC): 4 Sit to Lying (QC): 4 Lying-Sitting on Side/Bed(QC): 4 Sit to Stand (QC): 5 Chair/Aac-tr-Wycgb Xfer(QC): 5 Toilet Transfer (QC): 5 Car Transfer (QC): 5 Does the Patient Walk: Yes Walk 10 feet (QC): 5 Walk 50ft with 2 Turns (QC): 5 Walk 150 ft (QC): 5 Walking 10ft on Uneven Surface: 4 1 Step (curb) (QC): 4 4 Steps (QC): 4 12 Steps (QC): 88 Picking up an Object (QC): 5 Wheel 50 feet with 2 turns (QC: 9 Wheel 150 feet: 9 PT Plan Treatment/Plan Treatment Plan: Continue Plan of Care Treatment Plan: Bed Mobility, Education, Functional Activity Sameera, Functional Strength, Group Therapy, Gait, Safety, Therapeutic Exercise, Transfers Treatment Duration: Aug 13, 2021 Frequency: At least 5 of 7 days/Wk (IRF) Estimated Hrs Per Day: 1.5 hours per day Patient and/or Family Agrees t: Yes Safety Risks/Education Patient Education: Gait Training, Transfer Techniques, Safety Issues Time/GCodes Time In: 1130 Time Out: 1200 Total Billed Treatment Time: 30 Total Billed Treatment 1,GT15m,EX15m GENO JIANG INTERIOR DECORATOR PAINTING Jul 28, 2021 12:00
[2021-07-28] MEDS: RIVAROXABAN 20 MG TABLET (XARELTO) PO SCH (17:00)
[2021-07-28] MEDS: traZODone 50 MG (DESYREL) TAB PO SCH (19:54)
[2021-07-28 20:25] VITALS: BP 128/60
--- NOTE | 2021-07-29 05:57 | PM&R Progress Note ---
Subjective HPI/CC On Admission Date Seen by Provider: Jul 29, 2021 Time Seen by Provider: 09:00 Subjective/Events-last exam 07/29/2021: Pt still having some difficulty with dizziness and vertigo Placed scopolamine patch on TUMS taken for indigestion Pt very frail Disposition will likely be Tuesday with her daughter 07/28/2021: Pt doing really well Discharge planned for Tuesday Nausea is assessed to be from the Hydrocodone Tramadol will be tried 07/27/2021: Pt is doing well had some emesis this morning Delaney really helped DC the IV it has gone bad Dizziness and discussed the pain medication factor involved 07/26/2021: Patient doing really well Pain is well controlled No other concerns reported Tolerating therapy well 07/25/2021: Patient doing very well Bowels are moving Pain pretty well controlled Dr. CARVER was updated on condition when he requested Checked meds and labs 07/24/2021: Pt doing pretty well overall Constipated and will give laxatives Pain is pretty well controlled at times Decadron was given Checked meds and labs Review of Systems General: Fatigue, Malaise Neurological: Weakness Objective Exam Vital Signs Vital Signs Date Time Temp Pulse Resp B/P (MAP) Pulse Ox O2 Delivery O2 Flow Rate FiO2 07/29/21 20:00 36.0 71 18 139/61 (87) 97 Room Air Capillary Refill : General Appearance: No Apparent Distress, WD/WN, Anxious, Chronically ill HEENT: PERRL/EOMI, Normal ENT Inspection, Pharynx Normal Neck: Full Range of Motion, Normal Inspection, Non Tender, Supple, Carotid Bruit Respiratory: Chest Non Tender, Lungs Clear, Normal Breath Sounds, No Accessory Muscle Use, No Respiratory Distress Cardiovascular: Regular Rate, Rhythm, No Edema, No Gallop, No JVD, No Murmur, Normal Peripheral Pulses Gastrointestinal: Normal Bowel Sounds, No Organomegaly, No Pulsatile Mass, Non Tender, Soft Back: Normal Inspection, Decreased Range of Motion Extremity: Normal Capillary Refill, Normal Inspection, Normal Range of Motion, Non Tender, No Calf Tenderness, No Pedal Edema Neurologic/Psychiatric: Alert, Oriented x3, Normal Mood/Affect, rose grader II-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 FIM Transfers Therapy Code Descriptions/Definitions Functional [place] Measure: 0=Not Assessed/NA 4=Minimal Assistance 1=Total Assistance 5=Supervision or Setup 2=Maximal Assistance 6=Modified [place] 3=Moderate Assistance 7=Complete IndependenceSCALE: Activities may be completed with or without assistive devices. 0-Jfgcqxxesc-dapmbxa completes the activity by him/herself with no assistance from a helper. 5-Set-up or Clean-up Assistance-helper sets up or cleans up; patient completes activity. [place] assists only prior to or following the activity. 4-Supervision or Touching Assistance-helper provides verbal cues and/or touching/steadying and/or contact guard assistance as patient completes activity. Assistance may be provided throughout the activity or intermittently. 3-Partial/Moderate Assistance-helper does LESS THAN HALF the effort. [place] lifts, holds or supports trunk or limbs, but provides less than half the effort. 2-Substantial/Maximal Assistance-helper does MORE THAN HALF the effort. [place] lifts or holds trunk or limbs and provides more than half the effort. 3-Ejrwqmqqk-kmvpww does ALL the effort. Patient does none of the effort to complete the activity. Or, the assistance of 2 or more helpers is required for the patient to complete the activity. If activity was not attempted, code reason: 7-Patient Refused. 9-Not Applicable-not attempted and the patient did not perform the activity before the current illness, exacerbation or injury. 10-Not Attempted due to Environmental Limitations-(lack of equipment, weather restraints, etc.). 88-Not Attempted due to Medical Conditions or Safety Concerns. Roll Left to Right (QC): 5 Sit to Lying (QC): 5 Sit to Stand (QC): 6 Chair/Ymw-kz-[place] Xfer(QC): 6 Car Transfer (QC): 6 Gait Training Does the Patient Walk?: Yes Distance: 250' Walk 10 feet (QC): 5 Walk 50 ft with 2 Turns(QC): 5 Walk 150 ft (QC): 5 Walking 10ft/uneven surface-QC: 4 Gait Persons Needed: 1 Gait Assistive Device: FWW Wheelchair Training Does the Pt Use a Wheelchair?: No Wheel 50 ft with 2 turns (QC): 9 Wheel 150 ft (QC): 9 Stair Training Stair Training: Handrails/: 2 handrails #of Steps: 4 1 Step (curb) (QC): 4 4 Steps (QC): 5 12 Steps (QC): 7 Stairs: Pattern: Step to Balance Picking up an Object (QC): 88 ADL-Treatment Eating (QC): 6 Oral Hygiene (QC): 5 Shower/Bathe Self (QC): 4 Upper Body Dressing (QC): 5 Lower Body Dressing (QC): 4 On/Off Footwear (QC): 4 Toileting Hygiene (QC): 4 Toilet Transfer (QC): 6 Assessment/Plan Assessment and Plan Assess & Plan/Chief Complaint Assessment: Status post kyphoplasty due to severe incapacitating back pain due to subacute fracture of thoracic spine and lumbar spine L4 compression fractures pathological osteoporotic fractures Osteoporosis on Fosamax Severe muscle spasms requiring Decadron baclofen and Valium Hypercoagulable state 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 Araujo Constipation Elevated PTH in the setting of severe osteoporosis with family history of hyperparathyroidism in daughter Confusion related to steroids and muscle relaxants and pain meds Benites cath DC'd Dizziness/vertigo Plan: Pain control Bowel regimen Aggressive PT and OT Supportive care 07/24/2021: Pain control Bowel regimen Supportive care 07/25/2021: Pain control Last dose of Decadron today 07/26/2021: Supportive care Decadron completed 07/27/2021: Supportive care Monitor emesis 07/28/2021: Substitute hydrocodone with tramadol Monitor closely 07/29/2021: Supportive care Vertigo support (1) Closed lumbar vertebral fracture Status: Acute (2) Elevated parathyroid hormone (3) Radicular pain of thoracic region Status: Acute (4) Thoracic vertebral fracture Status: Acute (5) Hypercoagulable state (6) Osteoporosis (7) Lumbago with sciatica, left side Status: Acute DANIA COOK DO Jul 29, 2021 05:57
[2021-07-29] MEDS: KCL 10 MEQ TAB (MICRO K) PO SCH (06:15)
[2021-07-29] MEDS: LEVOTHYROXINE 75 MCG (LEVOTHROID) TABLET PO SCH (06:15)
[2021-07-29 06:18] VITALS: BP 149/67
[2021-07-29] MEDS: CALCIUM CARBONATE 500 MG (TUMS) TAB.CHEW PO PRN (07:16)
[2021-07-29] MEDS: TRELEGY ELLIPTA INHALER IH SCH (07:39)
[2021-07-29 07:45] VITALS: BP 160/70
[2021-07-29] MEDS: PRAMIPEXOLE 0.125 MG (MIRAPEX) TABLET PO SCH ×2 (07:52→20:31)
[2021-07-29] MEDS: DOCUSATE SODIUM 100 MG (COLACE) CAP PO SCH ×2 (07:52→20:39)
[2021-07-29] MEDS: ESTROGENS CONJ 0.625 MG (PREMARIN) TAB PO SCH (07:52)
[2021-07-29] MEDS: DULoxetine 30 MG (CYMBALTA) CAP PO SCH (07:52)
[2021-07-29] MEDS: amLODIPine 2.5MG (NORVASC) TAB PO SCH (07:53)
[2021-07-29] MEDS: BACLOFEN 10 MG (LIORESAL) TAB PO SCH ×3 (07:53→20:31)
[2021-07-29] MEDS: PANTOPRAZOLE 40 MG (PROTONIX) TAB PO SCH ×2 (07:53→20:31)
[2021-07-29] MEDS: MONTELUKAST 10 MG (SINGULAIR) TAB PO SCH (07:53)
[2021-07-29] MEDS: FUROSEMIDE 40 MG (LASIX) TAB PO SCH (07:53)
[2021-07-29] MEDS: meTOproloL SUCCINATE 50 MG (TOPROL XL) TAB PO SCH (07:54)
[2021-07-29] MEDS: SENNOSIDES 8.6 MG (SENOKOT) TAB PO SCH ×2 (09:00→20:39)
[2021-07-29] MEDS: polyethylene glycoL POWDER 17 GM (MIRALAX) PACK PO SCH ×2 (09:00→20:55)
[2021-07-29] MEDS ORDERED: SCOPOLAMINE 1.5 MG (TRANSDERM-SCOP) PATCH TD ONE (09:00)
--- NOTE | 2021-07-29 09:33 | Physical Therapy Daily Note ---
PT Daily Note-Current Subjective Pt agrees to Tx. States she has been up since about 4 AM with" wooziness/light headedness" Pt. states she recall experiencing some of this prior to this surgery but not to this degree. When assessed pt. c/o movement from sup to side to sit brings this symptom on as well as head/eye movement vestibular exercises which were trialed as part of assessment. 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 8-Xqogqofvka-iodkrwc completes the activity by him/herself with no assistance from a helper. 5-Set-up or Clean-up Assistance-helper sets up or cleans up; patient completes activity. [place] assists only prior to or following the activity. 4-Supervision or Touching Assistance-helper provides verbal cues and/or touching/steadying and/or contact guard assistance as patient completes acti vity. Assistance may be provided throughout the activity or intermittently. 3-Partial/Moderate Assistance-helper does LESS THAN HALF the effort. [place] lifts, holds or supports trunk or limbs, but provides less than half the effort. 2-Substantial/Maximal Assistance-helper does MORE THAN HALF the effort. [place] lifts or holds trunk or limbs and provides more than half the effort. 2-Qgdxnvsnc-ktksha does ALL the effort. Patient does none of the effort to complete the activity. Or, the assistance of 2 or more helpers is required for the patient to complete the activity. If activity was not attempted, code reason: 7-Patient Refused. 9-Not Applicable-not attempted and the patient did not perform the activity before the current illness, exacerbation or injury. 10-Not Attempted due to Environmental Limitations-(lack of equipment, weather restraints, etc.). 88-Not Attempted due to Medical Conditions or Safety Concerns. Roll Left & Right (QC): 6 Sit to Lying (QC): 6 Lying to Sitting/Side of Bed(Q: 6 Sit to Stand (QC): 6 Chair/Bqz-no-Uaisv Xfer(QC): 6 Toilet Transfer (QC): 6 pt. has adjustable bed at home . TRFs in out left and right were practiced . Pt uses side rails for the TRF and plans to obtain these for use at home in her bed , Pt was indep sup to sit left and right side approach Gait Training Does the Patient Walk?: Yes Walk 10 feet (QC): 6 Walk 50 ft with 2 Turns(QC): 6 Walk 150 ft (QC): 6 Gait Persons Needed: 1 Gait Assistive Device: FWW dizziness did not inhibit steady gait and pt. remarked it was gone by the time she walked, short step length, mod wt bearing on FWW, head down, slightly flexed trunk...typical stenosis gait Exercises Supine Ex: Ankle pumps, Quad Set, Rolling, Glut sets, Heel Slides (assisted left), Short Arc Quads, Scooting, Straight leg raise (HS stretch assisted x 4), Hip abd/add (assisted left) Supine Reps: 15 Seated Therapy Exercises: Ankle pumps, Sit to stand, Long arc quads, Hip ab d/add Seated Reps: 15 hooklying hip int ext x 12, hooklying gentle marches with assist left x 12 Neuromuscular seated vestibular exercises for fixed head and neck , eyes up down side to side and , eyes fixed on object with head side to side then up down slow x 12 ea, bringing on pts light headed symptoms, Nurse and DPT were consulted, Dr ordered scopolamine patch and DPT recommends continuation of vestibular exercises as tolerated. Treatments Pt ambulated about room to bathroom , stood at sink for morning care: teeth brushing, face and hand wash, in recliner pt. was educated regarding "zero gravity" position for back comfort and found this to be very comforting. Pt. performed supine therex in recliner and bed, as well as seated exercise sitting in recliner, gait 150 ft x 2 FWW, bed TRFs were a focus as pt. has adjustable at home. 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 Decker Operator Goals PT Fdc Goals Time Frame: Aug 13, 2021 Roll Left & Right (QC): 4 Sit to Lying (QC): 4 Lying-Sitting on Side/Bed(QC): 4 Sit to Stand (QC): 5 Chair/Sfn-pb-Ppybz Xfer(QC): 5 Toilet Transfer (QC): 5 Car Transfer (QC): 5 Does the Patient Walk: Yes Walk 10 feet (QC): 5 Walk 50ft with 2 Turns (QC): 5 Walk 150 ft (QC): 5 Walking 10ft on Uneven Surface: 4 1 Step (curb) (QC): 4 4 Steps (QC): 4 12 Steps (QC): 88 Picking up an Object (QC): 5 Wheel 50 feet with 2 turns (QC: 9 Wheel 150 feet: 9 PT Plan Treatment/Plan Treatment Plan: Continue Plan of Care Treatment Plan: Bed Mobility, Education, Functional Activity Sameera, Functional Strength, Group Therapy, Gait, Safety, Therapeutic Exercise, Transfers Treatment Duration: Aug 13, 2021 Frequency: At least 5 of 7 days/Wk (IRF) Estimated Hrs Per Day: 1.5 hours per day Patient and/or Family Agrees t: Yes Safety Risks/Education Patient Education: Gait Training, Transfer Techniques, Correct Positioning, Disease Process, Safety Issues Teaching Recipient: Patient Teaching Methods: Demonstration, Discussion Response to Teaching: Verbalize Understanding, Return Demonstration, Reinforcement Needed Time/GCodes Time In: 800 Time Out: 930 Total Billed Treatment Time: 90 Total Billed Treatment 1,FA35m,GT10m,EX30m,NM15m GENO JIANG SENSORY SCIENTIST Jul 29, 2021 09:33
[2021-07-29] MEDS: DICLOFENAC 1% GEL 100 GM (VOLTAREN) TUBE TOP SCH ×4 (09:44→20:32)
--- NOTE | 2021-07-29 10:47 | Occupational Ther Daily Note ---
OT Current Status-Daily Note Subjective Pt reports 8/10 pain in L hip as well as feeling of "whooziness" RN notified and meds given. Appearance Pt left sitting in chair, all needs within reach. Mental Status/Objective Patient Orientation: Person, Place, Situation ADL-Treatment Therapy Code Descriptions/Definitions Functional [place] Measure: 0=Not Assessed/NA 4=Minimal Assistance 1=Total Assistance 5=Supervision or Setup 2=Maximal Assistance 6=Modified [place] 3=Moderate Assistance 7=Complete IndependenceSCALE: Activities may be completed with or without assistive devices. 5-Evragerawj-nipfzwo completes the activity by him/herself with no assistance from a helper. 5-Set-up or Clean-up Assistance-helper sets up or cleans up; patient completes activity. [place] assists only prior to or following the activity. 4-Supervision or Touching Assistance-helper provides verbal cues and/or touching/steadying and/or contact guard assistance as patient completes activity. Assistance may be provided throughout the activity or intermittently. 3-Partial/Moderate Assistance-helper does LESS THAN HALF the effort. [place] lifts, holds or supports trunk or limbs, but provides less than half the effort. 2-Substantial/Maximal Assistance-helper does MORE THAN HALF the effort. [place] lifts or holds trunk or limbs and provides more than half the effort. 7-Ycafrjgdp-dhtyza does ALL the effort. Patient does none of the effort to complete the activity. Or, the assistance of 2 or more helpers is required for the patient to complete the activity. If activity was not attempted, code reason: 7-Patient Refused. 9-Not Applicable-not attempted and the patient did not perform the activity before the current illness, exacerbation or injury. 10-Not Attempted due to Environmental Limitations-(lack of equipment, weather restraints, etc.). 88-Not Attempted due to Medical Conditions or Safety Concerns. Oral Hygiene (QC): 6 Shower/Bathe Self (QC): 5 Upper Body Dressing (QC): 5 Lower Body Dressing (QC): 4 On/Off Footwear: 4 Toileting Hygiene (QC): 6 (6) Toilet Transfer (QC): 6 Pt reports that she felt "whoozy" all morning but did not complain during OT session. She retrieved clothes with use of walker, cue to drape clothing over walker. Shower performed; majority completed in sitting. Good recall on LHS to wash below knees. When standing, no unsteadiness observed. Pt able to wash all body parts without physical assistance. Clothing donned seated in chair. Reminder to utilize coverstitch binder after impulsively reaching towards feet. Post cue, no assistance required. She sat at the sink to brush teeth, style and comb her hair. Assist to don isidro hose. Pt continues to need cues on correct use of sock aid, but less cues than previous sessions. Education OT Patient Education: Correct positioning, Energy conservation, Modified ADL techniques, Purpose of tx/functional activities, Reviewed precautions, Safety issues, Use of adapted equipment Teaching Recipient: Patient Teaching Methods: Discussion Response to Teaching: Verbalize Understanding, Reinforcement Needed OT Short Term Goals Short Term Goals Time Frame: Jul 30, 2021 Eatin Oral hygiene: 5 Toileting hygiene: 4 Shower/bathe self: 4 Upper body dressin Lower body dressin Putting on/taking off footwear: 4 OT Fnps Goals Long-Term Goals Time Frame: Aug 08, 2021 Eating (QC): 6 Oral Hygiene (QC): 6 Toileting Hygiene (QC): 5 Shower/Bathe Self (QC): 5 Upper Body Dressing (QC): 6 Lower Body Dressing (QC): 6 On/Off Footwear (QC): 5 1=Demonstrate adherence to instructed precautions during ADL tasks. 2=Patient will verbalize/demonstrate understanding of assistive devices/modifications for ADL. 3=Patient will improve strength/tolerance for activity to enable patient to perform ADL's. OT Education/Plan Problem List/Assessment Assessment: Decreased Activ Tolerance, Decreased UE Strength, Impaired I ADL's, Impaired Self-Care Skills Discharge Recommendations Plan/Recommendations: Continue POC Therapy Discharge Recommendati: Home & Family Equpiment Recommendations-D/C: Bath Chair, Medical And Scientific Illustrator, Sock Aide, Long [place]oe [place] Treatment Plan/Plan of Care Treatment,Training & Education: Yes Patient would benefit from OT for education, treatment and training to promote independence in ADL's, mobility, safety and/or upper extremity function for ADL's. Plan of Care: ADL Retraining, Functional Mobility, Group Exercise/Act as Ind, UE Funct Exercise/Act Treatment Duration: Aug 08, 2021 Frequency: At least 5 of 7 days/Wk (IRF) Estimated Hrs Per Day: 1.5 hours per day Agreement: Yes Rehab Potential: Good Time/GCodes Start Time: 09:34 Stop Time: 10:36 Total Time Billed (hr/min): 62 Billed Treatment Time 1 visit ADL x4 Jenna Jessica OT Jul 29, 2021 10:47
--- NOTE | 2021-07-29 12:04 | Occupational Ther Daily Note ---
OT Current Status-Daily Note Subjective Pt again reports feelings of "whooziness" prior to OT arrival. No complaints during session. Appearance Returned to sitting in recliner, all needs within reach. ADL-Treatment Therapy Code Descriptions/Definitions Functional [place] Measure: 0=Not Assessed/NA 4=Minimal Assistance 1=Total Assistance 5=Supervision or Setup 2=Maximal Assistance 6=Modified [place] 3=Moderate Assistance 7=Complete IndependenceSCALE: Activities may be completed with or without assistive devices. 2-Hhbxswgrrn-sjmmmlu completes the activity by him/herself with no assistance from a helper. 5-Set-up or Clean-up Assistance-helper sets up or cleans up; patient completes activity. [place] assists only prior to or following the activity. 4-Supervision or Touching Assistance-helper provides verbal cues and/or touching/steadying and/or contact guard assistance as patient completes activity. Assistance may be provided throughout the activity or intermittently. 3-Partial/Moderate Assistance-helper does LESS THAN HALF the effort. [place] lifts, holds or supports trunk or limbs, but provides less than half the effort. 2-Substantial/Maximal Assistance-helper does MORE THAN HALF the effort. [place] lifts or holds trunk or limbs and provides more than half the effort. 1-Pztzkhmhp-dhitbe does ALL the effort. Patient does none of the effort to complete the activity. Or, the assistance of 2 or more helpers is required for the patient to complete the activity. If activity was not attempted, code reason: 7-Patient Refused. 9-Not Applicable-not attempted and the patient did not perform the activity before the current illness, exacerbation or injury. 10-Not Attempted due to Environmental Limitations-(lack of equipment, weather restraints, etc.). 88-Not Attempted due to Medical Conditions or Safety Concerns. Other Treatment Pt ambulated to/from laundry room with walker and Close supervision secondary to c/o of dizziness and hip pain. She stood at washer to unload. 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 OT cued pt to utilize opposite arm to assist once clothing was brought high enough out of washer. After unloading all the clothes and placing on top of dryer, She then transferred clothing into dryer, no cues required. Good adherence to spinal precautions throughout treatment. Close supervision for safety with balance as pt often verbalized increased L hip pain. 2 standing rest breaks needed during activity due to c/o pain. Education OT Patient Education: Correct positioning, Energy conservation, Modified ADL techniques, Purpose of tx/functional activities, Reviewed precautions, Safety issues, Use of adapted equipment Teaching Recipient: Patient Teaching Methods: Demonstration, Discussion Response to Teaching: Verbalize Understanding, Return Demonstration OT Short Term Goals Short Term Goals Time Frame: Jul 30, 2021 Eatin Oral hygiene: 5 Toileting hygiene: 4 Shower/bathe self: 4 Upper body dressin Lower body dressin Putting on/taking off footwear: 4 OT Counter Maker Goals Detention Goals Time Frame: Aug 08, 2021 Eating (QC): 6 Oral Hygiene (QC): 6 Toileting Hygiene (QC): 5 Shower/Bathe Self (QC): 5 Upper Body Dressing (QC): 6 Lower Body Dressing (QC): 6 On/Off Footwear (QC): 5 1=Demonstrate adherence to instructed precautions during ADL tasks. 2=Patient will verbalize/demonstrate understanding of assistive devices/modifications for ADL. 3=Patient will improve strength/tolerance for activity to enable patient to pe rform ADL's. OT Education/Plan Problem List/Assessment Assessment: Decreased Activ Tolerance, Decreased UE Strength, Impaired Funct Balance, Impaired I ADL's, Impaired Self-Care Skills Discharge Recommendations Plan/Recommendations: Continue POC Therapy Discharge Recommendati: Home & Family Treatment Plan/Plan of Care Treatment,Training & Education: Yes Patient would benefit from OT for education, treatment and training to promote independence in ADL's, mobility, safety and/or upper extremity function for ADL's. Plan of Care: ADL Retraining, Functional Mobility, Group Exercise/Act as Ind, UE Funct Exercise/Act Treatment Duration: Aug 08, 2021 Frequency: At least 5 of 7 days/Wk (IRF) Estimated Hrs Per Day: 1.5 hours per day Agreement: Yes Rehab Potential: Good Time/GCodes Start Time: 11:32 Stop Time: 12:00 Total Time Billed (hr/min): 28 Billed Treatment Time 1 visit Jenna Noel OT Jul 29, 2021 12:04
[2021-07-29] MEDS: RIVAROXABAN 20 MG TABLET (XARELTO) PO SCH (17:42)
[2021-07-29 20:00] VITALS: BP 139/61
[2021-07-29] MEDS: ROSUVASTATIN 5 MG (CRESTOR) TABLET PO SCH (20:31)
[2021-07-29] MEDS: traZODone 50 MG (DESYREL) TAB PO SCH (20:31)
--- NOTE | 2021-07-30 06:01 | PM&R Progress Note ---
Subjective HPI/CC On Admission Date Seen by Provider: Jul 30, 2021 Time Seen by Provider: 10:00 Subjective/Events-last exam 07/30/2021: Patient having a much better day No vertigo Patient will discharge home on home health Checked meds and labs She wants tramadol and oxycodone at discharge and bowel regimen of Colace and senna twice daily 07/29/2021: Pt still having some difficulty with dizziness and vertigo Placed scopolamine patch on TUMS taken for indigestion Pt very frail Disposition will likely be Tuesday with her daughter 07/28/2021: Pt doing really well Discharge planned for Tuesday Nausea is assessed to be from the Hydrocodone Tramadol will be tried 07/27/2021: Pt is doing well had some emesis this morning Delaney really helped DC the IV it has gone bad Dizziness and discussed the pain medication factor involved 07/26/2021: Patient doing really well Pain is well controlled No other concerns reported Tolerating therapy well 07/25/2021: Patient doing very well Bowels are moving Pain pretty well controlled Dr. CARVER was updated on condition when he requested Checked meds and labs 07/24/2021: Pt doing pretty well overall Constipated and will give laxatives Pain is pretty well controlled at times Decadron was given Checked meds and labs Review of Systems General: Fatigue, Malaise Musculoskeletal: back pain Objective Exam Vital Signs Vital Signs Date Time Temp Pulse Resp B/P (MAP) Pulse Ox O2 Delivery O2 Flow Rate FiO2 07/30/21 20:53 Room Air 07/30/21 19:36 36.1 68 16 130/72 (91) 99 Capillary Refill : General Appearance: No Apparent Distress, WD/WN, Anxious, Chronically ill HEENT: PERRL/EOMI, Normal ENT Inspection, Pharynx Normal Neck: Full Range of Motion, Normal Inspection, Non Tender, Supple, Carotid Bruit Respiratory: Chest Non Tender, Lungs Clear, Normal Breath Sounds, No Accessory Muscle Use, No Respiratory Distress Cardiovascular: Regular Rate, Rhythm, No Edema, No Gallop, No JVD, No Murmur, Normal Peripheral Pulses Gastrointestinal: Normal Bowel Sounds, No Organomegaly, No Pulsatile Mass, Non Tender, Soft Back: Normal Inspection, Decreased Range of Motion Extremity: Normal Capillary Refill, Normal Inspection, Normal Range of Motion, Non Tender, No Calf Tenderness, No Pedal Edema Neurologic/Psychiatric: Alert, Oriented x3, Normal Mood/Affect, 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 FIM Transfers Therapy Code Descriptions/Definitions Functional [place] Measure: 0=Not Assessed/NA 4=Minimal Assistance 1=Total Assistance 5=Supervision or Setup 2=Maximal Assistance 6=Modified [place] 3=Moderate Assistance 7=Complete IndependenceSCALE: Activities may be completed with or without assistive devices. 2-Rwlcvmtgev-oslhncf completes the activity by him/herself with no assistance from a helper. 5-Set-up or Clean-up Assistance-helper sets up or cleans up; patient completes activity. [place] assists only prior to or following the activity. 4-Supervision or Touching Assistance-helper provides verbal cues and/or touching/steadying and/or contact guard assistance as patient completes activity. Assistance may be provided throughout the activity or intermittently. 3-Partial/Moderate Assistance-helper does LESS THAN HALF the effort. [place] li fts, holds or supports trunk or limbs, but provides less than half the effort. 2-Substantial/Maximal Assistance-helper does MORE THAN HALF the effort. [place] lifts or holds trunk or limbs and provides more than half the effort. 0-Kxttyagyh-afnpfq does ALL the effort. Patient does none of the effort to complete the activity. Or, the assistance of 2 or more helpers is required for the patient to complete the activity. If activity was not attempted, code reason: 7-Patient Refused. 9-Not Applicable-not attempted and the patient did not perform the activity before the current illness, exacerbation or injury. 10-Not Attempted due to Environmental Limitations-(lack of equipment, weather restraints, etc.). 88-Not Attempted due to Medical Conditions or Safety Concerns. Roll Left to Right (QC): 6 Sit to Lying (QC): 6 Sit to Stand (QC): 6 Chair/Ydo-wt-Jhmqv Xfer(QC): 6 Car Transfer (QC): 6 Gait Training Does the Patient Walk?: Yes Distance: 250' Walk 10 feet (QC): 6 Walk 50 ft with 2 Turns(QC): 6 Walk 150 ft (QC): 6 Walking 10ft/uneven surface-QC: 4 Gait Persons Needed: 1 Gait Assistive Device: FWW Wheelchair Training Does the Pt Use a Wheelchair?: No Wheel 50 ft with 2 turns (QC): 9 Wheel 150 ft (QC): 9 Stair Training Stair Training: Handrails/: 2 handrails #of Steps: 4 1 Step (curb) (QC): 4 4 Steps (QC): 5 12 Steps (QC): 7 Stairs: Pattern: Step to Balance Picking up an Object (QC): 88 ADL-Treatment Eating (QC): 6 Oral Hygiene (QC): 6 Shower/Bathe Self (QC): 5 Upper Body Dressing (QC): 5 Lower Body Dressing (QC): 4 On/Off Footwear (QC): 4 Toileting Hygiene (QC): 6 (6) Toilet Transfer (QC): 6 Assessment/Plan Assessment and Plan Assess & Plan/Chief Complaint Assessment: Status post kyphoplasty due to severe incapacitating back pain due to subacute fracture of thoracic spine and lumbar spine L4 compression fractures pathological osteoporotic fractures Osteoporosis on Fosamax Severe muscle spasms requiring Decadron baclofen and Valium Hypercoagulable state 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 Araujo Constipation Elevated PTH in the setting of severe osteoporosis with family history of hyperparathyroidism in daughter Confusion related to steroids and muscle relaxants and pain meds Benites cath DC'd Dizziness/vertigo improved Plan: Pain control Bowel regimen Aggressive PT and OT Supportive care 07/24/2021: Pain control Bowel regimen Supportive care 07/25/2021: Pain control Last dose of Decadron today 07/26/2021: Supportive care Decadron completed 07/27/2021: Supportive care Monitor emesis 07/28/2021: Substitute hydrocodone with tramadol Monitor closely 07/29/2021: Supportive care Vertigo support 07/30/2021: Supportive care Monitor closely Discharge home on Tuesday (1) Closed lumbar vertebral fracture Status: Acute (2) Elevated parathyroid hormone (3) Radicular pain of thoracic region Status: Acute (4) Thoracic vertebral fracture Status: Acute (5) Hypercoagulable state (6) Osteoporosis (7) Lumbago with sciatica, left side Status: Acute COOK,DANIA DO Jul 30, 2021 06:01
[2021-07-30] MEDS: LEVOTHYROXINE 75 MCG (LEVOTHROID) TABLET PO SCH (06:44)
[2021-07-30] MEDS: KCL 10 MEQ TAB (MICRO K) PO SCH (06:44)
[2021-07-30] MEDS: ESTROGENS CONJ 0.625 MG (PREMARIN) TAB PO SCH (07:43)
[2021-07-30] MEDS: MONTELUKAST 10 MG (SINGULAIR) TAB PO SCH (07:43)
[2021-07-30] MEDS: PRAMIPEXOLE 0.125 MG (MIRAPEX) TABLET PO SCH ×2 (07:43→20:21)
[2021-07-30] MEDS: PANTOPRAZOLE 40 MG (PROTONIX) TAB PO SCH ×2 (07:43→20:21)
[2021-07-30] MEDS: DULoxetine 30 MG (CYMBALTA) CAP PO SCH (07:43)
[2021-07-30] MEDS: meTOproloL SUCCINATE 50 MG (TOPROL XL) TAB PO SCH (07:43)
[2021-07-30] MEDS: DICLOFENAC 1% GEL 100 GM (VOLTAREN) TUBE TOP SCH ×4 (07:43→19:20)
[2021-07-30] MEDS: BACLOFEN 10 MG (LIORESAL) TAB PO SCH ×3 (07:44→20:22)
[2021-07-30] MEDS: amLODIPine 2.5MG (NORVASC) TAB PO SCH (07:44)
[2021-07-30] MEDS: FUROSEMIDE 40 MG (LASIX) TAB PO SCH (07:44)
[2021-07-30 08:00] VITALS: BP 166/72
--- NOTE | 2021-07-30 08:14 | Occupational Ther Daily Note ---
OT Current Status-Daily Note Subjective Pt reports L hip pain as 5/10. RN applies topical medication during session. Appearance Left sitting in recliner, all needs within reach. Mental Status/Objective Patient Orientation: Person, Place, Time, Situation ADL-Treatment Therapy Code Descriptions/Definitions Functional [place] Measure: 0=Not Assessed/NA 4=Minimal Assistance 1=Total Assistance 5=Supervision or Setup 2=Maximal Assistance 6=Modified [place] 3=Moderate Assistance 7=Complete IndependenceSCALE: Activities may be completed with or without assistive devices. 6-Qrpaypidvv-eduieeq completes the activity by him/herself with no assistance from a helper. 5-Set-up or Clean-up Assistance-helper sets up or cleans up; patient completes activity. [place] assists only prior to or following the activity. 4-Supervision or Touching Assistance-helper provides verbal cues and/or touching/steadying and/or contact guard assistance as patient completes activity. Assistance may be provided throughout the activity or intermittently. 3-Partial/Moderate Assistance-helper does LESS THAN HALF the effort. [place] lifts, holds or supports trunk or limbs, but provides less than half the effort. 2-Substantial/Maximal Assistance-helper does MORE THAN HALF the effort. [place] lifts or holds trunk or limbs and provides more than half the effort. 1-Oopaxriqq-hhnevf does ALL the effort. Patient does none of the effort to complete the activity. Or, the assistance of 2 or more helpers is required for the patient to complete the activity. If activity was not attempted, code reason: 7-Patient Refused. 9-Not Applicable-not attempted and the patient did not perform the activity before the current illness, exacerbation or injury. 10-Not Attempted due to Environmental Limitations-(lack of equipment, weather restraints, etc.). 88-Not Attempted due to Medical Conditions or Safety Concerns. Eating (QC): 6 Oral Hygiene (QC): 6 Upper Body Dressing (QC): 5 Lower Body Dressing (QC): 5 On/Off Footwear: 5 Toileting Hygiene (QC): 6 Toilet Transfer (QC): 6 Pt retrieved clothes with use of walker; reminder cue to drape clothing over walker. Clothing donned seated in chair. Slight improvement in hip flexion and thus, no japanese tutor required (when threading through pants). Education that a japanese tutor may still be required when threading feet through brief or on days where she may not be able to raise leg high enough. She sat at the sink to brush kellen th, wash face, style and comb her hair. Pt declines donning socks this date, able to don shoes with extra time and use of LHSH. Education OT Patient Education: Correct positioning, Energy conservation, Modified ADL techniques, Progress toward Goal/Update tx plan, Purpose of tx/functional activities, Reviewed precautions, Use of adapted equipment Teaching Recipient: Patient Teaching Methods: Discussion Response to Teaching: Verbalize Understanding OT Short Term Goals Short Term Goals Time Frame: Jul 30, 2021 Eatin Oral hygiene: 5 Toileting hygiene: 4 Shower/bathe self: 4 Upper body dressin Lower body dressin Putting on/taking off footwear: 4 OT Mcc Goals Desk Manager Goals Time Frame: Aug 08, 2021 Eating (QC): 6 Oral Hygiene (QC): 6 Toileting Hygiene (QC): 5 Shower/Bathe Self (QC): 5 Upper Body Dressing (QC): 6 Lower Body Dressing (QC): 6 On/Off Footwear (QC): 5 1=Demonstrate adherence to instructed precautions during ADL tasks. 2=Patient will verbalize/demonstrate understanding of assistive devices/modifica tions for ADL. 3=Patient will improve strength/tolerance for activity to enable patient to perform ADL's. OT Education/Plan Problem List/Assessment Assessment: Decreased Activ Tolerance, Decreased UE Strength, Impaired I ADL's Discharge Recommendations Plan/Recommendations: Continue POC Therapy Discharge Recommendati: Home & Family Equpiment Recommendations-D/C: Environmental Health Safety Manager, Sock Aide, [place] Treatment Plan/Plan of Care Treatment,Training & Education: Yes Patient would benefit from OT for education, treatment and training to promote independence in ADL's, mobility, safety and/or upper extremity function for ADL's. Plan of Care: ADL Retraining, Functional Mobility, Group Exercise/Act as Ind, UE Funct Exercise/Act Treatment Duration: Aug 08, 2021 Frequency: At least 5 of 7 days/Wk (IRF) Estimated Hrs Per Day: 1.5 hours per day Agreement: Yes Rehab Potential: Good Time/GCodes Start Time: 07:30 Stop Time: 08:15 Total Time Billed (hr/min): 45 Billed Treatment Time 1 visit ADL x3 Rourk,Jenna OT Jul 30, 2021 08:14
[2021-07-30] MEDS: DOCUSATE SODIUM 100 MG (COLACE) CAP PO SCH ×2 (08:56→20:22)
[2021-07-30] MEDS: polyethylene glycoL POWDER 17 GM (MIRALAX) PACK PO SCH ×2 (08:57→19:40)
[2021-07-30] MEDS: SENNOSIDES 8.6 MG (SENOKOT) TAB PO SCH ×2 (08:57→20:22)
--- NOTE | 2021-07-30 10:08 | Physical Therapy Daily Note ---
PT Daily Note-Current Subjective Pt sitting in recliner upon arrival. Pt agrees to PT and is excited for Tuesday d/c. Pain Location: Lower Location Body Site: Back Pain Description: Ache Comment: Reported a little LBP but didn't rate Mental Status Patient Orientation: Person, Place, Time, Situation Transfers SCALE: Activities may be completed with or without assistive devices. 4-Wvrwtorbdj-owlqswm completes the activity by him/herself with no assistance from a helper. 5-Set-up or Clean-up Assistance-helper sets up or cleans up; patient completes activity. [place] assists only prior to or following the activity. 4-Supervision or Touching Assistance-helper provides verbal cues and/or touching/steadying and/or contact guard assistance as patient completes activity. Assistance may be provided throughout the activity or intermittently. 3-Partial/Moderate Assistance-helper does LESS THAN HALF the effort. [place] lifts, holds or supports trunk or limbs, but provides less than half the effort. 2-Substantial/Maximal Assistance-helper does MORE THAN HALF the effort. [place] lifts or holds trunk or limbs and provides more than half the effort. 7-Cpjmdpwuk-tiflmz does ALL the effort. Patient does none of the effort to complete the activity. Or, the assistance of 2 or more helpers is required for the patient to complete the activity. If activity was not attempted, code reason: 7-Patient Refused. 9-Not Applicable-not attempted and the patient did not perform the activity before the current illness, exacerbation or injury. 10-Not Attempted due to Environmental Limitations-(lack of equipment, weather restraints, etc.). 88-Not Attempted due to Medical Conditions or Safety Concerns. Sit to Stand (QC): 6 Weight Bearing Full Weight Bearing Full Weight Bearing Gait Training Does the Patient Walk?: Yes Distance: 125' x2 Walk 10 feet (QC): 6 Walk 50 ft with 2 Turns(QC): 5 Walk 150 ft (QC): 5 Gait Assistive Device: FWW Raised FWW one notch to try to encourage standing up taller Exercises Seated Therapy Exercises: Ankle pumps, Long arc quads, Hip flexion, Glut set Seated Reps: 15 NuStep Minutes: 15 NuStep Workload: 2 Treatments Pt declined need for BR. TF to standing and amb in hallway. Pt used NuStep for 15m at WL 2. Pt amb. in hallway before returning to room to rest in recliner. Pt completes Seated Ex and given written HEP for both Supine & Seated Ex. FWW was raised one notch to promote standing taller. Pt resting in recliner at end of tx with all needs met, call light in hand. Assessment Current Status: Good Progress Pt is moving better but still reports occasional LBP and use Kpad for it. PT Short Term Goals Short Term Goals Time Frame: Jul 30, 2021 Roll Left & Right: 3 Sit to lyin Lying to sitting on side of be: 3 Sit to stand: 4 Chair/zon-mz-ragsf transfer: 4 Walk 10 feet: 4 Walk 50 feet with two turns: 4 Walk 150 feet: 4 PT Snf Goals Snf Goals PT Snf Goals Time Frame: Aug 13, 2021 Roll Left & Right (QC): 4 Sit to Lying (QC): 4 Lying-Sitting on Side/Bed(QC): 4 Sit to Stand (QC): 5 Chair/Brp-jz-Rtjhy Xfer(QC): 5 Toilet Transfer (QC): 5 Car Transfer (QC): 5 Does the Patient Walk: Yes Walk 10 feet (QC): 5 Walk 50ft with 2 Turns (QC): 5 Walk 150 ft (QC): 5 Walking 10ft on Uneven Surface: 4 1 Step (curb) (QC): 4 4 Steps (QC): 4 12 Steps (QC): 88 Picking up an Object (QC): 5 Wheel 50 feet with 2 turns (QC: 9 Wheel 150 feet: 9 PT Plan Problem List Problem List: Activity Tolerance Treatment/Plan Treatment Plan: Continue Plan of Care Treatment Plan: Bed Mobility, Education, Functional Activity Sameera, Functional Strength, Group Therapy, Gait, Safety, Therapeutic Exercise, Transfers Treatment Duration: Aug 13, 2021 Frequency: At least 5 of 7 days/Wk (IRF) Estimated Hrs Per Day: 1.5 hours per day Patient and/or Family Agrees t: Yes Safety Risks/Education Patient Education: Gait Training, Issued Written HEP, Correct Positioning Teaching Recipient: Patient Teaching Methods: Demonstration, Discussion Response to Teaching: Verbalize Understanding, Return Demonstration Time/GCodes Time In: 815 Time Out: 915 Total Billed Treatment Time: 60 Total Billed Treatment 1, FA (10m), GT (20m) & EX x2 (30m) DENNIS NAVA MORNING BABYSITTER Jul 30, 2021 10:08
--- NOTE | 2021-07-30 10:36 | Occupational Ther Daily Note ---
OT Current Status-Daily Note Subjective Pt reports today is the best she has felt, yet still complaining of L hip pain, RN aware. Appearance Returned to sitting in recliner, all needs within reach. ADL-Treatment Therapy Code Descriptions/Definitions Functional [place] Measure: 0=Not Assessed/NA 4=Minimal Assistance 1=Total Assistance 5=Supervision or Setup 2=Maximal Assistance 6=Modified [place] 3=Moderate Assistance 7=Complete IndependenceSCALE: Activities may be completed with or without assistive devices. 3-Lmeqevsheu-zteqznl completes the activity by him/herself with no assistance from a helper. 5-Set-up or Clean-up Assistance-helper sets up or cleans up; patient completes activity. [place] assists only prior to or following the activity. 4-Supervision or Touching Assistance-helper provides verbal cues and/or touching/steadying and/or contact guard assistance as patient completes activity. Assistance may be provided throughout the activity or intermittently. 3-Partial/Moderate Assistance-helper does LESS THAN HALF the effort. [place] lifts, holds or supports trunk or limbs, but provides less than half the effort. 2-Substantial/Maximal Assistance-helper does MORE THAN HALF the effort. [place] lifts or holds trunk or limbs and provides more than half the effort. 1-Ejszczpwv-mtyqyg does ALL the effort. Patient does none of the effort to complete the activity. Or, the assistance of 2 or more helpers is required for the patient to complete the activity. If activity was not attempted, code reason: 7-Patient Refused. 9-Not Applicable-not attempted and the patient did not perform the activity before the current illness, exacerbation or injury. 10-Not Attempted due to Environmental Limitations-(lack of equipment, weather restraints, etc.). 88-Not Attempted due to Medical Conditions or Safety Concerns. Toileting Hygiene (QC): 6 Toilet Transfer (QC): 6 Other Treatment Pt participated in homemaking task (bed making). Goal to promote increased endurance, safety, and adherence to spinal precautions during iadls. Mod cues to reduce bending and reaching across bed. Education to complete one side of the bed and then ambulate to other side. Pt able to utilize bed for stability, no unsteadiness observed without walker. Short sitting rest break required at end of activity. Pt then participated in UE exercises with red theraband. Mod verbal/visual cues for correct technique. 10 x1 in all planes. OT to provide HEP next session. Education OT Patient Education: Correct positioning, Energy conservation, Exercise program, Modified ADL techniques, Purpose of tx/functional activities, Reviewed precautions Teaching Recipient: Patient Teaching Methods: Discussion Response to Teaching: Verbalize Understanding OT Short Term Goals Short Term Goals Time Frame: Jul 30, 2021 Eatin Oral hygiene: 5 Toileting hygiene: 4 Shower/bathe self: 4 Upper body dressin Lower body dressin Putting on/taking off footwear: 4 OT Special Effects Makeup Artist Goals Group Home Goals Time Frame: Aug 08, 2021 Eating (QC): 6 Oral Hygiene (QC): 6 Toileting Hygiene (QC): 5 Shower/Bathe Self (QC): 5 Upper Body Dressing (QC): 6 Lower Body Dressing (QC): 6 On/Off Footwear (QC): 5 1=Demonstrate adherence to instructed precautions during ADL tasks. 2=Patient will verbalize/demonstrate understanding of assistive devices/modifications for ADL. 3=Patient will improve strength/tolerance for activity to enable patient to perform ADL's. OT Education/Plan Problem List/Assessment Assessment: Decreased Activ Tolerance, Decreased UE Strength, Impaired I ADL's Discharge Recommendations Plan/Recommendations: Continue POC Treatment Plan/Plan of Care Treatment,Training & Education: Yes Patient would benefit from OT for education, treatment and training to promote independence in ADL's, mobility, safety and/or upper extremity function for ADL's. Plan of Care: ADL Retraining, Functional Mobility, Group Exercise/Act as Ind, UE Funct Exercise/Act Treatment Duration: Aug 08, 2021 Frequency: At least 5 of 7 days/Wk (IRF) Estimated Hrs Per Day: 1.5 hours per day Agreement: Yes Rehab Potential: Good Time/GCodes Start Time: 09:45 Stop Time: 10:30 Total Time Billed (hr/min): 45 Billed Treatment Time 1 visit FA (20 min) EX x2 (25 min) Jenna Jessica OT Jul 30, 2021 10:36
[2021-07-30] MEDS: TRELEGY ELLIPTA INHALER IH SCH (12:46)
--- NOTE | 2021-07-30 14:07 | Physical Therapy Daily Note ---
PT Daily Note-Current Subjective Pt sitting in recliner upon arrival. Pt agrees to PT. Pain Location: No Pain Reported Mental Status Patient Orientation: Person, Place, Time, Situation Transfers SCALE: Activities may be completed with or without assistive devices. 7-Rzzufexwcc-qifkrcb completes the activity by him/herself with no assistance from a helper. 5-Set-up or Clean-up Assistance-helper sets up or cleans up; patient completes activity. [place] assists only prior to or following the activity. 4-Supervision or Touching Assistance-helper provides verbal cues and/or touching/steadying and/or contact guard assistance as patient completes activity. Assistance may be provided throughout the activity or intermittently. 3-Partial/Moderate Assistance-helper does LESS THAN HALF the effort. [place] lifts, holds or supports trunk or limbs, but provides less than half the effort. 2-Substantial/Maximal Assistance-helper does MORE THAN HALF the effort. [place] lifts or holds trunk or limbs and provides more than half the effort. 9-Okemvndsh-ekvtik does ALL the effort. Patient does none of the effort to complete the activity. Or, the assistance of 2 or more helpers is required for the patient to complete the activity. If activity was not attempted, code reason: 7-Patient Refused. 9-Not Applicable-not attempted and the patient did not perform the activity bef ore the current illness, exacerbation or injury. 10-Not Attempted due to Environmental Limitations-(lack of equipment, weather r estraints, etc.). 88-Not Attempted due to Medical Conditions or Safety Concerns. Sit to Lying (QC): 5 Sit to Stand (QC): 6 Weight Bearing Full Weight Bearing Full Weight Bearing Gait Training Does the Patient Walk?: Yes Distance: 300' x2 Walk 10 feet (QC): 6 Walk 50 ft with 2 Turns(QC): 6 Walk 150 ft (QC): 6 Gait Persons Needed: 0 Gait Assistive Device: FWW Pt took one RB during amb. Treatments Pt declines needs for BR. TF to standing then amb. in hallway, taking RB as needed. Pt returns to room to rest Supine in bed with all needs met, call light next to pt. SENIOR CYTOGENETICS LABORATORY DIRECTOR addressed a couple of progress questions at end of tx. Assessment Current Status: Good Progress Pt's activity tolerance and mobility are improving. PT Short Term Goals Short Term Goals Time Frame: Jul 30, 2021 Roll Left & Right: 3 Sit to lyin Lying to sitting on side of be: 3 Sit to stand: 4 Chair/jas-lr-jwmdf transfer: 4 Walk 10 feet: 4 Walk 50 feet with two turns: 4 Walk 150 feet: 4 PT Chcf Goals Chcf Goals PT Hi Lift Operator Goals Time Frame: Aug 13, 2021 Roll Left & Right (QC): 4 Sit to Lying (QC): 4 Lying-Sitting on Side/Bed(QC): 4 Sit to Stand (QC): 5 Chair/Mtn-ip-Krgzl Xfer(QC): 5 Toilet Transfer (QC): 5 Car Transfer (QC): 5 Does the Patient Walk: Yes Walk 10 feet (QC): 5 Walk 50ft with 2 Turns (QC): 5 Walk 150 ft (QC): 5 Walking 10ft on Uneven Surface: 4 1 Step (curb) (QC): 4 4 Steps (QC): 4 12 Steps (QC): 88 Picking up an Object (QC): 5 Wheel 50 feet with 2 turns (QC: 9 Wheel 150 feet: 9 PT Plan Treatment/Plan Treatment Plan: Continue Plan of Care Treatment Plan: Bed Mobility, Education, Functional Activity Sameera, Functional Strength, Group Therapy, Gait, Safety, Therapeutic Exercise, Transfers Treatment Duration: Aug 13, 2021 Frequency: At least 5 of 7 days/Wk (IRF) Estimated Hrs Per Day: 1.5 hours per day Patient and/or Family Agrees t: Yes Safety Risks/Education Patient Education: Gait Training, Reviewed Precautions, Correct Positioning, Safety Issues Teaching Recipient: Patient Teaching Methods: Discussion Response to Teaching: Verbalize Understanding Time/GCodes Time In: 1300 Time Out: 1330 Total Billed Treatment Time: 30 Total Billed Treatment 1, GT (20m) & FA (10m) DENNIS NAVA SENIOR CYTOGENETICS LABORATORY DIRECTOR Jul 30, 2021 14:07
[2021-07-30] MEDS: RIVAROXABAN 20 MG TABLET (XARELTO) PO SCH (17:45)
[2021-07-30 19:36] VITALS: BP 130/72
[2021-07-30] MEDS: CALCIUM CARBONATE 500 MG (TUMS) TAB.CHEW PO PRN (19:51)
[2021-07-30] MEDS: traZODone 50 MG (DESYREL) TAB PO SCH (20:22)
--- NOTE | 2021-07-31 05:40 | PM&R Progress Note ---
Subjective HPI/CC On Admission Date Seen by Provider: Jul 31, 2021 Time Seen by Provider: 11:30 Subjective/Events-last exam 07/31/21: Pt doing really well Set for discharge tomorrow PT, OT, and home health ordered All meds sent into [facility] Monitoring closely 07/30/2021: Patient having a much better day No vertigo Patient will discharge home on home health Checked meds and labs She wants tramadol and oxycodone at discharge and bowel regimen of Colace and senna twice daily 07/29/2021: Pt still having some difficulty with dizziness and vertigo Placed scopolamine patch on TUMS taken for indigestion Pt very frail Disposition will likely be Tuesday with her daughter 07/28/2021: Pt doing really well Discharge planned for Tuesday Nausea is assessed to be from the Hydrocodone Tramadol will be tried 07/27/2021: Pt is doing well had some emesis this morning Zofran really helped DC the IV it has gone bad Dizziness and discussed the pain medication factor involved 07/26/2021: Patient doing really well Pain is well controlled No other concerns reported Tolerating therapy well 07/25/2021: Patient doing very well Bowels are moving Pain pretty well controlled Dr. CARVER was updated on condition when he requested Checked meds and labs 07/24/2021: Pt doing pretty well overall Constipated and will give laxatives Pain is pretty well controlled at times Decadron was given Checked meds and labs Review of Systems General: Fatigue Objective Exam Vital Signs Vital Signs Date Time Temp Pulse Resp B/P (MAP) Pulse Ox O2 Delivery O2 Flow Rate FiO2 07/31/21 21:40 Room Air 07/31/21 21:00 95 07/31/21 19:20 36.5 71 16 129/75 (93) Capillary Refill : General Appearance: No Apparent Distress, WD/WN, Anxious, Chronically ill HEENT: PERRL/EOMI, Normal ENT Inspection, Pharynx Normal Neck: Full Range of Motion, Normal Inspection, Non Tender, Supple, Carotid Bruit Respiratory: Chest Non Tender, Lungs Clear, Normal Breath Sounds, No Accessory Muscle Use, No Respiratory Distress Cardiovascular: Regular Rate, Rhythm, No Edema, No Gallop, No JVD, No Murmur, Normal Peripheral Pulses Gastrointestinal: Normal Bowel Sounds, No Organomegaly, No Pulsatile Mass, Non Tender, Soft Back: Normal Inspection, Decreased Range of Motion Extremity: Normal Capillary Refill, Normal Inspection, Normal Range of Motion, Non Tender, No Calf Tenderness, No Pedal Edema Neurologic/Psychiatric: Alert, Oriented x3, Normal Mood/Affect, yard manager II-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 FIM Transfers Therapy Code Descriptions/Definitions Functional [place] Measure: 0=Not Assessed/NA 4=Minimal Assistance 1=Total Assistance 5=Supervision or Setup 2=Maximal Assistance 6=Modified [place] 3=Moderate Assistance 7=Complete IndependenceSCALE: Activities may be completed with or without assistive devices. 8-Zruwdwrhly-iowahjb completes the activity by him/herself with no assistance from a helper. 5-Set-up or Clean-up Assistance-helper sets up or cleans up; patient completes activity. [place] assists only prior to or following the activity. 4-Supervision or Touching Assistance-helper provides verbal cues and/or touc diann/steadying and/or contact guard assistance as patient completes activity. Assistance may be provided throughout the activity or intermittently. 3-Partial/Moderate Assistance-helper does LESS THAN HALF the effort. [place] lifts, holds or supports trunk or limbs, but provides less than half the effort. 2-Substantial/Maximal Assistance-helper does MORE THAN HALF the effort. [place] lifts or holds trunk or limbs and provides more than half the effort. 2-Pejbcroxi-aoopmz does ALL the effort. Patient does none of the effort to complete the activity. Or, the assistance of 2 or more helpers is required for the patient to complete the activity. If activity was not attempted, code reason: 7-Patient Refused. 9-Not Applicable-not attempted and the patient did not perform the activity before the current illness, exacerbation or injury. 10-Not Attempted due to Environmental Limitations-(lack of equipment, weather restraints, etc.). 88-Not Attempted due to Medical Conditions or Safety Concerns. Roll Left to Right (QC): 6 Sit to Lying (QC): 5 Sit to Stand (QC): 6 Chair/Tar-cp-Mzjcp Xfer(QC): 6 Car Transfer (QC): 6 Gait Training Does the Patient Walk?: Yes Distance: 300' x2 Walk 10 feet (QC): 6 Walk 50 ft with 2 Turns(QC): 6 Walk 150 ft (QC): 6 Walking 10ft/uneven surface-QC: 4 Gait Persons Needed: 0 Gait Assistive Device: FWW Wheelchair Training Does the Pt Use a Wheelchair?: No Wheel 50 ft with 2 turns (QC): 9 Wheel 150 ft (QC): 9 Stair Training Stair Training: Handrails/: 2 handrails #of Steps: 4 1 Step (curb) (QC): 4 4 Steps (QC): 5 12 Steps (QC): 7 Stairs: Pattern: Step to Balance Picking up an Object (QC): 88 ADL-Treatment Eating (QC): 6 Oral Hygiene (QC): 6 Shower/Bathe Self (QC): 5 Upper Body Dressing (QC): 5 Lower Body Dressing (QC): 5 On/Off Footwear (QC): 5 Toileting Hygiene (QC): 6 Toilet Transfer (QC): 6 Assessment/Plan Assessment and Plan Assess & Plan/Chief Complaint Assessment: Status post kyphoplasty due to severe incapacitating back pain due to subacute fracture of thoracic spine and lumbar spine L4 compression fractures pathological osteoporotic fractures Osteoporosis on Fosamax Severe muscle spasms requiring Decadron baclofen and Valium Hypercoagulable state 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 Araujo Constipation Elevated PTH in the setting of severe osteoporosis with family history of hyperparathyroidism in daughter Confusion related to steroids and muscle relaxants and pain meds Benites cath DC'd Dizziness/vertigo improved Plan: Pain control Bowel regimen Aggressive PT and OT Supportive care 07/24/2021: Pain control Bowel regimen Supportive care 07/25/2021: Pain control Last dose of Decadron today 07/26/2021: Supportive care Decadron completed 07/27/2021: Supportive care Monitor emesis 07/28/2021: Substitute hydrocodone with tramadol Monitor closely 07/29/2021: Supportive care Vertigo support 07/30/2021: Supportive care Monitor closely Discharge home on Tuesday07/31/21: DC tomorrow (1) Closed lumbar vertebral fracture Status: Acute (2) Elevated parathyroid hormone (3) Radicular pain of thoracic region Status: Acute (4) Thoracic vertebral fracture Status: Acute (5) Hypercoagulable state (6) Osteoporosis (7) Lumbago with sciatica, left side Status: Acute DANIA COOK DO Jul 31, 2021 05:40
[2021-07-31] MEDS: KCL 10 MEQ TAB (MICRO K) PO SCH (06:37)
[2021-07-31] MEDS: LEVOTHYROXINE 75 MCG (LEVOTHROID) TABLET PO SCH (06:37)
[2021-07-31] MEDS: SENNOSIDES 8.6 MG (SENOKOT) TAB PO SCH ×2 (08:23→19:19)
[2021-07-31] MEDS: PRAMIPEXOLE 0.125 MG (MIRAPEX) TABLET PO SCH ×2 (08:23→20:21)
[2021-07-31] MEDS: MONTELUKAST 10 MG (SINGULAIR) TAB PO SCH (08:23)
[2021-07-31] MEDS: DOCUSATE SODIUM 100 MG (COLACE) CAP PO SCH ×2 (08:23→19:19)
[2021-07-31] MEDS: BACLOFEN 10 MG (LIORESAL) TAB PO SCH ×3 (08:23→20:21)
[2021-07-31] MEDS: PANTOPRAZOLE 40 MG (PROTONIX) TAB PO SCH ×2 (08:23→20:21)
[2021-07-31] MEDS: ESTROGENS CONJ 0.625 MG (PREMARIN) TAB PO SCH (08:23)
[2021-07-31] MEDS: meTOproloL SUCCINATE 50 MG (TOPROL XL) TAB PO SCH (08:23)
[2021-07-31] MEDS: FUROSEMIDE 40 MG (LASIX) TAB PO SCH (08:24)
[2021-07-31] MEDS: DULoxetine 30 MG (CYMBALTA) CAP PO SCH (08:24)
[2021-07-31] MEDS: amLODIPine 2.5MG (NORVASC) TAB PO SCH (08:24)
[2021-07-31] MEDS: polyethylene glycoL POWDER 17 GM (MIRALAX) PACK PO SCH ×2 (08:24→19:19)
[2021-07-31 08:37] VITALS: BP 124/69
--- NOTE | 2021-07-31 09:16 | Occupational Ther Daily Note ---
OT Current Status-Daily Note Subjective Pt alert, sitting in recliner. Pt agrees to therapy. No c/o pain, stated that she had already gotten her pain pill. Mental Status/Objective Patient Orientation: Person, Place, Time, Situation ADL-Treatment Pt agrees to shower. Pt independent with eating. Using FWW, pt able to gather clothing and transport to bathroom. Independent for toileting and toilet transfer using FWW, grabbars and elevated surface over toilet. Pt then transferred into shower using shower bench, grabbars and FWW independently. Independent with shower sitting on shower bench for 90% of shower then using grabbars to stabilize in standing to cleanse buttocks/nimisha area. Pt able to complete dressing independently, did not use AE for lower body dressing. Sitting at sink, pt completed oral care and grooming independently. Nrsg in room after pt resting in recliner to give meds and change dressing. Pt then am bulated to closet to put pajamas up. Therapy Code Descriptions/Definitions Functional [place] Measure: 0=Not Assessed/NA 4=Minimal Assistance 1=Total Assistance 5=Supervision or Setup 2=Maximal Assistance 6=Modified [place] 3=Moderate Assistance 7=Complete IndependenceSCALE: Activities may be completed with or without assistive devices. 5-Povzogqlwh-tmmpsqu completes the activity by him/herself with no assistance from a helper. 5-Set-up or Clean-up Assistance-helper sets up or cleans up; patient completes activity. [place] assists only prior to or following the activity. 4-Supervision or Touching Assistance-helper provides verbal cues and/or petra eric/steadying and/or contact guard assistance as patient completes activity. Assistance may be provided throughout the activity or intermittently. 3-Partial/Moderate Assistance-helper does LESS THAN HALF the effort. [place] lifts, holds or supports trunk or limbs, but provides less than half the effort. 2-Substantial/Maximal Assistance-helper does MORE THAN HALF the effort. [place] lifts or holds trunk or limbs and provides more than half the effort. 3-Khkdcvjow-nfadvg does ALL the effort. Patient does none of the effort to complete the activity. Or, the assistance of 2 or more helpers is required for the patient to complete the activity. If activity was not attempted, code reason: 7-Patient Refused. 9-Not Applicable-not attempted and the patient did not perform the activity before the current illness, exacerbation or injury. 10-Not Attempted due to Environmental Limitations-(lack of equipment, weather restraints, etc.). 88-Not Attempted due to Medical Conditions or Safety Concerns. Eating (QC): 6 Oral Hygiene (QC): 6 Shower/Bathe Self (QC): 6 Upper Body Dressing (QC): 6 Lower Body Dressing (QC): 6 On/Off Footwear: 6 (Declined to don socks, donned shoes independently.) Toileting Hygiene (QC): 6 Toilet Transfer (QC): 6 Other Treatment Pt then ambulated to [facility] kitchen to complete simulated kitchen mobility. Pt able to use counter to stabilize self while retrieving cones in cabinets, oven, drawers, microwave and refrigerator with no LOB. Pt then used reach to bulk picker items from floor and low surfaces without difficulty. After session, pt sitting in recliner with call light/phone in reach. All needs met in room. OT Short Term Goals Short Term Goals Time Frame: Jul 30, 2021 Eatin Oral hygiene: 5 Toileting hygiene: 4 Shower/bathe self: 4 Upper body dressin Lower body dressin Putting on/taking off footwear: 4 OT Yard Foreman Goals Yard Foreman Goals Time Frame: Aug 08, 2021 Eating (QC): 6 Oral Hygiene (QC): 6 Toileting Hygiene (QC): 5 Shower/Bathe Self (QC): 5 Upper Body Dressing (QC): 6 Lower Body Dressing (QC): 6 On/Off Footwear (QC): 5 1=Demonstrate adherence to instructed precautions during ADL tasks. 2=Patient will verbalize/demonstrate understanding of assistive devices/modifications for ADL. 3=Patient will improve strength/tolerance for activity to enable patient to perform ADL's. OT Education/Plan Problem List/Assessment Assessment: Impaired Self-Care Skills Discharge Recommendations Plan/Recommendations: Continue POC Treatment Plan/Plan of Care Patient would benefit from OT for education, treatment and training to promote independence in ADL's, mobility, safety and/or upper extremity function for ADL's. Plan of Care: ADL Retraining, Functional Mobility, Group Exercise/Act as Ind, UE Funct Exercise/Act Treatment Duration: Aug 08, 2021 Frequency: At least 5 of 7 days/Wk (IRF) Estimated Hrs Per Day: 1.5 hours per day Agreement: Yes Rehab Potential: Good Time/GCodes Start Time: 07:15 Stop Time: 08:45 Total Time Billed (hr/min): 90 Billed Treatment Time 1 visit-ADL 5 (75 min) FA 1 (15 min) KATHIE CASTILLO Jul 31, 2021 09:16
[2021-07-31] MEDS: DICLOFENAC 1% GEL 100 GM (VOLTAREN) TUBE TOP SCH ×4 (09:30→20:23)
[2021-07-31] MEDS: TRELEGY ELLIPTA INHALER IH SCH (09:31)
--- NOTE | 2021-07-31 09:44 | Physical Therapy Daily Note ---
PT Daily Note-Current Subjective Pt sitting in recliner upon arrival. Pt agrees to PT. Pain Location: Lower Location Body Site: Back Pain Description: Ache Comment: Reported LBP but doesn't rate Mental Status Patient Orientation: Person, Place, Time, Situation Transfers SCALE: Activities may be completed with or without assistive devices. 5-Mwsyptpsgi-bpphhxv completes the activity by him/herself with no assistance from a helper. 5-Set-up or Clean-up Assistance-helper sets up or cleans up; patient completes activity. [place] assists only prior to or following the activity. 4-Supervision or Touching Assistance-helper provides verbal cues and/or touching/steadying and/or contact guard assistance as patient completes activity. Assistance may be provided throughout the activity or intermittently. 3-Partial/Moderate Assistance-helper does LESS THAN HALF the effort. [place] lifts, holds or supports trunk or limbs, but provides less than half the effort. 2-Substantial/Maximal Assistance-helper does MORE THAN HALF the effort. [place] lifts or holds trunk or limbs and provides more than half the effort. 6-Mghychnjn-pulcwd does ALL the effort. Patient does none of the effort to complete the activity. Or, the assistance of 2 or more helpers is required for the patient to complete the activity. If activity was not attempted, code reason: 7-Patient Refused. 9-Not Applicable-not attempted and the patient did not perform the activity before the current illness, exacerbation or injury. 10-Not Attempted due to Environmental Limitations-(lack of equipment, weather restraints, etc.). 88-Not Attempted due to Medical Conditions or Safety Concerns. Roll Left & Right (QC): 6 Sit to Lying (QC): 6 Lying to Sitting/Side of Bed(Q: 6 Sit to Stand (QC): 6 Chair/Wvp-cu-Fiepo Xfer(QC): 6 Toilet Transfer (QC): 6 Car Transfer (QC): 6 Weight Bearing Full Weight Bearing Full Weight Bearing Gait Training Does the Patient Walk?: Yes Distance: 150' x2 Walk 10 feet (QC): 6 Walk 50 ft with 2 Turns(QC): 6 Walk 150 ft (QC): 6 Walking 10ft/uneven surface-QC: 6 Gait Persons Needed: 0 Gait Assistive Device: FWW Wheelchair Training Does the Pt Use a Wheelchair?: No Stair Training Stair Training: Handrails/: 2 handrails #of Steps: 8 1 Step (curb) (QC): 6 4 Steps (QC): 6 12 Steps (QC): 7 Stairs: Pattern: Step to Balance Picking up an Object (QC): 6 Special Test Comments 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 Treatments Pt completes QC scoring items listed above. Pt is made Ad bulmaro in room. Pt resting in bed at end of tx. Pt has all needs met, call light in hand. Assessment Current Status: Good Progress Pt has improved with mobility and independence of everyday tasks. PT Short Term Goals Short Term Goals Time Frame: Jul 30, 2021 Roll Left & Right: 3 Sit to lyin Lying to sitting on side of be: 3 Sit to stand: 4 Chair/nxr-fp-vqvms transfer: 4 Walk 10 feet: 4 Walk 50 feet with two turns: 4 Walk 150 feet: 4 PT Chief Specialist Leed Goals Chief Specialist Leed Goals PT Alf Goals Time Frame: Aug 13, 2021 Roll Left & Right (QC): 4 Sit to Lying (QC): 4 Lying-Sitting on Side/Bed(QC): 4 Sit to Stand (QC): 5 Chair/Aic-in-Qoapi Xfer(QC): 5 Toilet Transfer (QC): 5 Car Transfer (QC): 5 Does the Patient Walk: Yes Walk 10 feet (QC): 5 Walk 50ft with 2 Turns (QC): 5 Walk 150 ft (QC): 5 Walking 10ft on Uneven Surface: 4 1 Step (curb) (QC): 4 4 Steps (QC): 4 12 Steps (QC): 88 Picking up an Object (QC): 5 Wheel 50 feet with 2 turns (QC: 9 Wheel 150 feet: 9 PT Plan Treatment/Plan Treatment Plan: Continue Plan of Care Treatment Plan: Bed Mobility, Education, Functional Activity Sameera, Functional Strength, Group Therapy, Gait, Safety, Therapeutic Exercise, Transfers Treatment Duration: Aug 13, 2021 Frequency: At least 5 of 7 days/Wk (IRF) Estimated Hrs Per Day: 1.5 hours per day Patient and/or Family Agrees t: Yes Time/GCodes Time In: 845 Time Out: 945 Total Billed Treatment Time: 60 Total Billed Treatment 1, FA x2 (30m), GT (15m) & EX (15m) DENNIS NAVA TURNER AND FORMER AUTOMATIC Jul 31, 2021 09:44
[2021-07-31] MEDS ORDERED: OXC5T PO (11:45)
[2021-07-31] MEDS ORDERED: DIAZ5TAB49 PO (11:45)
[2021-07-31] MEDS ORDERED: SNN187T PO (11:45)
[2021-07-31] MEDS ORDERED: DICL100G13 TOP (11:45)
[2021-07-31] MEDS ORDERED: DOCU100C37 PO (11:45)
[2021-07-31] MEDS ORDERED: BACL10TA PO (11:45)
[2021-07-31] MEDS ORDERED: TRM50T PO (11:45)
[2021-07-31] MEDS ORDERED: ONDA4TAB11 PO (11:45)
--- NOTE | 2021-07-31 11:46 | Physical Therapy Daily Note ---
PT Daily Note-Current Subjective Pt sitting in recliner upon arrival. Pt agrees to PT. Mental Status Patient Orientation: Person, Place, Time, Situation Transfers SCALE: Activities may be completed with or without assistive devices. 7-Nhstytlxdx-cgbogjp completes the activity by him/herself with no assistance from a helper. 5-Set-up or Clean-up Assistance-helper sets up or cleans up; patient completes activity. [place] assists only prior to or following the activity. 4-Supervision or Touching Assistance-helper provides verbal cues and/or touching/steadying and/or contact guard assistance as patient completes activity. Assistance may be provided throughout the activity or intermittently. 3-Partial/Moderate Assistance-helper does LESS THAN HALF the effort. [place] lifts, holds or supports trunk or limbs, but provides less than half the effort. 2-Substantial/Maximal Assistance-helper does MORE THAN HALF the effort. [place] lifts or holds trunk or limbs and provides more than half the effort. 9-Dbepgdlvs-dqitgh does ALL the effort. Patient does none of the effort to complete the activity. Or, the assistance of 2 or more helpers is required for the patient to complete the activity. If activity was not attempted, code reason: 7-Patient Refused. 9-Not Applicable-not attempted and the patient did not perform the activity before the current illness, exacerbation or injury. 10-Not Attempted due to Environmental Limitations-(lack of equipment, weather restraints, etc.). 88-Not Attempted due to Medical Conditions or Safety Concerns. Weight Bearing Full Weight Bearing Full Weight Bearing Exercises Supine Ex: Ankle pumps, Quad Set, Glut sets, Heel Slides, Short Arc Quads, Hip abd/add Supine Reps: 15 Seated Therapy Exercises: Ankle pumps, Long arc quads, Hip flexion, Glut set Seated Reps: 15 Treatments JAVA WEB USER INTERFACE DEVELOPER reviews Supine & Seated Ex. Pt discusses few questions regarding getting FWW and medications. JAVA WEB USER INTERFACE DEVELOPER resizes FWW after DME brings new FWW in. Pt resting in recliner with all needs met, call light next to pt. Pt is Ad bulmaro in room. Assessment Current Status: Good Progress Pt is moving well and able to move about room independently. PT Short Term Goals Short Term Goals Time Frame: Jul 30, 2021 Roll Left & Right: 3 Sit to lyin Lying to sitting on side of be: 3 Sit to stand: 4 Chair/vnz-pb-svdhy transfer: 4 Walk 10 feet: 4 Walk 50 feet with two turns: 4 Walk 150 feet: 4 PT Client Experience Manager Goals Client Experience Manager Goals PT Client Experience Manager Goals Time Frame: Aug 13, 2021 Roll Left & Right (QC): 4 Sit to Lying (QC): 4 Lying-Sitting on Side/Bed(QC): 4 Sit to Stand (QC): 5 Chair/Pba-dx-Qnlqw Xfer(QC): 5 Toilet Transfer (QC): 5 Car Transfer (QC): 5 Does the Patient Walk: Yes Walk 10 feet (QC): 5 Walk 50ft with 2 Turns (QC): 5 Walk 150 ft (QC): 5 Walking 10ft on Uneven Surface: 4 1 Step (curb) (QC): 4 4 Steps (QC): 4 12 Steps (QC): 88 Picking up an Object (QC): 5 Wheel 50 feet with 2 turns (QC: 9 Wheel 150 feet: 9 PT Plan Treatment/Plan Treatment Plan: Continue Plan of Care Treatment Plan: Bed Mobility, Education, Functional Activity Sameera, Functional Strength, Group Therapy, Gait, Safety, Therapeutic Exercise, Transfers Treatment Duration: Aug 13, 2021 Frequency: At least 5 of 7 days/Wk (IRF) Estimated Hrs Per Day: 1.5 hours per day Patient and/or Family Agrees t: Yes Time/GCodes Time In: 1045 Time Out: 1115 Total Billed Treatment Time: 30 Total Billed Treatment 1,EX (20m) & FA (10m) DENNIS NAVA PTA Jul 31, 2021 11:46
--- NOTE | 2021-07-31 12:42 | D/C HH Face to Face Order ---
D/C Face to Face Orders Reconcile Patient Problems Problems Reviewed?: Yes Instructions for Patient Via [facility], Patient Instructions/FollowUp: Dr Redd as scheduled Physician to follow Patient: Ivania Discharge Diet for Home: No Restrictions Patient Problems: Compression fx Patient Data-Allergies,Ht & Wt Patient Allergies: Coded Allergies: No Known Drug Allergies (Unverified , 10/31/19) Home Health Need/Face to Face Date of Face to Face: Jul 31, 2021 Clinical Findings: Instability, Muscle weakness I have seen Pt rrlj-nq-xlhm: Yes Discharged To: Home Diagnosis/Conditions: Back pain Patient is Homebound due to: Muscle weakness, Pain w/ambulation Homebound Status Due to the above stated illness, injury or surgical procedure (medical condition or diagnosis) and associated clinical findings, the patient is homebound because of his/her inability to leave home except with aid of a supportive device and/or person AND leaving the home requires a considerable and taxing effort or is medically contraindicated. Pt req the following assistanc: [facility] Nursing Orders Home Health Services Order: Nursing Services, Pet Nutrition Specialist-Evaluate & Treat, Physical Therapy-Evaluate & Treat Certify Stmt I certify that this patient is under my care and that I, a nurse practitioner or a physician; a assistant finance manager working with me, had a face to face encounter that - meets the physician face to face encounter requirements with this patient as dated. DANIA REDD DO Jul 31, 2021 12:42
[2021-07-31] MEDS: RIVAROXABAN 20 MG TABLET (XARELTO) PO SCH (17:54)
[2021-07-31] MEDS: CALCIUM CARBONATE 500 MG (TUMS) TAB.CHEW PO PRN (19:18)
[2021-07-31 19:20] VITALS: BP 129/75
[2021-07-31] MEDS: ROSUVASTATIN 5 MG (CRESTOR) TABLET PO SCH (20:21)
[2021-07-31] MEDS: traZODone 50 MG (DESYREL) TAB PO SCH (20:21)
--- NOTE | 2021-08-01 05:41 | Discharge Summary ---
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 Araujo Constipation Elevated PTH in the setting of severe osteoporosis with family history of hyperparathyroidism in daughter Confusion related to steroids and muscle relaxants and pain meds Benites cath DC'd Dizziness/vertigo improved Plan: Pain control Bowel regimen Aggressive PT and OT Supportive care 07/24/2021: Pain control Bowel regimen Supportive care 07/25/2021: Pain control Last dose of Decadron today 07/26/2021: Supportive care Decadron completed 07/27/2021: Supportive care Monitor emesis 07/28/2021: Substitute hydrocodone with tramadol Monitor closely 07/29/2021: Supportive care Vertigo support 07/30/2021: Supportive care Monitor closely Discharge home on Tuesday07/31/21: DC tomorrow (1) Closed lumbar vertebral fracture Status: Acute (2) Elevated parathyroid hormone (3) Radicular pain of thoracic region Status: Acute (4) Thoracic vertebral fracture Status: Acute (5) Hypercoagulable state (6) Osteoporosis (7) Lumbago with sciatica, left side Status: Acute Discharge Summary Discharge Physical Examination Allergies: Coded Allergies: No Known Drug Allergies (Unverified , 10/31/19) Vitals & I&Os Vital Signs Date Time Temp Pulse Resp B/P (MAP) Pulse Ox O2 Delivery O2 Flow Rate FiO2 08/01/21 11:35 36.8 71 20 151/67 100 Room Air General Appearance: Alert, Oriented X3, Cooperative Respiratory: Clear to Auscultation Cardiovascular: Regular Rate Neuro: Normal Gait, Normal Speech, Strength at 5/5 X4 Ext Psych/Mental Status: Mental Status NL Hospital Course Was the Problem List Reviewed?: Yes Lengthy hospital course after urgent kyphoplasty by Dr Hart after compression fracture left her incapacitated. IV steroids required along with Baclofen and Valium for severe pain which was ultimately effective. Benites DC. BM returned to normal. Ultram helpful for pain with Oxycodone for severe pain. Walker used for ambulation and PT OT deemed her ready for DC. HH arranged. Elevated PTH noted so she may be a candidate for Forteo but will discuss that as outpatient. Labs (last 24 hrs) Laboratory Tests 07/23/21 05:15: White Blood Count 8.8, Red Blood Count 5.04, Hemoglobin 12.8, Hematocrit 41, Mean Corpuscular Volume 82, Mean Corpuscular Hemoglobin 25, Mean Corpuscular Hemoglobin Concent 31L, Red Cell Distribution Width , Platelet Count 347, Mean Platelet Volume 9.6, Immature Granulocyte % (Auto) 1, Neutrophils (%) (Auto) 79H , Lymphocytes (%) (Auto) 12, Monocytes (%) (Auto) 9, Eosinophils (%) (Auto) 0, Basophils (%) (Auto) 0, Neutrophils # (Auto) 6.9, Lymphocytes # (Auto) 1.0, Monocytes # (Auto) 0.8, Eosinophils # (Auto) 0.0, Basophils # (Auto) 0.0, Immature Granulocyte # (Auto) 0.0, Sodium Level 138, Potassium Level 3.5L, Chlo ride Level 100, Carbon Dioxide Level 26, Anion Gap 12, Blood Urea Nitrogen 17, Creatinine 0.69, Estimat Glomerular Filtration Rate 88, BUN/Creatinine Ratio 25, Glucose Level 133H, Calcium Level 9.2, Corrected Calcium 9.4, Total Bilirubin 0.3, Aspartate Amino Transf (AST/SGOT) 22, Alanine Aminotransferase (ALT/SGPT) 17, Alkaline Phosphatase 232H, Total Protein 6.7, Albumin 3.8 07/27/21 07:16: White Blood Count 8.6, Red Blood Count 5.10, Hemoglobin 13.1, Hematocrit 42, Mean Corpuscular Volume 83, Mean Corpuscular Hemoglobin 26, Mean Corpuscular Hemoglobin Concent 31L, Red Cell Distribution Width , Platelet Count 387, Mean Platelet Volume 9.5, Immature Granulocyte % (Auto) 1, Neutrophils (%) (Auto) 64, Lymphocytes (%) (Auto) 24, Monocytes (%) (Auto) 9, Eosinophils (%) (Auto) 2, Basophils (%) (Auto) 0, Neutrophils # (Auto) 5.5, Lymphocytes # (Auto) 2.1, Monocytes # (Auto) 0.8, Eosinophils # (Auto) 0.2, Basophils # (Auto) 0.0, Courtney ture Granulocyte # (Auto) 0.1, Sodium Level 140, Potassium Level 3.4L, Chloride Level 102, Carbon Dioxide Level 27, Anion Gap 11, Blood Urea Nitrogen 15, Creatinine 0.71, Estimat Glomerular Filtration Rate 86, BUN/Creatinine Ratio 21, Glucose Level 118H, Calcium Level 8.9, Corrected Calcium 9.1, Total Bilirubin 0.3, Aspartate Amino Transf (AST/SGOT) 19, Alanine Aminotransferase (ALT/SGPT) 22, Alkaline Phosphatase 177H, Total Protein 6.6, Albumin 3.8 Pending Labs Laboratory Tests 07/23/21 05:15: White Blood Count 8.8, Red Blood Count 5.04, Hemoglobin 12.8, Hematocrit 41, Mean Corpuscular Volume 82, Mean Corpuscular Hemoglobin 25, Mean Corpuscular Hemoglobin Concent 31, Red Cell Distribution Width , Platelet Count 347, Mean Platelet Volume 9.6, Immature Granulocyte % (Auto) 1, Neutrophils (%) (Auto) 79, Lymphocytes (%) (Auto) 12, Monocytes (%) (Auto) 9, Eosinophils (%) (Auto) 0, Basophils (%) (Auto) 0, Neutrophils # (Auto) 6.9, Lymphocytes # (Auto) 1.0, Monocytes # (Auto) 0.8, Eosinophils # (Auto) 0.0, Basophils # (Auto) 0.0, Immatu re Granulocyte # (Auto) 0.0, Sodium Level 138, Potassium Level 3.5, Chloride Level 100, Carbon Dioxide Level 26, Anion Gap 12, Blood Urea Nitrogen 17, Creatinine 0.69, Estimat Glomerular Filtration Rate 88, BUN/Creatinine Ratio 25, Glucose Level 133, Calcium Level 9.2, Corrected Calcium 9.4, Total Bilirubin 0.3, Aspartate Amino Transf (AST/SGOT) 22, Alanine Aminotransferase (ALT/SGPT) 17, Alkaline Phosphatase 232, Total Protein 6.7, Albumin 3.8 07/27/21 07:16: White Blood Count 8.6, Red Blood Count 5.10, Hemoglobin 13.1, Hematocrit 42, Mean Corpuscular Volume 83, Mean Corpuscular Hemoglobin 26, Mean Corpuscular Hemoglobin Concent 31, Red Cell Distribution Width , Platelet Count 387, Mean Platelet Volume 9.5, Immature Granulocyte % (Auto) 1, Neutrophils (%) (Auto) 64, Lymphocytes (%) (Auto) 24, Monocytes (%) (Auto) 9, Eosinophils (%) (Auto) 2, Basophils (%) (Auto) 0, Neutrophils # (Auto) 5.5, Lymphocytes # (Auto) 2.1, Monocytes # (Auto) 0.8, Eosinophils # (Auto) 0.2, Basophils # (Auto) 0.0, Immature Granulocyte # (Auto) 0.1, Sodium Level 140, Potassium Level 3.4, Chloride Level 102, Carbon Dioxide Level 27, Anion Gap 11, Blood Urea Nitrogen 15, Creatinine 0.71, Estimat Glomerular Filtration Rate 86, BUN/Creatinine Ratio 21, Glucose Level 118, Calcium Level 8.9, Corrected Calcium 9.1, Total Bilirubin 0.3, Aspartate Amino Transf (AST/SGOT) 19, Alanine Aminotransferase (ALT/SGPT) 22, Alkaline Phosphatase 177, Total Protein 6.6, Albumin 3.8 Discharge Home Medications: Active Scripts Active Ondansetron Odt (Ondansetron) 4 Mg Tab.rapdis 4 Mg PO Q6H PRN Senna Lax (Sennosides) 8.6 Mg Tablet 8.6 Mg PO BID Docusate Sodium 100 Mg Capsule 100 Mg PO BID Diazepam 5 Mg Tablet 5 Mg PO TID PRN Tramadol HCl 50 Mg Tablet 50 Mg PO Q4HR PRN Oxyir Tablet (Oxycodone HCl) 5 Mg Tab 5 Mg PO Q4HR PRN Diclofenac Sodium 100 Gm Gel..gram. 0 Gm TOP QID Baclofen 10 Mg Tablet 5-10 Mg PO TID Reported Premarin (Estrogens Conjugated) 30 Gm Cr 1 Gm VG MON,WED,FRI Potassium Chloride 10 Meq Tab.er.prt 10 Meq PO DAILY Tylenol Extra Strength (Acetaminophen) 500 Mg Tablet 1,000 Mg PO BID PRN TAKES 2 (500MG) TAB Lisinopril 5 Mg Tablet 5 Mg PO BID Levothyroxine Sodium 75 Mcg Tablet 75 Mcg PO DAILY Trelegy Ellipta 100-62.5-25 (Fluticasone/Umeclidin/Vilanter) 1 Each Blst.w.dev 1 Each IH DAILY Toprol Xl (Metoprolol Succinate) 50 Mg Tab.er.24h 50 Mg PO DAILY Furosemide 40 Mg Tablet 40 Mg PO HS Norvasc (Amlodipine Besylate) 2.5 Mg Tablet 2.5 Mg PO HS Pramipexole Dihydrochloride (Pramipexole Di-HCl) 0.125 Mg Tablet 0.125 Mg PO BID Trazodone HCl 50 Mg Tablet 50 Mg PO HS Duloxetine HCl 60 Mg Capsule.dr 60 Mg PO DAILY Rosuvastatin Calcium 5 Mg Tablet 5 Mg PO MON,WED,TUE Myrbetriq (Mirabegron) 25 Mg Tab.er.24h 50 Mg PO HS TAKES 2 (25MG) TABS Travatan Z (Travoprost) 5 Ml Drops 1 Drop OU HS Alendronate Sodium 70 Mg Tablet FRI Proair Hfa (Albuterol Sulfate) 1 Puff Puff 1 Puff PO Q8H PRN Pantoprazole Sodium 40 Mg Tablet.dr 40 Mg PO BID Xarelto (Rivaroxaban) 10 Mg Tablet 10 Mg PO HS Montelukast Sodium 10 Mg Tablet 10 Mg PO DAILY Instructions to patient/family Please see electronic discharge instructions given to patient. Diagnosis/Problems Diagnosis/Problems (1) Closed lumbar vertebral fracture Status: Acute (2) Elevated parathyroid hormone (3) Radicular pain of thoracic region Status: Acute (4) Thoracic vertebral fracture Status: Acute (5) Hypercoagulable state (6) Osteoporosis (7) Lumbago with sciatica, left side Status: Acute Clinical Quality Measures DVT/VTE Risk/Contraindication: Contraindications-Pharm: Other *list below* Other: spine surgery no OAC/Lovenox until 07/24/21 DANIA COOK DO Aug 01, 2021 05:41
[2021-08-01] MEDS: KCL 10 MEQ TAB (MICRO K) PO SCH (06:26)
[2021-08-01] MEDS: LEVOTHYROXINE 75 MCG (LEVOTHROID) TABLET PO SCH (06:26)
[2021-08-01 07:05] VITALS: BP 151/67
[2021-08-01] MEDS: amLODIPine 2.5MG (NORVASC) TAB PO SCH (07:18)
[2021-08-01] MEDS: FUROSEMIDE 40 MG (LASIX) TAB PO SCH (07:18)
[2021-08-01] MEDS: MONTELUKAST 10 MG (SINGULAIR) TAB PO SCH (07:18)
[2021-08-01] MEDS: meTOproloL SUCCINATE 50 MG (TOPROL XL) TAB PO SCH (07:19)
[2021-08-01] MEDS: BACLOFEN 10 MG (LIORESAL) TAB PO SCH (07:19)
[2021-08-01] MEDS: PANTOPRAZOLE 40 MG (PROTONIX) TAB PO SCH (07:20)
[2021-08-01] MEDS: PRAMIPEXOLE 0.125 MG (MIRAPEX) TABLET PO SCH (07:20)
[2021-08-01] MEDS: ESTROGENS CONJ 0.625 MG (PREMARIN) TAB PO SCH (07:20)
[2021-08-01] MEDS: DULoxetine 30 MG (CYMBALTA) CAP PO SCH (07:20)
[2021-08-01] MEDS: DICLOFENAC 1% GEL 100 GM (VOLTAREN) TUBE TOP SCH (07:21)
[2021-08-01] MEDS: TRELEGY ELLIPTA INHALER IH SCH (09:14)
[2021-08-01 11:35] VITALS: BP 151/67
[2021-08-01] MEDS: SENNOSIDES 8.6 MG (SENOKOT) TAB PO SCH (11:38)
[2021-08-01] MEDS: DOCUSATE SODIUM 100 MG (COLACE) CAP PO SCH (11:38)
[2021-08-01] MEDS: polyethylene glycoL POWDER 17 GM (MIRALAX) PACK PO SCH (11:38)
--- NOTE | 2021-08-03 09:13 | Therapy Team Discharge Summary ---
Therapy Discharge Summary Discharge Recommendations Date of Discharge Aug 01, 2021 at 11:35 Physical Therapy Pt completes QC scoring items listed above. Pt is made Ad bulmaro in room. Good Progress Pt's activity tolerance and mobility have greatly improved. Transfers Roll Left & Right (QC): 6 Sit to Lying (QC): 6 Lying to Sitting/Side of Bed(Q: 6 Sit to Stand (QC): 6 Chair/Prh-mt-Kzkcn Xfer(QC): 6 Toilet Transfer (QC): 6 Car Transfer (QC): 6 Gait Training Does the Patient Walk?: Yes Distance: 150' x2 Walk 10 feet (QC): 6 Walk 50 ft with 2 Turns(QC): 6 Walk 150 ft (QC): 6 Walking 10ft/uneven surface-QC: 6 Gait Persons Needed: 0 Gait Assistive Device: FWW Wheelchair Training Does the Pt Use a Wheelchair?: No Stair Training Stair Training: Handrails/: 2 handrails #of Steps: 8 1 Step (curb) (QC): 6 4 Steps (QC): 6 12 Steps (QC): 7 Stairs: Pattern: Step to Balance Picking up an Object (QC): 6 Special Test Comments Used flat machine cutter and will have one at home. Occupational Therapy Impaired Self-Care Skills PT Correction Goals Skid Machine Operator Goals PT Skid Machine Operator Goals Time Frame: Aug 13, 2021 Roll Left to Right (QC): 4 Sit to Lying (QC): 4 Lying-Sitting on Side/Bed(QC): 4 Sit to Stand (QC): 5 Chair/Red-hd-Zkoog Xfer(QC): 5 Car Transfer (QC): 5 Does the Patient Walk: Yes Walk 10 feet (QC): 5 Walk 10ft-Uneven Surface(QC): 4 Walk 50ft with 2 Turns (QC): 5 Walk 150 ft (QC): 5 Wheel 50 feet with 2 turns (QC: 9 1 Step (curb) (QC): 4 4 Steps (QC): 4 12 Steps (QC): 88 Picking up an Object (QC): 5 OT Skid Machine Operator Goals Skid Machine Operator Goals Time Frame: Aug 08, 2021 Eating (QC): 6 Oral Hygiene (QC): 6 Shower/Bathe Self (QC): 5 Upper Body Dressing (QC): 6 Lower Body Dressing (QC): 6 On/Off Footwear (QC): 5 Toileting Hygiene (QC): 5 Toilet/Commode Transfer (QC): 5 1=Demonstrate adherence to instructed precautions during ADL tasks. 2=Patient will verbalize/demonstrate understanding of assistive devices/modifications for ADL. 3=Patient will improve strength/tolerance for activity to enable patient to perform ADL's. DOROTEO OLIVER PT Aug 03, 2021 09:13
--- NOTE | 2021-08-03 14:26 | Therapy Team Discharge Summary ---
Therapy Discharge Summary Discharge Recommendations Date of Discharge Aug 01, 2021 at 11:35 Occupational Therapy Pt admitted to ARU s/p kyphoplasty. At PLOF, pt was independent with I/ADLs and functional mobility. Upon initial evaluation, pt required set up assistance with eating, SBA oral care, min A showering, SBA upper body dressing, mod A lower body dressing, max A footwear and min A toileting. OT txs focused on increasing BUE strength and activity tolerance and increasing independence with ADLs and functional mobility. At discharge, pt was independent with all ADLs, meeting all LTGs. Pt discharged from facility, d/c from OT. Impaired Self-Care Skills PT Dynamometer Tuner Goals Custodial Goals PT Custodial Goals Time Frame: Aug 13, 2021 Roll Left to Right (QC): 4 Sit to Lying (QC): 4 Lying-Sitting on Side/Bed(QC): 4 Sit to Stand (QC): 5 Chair/Ros-pa-Csvkj Xfer(QC): 5 Car Transfer (QC): 5 Does the Patient Walk: Yes Walk 10 feet (QC): 5 Walk 10ft-Uneven Surface(QC): 4 Walk 50ft with 2 Turns (QC): 5 Walk 150 ft (QC): 5 Wheel 50 feet with 2 turns (QC: 9 1 Step (curb) (QC): 4 4 Steps (QC): 4 12 Steps (QC): 88 Picking up an Object (QC): 5 OT Dynamometer Tuner Goals Custodial Goals Time Frame: Aug 08, 2021 Eating (QC): 6 (met) Oral Hygiene (QC): 6 (met) Shower/Bathe Self (QC): 5 (met) Upper Body Dressing (QC): 6 (met) Lower Body Dressing (QC): 6 (met) On/Off Footwear (QC): 5 (met) Toileting Hygiene (QC): 5 (met) Toilet/Commode Transfer (QC): 5 (met) 1=Demonstrate adherence to instructed precautions during ADL tasks. 2=Patient will verbalize/demonstrate understanding of assistive devices/modifications for ADL. 3=Patient will improve strength/tolerance for activity to enable patient to perform ADL's. MOISES GATICA OT Aug 03, 2021 14:26
== END 2021-08-01 11:35 | disposition home health service (06) | DRG 559 ==
PROVIDERS: ADMIT Internal Medicine; ATTEND Internal Medicine
DX: M48.56XD Collapsed vertebra, not elsewhere classified, lumbar region, subsequent encounter for fracture with routine healing (principal); D67 Hereditary factor IX deficiency; M54.42 Lumbago with sciatica, left side; M62.830 Muscle spasm of back; R41.0 Disorientation, unspecified; E78.00 Pure hypercholesterolemia, unspecified; I10 Essential (primary) hypertension; K21.9 Gastro-esophageal reflux disease without esophagitis; E03.9 Hypothyroidism, unspecified; H54.7 Unspecified visual loss; F32.A Depression, unspecified; K59.00 Constipation, unspecified; R11.2 Nausea with vomiting, unspecified; Z86.718 Personal history of other venous thrombosis and embolism; T38.0X5D Adverse effect of glucocorticoids and synthetic analogues, subsequent encounter; T48.205D Adverse effect of unspecified drugs acting on muscles, subsequent encounter; T40.2X5A Adverse effect of other opioids, initial encounter
CPT/HCPCS: 36415; 80053; 85025; 94640; 94760